=== PATIENT | male | born 1940 | race Caucasian/White ===

== ENCOUNTER → 2016-08-14 | Outpatient (CLI) | payer OTHER ==
[2016-08-14 11:05] LABS: CH 30.7; HCT 42.6 % (39.0-53.0); HDW 2.44; HGB 14.5 gm/dL (13.0-17.5); MCH 30.8 pg (25.0-35.0); MCV 90.5 fL (80.0-100.0); Mean Platelet Volume 7.2; RDW 13.3 % (11.5-15.5); WBC 7.7 k/uL (3.8-10.6)
[2016-08-14 11:14] LABS: ALT 34 U/L (21-72); AST 22 U/L (17-59); Alkaline Phosphatase 74 U/L (38-126); Anion Gap 12 mmol/L; Blood Urea Nitrogen 17 mg/dL (9-20); Calcium 9.3 mg/dL (8.4-10.2); Carbon Dioxide 27 mmol/L (22-30); Chloride 103 mmol/L (98-107); Glucose 108 mg/dL (74-99); Non-African American GFR(MDRD) >60 (>60 ml/min/1.73 sqM); Potassium 4.9 mmol/L (3.5-5.1); Sodium 142 mmol/L (137-145); Total Bilirubin 0.6 mg/dL (0.2-1.3); Total Protein 7.1 g/dL (6.3-8.2)
[2016-08-14 11:39] LABS: Partial Thromboplastin Time 23.6 sec (22.0-30.0); Prothrombin Time 10.2 sec (9.0-12.0)
[2016-08-14 12:17] LABS: Appearance,Urine Clear (Clear); Bilirubin,Urine Negative (Negative); Glucose,Urine (UA) Negative (Negative); Ketones,Urine Negative (Negative); Leukocyte Esterase,Urine Negative (Negative); Nitrite,Urine Negative (Negative); PH, Urine 5.5 (5.0-8.0); Protein,Urine Negative (Negative); Specific Gravity,Urine 1.013 (1.001-1.035); UA Billing (MACRO vs. MICRO) CHEM; Urobilinogen,Urine <2.0 mg/dL (<2.0)
== END | disposition home or self-care (01) ==
LOC: LABPAT 09:58
PROVIDERS: ATTEND Orthopaedic Surgery Sports Medicine
DX: Z01.812 Encounter for preprocedural laboratory examination (principal)
CPT/HCPCS: 80053; 81003; 85027; 85610; 85730; 87070

== ENCOUNTER 2016-08-16 09:14 | Inpatient (IN) | payer OTHER ==
[2016-08-13 15:01] VITALS: BMI 32.3
[~2016-08-16 09:14] MED LIST: ACETAMINOPHEN TAB 500 MG TAB PO ONE; DEXAMETHASONE SOD PHOSPHATE 10 MG/ML 1 ML VIAL IV ONE; HYDROmorphone 1 MG/ML 1 ML SYRINGE IVP PRN; LACTATED RINGERS 1,000 ML IV SCH; MELOXICAM 7.5 MG TAB PO ONE; MIDAZOLAM 2 MG/2 ML VIAL IV PRN; ONDANSETRON 4 MG/2 ML VIAL IVP ONE; TRANEXAMIC ACID 1,000 MG in SODIUM CHLORIDE 0.9% 100 ML IVPB ONE; ceFAZolin 2 GM in SODIUM CHLORIDE 0.9% 100 ML IVPB ONE
[2016-08-16] MEDS ORDERED: LIDOCAINE 1% 20 ML VIAL (10MG/ML) FOR IV START INTRADERMA ONE (09:52)
[2016-08-16 10:00] LABS: Glucose,Whole Blood 156 mg/dL (75-99)
[2016-08-16] MEDS ORDERED: ROPIVACAINE 246.25 MG, EPINEPHrine 0.5 MG, KETOROLAC 30 MG, cloNIDine HCL/PF 80 MCG, WA... MISCELLANE ONE ×5 (10:02)
[2016-08-16] MEDS ORDERED: PROPOFOL 10 MG/ML 20 ML VIAL IV ONE (11:05)
[2016-08-16] MEDS ORDERED: fentaNYL (PF) 50 MCG/ML 2 ML AMP ONE (11:05)
[2016-08-16] MEDS ORDERED: MIDAZOLAM 2 MG/2 ML VIAL ONE (11:05)
[2016-08-16] MEDS ORDERED: MORPHINE SULFATE (PF) 0.3 MG/0.3 ML SYR ONE (11:05)
[2016-08-16] MEDS ORDERED: TRANEXAMIC ACID 1,000 MG/10 ML VIAL ONE (11:05)
[2016-08-16] MEDS ORDERED: SODIUM CHLORIDE 0.9% 100 ML BAG ONE (11:05)
[2016-08-16] MEDS ORDERED: LACTATED RINGERS 1,000 ML IV ONE (11:30)
[2016-08-16] MEDS ORDERED: ceFAZolin 3,000 MG in SODIUM CHLORIDE 0.9% IRRIGATIO 3,000 ML IRRIGATION ONE (11:51)
[2016-08-16] MEDS ORDERED: ACETAMINOPHEN TAB 325 MG TAB PO PRN (13:11)
[2016-08-16] MEDS ORDERED: hydrOXYzine PAMOATE 25 MG CAP PO PRN (13:11)
[2016-08-16] MEDS ORDERED: NALOXONE 0.4 MG/ML 1 ML VIAL IV PRN ×2 (13:11→15:22)
[2016-08-16] MEDS ORDERED: traMADol 50 MG TAB PO PRN (13:11)
[2016-08-16] MEDS ORDERED: HYDROmorphone 1 MG/ML 1 ML SYRINGE IVP PRN ×3 (13:11)
[2016-08-16] MEDS ORDERED: DIAZEPAM 5 MG TAB PO PRN (13:11)
[2016-08-16] MEDS ORDERED: MAGNESIUM HYDROXIDE 2,400 MG/10 ML CUP PO PRN (13:11)
[2016-08-16] MEDS ORDERED: TEMAZEPAM 15 MG CAP PO PRN (13:11)
[2016-08-16] MEDS ORDERED: ONDANSETRON 4 MG/2 ML VIAL IVP PRN (13:11)
[2016-08-16] MEDS ORDERED: BISACODYL 10 MG SUPP RECTAL PRN (13:11)
[2016-08-16] MEDS ORDERED: NA PHOS,M-B/NA PHOS,DI-BA 133 ML ENEMA RECTAL PRN (13:11)
[2016-08-16] MEDS ORDERED: HYDROcodone/APAP 7.5-325MG 1 EACH TAB PO PRN ×2 (13:11)
[2016-08-16 13:40] LABS: Glucose,Whole Blood 179 mg/dL (75-99)
--- NOTE | 2016-08-16 13:46 | XR ---
EXAMINATION TYPE: XR knee limited RT DATE OF EXAM: 08/16/2016 1:43 PM COMPARISON: NONE TECHNIQUE: Two views submitted HISTORY: Post op FINDINGS: There is a prosthetic knee in near anatomic alignment. There is soft tissue edema and emphysema. Va scular calcifications noted. IMPRESSION: 1. Postoperative change. Appears in near-anatomic alignment
[2016-08-16] MEDS ORDERED: NALBUPHINE 10 MG/ML AMPUL IV PRN (15:22)
[2016-08-16] MEDS ORDERED: diphenhydrAMINE 50 MG/ML 1 ML VIAL IVP PRN (15:22)
[2016-08-16] MEDS ORDERED: MORPHINE SULFATE 4 MG/ML SYRINGE IVP PRN (15:22)
[2016-08-16] MEDS ORDERED: METOCLOPRAMIDE 5 MG/ML 2 ML VIAL IVP PRN (15:22)
[2016-08-16] MEDS: LACTATED RINGERS 1,000 ML IV SCH (16:26)
[2016-08-16 17:00] LABS: Glucose,Whole Blood 253 mg/dL (75-99)
[2016-08-16] MEDS ORDERED: INSULN ASP PRT/INSULIN ASPART 100 UNIT/ML 10 ML VIAL SQ SCH (18:15)
[2016-08-16] MEDS: INSULIN LISPRO (humaLOG) 300 UNIT/3 ML VIAL SQ SCH ×2 (18:24→21:27)
[2016-08-16] MEDS: METOPROLOL TARTRATE 50 MG TAB PO SCH (19:45)
[2016-08-16] MEDS: metFORMIN 500 MG TAB PO SCH (19:45)
[2016-08-16] MEDS: ceFAZolin 2 GM in SODIUM CHLORIDE 0.9% 100 ML IVPB SCH (20:30)
[2016-08-16] MEDS: ASPIRIN 325 MG TAB PO SCH (20:48)
[2016-08-16] MEDS ORDERED: SENNOSIDES-DOCUSATE SODIUM 1 EACH TAB PO SCH (21:00)
[2016-08-16 21:17] LABS: Glucose,Whole Blood 206 mg/dL (75-99)
--- NOTE | 2016-08-16 21:28 | OP ---
DATE OF SERVICE: 08/16/2016 SURGEON: SHIV MOJICA MD DISPATCH SPECIALIST: Dewey Lang PA-C. PREOPERATIVE DIAGNOSIS: Right knee osteoarthrosis. POSTOPERATIVE DIAGNOSIS: Right knee osteoarthrosis. OPERATION: Right total knee arthroplasty. ANESTHESIA: Spinal with sedation. ESTIMATED BLOOD LOSS: 100 mL. SPECIMENS REMOVED: COMPLICATIONS: OPERATIVE FINDINGS: TOURNIQUET TIME: 53 minutes at 250 mmHg. DRAINS: None. DISPOSITION: Postanesthesia care unit. INDICATIONS: Mario is a 75-year-old male with a long-standing history of right knee pain. History and physical examination are consistent with advanced right knee osteoarthrosis. He has been through significant nonoperative management up to this point. Further treatment options were discussed and he has decided go forward with right total knee arthroplasty. The risks of the procedure were discussed with him in detail. These risks include, but are not limited to risk of infection, nerve damage, bleeding, pain and a small risk of deep vein thrombosis, which could lead to fatal pulmonary embolism. There is also a risk of loosening of the implant, which could require revision operation. The patient understands these risks. All of his questions were answered to his satisfaction. An appropriate informed consent was obtained. DESCRIPTION OF PROCEDURE: The patient was identified in the preoperative holding area. Surgical site was marked by both the patient and myself. He was given 2 g of Ancef IV for prophylactic purposes. He was then transferred to the operative suite, where he was placed supine on the operating room table. A spinal anesthetic was then administered and dosed per the anesthesia department without apparent complication. Examination under anesthesia was then performed. Patient was 2 to 3 degrees shy of full extension. He had 100 degrees of flexion and medial collateral ligament, lateral collateral ligament and posterior cruciate ligament were stable. Tourniquet was then placed high on the right upper thigh, well padded in preparation for surgery. Patient's right lower extremity was then prepped and draped in the usual sterile fashion. Standard surgical pause was then undertaken to ensure that we were operating on the correct site and that appropriate preoperative antibiotics had been given. All staff in the room was in agreement and we proceeded. The outlines of the patella were then marked with a surgical pen. A planned 12 cm vertical incision centered over the patella was marked with a surgical pen. The leg was then exsanguinated with an Esmarch dressing. The knee was then flexed and the tourniquet was inflated to 250 mmHg. The total tourniquet time for the procedure was 53 minutes. Incision was then made with 10 blade scalpel. Dissection was carried down sharply to the overlying fascia. Great care was taken to minimize the skin flaps. The knee was then exposed using standard medial parapatellar approach. A small cuff of quadriceps tendon was left for suturing. He was in a bit of varus preoperatively. A standard medial release was then made. Superficial medial collateral ligament was dissected off the bone around to the posterior aspect of the proximal tibia. The medial meniscus was then excised as well. The lateral meniscus was also released anteriorly. The leg was then externally rotated. The patella was then everted and the knee was flexed. The retractors were then placed to protect the collateral ligaments. I then proceeded to remove the infrapatellar fat pad. This was excised sharply tangentially with the fibers of the patellar tendon. I then proceeded to remove the peripheral osteophytes. This was done with a rongeur. I then proceeded with the distal femoral resection. He did have near full extension. A planned 9 mm resection was then done. The femoral canal was then entered in midline to the femur approximately 10 mm anterior to the origin of the posterior cruciate ligament. The mauricio was then advanced down the center of the femur and placed intramedullary. Based on preoperative radiographs, the angle between the anatomic and mechanical axis of the femur was approximately 4 to 5 degrees. The valgus angle of the distal femoral cutting guide was then set at 4 degrees for the right knee. The distal femoral cutting guide was then advanced over the intramedullary amuricio. This was seated firmly against the femur. I then, as mentioned, planned to take 9 mm off of the distal femur. The cutting block was then secured onto the femur with pins. The jig was then removed and the distal femoral cut was made through the slot of the block. The pins were then removed and the distal femoral cutting block was removed. The accuracy of the distal femoral cuts was checked with 2 flat bars. I then proceeded with femoral sizing. The posterior referencing sizing guide was held firmly against the resected distal surface of the femur. Posterior condyles were resting on the posterior plane of the guide. The sizing stylus was then placed onto the anterior femur. The size was measured as a size 10. I then assessed for femoral rotation. The plan was for 3 degrees of external rotation. Three degrees of external rotation was placed onto the jig. These holes were then marked. I then confirmed the rotation by 3 separate methods. This was done using the epicondylar axis as well as Whitesides line and posterior referencing. It was deemed that the external rotation was proper. I then went forward with placing the femoral cutting block. This was placed over the previously placed pinholes. The alok wing was then placed onto the anterior slots to ensure that we would not notch the anterior femur with the anterior femoral cut. I then proceeded with the anterior femoral cut. This was flush with the anterior cortex of the femur. Posterior cuts were then made followed by the anterior chamfer cut and then the posterior chamfer cut. The cutting block was then removed. Throughout the resection, the collateral ligaments were protected with retractors. I then placed a trial size 10 femur. It was slightly wide medial to lateral and fit flush with the distal end of the femur. I decided to go forward with a 10 narrow. The drill holes were then made. I then proceeded with the tibial cut. I planned for a cruciate-retaining knee. A guide was then placed and set for varus, valgus and for slope. The height was set for an approximately 2 mm resection from the medial tibial plateau, which was the lower side. I was happy with the alignment and the amount of resection. The cutting block was then pinned to the proximal tibia. The alignment mauricio was removed and the proximal tibia was resected with the reciprocating saw. Again this was done with retractors, protecting the collateral ligaments as well as the posterior cruciate ligament. I then proceeded to evaluate the flexion and extension gaps. A 10 mm block was then placed. The flexion and extension gaps were equal. I then proceeded with resection of the posterior osteophytes. He had very minimal posterior osteophytes. This was done using a curved osteotome. This resected the posterior osteophytes and posterior capsule stripping was also done off the posterior aspect of the femur at this time. The osteophytes were then removed. I then proceeded with resection of the patella. Thickness of the patella was measured using the caliper. The thickness was 22 mm. The thickness of the anticipated patellar dome was taken into account. Resection was then performed and confirmed to be equal in 4 quadrants using a caliper. Approximately 14 mm of bone remained after the resection. A 32 x 8.5 mm standard patellar trial was then placed. The holes were then drilled and trial was then placed. I then proceeded with sizing of the tibial plate. A size E tibial plate fit very nicely. I then placed a trial femur, the tibial tray and the patellar button. A 10 mm trial tibial insert was also placed. The components fit very nicely. He had full extension and flexion. Extension and flexion gaps were equal and stable to both varus and valgus stress. The patella tracked appropriately. The tibial tray rotation was then marked with a Bovie. This was externally rotated properly. I then proceeded with tibial preparation. I first drilled the femoral holes and removed the femoral component. The tibial tray was then set for proper external rotation as well as mediolateral placement onto the tibia. It was then pinned into place. I then proceeded with punching the keel. I then decided to proceed with cementing of all of our components. The knee was thoroughly irrigated with sterile saline solution via pulse lavage. The lateral geniculate artery was identified and cauterized. All blood was removed from the bone of the tibia, femur and patella with pulse lavage. I then proceeded with cementing. Two packs of antibiotic bone cement were prepared on the back table by a gear technician. I then proceeded with cementing of the tibia first. The cement was impacted into the keel as well as deeply seated into bone. A second coat of cement was then placed. The tibia was then impacted into place. Excess cement was removed with Cushings and jokers. I then proceeded with cementing the femoral component. The femoral component was also cemented using standard technique. Excess cement was removed. A 10 mm trial insert was then placed into the knee. It was brought in full extension with a constant axial load placed until the cement had hardened. The patellar component was then cemented. This was held firmly with a compressive device until the cement had dried. When the cement had dried, the knee was taken out of extension. All excess cement was removed from around the prosthesis. I then trialed the knee with a 10-mm insert. Flexion-extension gaps were appropriate. I then trialed with an 11 mm insert. Flexion-extension gaps felt a little better. The knee was stable. It came into full extension. I decided to go forward with an 11 mm cross-linked cruciate-retaining tibial insert. Polyethylene was then placed onto the tibial tray and locked into place. The knee was then reduced. The knee was again further irrigated with sterile saline solution with antibiotic added. The tourniquet was then deflated. The total tourniquet time for the procedure was 53 minutes at 250 mmHg. Final components were a Lona Persona size 10 narrow cruciate-retaining femoral component, a size E tibial tray, an 11 mm cruciate retaining polyethylene insert and a 32 x 8.5 mm patella. I then proceeded with closure. Again, the knee was thoroughly irrigated. The quadriceps tendon and the medial retinaculum were re-approximated with #2 Ethibond suture. The extensor mechanism was then closed with running #2 Quill suture. Subcutaneous tissues were then closed with 2-0 Vicryl interrupted suture. Skin was closed with a running 3-0 Quill suture. Dermabond was applied to the incision. Sterile compressive dressings were then applied. All sponge and needle counts were deemed correct prior to closure. The patient tolerated the procedure without apparent complication. He was transferred to recovery room in stable condition.
[2016-08-17] MEDS: ceFAZolin 2 GM in SODIUM CHLORIDE 0.9% 100 ML IVPB SCH (04:06)
[2016-08-17] MEDS: LACTATED RINGERS 1,000 ML IV SCH ×2 (04:07→13:37)
[2016-08-17 07:05] LABS: Glucose,Whole Blood 121 mg/dL (75-99)
[2016-08-17 07:42] LABS: Basophils % (A) 0 %; CH 30.3; CHCM 33.1; Eosinophils % (A) 0 %; HDW 2.31; Luc # (Auto) 0.17; Luc % (Auto) 1; Lymphocytes # (A) 1.1 k/uL (1.0-4.8); Lymphocytes % (A) 7 %; MCH 30.9 pg (25.0-35.0); MCHC 33.5 g/dL (31.0-37.0); MCV 92.1 fL (80.0-100.0); Mean Platelet Volume 7.3; Monocytes # (A) 0.9 k/uL (0-1.0); Monocytes % (A) 6 %; Neutrophils # (A) 12.3 k/uL (1.3-7.7); Neutrophils % (A) 85 %; RBC 3.69 m/uL (4.30-5.90); RDW 13.5 % (11.5-15.5); WBC 14.5 k/uL (3.8-10.6); WBC (Perox) 13.66
[2016-08-17] MEDS: ASPIRIN 325 MG TAB PO SCH (07:44)
[2016-08-17] MEDS: METOPROLOL TARTRATE 50 MG TAB PO SCH (07:44)
[2016-08-17] MEDS: metFORMIN 500 MG TAB PO SCH (07:44)
[2016-08-17 07:50] LABS: HGB 11.4 gm/dL (13.0-17.5)
[2016-08-17 08:45] LABS: Hemoglobin A1C 7.1 % (4.2-6.1)
[2016-08-17] MEDS ORDERED: ATORVASTATIN 80 MG TAB PO SCH (09:00)
[2016-08-17] MEDS ORDERED: INSULN ASP PRT/INSULIN ASPART 100 UNIT/ML 10 ML VIAL SQ SCH (09:00)
[2016-08-17] MEDS: INSULIN LISPRO (humaLOG) 300 UNIT/3 ML VIAL SQ SCH ×2 (09:44→13:37)
--- NOTE | 2016-08-17 10:55 | P.PN ---
Progress Note - Text Date:08/17 Time:720 Patient is status post tkr. Patient seen this morning with VAS score of 0.no c/ o mild pruritus, no c/o nausea/vomiting, comfortable and doing well.
[2016-08-17 11:44] LABS: Glucose,Whole Blood 94 mg/dL (75-99)
[2016-08-17] MEDS ORDERED: MULTIVITAMINS, THERA 1 EACH TAB PO SCH (12:00)
[2016-08-17 14:21] VITALS: BP 139/75; PULSE 83; RESP 16; TEMP 97.6
--- NOTE | 2016-08-17 14:37 | P.DS ---
Providers Date of admission: 08/16/16 09:14 Expected date of discharge: 08/17/16 Attending physician: Grey Gallagher Consults: 08/16/16 13:11 Consult Physician Routine Consulting Provider: Rebecca Hull Consult Reason/Comments: post op medical management Do you want consulting provider notified?: Yes Primary care physician: Tessa Page - Discharge Diagnosis(es) (1) S/P total knee arthroplasty Patient is 75-year-old male that was admitted to the OR on 08/16/2016 to undergo right total knee arthroplasty. He had failed conservative measures as an outpatient and desired to proceed with surgical intervention after informed consent. He underwent the above procedure which he tolerated well without complication. His postoperative hospital course has remained without complication. On day of discharge, he is afebrile, vital signs stable, labs within acceptable ranges, wound is benign, neurovascular status is intact, calf is soft nontender, abdomen soft nontender. Dyllan denies new complaints. His pain is under control, tolerating by mouth meds and diet, voiding without difficulty, positive flatus. Review of systems is negative for fever, chills, chest pain, shortness breath, nausea, vomiting, dizziness, headaches, rashes, bleeding, unsteady gait, headaches, slurred speech, calf pain, abdominal pain, numbness, tingling or other. Current Visit: Yes Status: Acute Procedures: Right total knee arthroplasty Patient Condition at Discharge: Good Plan - Discharge Summary New Discharge Prescriptions: Aspirin 325 mg PO BID #60 tab HYDROcodone/APAP 7.5-325MG [[place] 7.5-325] 1 - 2 each PO Q6HR PRN #90 tab PRN Reason: Pain Discharge Medication List Aspirin [Adult Low Dose Aspirin EC] 81 mg PO DAILY 08/13/16 [History] Atorvastatin [Lipitor] 80 mg PO QAM 08/13/16 [History] Insuln Asp Prt/Insulin Aspart [NovoLOG MIX 70-30 VIAL] 30 unit SQ QAM 08/13/16 [ History] Insuln Asp Prt/Insulin Aspart [NovoLOG MIX 70-30 VIAL] 40 unit SQ AC-SUPPER [History] Lisinopril [Zestril] 20 mg PO W/SUPPER 08/13/16 [History] Metoprolol Tartrate [Lopressor] 100 mg PO BID 08/13/16 [History] metFORMIN HCL 1,000 mg PO BID 08/13/16 [History] Aspirin 325 mg PO BID #60 tab 08/17/16 [Rx] HYDROcodone/APAP 7.5-325MG [[place] 7.5-325] 1 - 2 each PO Q6HR PRN #90 tab [Rx] Follow up Appointment(s)/Referral(s): Grey Gallagher MD [STAFF PHYSICIAN] - 08/29/16 10:00 am Patient Instructions/Handouts: Knee Replacement (DC) Activity/Diet/Wound Care/Special Instructions: Weight-bear as tolerated Keep wound clean and dry Follow-up with Dr. Gallagher in office, [phone] May shower in 72 hours Take meds as directed Discharge Disposition: HOME WITH HOME HEALTH SERVICES
[2016-08-17] MEDS ORDERED: LISINOPRIL 20 MG TAB PO SCH (17:30)
--- NOTE | 2016-08-18 08:47 | CONS ---
DATE OF CONSULTATION: REASON FOR CONSULTATION: Recommendations regarding discharge antihypertensive medications and diabetic medications. The patient is admitted for right knee arthroplasty. Postoperatively, patient passed gas and patient is clinically doing well. Patient denied any fever, chills. Patient does not have any signs or symptoms of ( ) at this point of time, although does have leukocytosis secondary to reactive response from surgery. Patient's blood pressure remains stable at this point of time. Patient takes lisinopril mostly as protective agent. REVIEW OF SYSTEMS: CONSTITUTIONAL: No fever, no malaise, no fatigue. HEENT: No recent visual problems or hearing problems. Denied any sore throat. CARDIOVASCULAR: No chest pain, orthopnea, PND, no palpitations, no syncope. PULMONARY: No shortness of breath, no cough, no hemoptysis. GASTROINTESTINAL: No diarrhea, no nausea, no vomiting, no abdominal pain. Normoactive bowel sounds. NEUROLOGICAL: No headaches, no weakness, no numbness. HEMATOLOGICAL: Denies any bleeding or petechiae. GENITOURINARY: Denies any burning micturition, frequency, or urgency. MUSCULOSKELETAL/RHEUMATOLOGICAL: Deferred to Orthopedic Surgery. ENDOCRINE: Denies any polyuria or polydipsia. The rest of the 14 point review of systems is negative. HOME MEDICATIONS: Aspirin, atorvastatin, hydrocodone acetaminophen, NovoLog 70/30 30 units in the morning and 40 units at supper. Lisinopril 20 mg, metoprolol 100 p.o. b.i.d., metformin 1000 mg p.o. b.i.d. Patient's hemoglobin A1c is 7.1, PAST MEDICAL HISTORY: Significant for diabetes mellitus, hyperlipidemia, hypertension, osteoarthritis, peripheral vascular disease, appendectomy, tonsillectomy. SOCIAL HISTORY: Former smoker. Quit smoking years ago, 40 to 50 years ago. Denied any alcohol abuse or any drug abuse. FAMILY HISTORY: Significant for cancer. PHYSICAL EXAMINATION: VITAL SIGNS: Temperature 97.6, pulse of 33, respiratory rate of 16, blood pressure 139/75, saturating at 95% on room air. GENERAL: The patient is alert and oriented x3, not in any acute distress. Well developed, well nourished. HEENT: Pupils are round and equally reacting to light. EOMI. No scleral icterus. No conjunctival pallor. Normocephalic, atraumatic. No pharyngeal erythema. No thyromegaly. CARDIOVASCULAR: S1 and S2 present. No murmurs, rubs, or gallops. PULMONARY: Chest is clear to auscultation, no wheezing or crackles. ABDOMEN: Soft, nontender, nondistended, normoactive bowel sounds. No palpable organomegaly. MUSCULOSKELETAL: Defer to Orthopedic Surgery. EXTREMITIES: No cyanosis, clubbing, or pedal edema. NEUROLOGICAL: Gross neurological examination did not reveal any focal deficits. SKIN: No rashes. LABORATORY DATA: Significant for WBC 14,900. ASSESSMENT AND PLAN: 1. Leukocytosis without any significant source of infection. Reactive response related to surgery and no further intervention needed at this point of time. 2. Diabetes mellitus. Hemoglobin A1c is 7.1 close to target. No significant medication changes necessary at this point of time as patient's blood sugars are doing well. 3. Hypertension. Patient can continue his home medications of metoprolol and lisinopril at this point of time. 4. Obesity. Counseling was provided. 5. Osteoarthritis. 6. Hyperlipidemia. PLAN: From medical perspective no further intervention is necessary at this point of time. Patient okay to be discharged from my perspective. Patient will need to follow with his primary care physician in about a week post discharge. Activity as tolerated. Cardiac and diabetic 1800 calorie diet. Thank you for letting me participate in this patient's care.
== END 2016-08-17 15:50 | disposition home health service (06) | DRG 470 ==
LOC: 2ORMAIN 09:14 → 3SUR 14:08
PROVIDERS: ADMIT Orthopaedic Surgery Sports Medicine; ATTEND Orthopaedic Surgery Sports Medicine
PROC: 0SRC0J9 Replacement of Right Knee Joint with Synthetic Substitute, Cemented, Open Approach (ICD-10-PCS; principal; 2016-08-16 11:00)
DX: M17.11 Unilateral primary osteoarthritis, right knee (principal); E10.51 Type 1 diabetes mellitus with diabetic peripheral angiopathy without gangrene; E66.9 Obesity, unspecified; E78.5 Hyperlipidemia, unspecified; I10 Essential (primary) hypertension; Z79.84 Long term (current) use of oral hypoglycemic drugs; Z79.899 Other long term (current) drug therapy; Z87.891 Personal history of nicotine dependence; Z88.8 Allergy status to other drugs, medicaments and biological substances; Z68.32 Body mass index [BMI] 32.0-32.9, adult
CPT/HCPCS: 83036; 85025; 88300; 94760

== ENCOUNTER → 2017-11-22 | Outpatient (CLI) | payer OTHER | END | disposition home or self-care (01) | LOC: LABYALE 18:02 → EDSTATUS 18:07 | PROVIDERS: ATTEND Physician Assistant Medical | DX: E87.5 Hyperkalemia (principal) | CPT/HCPCS: 84132 ==

== ENCOUNTER 2018-05-31 19:42 | Emergency (ER) | payer MEDICARE, OTHER ==
--- NOTE | 2018-05-31 20:58 | ED ---
General Adult HPI - General Chief complaint: Urogenital Stated complaint: Male Time Seen by Provider: 05/31/18 20:09 Source: patient, family, RN notes reviewed Mode of arrival: ambulatory Limitations: no limitations - History of Present Illness Initial comments: This a 77-year-old male with a benign history for GI problems who presents tonight with complaints of rectal bleeding is started earlier today. He states was bright red blood he denies any abdominal pain he states he did have a large quantity blood however. He does say he's had a colonoscopy about 10 years ago and has had several Hemoccult testing which were all negative he [facility] also [facility] and found to be in good [facility]. He denies any lightheadedness dizziness fevers chills nausea vomiting sweats or other symptoms. - Related Data Home Medications Medication Instructions Recorded Confirmed Atorvastatin [Lipitor] 80 mg PO QAM 08/13/16 05/31/18 Insuln Asp Prt/Insulin Aspart 30 unit SQ QAM 08/13/16 05/31/18 [NovoLOG MIX 70-30 VIAL] Insuln Asp Prt/Insulin Aspart 40 unit SQ AC-SUPPER 08/13/16 05/31/18 [NovoLOG MIX 70-30 VIAL] Lisinopril [Zestril] 20 mg PO W/SUPPER 08/13/16 05/31/18 Metoprolol Tartrate [Lopressor] 100 mg PO DAILY 08/13/16 05/31/18 metFORMIN HCL 1,000 mg PO BID 08/13/16 05/31/18 Previous Rx's Medication Instructions Recorded Aspirin 325 mg PO BID #60 tab 08/17/16 Pantoprazole Sodium [Protonix] 20 mg PO DAILY #14 tablet. 05/31/18 Allergies Allergy/AdvReac Type Severity Reaction Status Date / Time No Known Allergies Allergy Verified 05/31/18 21:38 Review of Systems ROS Statement: Those systems with pertinent positive or pertinent negative responses have been documented in the HPI. ROS Other: All systems not noted in ROS Statement are negative. Past Medical History Past Medical History: Diabetes Mellitus, Hyperlipidemia, Hypertension, Osteoarthritis (OA), Pneumonia, Vascular Disorder Additional Past Medical History / Comment(s): hiatal hernia, poor circulation in legs(left worse) History of Any Multi-Drug Resistant Organisms: None Reported Past Surgical History: Appendectomy, Tonsillectomy Additional Past Surgical History / Comment(s): pilonidal cyst, rt leg surgery for blockage, laser eye surgery, cortisone injections rt knee Past Anesthesia/Blood Transfusion Reactions: No Reported Reaction Past Psychological History: No Psychological Hx Reported Smoking Status: Former smoker Past Alcohol Use History: None Reported Past Drug Use History: None Reported - Past Family History Father Family Medical History: Cancer General Exam - General Exam Comments Initial Comments: This is a well-developed well-nourished awake alert oriented times 3 male Limitations: no limitations General appearance: alert, in no apparent distress Head exam: Present: atraumatic, normocephalic, normal inspection Eye exam: Present: normal appearance, PERRL, EOMI. Absent: scleral icterus, conjunctival injection, periorbital swelling ENT exam: Present: normal exam, mucous membranes moist Neck exam: Present: normal inspection. Absent: tenderness, meningismus, lymphadenopathy Respiratory exam: Present: normal lung sounds bilaterally. Absent: respiratory distress, wheezes, rales, rhonchi, stridor Cardiovascular Exam: Present: regular rate, normal rhythm, normal heart sounds. Absent: systolic murmur, diastolic murmur, rubs, gallop, clicks GI/Abdominal exam: Present: soft, normal bowel sounds. Absent: distended, tenderness, guarding, rebound, rigid Extremities exam: Present: normal inspection, full ROM, normal capillary refill. Absent: tenderness, pedal edema, joint swelling, calf tenderness Back exam: Present: normal inspection Neurological exam: Present: alert, oriented X3, CN II-XII intact Psychiatric exam: Present: normal affect, normal mood Skin exam: Present: warm, dry, intact, normal color. Absent: rash Course Vital Signs 05/31/18 05/31/18 20:01 21:31 Temperature 98.6 F Pulse Rate 95 64 Respiratory 20 18 Rate Blood Pressure 140/76 125/80 O2 Sat by Pulse 96 95 Oximetry Medical Decision Making - Medical Decision Making I did a long discussion with the patient regarding the findings as well as present. Visual be discharged with referral to GI. He is hemodynamically stable has no symptoms. His hemoglobin is within normal limits. - Lab Data Result diagrams: 05/31/18 21:30 05/31/18 21:30 Lab Results 05/31/18 05/31/18 05/31/18 Range/Units 21:30 21:30 21:30 WBC 9.2 (3.8-10.6) k/uL RBC 4.48 (4.30-5.90) m/uL Hgb 13.5 (13.0-17.5) gm/dL Hct 41.7 (39.0-53.0) % MCV 93.1 (80.0-100.0) fL MCH 30.2 (25.0-35.0) pg MCHC 32.5 (31.0-37.0) g/dL RDW 13.7 (11.5-15.5) % Plt Count 218 (150-450) k/uL Neutrophils % 67 % Lymphocytes % 22 % Monocytes % 5 % Eosinophils % 4 % Basophils % 1 % Neutrophils # 6.2 (1.3-7.7) k/uL Lymphocytes # 2.0 (1.0-4.8) k/uL Monocytes # 0.5 (0-1.0) k/uL Eosinophils # 0.4 (0-0.7) k/uL Basophils # 0.1 (0-0.2) k/uL PT 9.8 (9.0-12.0) sec INR 0.9 (<1.2) APTT 19.1 L (22.0-30.0) sec Sodium 138 (137-145) mmol/L Potassium 5.4 H (3.5-5.1) mmol/L Chloride 107 (98-107) mmol/L Carbon Dioxide 20 L (22-30) mmol/L Anion Gap 11 mmol/L BUN 26 H (9-20) mg/dL Creatinine 1.02 (0.66-1.25) mg/dL Est GFR (CKD-EPI)AfAm 82 (>60 ml/min/1.73 sqM) Est GFR (CKD-EPI)NonAf 71 (>60 ml/min/1.73 sqM) Glucose 203 H (74-99) mg/dL Calcium 9.2 (8.4-10.2) mg/dL Total Bilirubin 0.3 (0.2-1.3) mg/dL AST 20 (17-59) U/L ALT 33 (21-72) U/L Alkaline Phosphatase 78 (38-126) U/L Total Protein 7.0 (6.3-8.2) g/dL Albumin 4.2 (3.5-5.0) g/dL Stool Occult Blood (Negative) 05/31/18 Range/Units 21:30 WBC (3.8-10.6) k/uL RBC (4.30-5.90) m/uL Hgb (13.0-17.5) gm/dL Hct (39.0-53.0) % MCV (80.0-100.0) fL MCH (25.0-35.0) pg MCHC (31.0-37.0) g/dL RDW (11.5-15.5) % Plt Count (150-450) k/uL Neutrophils % % Lymphocytes % % Monocytes % % Eosinophils % % Basophils % % Neutrophils # (1.3-7.7) k/uL Lymphocytes # (1.0-4.8) k/uL Monocytes # (0-1.0) k/uL Eosinophils # (0-0.7) k/uL Basophils # (0-0.2) k/uL PT (9.0-12.0) sec INR (<1.2) APTT (22.0-30.0) sec Sodium (137-145) mmol/L Potassium (3.5-5.1) mmol/L Chloride (98-107) mmol/L Carbon Dioxide (22-30) mmol/L Anion Gap mmol/L BUN (9-20) mg/dL Creatinine (0.66-1.25) mg/dL Est GFR (CKD-EPI)AfAm (>60 ml/min/1.73 sqM) Est GFR (CKD-EPI)NonAf (>60 ml/min/1.73 sqM) Glucose (74-99) mg/dL Calcium (8.4-10.2) mg/dL Total Bilirubin (0.2-1.3) mg/dL AST (17-59) U/L ALT (21-72) U/L Alkaline Phosphatase (38-126) U/L Total Protein (6.3-8.2) g/dL Albumin (3.5-5.0) g/dL Stool Occult Blood Positive (Negative) - Radiology Data Radiology results: report reviewed (I did review the imaging and report no acute findings.), image reviewed Disposition Clinical Impression: GI bleed, Heme positive stool Disposition: HOME SELF-CARE Condition: Good Instructions (If sedation given, give patient instructions): Gastrointestinal Bleeding (ED), Rectal Bleeding (ED) Prescriptions: Pantoprazole Sodium [Protonix] 20 mg PO DAILY #14 tablet.dr Is patient prescribed a controlled substance at d/c from ED?: No Referrals: [facility],Clinic [Primary Care Provider] - 1-2 days Mau Hernandez MD [STAFF PHYSICIAN] - 1-2 days
[2018-05-31 21:34] VITALS: RESP 18
[2018-05-31 21:46] LABS: Basophils # (A) 0.1 k/uL (0-0.2); Basophils % (A) 1 %; Eosinophils # (A) 0.4 k/uL (0-0.7); Eosinophils % (A) 4 %; HCT 41.7 % (39.0-53.0); HGB 13.5 gm/dL (13.0-17.5); Lymphocytes % (A) 22 %; MCH 30.2 pg (25.0-35.0); MCHC 32.5 g/dL (31.0-37.0); MCV 93.1 fL (80.0-100.0); Mean Platelet Volume 7.3; Monocytes # (A) 0.5 k/uL (0-1.0); Monocytes % (A) 5 %; Neutrophils # (A) 6.2 k/uL (1.3-7.7); Neutrophils % (A) 67 %; Platelet Count 218 k/uL (150-450); RBC 4.48 m/uL (4.30-5.90); RDW 13.7 % (11.5-15.5); WBC 9.2 k/uL (3.8-10.6)
--- NOTE | 2018-05-31 21:56 | XR ---
EXAMINATION TYPE: XR KUB DATE OF EXAM: 05/31/2018 COMPARISON: NONE HISTORY: Abdominal pain TECHNIQUE: 2 views upright FINDINGS: There is no sign of intestinal obstruction or pneumoperitoneum. Fecal pattern is normal. Audrey ng bases are clear. There are no pathologic calcifications. There are surgical clips on the left side along the left femoral artery. IMPRESSION: Nonacute abdomen.
[2018-05-31 22:08] LABS: Albumin 4.2 g/dL (3.5-5.0); Calcium 9.2 mg/dL (8.4-10.2); Potassium 5.4 mmol/L (3.5-5.1); Total Bilirubin 0.3 mg/dL (0.2-1.3)
[2018-05-31 22:09] LABS: INR 0.9 (<1.2); Prothrombin Time 9.8 sec (9.0-12.0)
[2018-05-31 22:12] LABS: Partial Thromboplastin Time 19.1 sec (22.0-30.0)
[2018-05-31 22:45] VITALS: BP 126/81; PULSE 85; TEMP 98.2
== END 2018-05-31 22:43 | disposition home or self-care (01) ==
LOC: EC 19:42
DX: K92.2 Gastrointestinal hemorrhage, unspecified (principal); R19.5 Other fecal abnormalities; E11.9 Type 2 diabetes mellitus without complications; E78.5 Hyperlipidemia, unspecified; I10 Essential (primary) hypertension; Z79.4 Long term (current) use of insulin; Z79.899 Other long term (current) drug therapy; Z87.891 Personal history of nicotine dependence
CPT/HCPCS: 36415; 74018; 80053; 82272; 85025; 85610; 85730; 86850; 86900; 86901; 99283

== ENCOUNTER → 2018-08-18 | Day surgery (SDC) | payer MEDICARE, OTHER ==
[2018-08-14 08:31] VITALS: BMI 32.3
[~2018-08-18] MED LIST changes: -ACETAMINOPHEN TAB 500 MG TAB PO ONE; -DEXAMETHASONE SOD PHOSPHATE 10 MG/ML 1 ML VIAL IV ONE; -HYDROmorphone 1 MG/ML 1 ML SYRINGE IVP PRN; +LIDOCAINE 1% 20 ML VIAL (10MG/ML) FOR IV START INTRADERMA ONE; -MELOXICAM 7.5 MG TAB PO ONE; -MIDAZOLAM 2 MG/2 ML VIAL IV PRN; -ONDANSETRON 4 MG/2 ML VIAL IVP ONE; +PROPOFOL 10 MG/ML 20 ML VIAL IV ONE; -TRANEXAMIC ACID 1,000 MG in SODIUM CHLORIDE 0.9% 100 ML IVPB ONE; -ceFAZolin 2 GM in SODIUM CHLORIDE 0.9% 100 ML IVPB ONE
[2018-08-18 08:06] LABS: Glucose,Whole Blood 143 mg/dL (75-99)
--- NOTE | 2018-08-18 09:44 | P.PCN ---
Date of Procedure: 08/18/18 Description of Procedure: BRIEF HISTORY: 77-year-old male who was seen in the hospital with complaints of abdominal pain and followed up in the gastroenterology clinic. He reports a colonoscopy 10 years ago with polypectomy. He has been undergoing some screening with colon guard. He denies any abdominal pain accompanied with the bleeding. He reports a family history of colon cancer in his father. PROCEDURE PERFORMED: Colonoscopy with biopsy, cold snare polypectomy and tattoo. PREOPERATIVE DIAGNOSIS: Rectal bleeding, history of colon polyps with last colonoscopy 10 years ago, family history of colon cancer. ESTIMATED BLOOD LOSS: Minimal. IV sedation per Anesthesia. PROCEDURE: After informed consent was obtained, the patient, was brought into the endoscopy unit. IV sedation was administered by Anesthesia under continuous monitoring. Digital rectal examination was normal. Initially the Olympus CF-190 flexible video colonoscope was then inserted in the rectum, gradually advanced into the cecum without any difficulty. The terminal ileum was intubated and biopsies were taken. Careful examination was performed as the scope was gradually being withdrawn. Ileocecal valve was significant for an flat mass encompassing approximately 20% of the lumen just proximal to the ileocecal valve with biopsies of the cecal mass and tattoo placement just distal to the cecal mass performed, and the appendiceal orifice were visualized and appeared normal. Prep was excellent. Mucosa of the cecum, ascending colon, transverse colon, descending colon, sigmoid colon, and rectum appeared otherwise normal. A pedunculated 9 mm cecal polyp was removed with cold snare polypectomy. Retroflexion was performed in the rectum and no lesions were seen. The patient tolerated the procedure well. IMPRESSION: 1. Cecal mass measuring approximately 3 cm with biopsies taken and tattoo proximal to the mass performed. 2. Cecal polyp removed with cold snare. 3. Terminal ileum biopsies. 4. Mild internal hemorrhoids. RECOMMENDATIONS: Findings of this examination were discussed with the patient and his friend. Okay to resume diet. Patient will likely need referral to oncology or surgical service pending pathology from biopsies. Repeat colonoscopy based on findings f rom pathology.
[2018-08-18 09:47] LABS: Glucose,Whole Blood 132 mg/dL (75-99)
[2018-08-18 09:52] VITALS: BP 127/72; PULSE 63; RESP 17
== END | disposition home or self-care (01) ==
LOC: ORWHC2ENDO 07:27
PROVIDERS: ATTEND Internal Medicine
DX: C18.0 Malignant neoplasm of cecum (principal); Z80.0 Family history of malignant neoplasm of digestive organs; Z86.010 Personal history of colon polyps; K64.8 Other hemorrhoids; I10 Essential (primary) hypertension; E78.5 Hyperlipidemia, unspecified; E11.9 Type 2 diabetes mellitus without complications; Z79.4 Long term (current) use of insulin; Z79.899 Other long term (current) drug therapy
CPT/HCPCS: 88305; 45380; 45385; J2704; 44404

== ENCOUNTER 2018-10-12 19:23 | Observation (INO) | payer OTHER, MEDICARE ==
[2018-10-12] MEDS ORDERED: SODIUM CHLORIDE 0.9% 1,000 ML IV STA (20:03)
[2018-10-12 20:04] LABS: Basophils % (A) 0 %; Eosinophils # (A) 0.1 k/uL (0-0.7); Eosinophils % (A) 1 %; HCT 31.5 % (39.0-53.0); Lymphocytes # (A) 1.6 k/uL (1.0-4.8); Lymphocytes % (A) 13 %; MCH 29.1 pg (25.0-35.0); MCHC 31.9 g/dL (31.0-37.0); MCV 91.2 fL (80.0-100.0); Monocytes # (A) 0.6 k/uL (0-1.0); Monocytes % (A) 5 %; Neutrophils # (A) 10.1 k/uL (1.3-7.7); Neutrophils % (A) 80 %; Platelet Count 488 k/uL (150-450); RBC 3.45 m/uL (4.30-5.90); RDW 13.8 % (11.5-15.5); WBC 12.7 k/uL (3.8-10.6)
--- NOTE | 2018-10-12 20:06 | ED ---
General Adult HPI - General Chief complaint: Weakness Stated complaint: Weakness Rt arm numbness Time Seen by Provider: 10/12/18 19:34 Source: patient Mode of arrival: EMS Limitations: no limitations - History of Present Illness Initial comments: Dictation was produced using [employer] dictation software. please excuse any grammatical, word or spelling errors. Chief Complaint: 77-year-old male presents with weakness. History of Present Illness: 77-year-old male he is 1 week out from intestinal surgery. Patient reports that several weeks ago he was in the operating room for a bowel surgery. Patient was found to have colon cancer. He had a resection was performed with anastomoses. He was discharged. After several da ys he had episode of syncope. He was found to have a perforation. Ostomy procedure was performed. Patient is accompanied by family member. They do not know exactly the details of the procedure. They do report that the surgery was performed at [facility]. Patient has been feeling generally weak over the last 3-4 days. He has been having high volume of fluid output from his ostomy. He has been on Imodium to try to reduce the amount of fluid loss. Patient has been feeling weak and having difficulty standing up and performing his activities of daily living. The ROS documented in this emergency department record has been reviewed and confirmed by me. Those systems with pertinent positive or negative responses have been documented in the HPI. All other systems are other negative and/or noncontributory. PHYSICAL EXAM: General Impression: Alert and oriented x3, not in acute distress HEENT: Normocephalic atraumatic, extra-ocular movements intact, pupils equal and reactive to light bilaterally, dry mucous membranes. Cardiovascular: Heart regular rate and rhythm, S1&S2 audible, no murmurs, rubs or gallops Chest: Lungs clear to auscultation bilaterally, no rhonchi, no wheeze, no rales Abdomen: Bowel sounds present, abdomen soft, non-tender, non-distended, no or ganomegaly, ostomy site clean dry and intact. There is a large volume of fluid in the ostomy bag. Ostomy appears pink. Musculoskeletal: Pulses present and equal in all extremities, 2+ pitting edema to bilateral lower extremities Motor: no focal deficits noted Neurological: CN II-XII grossly intact, no focal motor or sensory deficits noted Skin: Intact with no visualized rashes Psych: Normal affect and mood ED course: 77-year-old male presents with generalized weakness. Signs upon arrival are within acceptable limits. Patient's history is complicated by perforation at the surgical site after colectomy for colon cancer was performed. Laboratory evaluation obtained. Patient is leukocytosis of 12.7. This is likely secondary to stress. She has no localizing symptoms of infection. Plat elet count 488. Metabolic panel shows glucose of 46, potassium 3.3, magnesium 1.7, rest of labs are unremarkable. Patient was given parenteral dextrose with improvement to the 80s. Patient has been continued to have watery output in his ostomy site. Given patient's high output from his ostomy his risk of dehydration as high. Patient has been having poor by mouth intake. He does appear dehydrated. We will admit the patient observation for glucose monitoring, IV hydration and Gen. surgery consultation. EKG interpretation: Ventricular rate 69, normal sinus rhythm, ME 174, care 72, QTC 480. No ME prolongation, no QTC prolongation, no ST or T-wave changes noted. Overall, this EKG is unremarkable - Related Data Home Medications Medication Instructions Recorded Confirmed Atorvastatin [Lipitor] 80 mg PO QAM 08/13/16 10/12/18 Insuln Asp Prt/Insulin Aspart 30 unit SQ QAM 08/13/16 10/12/18 [NovoLOG MIX 70-30 VIAL] Insuln Asp Prt/Insulin Aspart 40 unit SQ AC-SUPPER 08/13/16 10/12/18 [NovoLOG MIX 70-30 VIAL] Lisinopril [Zestril] 20 mg PO W/SUPPER 08/13/16 10/12/18 Metoprolol Tartrate [Lopressor] 100 mg PO DAILY 08/13/16 10/12/18 metFORMIN HCL 1,000 mg PO BID 08/13/16 10/12/18 Allergies Allergy/AdvReac Type Severity Reaction Status Date / Time No Known Allergies Allergy Verified 10/12/18 19:53 Review of Systems ROS Statement: Those systems with pertinent positive or pertinent negative responses have been documented in the HPI. ROS Other: All systems not noted in ROS Statement are negative. Past Medical History Past Medical History: Cancer, Diabetes Mellitus, Hyperlipidemia, Hypertension, Osteoarthritis (OA), Pneumonia, Vascular Disorder Additional Past Medical History / Comment(s): hx blood in stool, hx polyps, hiatal hernia, poor circulation in legs(left worse) History of Any Multi-Drug Resistant Organisms: None Reported Past Surgical History: Appendectomy, Bowel Resection, Joint Replacement, Tonsillectomy Additional Past Surgical History / Comment(s): Right leg replacement, pilonidal cyst, Left leg surgery for blockage, laser eye surgery, bowel resection with colostomy Past Anesthesia/Blood Transfusion Reactions: No Reported Reaction Past Psychological History: No Psychological Hx Reported Smoking Status: Never smoker Past Alcohol Use History: None Reported Past Drug Use History: None Reported - Past Family History Father Family Medical History: Cancer General Exam Limitations: no limitations Course Vital Signs 10/12/18 10/12/18 10/12/18 19:34 20:00 21:00 Temperature 98.0 F Pulse Rate 78 71 67 Respiratory 18 18 18 Rate Blood Pressure 157/74 138/76 135/66 O2 Sat by Pulse 97 99 99 Oximetry Medical Decision Making - Lab Data Result diagrams: 10/12/18 19:45 10/12/18 19:45 Lab Results 10/12/18 10/12/18 10/12/18 Range/Units 19:45 19:45 20:20 WBC 12.7 H (3.8-10.6) k/uL RBC 3.45 L (4.30-5.90) m/uL Hgb 10.0 L (13.0-17.5) gm/dL Hct 31.5 L (39.0-53.0) % MCV 91.2 (80.0-100.0) fL MCH 29.1 (25.0-35.0) pg MCHC 31.9 (31.0-37.0) g/dL RDW 13.8 (11.5-15.5) % Plt Count 488 H (150-450) k/uL Neutrophils % 80 % Lymphocytes % 13 % Monocytes % 5 % Eosinophils % 1 % Basophils % 0 % Neutrophils # 10.1 H (1.3-7.7) k/uL Lymphocytes # 1.6 (1.0-4.8) k/uL Monocytes # 0.6 (0-1.0) k/uL Eosinophils # 0.1 (0-0.7) k/uL Basophils # 0.0 (0-0.2) k/uL Sodium 139 (137-145) mmol/L Potassium 3.3 L (3.5-5.1) mmol/L Chloride 100 (98-107) mmol/L Carbon Dioxide 29 (22-30) mmol/L Anion Gap 10 mmol/L BUN 11 (9-20) mg/dL Creatinine 0.95 (0.66-1.25) mg/dL Est GFR (CKD-EPI)AfAm 89 (>60 ml/min/1.73 sqM) Est GFR (CKD-EPI)NonAf 77 (>60 ml/min/1.73 sqM) Glucose 46 L* (74-99) mg/dL POC Glucose (mg/dL) (75-99) mg/dL POC Glu Profiler ID Calcium 8.0 L (8.4-10.2) mg/dL Ionized Calcium Demetrius 4.6 (4.5-5.3) mg/dL Magnesium 1.7 (1.6-2.3) mg/dL Total Bilirubin 0.2 (0.2-1.3) mg/dL AST 24 (17-59) U/L ALT 14 L (21-72) U/L Alkaline Phosphatase 83 (38-126) U/L Total Protein 6.1 L (6.3-8.2) g/dL Albumin 3.1 L (3.5-5.0) g/dL 10/12/18 10/12/18 Range/Units 21:13 21:35 WBC (3.8-10.6) k/uL RBC (4.30-5.90) m/uL Hgb (13.0-17.5) gm/dL Hct (39.0-53.0) % MCV (80.0-100.0) fL MCH (25.0-35.0) pg MCHC (31.0-37.0) g/dL RDW (11.5-15.5) % Plt Count (150-450) k/uL Neutrophils % % Lymphocytes % % Monocytes % % Eosinophils % % Basophils % % Neutrophils # (1.3-7.7) k/uL Lymphocytes # (1.0-4.8) k/uL Monocytes # (0-1.0) k/uL Eosinophils # (0-0.7) k/uL Basophils # (0-0.2) k/uL Sodium (137-145) mmol/L Potassium (3.5-5.1) mmol/L Chloride (98-107) mmol/L Carbon Dioxide (22-30) mmol/L Anion Gap mmol/L BUN (9-20) mg/dL Creatinine (0.66-1.25) mg/dL Est GFR (CKD-EPI)AfAm (>60 ml/min/1.73 sqM) Est GFR (CKD-EPI)NonAf (>60 ml/min/1.73 sqM) Glucose (74-99) mg/dL POC Glucose (mg/dL) 42 L 80 (75-99) mg/dL POC Glu Profiler ID Faiza Lora Shelby Calcium (8.4-10.2) mg/dL Ionized Calcium Demetrius (4.5-5.3) mg/dL Magnesium (1.6-2.3) mg/dL Total Bilirubin (0.2-1.3) mg/dL AST (17-59) U/L ALT (21-72) U/L Alkaline Phosphatase (38-126) U/L Total Protein (6.3-8.2) g/dL Albumin (3.5-5.0) g/dL Disposition Clinical Impression: Dehydration, Hypoglycemia, Weakness Disposition: ADMITTED IP TO THIS HOSP Condition: Fair Referrals: [facility],Clinic [Primary Care Provider] - 1-2 days Decision Time: 22:01
[2018-10-12 20:12] LABS: Albumin 3.1 g/dL (3.5-5.0); Magnesium 1.7 mg/dL (1.6-2.3); Potassium 3.3 mmol/L (3.5-5.1); Total Bilirubin 0.2 mg/dL (0.2-1.3); Total Protein 6.1 g/dL (6.3-8.2)
[2018-10-12] MEDS ORDERED: MAGNESIUM SULFATE-D5W PMX 1 GM in DEXTROSE/WATER 1 100ML.BAG IVPB ONE (20:25)
[2018-10-12] MEDS ORDERED: WATER IV SCH (20:30)
[2018-10-12] MEDS ORDERED: SODIUM CHLORIDE IV SCH (20:30)
[2018-10-12] MEDS ORDERED: DEXTROSE IV SCH (20:30)
[2018-10-12] MEDS ORDERED: DEXTROSE 10% IN WATER 1,000 ML with SODIUM CHLORIDE 2.5MEQ/ML VIAL 153.8 MEQ IV SCH (20:45)
[2018-10-12] MEDS: POTASSIUM CHLORIDE 10 MEQ in WATER FOR INJECTION 1 100ML.BAG IVPB SCH ×3 (21:13→23:20)
[2018-10-12 21:14] LABS: Glucose,Whole Blood 42 mg/dL (75-99)
[2018-10-12] MEDS: DEXTROSE 10% IN WATER 1,000 ML with SODIUM CHLORIDE 2.5MEQ/ML VIAL 153.8 MEQ IV ONE ×2 (21:14→22:30)
--- NOTE | 2018-10-12 21:23 | XR ---
EXAMINATION TYPE: XR chest 1V portable DATE OF EXAM: 10/12/2018 COMPARISON: NONE HISTORY: Weakness. TECHNIQUE: Single AP portable frontal upright view of the chest is obtained. FINDINGS: Overlying EKG leads are seen. The lung volumes are present. There is no focal air space op acity, pleural effusion, or pneumothorax seen. The cardiac silhouette size is upper limits of normal . The osseous structures are intact. IMPRESSION: No acute cardiopulmonary process.
--- NOTE | 2018-10-12 21:25 | XR ---
EXAMINATION TYPE: XR abdomen 1V DATE OF EXAM: 10/12/2018 9:10 PM CLINICAL HISTORY: Weakness. History of surgery for bowel resection TECHNIQUE: Two supine KUB images of the abdomen are obtained. COMPARISON: Abdominal x-ray May 31, 2018. FINDINGS: There is paucity of bowel gas. Visualized gas is seen in nondistended bowel loops. Percutan eous drainage catheter overlies right upper pelvis. Surgical clips and vascular calcification left gr oin region is seen. New vertical krystyna overlying mid to lower abdomen into pelvis. Lung bases are c lear. IMPRESSION: Overall nonspecific bowel gas pattern.
[2018-10-12 21:36] LABS: Glucose,Whole Blood 80 mg/dL (75-99)
[2018-10-12] MEDS ORDERED: ONDANSETRON 4 MG/2 ML VIAL IVP PRN (21:57)
[2018-10-12] MEDS ORDERED: NALOXONE 0.4 MG/ML 1 ML VIAL IV PRN (21:57)
[2018-10-12] MEDS ORDERED: SODIUM CHLORIDE 0.9% 1,000 ML IV SCH (22:00)
[2018-10-12 22:37] LABS: Glucose,Whole Blood 49 mg/dL (75-99)
[2018-10-12 22:53] LABS: Glucose,Whole Blood 115 mg/dL (75-99)
[2018-10-12 23:26] LABS: Glucose,Whole Blood 68 mg/dL (75-99)
[2018-10-13 00:04] LABS: Glucose,Whole Blood 96 mg/dL (75-99)
[2018-10-13 00:58] LABS: Glucose,Whole Blood 135 mg/dL (75-99)
[2018-10-13] MEDS: POTASSIUM CHLORIDE 10 MEQ in WATER FOR INJECTION 1 100ML.BAG IVPB SCH (01:12)
[2018-10-13 01:58] LABS: Glucose,Whole Blood 152 mg/dL (75-99)
[2018-10-13 03:07] LABS: Glucose,Whole Blood 148 mg/dL (75-99)
[2018-10-13 04:07] LABS: Glucose,Whole Blood 97 mg/dL (75-99)
[2018-10-13 05:04] LABS: Glucose,Whole Blood 115 mg/dL (75-99)
[2018-10-13 06:14] LABS: Glucose,Whole Blood 181 mg/dL (75-99)
[2018-10-13 07:14] LABS: Glucose,Whole Blood 216 mg/dL (75-99)
[2018-10-13] MEDS: ATORVASTATIN 80 MG TAB PO SCH (08:28)
[2018-10-13 09:05] LABS: Glucose,Whole Blood 238 mg/dL (75-99)
[2018-10-13 09:15] LABS: HCT 30.8 % (39.0-53.0); HGB 10.1 gm/dL (13.0-17.5); Hypochromasia Slight; MCH 29.5 pg (25.0-35.0); MCHC 32.9 g/dL (31.0-37.0); MCV 89.8 fL (80.0-100.0); Mean Platelet Volume 7.4; Platelet Count 502 k/uL (150-450); RBC 3.43 m/uL (4.30-5.90); RDW 13.8 % (11.5-15.5)
[2018-10-13 10:47] LABS: Glucose,Whole Blood 224 mg/dL (75-99)
[2018-10-13 11:03] LABS: Calcium 8.1 mg/dL (8.4-10.2); Potassium 4.6 mmol/L (3.5-5.1); Total Bilirubin 0.3 mg/dL (0.2-1.3)
--- NOTE | 2018-10-13 11:26 | P.GSCN ---
History of Present Illness History of present illness: This is a 77-year-old male is very well known to my service. He was recently discharged [facility] 2 days ago. 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 He progressed well on his hospital stay at that time and was discharged home in 1 week later 11 days postop presented with abdominal pain was found to have anastomotic leak. He was taken for surgery and underwent revision of the anastomosis with diverting loop ileostomy. He is healing well from the surgery and discharged home with his son Remi. He was having watery output from his ileostomy and this was being treated with Imodium. He then presented to the emergency department with hypoglycemia. At this time he is denying any abdominal pain. He is having output from his ostomy and is tolerating a diet. He states he's feeling much better. Past Medical History Past Medical History: Cancer, Diabetes Mellitus, Hyperlipidemia, Hypertension, Osteoarthritis (OA), Pneumonia, Vascular Disorder Additional Past Medical History / Comment(s): hx blood in stool, hx polyps, hiatal hernia, poor circulation in legs(left worse) History of Any Multi-Drug Resistant Organisms: None Reported Past Surgical History: Appendectomy, Bowel Resection, Joint Replacement, Tonsillectomy Additional Past Surgical History / Comment(s): Right leg replacement, pilonidal cyst, Left leg surgery for blockage, elisa laser eye surgery, bowel resection with colostomy. Past Anesthesia/Blood Transfusion Reactions: No Reported Reaction Past Psychological History: Anxiety Smoking Status: Never smoker Past Alcohol Use History: None Reported Additional Past Alcohol Use History / Comment(s): stopped smoking 40-50 yrs ago, smoked for 10 yrs- some day smoker Past Drug Use History: None Reported - Past Family History Father Family Medical History: Cancer Medications and Allergies Home Medications Medication Instructions Recorded Confirmed Type Atorvastatin [Lipitor] 80 mg PO QAM 08/13/16 10/12/18 History Insuln Asp Prt/Insulin Aspart 30 unit SQ QAM 08/13/16 10/12/18 History [NovoLOG MIX 70-30 VIAL] Insuln Asp Prt/Insulin Aspart 40 unit SQ AC-SUPPER 08/13/16 10/12/18 History [NovoLOG MIX 70-30 VIAL] Lisinopril [Zestril] 20 mg PO W/SUPPER 08/13/16 10/12/18 History Metoprolol Tartrate [Lopressor] 100 mg PO DAILY 08/13/16 10/12/18 History metFORMIN HCL 1,000 mg PO BID 08/13/16 10/12/18 History Allergies Allergy/AdvReac Type Severity Reaction Status Date / Time No Known Allergies Allergy Verified 10/12/18 19:53 Surgical - Exam Osteopathic Statement: *. No significant issues noted on an osteopathic struc tural exam other than those noted in the History and Physical/Consult. Vital Signs Temp Pulse Resp BP Pulse Ox 98.0 F 78 18 157/74 97 10/12/18 19:34 10/12/18 19:34 10/12/18 19:34 10/12/18 19:34 10/12/18 19:34 - General well developed, well nourished, no distress - Neck trachea midline - Respiratory normal expansion, normal respiratory effort - Cardiovascular Rhythm: regular - Abdomen lloop ileostomy is pink patent with liquid stool in bag. Midline incision clean dry and intact Abdomen: soft, non tender - Neurologic normal coordination, normal sensation - Psychiatric oriented to time, oriented to person, oriented to place Results - Labs 10/13/18 08:28 10/13/18 08:28 Abnormal Lab Results - Last 24 Hours (Table) 10/12/18 10/12/18 10/12/18 Range/Units 19:45 19:45 21:13 WBC 12.7 H (3.8-10.6) k/uL RBC 3.45 L (4.30-5.90) m/uL Hgb 10.0 L (13.0-17.5) gm/dL Hct 31.5 L (39.0-53.0) % Plt Count 488 H (150-450) k/uL Neutrophils # 10.1 H (1.3-7.7) k/uL Sodium (137-145) mmol/L Potassium 3.3 L (3.5-5.1) mmol/L Glucose 46 L* (74-99) mg/dL POC Glucose (mg/dL) 42 L (75-99) mg/dL Calcium 8.0 L (8.4-10.2) mg/dL ALT 14 L (21-72) U/L Total Protein 6.1 L (6.3-8.2) g/dL Albumin 3.1 L (3.5-5.0) g/dL 10/12/18 10/12/18 10/12/18 Range/Units 22:23 22:52 23:23 WBC (3.8-10.6) k/uL RBC (4.30-5.90) m/uL Hgb (13.0-17.5) gm/dL Hct (39.0-53.0) % Plt Count (150-450) k/uL Neutrophils # (1.3-7.7) k/uL Sodium (137-145) mmol/L Potassium (3.5-5.1) mmol/L Glucose (74-99) mg/dL POC Glucose (mg/dL) 49 L 115 H 68 L (75-99) mg/dL Calcium (8.4-10.2) mg/dL ALT (21-72) U/L Total Protein (6.3-8.2) g/dL Albumin (3.5-5.0) g/dL 10/13/18 10/13/18 10/13/18 Range/Units 00:56 01:56 03:01 WBC (3.8-10.6) k/uL RBC (4.30-5.90) m/uL Hgb (13.0-17.5) gm/dL Hct (39.0-53.0) % Plt Count (150-450) k/uL Neutrophils # (1.3-7.7) k/uL Sodium (137-145) mmol/L Potassium (3.5-5.1) mmol/L Glucose (74-99) mg/dL POC Glucose (mg/dL) 135 H 152 H 148 H (75-99) mg/dL Calcium (8.4-10.2) mg/dL ALT (21-72) U/L Total Protein (6.3-8.2) g/dL Albumin (3.5-5.0) g/dL 10/13/18 10/13/18 10/13/18 Range/Units 05:01 06:07 07:04 WBC (3.8-10.6) k/uL RBC (4.30-5.90) m/uL Hgb (13.0-17.5) gm/dL Hct (39.0-53.0) % Plt Count (150-450) k/uL Neutrophils # (1.3-7.7) k/uL Sodium (137-145) mmol/L Potassium (3.5-5.1) mmol/L Glucose (74-99) mg/dL POC Glucose (mg/dL) 115 H 181 H 216 H (75-99) mg/dL Calcium (8.4-10.2) mg/dL ALT (21-72) U/L Total Protein (6.3-8.2) g/dL Albumin (3.5-5.0) g/dL 10/13/18 10/13/18 10/13/18 Range/Units 08:28 08:28 09:03 WBC 15.0 H (3.8-10.6) k/uL RBC 3.43 L (4.30-5.90) m/uL Hgb 10.1 L (13.0-17.5) gm/dL Hct 30.8 L (39.0-53.0) % Plt Count 502 H (150-450) k/uL Neutrophils # (1.3-7.7) k/uL Sodium 135 L (137-145) mmol/L Potassium (3.5-5.1) mmol/L Glucose 251 H (74-99) mg/dL POC Glucose (mg/dL) 238 H (75-99) mg/dL Calcium 8.1 L (8.4-10.2) mg/dL ALT 15 L (21-72) U/L Total Protein 6.0 L (6.3-8.2) g/dL Albumin 3.0 L (3.5-5.0) g/dL 10/13/18 Range/Units 10:44 WBC (3.8-10.6) k/uL RBC (4.30-5.90) m/uL Hgb (13.0-17.5) gm/dL Hct (39.0-53.0) % Plt Count (150-450) k/uL Neutrophils # (1.3-7.7) k/uL Sodium (137-145) mmol/L Potassium (3.5-5.1) mmol/L Glucose (74-99) mg/dL POC Glucose (mg/dL) 224 H (75-99) mg/dL Calcium (8.4-10.2) mg/dL ALT (21-72) U/L Total Protein (6.3-8.2) g/dL Albumin (3.5-5.0) g/dL Diabetes panel 10/12/18 10/13/18 Range/Units 19:45 08:28 Sodium 139 135 L (137-145) mmol/L Potassium 3.3 L 4.6 (3.5-5.1) mmol/L Chloride 100 98 (98-107) mmol/L Carbon Dioxide 29 26 (22-30) mmol/L BUN 11 12 (9-20) mg/dL Creatinine 0.95 0.96 (0.66-1.25) mg/dL Glucose 46 L* 251 H (74-99) mg/dL Calcium 8.0 L 8.1 L (8.4-10.2) mg/dL AST 24 21 (17-59) U/L ALT 14 L 15 L (21-72) U/L Alkaline Phosphatase 83 92 (38-126) U/L Total Protein 6.1 L 6.0 L (6.3-8.2) g/dL Albumin 3.1 L 3.0 L (3.5-5.0) g/dL Calcium panel 10/12/18 10/12/18 10/13/18 Range/Units 19:45 20:20 08:28 Calcium 8.0 L 8.1 L (8.4-10.2) mg/dL Ionized Calcium Demetrius 4.6 (4.5-5.3) mg/dL Albumin 3.1 L 3.0 L (3.5-5.0) g/dL Pituitary panel 10/12/18 10/13/18 Range/Units 19:45 08:28 Sodium 139 135 L (137-145) mmol/L Potassium 3.3 L 4.6 (3.5-5.1) mmol/L Chloride 100 98 (98-107) mmol/L Carbon Dioxide 29 26 (22-30) mmol/L BUN 11 12 (9-20) mg/dL Creatinine 0.95 0.96 (0.66-1.25) mg/dL Glucose 46 L* 251 H (74-99) mg/dL Calcium 8.0 L 8.1 L (8.4-10.2) mg/dL Adrenal panel 10/12/18 10/13/18 Range/Units 19:45 08:28 Sodium 139 135 L (137-145) mmol/L Potassium 3.3 L 4.6 (3.5-5.1) mmol/L Chloride 100 98 (98-107) mmol/L Carbon Dioxide 29 26 (22-30) mmol/L BUN 11 12 (9-20) mg/dL Creatinine 0.95 0.96 (0.66-1.25) mg/dL Glucose 46 L* 251 H (74-99) mg/dL Calcium 8.0 L 8.1 L (8.4-10.2) mg/dL Total Bilirubin 0.2 0.3 (0.2-1.3) mg/dL AST 24 21 (17-59) U/L ALT 14 L 15 L (21-72) U/L Alkaline Phosphatase 83 92 (38-126) U/L Total Protein 6.1 L 6.0 L (6.3-8.2) g/dL Albumin 3.1 L 3.0 L (3.5-5.0) g/dL
[2018-10-13] MEDS: IOPAMIDOL-300 CONTRAST 30 ML VIAL (ORAL USE) PO PRN ×2 (12:05→12:40)
[2018-10-13] MEDS: INSULIN ASPART (NovoLOG) 100 UNIT/ML VIAL SQ SCH ×3 (12:06→20:43)
[2018-10-13] MEDS ORDERED: LOPERAMIDE 2 MG CAP PO PRN ×2 (12:37→19:00)
--- NOTE | 2018-10-13 12:42 | P.HPIM ---
History of Present Illness 77-year-old pleasant gentleman came in with complaints of low blood sugars excessive drainage from the colostomy. Patient had a right hemicolectomy for cecal cancer and had a leak at the anastomotic site because of which patient und erwent revision of anastomosis with diverticular loop an ileostomy. Patient's creatinine is within normal lives patient denied any fever chills significant abdominal pain denied any nausea vomiting. Patient had 2 loose bowel movements today. Patient was started on Imodium. My suspicion for C. diff is extremely low. Patient tachycardia came in with blood sugars of around 40 patient is an 70/30 regimen and metformin so far he didn't receive any sliding scale insulin patient blood sugars are in 200s for his blood sugars 2, because of NPH and 70/30. Because of the low blood sugars patient will need to stay 1 more night so that we can dose his insulin. Patient does have leukocytosis which appears to be reactive, patient will undergo CAT scan of the abdomen with contrast as per surgery. Review of Systems REVIEW OF SYSTEMS: CONSTITUTIONAL: No fever, no malaise, no fatigue. HEENT: No recent visual problems or hearing problems. Denied any sore throat. CARDIOVASCULAR: No chest pain, orthopnea, PND, no palpitations, no syncope. PULMONARY: No shortness of breath, no cough, no hemoptysis. GASTROINTESTINAL: As mentioned in HPI NEUROLOGICAL: No headaches, no weakness, no numbness. HEMATOLOGICAL: Denies any bleeding or petechiae. GENITOURINARY: Denies any burning micturition, frequency, or urgency. MUSCULOSKELETAL/RHEUMATOLOGICAL: Denies any joint pain, swelling, or any muscle pain. ENDOCRINE: Denies any polyuria or polydipsia. The rest of the 14-point review of systems is negative. Past Medical History Past Medical History: Cancer, Diabetes Mellitus, Hyperlipidemia, Hypertension, Osteoarthritis (OA), Pneumonia, Vascular Disorder Additional Past Medical History / Comment(s): hx blood in stool, hx polyps, hiatal hernia, poor circulation in legs(left worse) History of Any Multi-Drug Resistant Organisms: None Reported Past Surgical History: Appendectomy, Bowel Resection, Joint Replacement, Tonsillectomy Additional Past Surgical History / Comment(s): Right leg replacement, pilonidal cyst, Left leg surgery for blockage, elisa laser eye surgery, bowel resection with colostomy. Past Anesthesia/Blood Transfusion Reactions: No Reported Reaction Past Psychological History: Anxiety Smoking Status: Never smoker Past Alcohol Use History: None Reported Additional Past Alcohol Use History / Comment(s): stopped smoking 40-50 yrs ago, smoked for 10 yrs- some day smoker Past Drug Use History: None Reported - Past Family History Father Family Medical History: Cancer Medications and Allergies Home Medications Medication Instructions Recorded Confirmed Type Atorvastatin [Lipitor] 80 mg PO QAM 08/13/16 10/12/18 History Insuln Asp Prt/Insulin Aspart 30 unit SQ QAM 08/13/16 10/12/18 History [NovoLOG MIX 70-30 VIAL] Insuln Asp Prt/Insulin Aspart 40 unit SQ AC-SUPPER 08/13/16 10/12/18 History [NovoLOG MIX 70-30 VIAL] Lisinopril [Zestril] 20 mg PO W/SUPPER 08/13/16 10/12/18 History Metoprolol Tartrate [Lopressor] 100 mg PO DAILY 08/13/16 10/12/18 History metFORMIN HCL 1,000 mg PO BID 08/13/16 10/12/18 History Allergies Allergy/AdvReac Type Severity Reaction Status Date / Time No Known Allergies Allergy Verified 10/12/18 19:53 Physical Exam Vitals: Vital Signs Temp Pulse Pulse Resp BP BP Pulse Ox 10/13/18 07:00 97.7 F 97 16 166/74 96 10/13/18 04:00 77 14 10/13/18 01:25 98.2 F 77 14 158/70 97 10/13/18 00:00 77 14 10/12/18 23:08 97.7 F 65 15 176/77 97 10/12/18 22:36 98.6 F 77 18 151/72 99 10/12/18 22:22 98.2 F 65 15 158/70 97 10/12/18 22:00 72 18 167/78 98 10/12/18 21:00 67 18 135/66 99 10/12/18 20:00 71 18 138/76 99 10/12/18 19:34 98.0 F 78 18 157/74 97 Intake and Output 10/12/18 10/13/18 10/13/18 22:59 06:59 14:59 Intake Total 650 118 Output Total 1300 1700 600 Balance -9255 -0420 -307 Intake: Intake, IV Titration 440 Amount Potassium Chloride 10 meq 200 In Water For Injection 1 100ml.bag @ 100 mls/hr IVPB Q1HR [facility] Rx#: [id number] Sodium Chloride 0.9% 1, 240 000 ml @ 20 mls/hr IV . Q24H [facility] Rx#:[id number] Oral 210 118 Output: Urine 300 300 Stool 1000 1400 600 Other: Voiding Method Urinal Urinal # Voids 1 1 # Bowel Movements 1 Weight 95.254 kg PHYSICAL EXAMINATION: GENERAL: The patient is alert and oriented x3, not in any acute distress. Well developed, well nourished. HEENT: Pupils are round and equally reacting to light. EOMI. No scleral icterus. No conjunctival pallor. Normocephalic, atraumatic. No pharyngeal erythema. No thyromegaly. CARDIOVASCULAR: S1 and S2 present. No murmurs, rubs, or gallops. PULMONARY: Chest is clear to auscultation, no wheezing or crackles. ABDOMEN: Soft, nontender, ileostomy bag in place no leakage MUSCULOSKELETAL: No joint swelling or deformity. EXTREMITIES: No cyanosis, clubbing, or pedal edema. NEUROLOGICAL: Gross neurological examination did not reveal any focal deficits. SKIN: No rashes. Results CBC & Chem 7: 10/13/18 08:28 10/13/18 08:28 Labs: Abnormal Lab Results - Last 24 Hours (Table) 10/12/18 10/12/18 10/12/18 Range/Units 19:45 19:45 21:13 WBC 12.7 H (3.8-10.6) k/uL RBC 3.45 L (4.30-5.90) m/uL Hgb 10.0 L (13.0-17.5) gm/dL Hct 31.5 L (39.0-53.0) % Plt Count 488 H (150-450) k/uL Neutrophils # 10.1 H (1.3-7.7) k/uL Sodium (137-145) mmol/L Potassium 3.3 L (3.5-5.1) mmol/L Glucose 46 L* (74-99) mg/dL POC Glucose (mg/dL) 42 L (75-99) mg/dL Calcium 8.0 L (8.4-10.2) mg/dL ALT 14 L (21-72) U/L Total Protein 6.1 L (6.3-8.2) g/dL Albumin 3.1 L (3.5-5.0) g/dL 10/12/18 10/12/18 10/12/18 Range/Units 22:23 22:52 23:23 WBC (3.8-10.6) k/uL RBC (4.30-5.90) m/uL Hgb (13.0-17.5) gm/dL Hct (39.0-53.0) % Plt Count (150-450) k/uL Neutrophils # (1.3-7.7) k/uL Sodium (137-145) mmol/L Potassium (3.5-5.1) mmol/L Glucose (74-99) mg/dL POC Glucose (mg/dL) 49 L 115 H 68 L (75-99) mg/dL Calcium (8.4-10.2) mg/dL ALT (21-72) U/L Total Protein (6.3-8.2) g/dL Albumin (3.5-5.0) g/dL 10/13/18 10/13/18 10/13/18 Range/Units 00:56 01:56 03:01 WBC (3.8-10.6) k/uL RBC (4.30-5.90) m/uL Hgb (13.0-17.5) gm/dL Hct (39.0-53.0) % Plt Count (150-450) k/uL Neutrophils # (1.3-7.7) k/uL Sodium (137-145) mmol/L Potassium (3.5-5.1) mmol/L Glucose (74-99) mg/dL POC Glucose (mg/dL) 135 H 152 H 148 H (75-99) mg/dL Calcium (8.4-10.2) mg/dL ALT (21-72) U/L Total Protein (6.3-8.2) g/dL Albumin (3.5-5.0) g/dL 10/13/18 10/13/18 10/13/18 Range/Units 05:01 06:07 07:04 WBC (3.8-10.6) k/uL RBC (4.30-5.90) m/uL Hgb (13.0-17.5) gm/dL Hct (39.0-53.0) % Plt Count (150-450) k/uL Neutrophils # (1.3-7.7) k/uL Sodium (137-145) mmol/L Potassium (3.5-5.1) mmol/L Glucose (74-99) mg/dL POC Glucose (mg/dL) 115 H 181 H 216 H (75-99) mg/dL Calcium (8.4-10.2) mg/dL ALT (21-72) U/L Total Protein (6.3-8.2) g/dL Albumin (3.5-5.0) g/dL 10/13/18 10/13/18 10/13/18 Range/Units 08:28 08:28 09:03 WBC 15.0 H (3.8-10.6) k/uL RBC 3.43 L (4.30-5.90) m/uL Hgb 10.1 L (13.0-17.5) gm/dL Hct 30.8 L (39.0-53.0) % Plt Count 502 H (150-450) k/uL Neutrophils # (1.3-7.7) k/uL Sodium 135 L (137-145) mmol/L Potassium (3.5-5.1) mmol/L Glucose 251 H (74-99) mg/dL POC Glucose (mg/dL) 238 H (75-99) mg/dL Calcium 8.1 L (8.4-10.2) mg/dL ALT 15 L (21-72) U/L Total Protein 6.0 L (6.3-8.2) g/dL Albumin 3.0 L (3.5-5.0) g/dL 10/13/18 Range/Units 10:44 WBC (3.8-10.6) k/uL RBC (4.30-5.90) m/uL Hgb (13.0-17.5) gm/dL Hct (39.0-53.0) % Plt Count (150-450) k/uL Neutrophils # (1.3-7.7) k/uL Sodium (137-145) mmol/L Potassium (3.5-5.1) mmol/L Glucose (74-99) mg/dL POC Glucose (mg/dL) 224 H (75-99) mg/dL Calcium (8.4-10.2) mg/dL ALT (21-72) U/L Total Protein (6.3-8.2) g/dL Albumin (3.5-5.0) g/dL Thrombosis Risk Factor Assmnt - Choose All That Apply Each Factor Represents 1 point: Swollen legs (current) Other Risk Factors: Yes Each Risk Factor Represents 3 Points: Age 75 years or older Thrombosis Risk Factor Assessment Total Risk Factor Score: 4 Thrombosis Risk Factor Assessment Level: Moderate Risk Assessment and Plan Plan: -Excess output from ileostomy: Which is not unexpected of patient will be started on Imodium symptomatically treatment suspicion for C. diff is low. We'll monitor him overnight IV fluids. -Leukocytosis reactive in nature CAT scan of the abdomen is being obtained to rule out any intra-abdominal process patient doesn't have any pneumonia and urinary tract infection -Hypokalemia potassium was supplemented -Severe hyperglycemia and depression will monitor his blood sugars sliding scale depending on requirements of insulin will decide on his home regimen -Hypertension lisinopril and metoprolol Due to prophylaxis as subcutaneous heparin
[2018-10-13] MEDS: METOPROLOL SUCCINATE (ER) 100 MG TAB.ER.24H PO SCH (13:47)
[2018-10-13] MEDS: SODIUM CHLORIDE 0.9% 1,000 ML IV SCH (13:49)
--- NOTE | 2018-10-13 13:58 | CT ---
EXAMINATION TYPE: CT abdomen pelvis w con DATE OF EXAM: 10/13/2018 COMPARISON: INDICATION: Post OP Colostomy 1 week. Generalized pain DLP: 1382.9 mGycm, Automated exposure control for dose reduction was used. CONTRAST: 100 mL of Isovue 300. Study performed with Oral Contrast TECHNIQUE: Axial images were obtained from above the diaphragm to the pubic rami in the axial plane a t 5 mm thick sections. Reconstructed images are reviewed on the computer in the coronal plane. FINDINGS: Limited CT sections are obtained the lung bases. The lung bases are clear. Reflux into the distal e sophagus within the [id number] is evident. CT ABDOMEN: Liver: Normal Spleen: Normal Pancreas: Normal Adrenal glands: The adrenal glands are normal. Gallbladder: Normal Kidneys: No masses are evident. No hydronephrosis is present. No cysts are present. Delayed images were obtained through the kidneys, which remain unremarkable. Aorta: Vascular calcification is within the aorta. Inferior vena cava: Normal. Mesentery: There is increased density within the right mesentery. Postsurgical changes are within the anterior abdomen. Small air-fluid level with a small fluid collection is present can be postsurgical in nature. CT PELVIS: Bowel anastomosis appears normal. Loops of bowel distended with oral contrast are normal. There are l oops of bowel with incomplete distention limiting their evaluation. Some thickening of the distal sma ll bowel loops in the right upper quadrant may be present. There are loops of bowel which are incompl etely distended or lack oral contrast limiting their evaluation. Appendix: Not identified Urinary bladder: Normal. Genitourinary structures: Prostate is prominent contains calcification Osseous structures: No suspicious lytic or sclerotic lesions. IMPRESSIONS: 1. There are inflammatory changes in the right midabdomen near the ostomy site. Findings could be re lated to postsurgical change. 2. Postsurgical changes within the anterior subcutaneous tissues at the incision site.
[2018-10-13] MEDS: HEPARIN SODIUM,PORCINE 5,000 UNIT/ML 1 ML VIAL SQ SCH (15:20)
[2018-10-13 16:41] LABS: Glucose,Whole Blood 161 mg/dL (75-99)
[2018-10-13] MEDS: LISINOPRIL 20 MG TAB PO SCH (18:02)
[2018-10-13 19:59] LABS: Glucose,Whole Blood 202 mg/dL (75-99)
[2018-10-13] MEDS: PIPERACILLIN-TAZOBACTAM 3.375 GM in SODIUM CHLORIDE 0.9% 100 ML IVPB SCH (20:44)
[2018-10-14] MEDS: SODIUM CHLORIDE 0.9% 1,000 ML IV SCH ×3 (00:03→19:28)
[2018-10-14] MEDS: HEPARIN SODIUM,PORCINE 5,000 UNIT/ML 1 ML VIAL SQ SCH ×3 (00:25→18:27)
[2018-10-14] MEDS: PIPERACILLIN-TAZOBACTAM 3.375 GM in SODIUM CHLORIDE 0.9% 100 ML IVPB SCH ×3 (04:17→21:24)
[2018-10-14 06:59] LABS: Glucose,Whole Blood 194 mg/dL (75-99)
[2018-10-14] MEDS: INSULIN ASPART (NovoLOG) 100 UNIT/ML VIAL SQ SCH ×4 (07:36→21:24)
[2018-10-14] MEDS: METOPROLOL SUCCINATE (ER) 100 MG TAB.ER.24H PO SCH (08:01)
[2018-10-14] MEDS: ATORVASTATIN 80 MG TAB PO SCH (08:01)
--- NOTE | 2018-10-14 09:51 | P.PN ---
Subjective Progress Note Date: 10/14/18 Patient is doing well this morning he is asking to go home. He did have a slight increase in leukocytosis yesterday. On the computed tomography scan yesterday there was a small fluid collection in the subcu underneath the wound. This was opened today bedside. Small amount of mostly cloudy serous drainage was drained. He is tolerating his diabetes having good output out of his ostomy. He has no complaints Objective - Vital Signs Vital signs: Vital Signs Temp 98.7 F 10/14/18 06:40 Pulse 90 10/14/18 06:40 Resp 20 10/14/18 06:40 BP 146/73 10/14/18 06:40 Pulse Ox 95 10/14/18 06:40 Intake & Output 10/13/18 10/14/18 10/14/18 18:59 06:59 18:59 Intake Total 378 300 Output Total 1950 400 Balance -1572 -400 300 Intake: IV 160 Sodium Chloride 0.9% 1, 160 000 ml @ 20 mls/hr IV . Q24H [facility] Rx#:[id number] Oral 218 300 Output: Urine 200 Stool 1950 200 Other: Voiding Method Urinal # Voids 1 3 - Constitutional General appearance: Present: cooperative - Respiratory Details: Nonlabored - Cardiovascular Rhythm: regular - Gastrointestinal Gastrointestinal Comment(s): Soft nontender nondistended. Midline incision with small amount of erythema cloudy drainage - Psychiatric Psychiatric: Present: A&O x's 3 - Labs CBC & Chem 7: 10/13/18 08:28 10/13/18 08:28 Labs: Abnormal Lab Results - Last 24 Hours (Table) 10/13/18 10/13/18 10/13/18 Range/Units 08:28 10:44 16:39 Sodium 135 L (137-145) mmol/L Glucose 251 H (74-99) mg/dL POC Glucose (mg/dL) 224 H 161 H (75-99) mg/dL Calcium 8.1 L (8.4-10.2) mg/dL ALT 15 L (21-72) U/L Total Protein 6.0 L (6.3-8.2) g/dL Albumin 3.0 L (3.5-5.0) g/dL 10/13/18 10/14/18 Range/Units 19:56 06:57 Sodium (137-145) mmol/L Glucose (74-99) mg/dL POC Glucose (mg/dL) 202 H 194 H (75-99) mg/dL Calcium (8.4-10.2) mg/dL ALT (21-72) U/L Total Protein (6.3-8.2) g/dL Albumin (3.5-5.0) g/dL Assessment and Plan Assessment: 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 Plan: I did open up a couple krystyna and drain the fluid in the midline wound. I suspect this is the cause of the leukocytosis. If the patient's leukocytosis improves he can be discharged home with visiting nurse on Augmentin from my standpoint when he stable from a medical standpoint and his blood sugars are controlled. I'd like him to continue Imodium 4 mg 4 times a day and follow up in my clinic early next week. Prior to discharge it would also be helpful if freelance makeup artist to discuss proper nutrition for ileostomy care with the patient.
[2018-10-14 11:12] LABS: Basophils # (A) 0.1 k/uL (0-0.2); Basophils % (A) 1 %; Eosinophils # (A) 0.3 k/uL (0-0.7); Eosinophils % (A) 2 %; HCT 31.8 % (39.0-53.0); HGB 10.1 gm/dL (13.0-17.5); Hypochromasia Slight; Lymphocytes # (A) 1.5 k/uL (1.0-4.8); Lymphocytes % (A) 10 %; MCHC 31.8 g/dL (31.0-37.0); Monocytes # (A) 0.6 k/uL (0-1.0); Monocytes % (A) 4 %; Neutrophils # (A) 11.5 k/uL (1.3-7.7); Neutrophils % (A) 81 %; Platelet Count 471 k/uL (150-450); RDW 14.1 % (11.5-15.5); WBC 14.1 k/uL (3.8-10.6)
[2018-10-14 11:12] LABS: Glucose,Whole Blood 192 mg/dL (75-99)
[2018-10-14 11:13] VITALS: BMI 30.1
--- NOTE | 2018-10-14 15:53 | P.PN ---
Subjective Progress Note Date: 10/14/18 Principal diagnosis: This is a 78-year-old male who was admitted for hypoglycemia as well as excessive drainage from his ileostomy. Patient has had large amounts that have been loose and patient was started on Imodium to be given 4 times daily. Patient did not have his first dose until this afternoon. We will continue to monitor output as well as blood sugars closely. Dr. cutler was at the bedside today and remove some drainage from the surgical site of which he believes is the reasoning of the leukocytosis. Patient denies any shortness of breath, chest pain, or palpitations at this time. Patient would like to go home today. Patient is concerned with the amount of output in ileostomy as this is new to him. Patient's blood sugar levels have been within normal limits. Patient states that he believes he may have given himself an extra dose of insulin at home which caused to episode of hypoglycemia. Patient denies any nausea or vomiting at this time. Abdominal dressing is dry and intact. Objective - Vital Signs Vital signs: Vital Signs Temp 98.8 F 10/14/18 14:12 Pulse 80 10/14/18 14:12 Resp 14 10/14/18 14:12 BP 137/64 10/14/18 14:12 Pulse Ox 94 L 10/14/18 14:12 Intake & Output 10/13/18 10/14/18 10/14/18 18:59 06:59 18:59 Intake Total 378 400 Output Total 1950 400 400 Balance -1572 -400 0 Weight 95.254 kg Intake: IV 160 Sodium Chloride 0.9% 1, 160 000 ml @ 20 mls/hr IV . Q24H [facility] Rx#:[id number] Oral 218 400 Output: Urine 200 200 Stool 1950 200 200 Other: Voiding Method Urinal Urinal # Voids 1 3 3 # Bowel Movements 1 - Exam Gen: This is a 78-year-old male lying in bed in no acute distress. HEENT: Head is atraumatic, normocephalic. Pupils equal, round. Sclerae is anicteric. NECK: Supple. No JVD. No lymphadenopathy. No thyromegaly. LUNGS: Clear to auscultation. No wheezes or rhonchi. No intercostal retractions. HEART: Regular rate and rhythm. No murmur. ABDOMEN: Soft. Bowel sounds are present. No masses. Mild tenderness noted on the left side of the abdomen at the surgical site. Dressing was changed by Dr. Cutler at bedside and is dry and intact. Ileostomy present on the right side of the abdomen with approximately 400cc of loose watery stool noted. EXTREMITIES: No pedal edema. No calf tenderness. NEUROLOGICAL: Patient is awake, alert and oriented x3. Cranial nerves 2 through 12 are grossly intact. - Labs CBC & Chem 7: 10/14/18 10:59 10/13/18 08:28 Labs: Abnormal Lab Results - Last 24 Hours (Table) 10/13/18 10/13/18 10/14/18 Range/Units 16:39 19:56 06:57 WBC (3.8-10.6) k/uL RBC (4.30-5.90) m/uL Hgb (13.0-17.5) gm/dL Hct (39.0-53.0) % Plt Count (150-450) k/uL Neutrophils # (1.3-7.7) k/uL POC Glucose (mg/dL) 161 H 202 H 194 H (75-99) mg/dL 10/14/18 10/14/18 Range/Units 10:59 11:10 WBC 14.1 H (3.8-10.6) k/uL RBC 3.50 L (4.30-5.90) m/uL Hgb 10.1 L (13.0-17.5) gm/dL Hct 31.8 L (39.0-53.0) % Plt Count 471 H (150-450) k/uL Neutrophils # 11.5 H (1.3-7.7) k/uL POC Glucose (mg/dL) 192 H (75-99) mg/dL Assessment and Plan Assessment: Excess output from ileostomy: Unexpected from the patient and will be started on Imodium 4 mg 4 times a day Leukocytosis reactive in nature: CT of the abdomen shows postsurgical changes within the anterior subcutaneous tissues at the incisional site. Dr. cutler was at the bedside and removed two krystyna with some serous drainage. She Dr. cutler wants to obtain another CBC to ensure the white blood cell count is trending down and will likely go home on oral Augmentin tomorrow Hypokalemia, resolved current potassium is 4.6 after potassium supplementation Severe hypoglycemia: Improving. will continue to monitor. Will likely go home on a sliding scale as his blood sugars have been within normal limits Hypertension: Currently on lisinopril and metoprolol and will go home on Toprol- XL DVT prophylaxis with subq heparin Recommendations and discussion: Recommend continue current medications and continue symptomatically treatment. Continue to monitor ileostomy output. Continue to monitor vital signs and blood sugars closely. Guarded prognosis. Other recommendations to follow. Probable discharge in 24 hours.
[2018-10-14 17:13] LABS: Glucose,Whole Blood 255 mg/dL (75-99)
[2018-10-14] MEDS: LISINOPRIL 20 MG TAB PO SCH (18:26)
[2018-10-14 20:31] LABS: Glucose,Whole Blood 134 mg/dL (75-99)
[2018-10-15] MEDS: HEPARIN SODIUM,PORCINE 5,000 UNIT/ML 1 ML VIAL SQ SCH ×2 (00:53→07:30)
[2018-10-15 00:56] VITALS: TEMP 98.2
[2018-10-15] MEDS: PIPERACILLIN-TAZOBACTAM 3.375 GM in SODIUM CHLORIDE 0.9% 100 ML IVPB SCH ×2 (03:43→14:02)
[2018-10-15] MEDS: SODIUM CHLORIDE 0.9% 1,000 ML IV SCH (05:43)
[2018-10-15 07:01] LABS: Glucose,Whole Blood 187 mg/dL (75-99)
[2018-10-15] MEDS: INSULIN ASPART (NovoLOG) 100 UNIT/ML VIAL SQ SCH ×2 (07:29→14:02)
[2018-10-15 07:31] VITALS: RESP 15
[2018-10-15 09:28] LABS: Calcium 7.9 mg/dL (8.4-10.2); Potassium 4.8 mmol/L (3.5-5.1)
[2018-10-15 09:30] LABS: Basophils # (A) 0.1 k/uL (0-0.2); Basophils % (A) 0 %; Eosinophils # (A) 0.4 k/uL (0-0.7); Eosinophils % (A) 3 %; HCT 30.9 % (39.0-53.0); HGB 9.9 gm/dL (13.0-17.5); Hypochromasia Slight; Lymphocytes # (A) 1.6 k/uL (1.0-4.8); Lymphocytes % (A) 13 %; MCH 29.1 pg (25.0-35.0); MCHC 32.1 g/dL (31.0-37.0); MCV 90.4 fL (80.0-100.0); Mean Platelet Volume 7.4; Monocytes # (A) 0.5 k/uL (0-1.0); Monocytes % (A) 4 %; Neutrophils # (A) 9.3 k/uL (1.3-7.7); Neutrophils % (A) 78 %; Platelet Count 462 k/uL (150-450); RBC 3.42 m/uL (4.30-5.90); WBC 11.8 k/uL (3.8-10.6)
[2018-10-15] MEDS: METOPROLOL SUCCINATE (ER) 100 MG TAB.ER.24H PO SCH (09:49)
[2018-10-15] MEDS: ATORVASTATIN 80 MG TAB PO SCH (09:49)
[2018-10-15 11:10] LABS: Glucose,Whole Blood 220 mg/dL (75-99)
--- NOTE | 2018-10-15 12:58 | P.PN ---
Subjective Progress Note Date: 10/15/18 Patient is doing well this morning he has no complaints. Tolerating diet. Objective - Vital Signs Vital signs: Vital Signs Temp 98.2 F 10/15/18 07:00 Pulse 88 10/15/18 07:00 Resp 15 10/15/18 07:00 BP 178/86 10/15/18 07:00 Pulse Ox 95 10/15/18 07:00 Intake & Output 10/14/18 10/15/18 10/15/18 18:59 06:59 18:59 Intake Total 600 420 Output Total 400 Balance 200 420 Weight 95.254 kg Intake: Oral 600 420 Output: Urine 200 Stool 200 Other: Voiding Method Urinal Urinal # Voids 3 1 1 # Bowel Movements 1 1 - Constitutional General appearance: Present: cooperative - Respiratory Details: nonlabored - Cardiovascular Rhythm: regular - Gastrointestinal Gastrointestinal Comment(s): S/NT/ND. Wound draining serosang. Ostomy pink and patent with liquid stool in bag - Psychiatric Psychiatric: Present: A&O x's 3 - Labs CBC & Chem 7: 10/15/18 08:53 10/15/18 08:53 Labs: Abnormal Lab Results - Last 24 Hours (Table) 10/14/18 10/14/18 10/15/18 Range/Units 17:11 20:29 07:00 WBC (3.8-10.6) k/uL RBC (4.30-5.90) m/uL Hgb (13.0-17.5) gm/dL Hct (39.0-53.0) % Plt Count (150-450) k/uL Neutrophils # (1.3-7.7) k/uL Glucose (74-99) mg/dL POC Glucose (mg/dL) 255 H 134 H 187 H (75-99) mg/dL Calcium (8.4-10.2) mg/dL 10/15/18 10/15/18 10/15/18 Range/Units 08:53 08:53 11:09 WBC 11.8 H (3.8-10.6) k/uL RBC 3.42 L (4.30-5.90) m/uL Hgb 9.9 L (13.0-17.5) gm/dL Hct 30.9 L (39.0-53.0) % Plt Count 462 H (150-450) k/uL Neutrophils # 9.3 H (1.3-7.7) k/uL Glucose 183 H (74-99) mg/dL POC Glucose (mg/dL) 220 H (75-99) mg/dL Calcium 7.9 L (8.4-10.2) mg/dL Assessment and Plan Assessment: 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 Plan: Leukocytosis is improved. Continue with augmentin for one week as outpatient. Dressing changes daily. Patient is still having borderline high output. Recommend immodium 4mgQID. He can follow up with my as an outpatient in my clinic on Saturday. Stable for DC per surgery
[2018-10-15 13:58] LABS: Glucose,Whole Blood 214 mg/dL (75-99)
[2018-10-15 14:19] VITALS: BP 157/79
--- NOTE | 2018-10-15 14:44 | P.DS ---
Providers Date of admission: 10/12/18 22:01 Expected date of discharge: 10/15/18 Attending physician: Rebecca Hull Consults: 10/12/18 20:53 Consult Physician Routine Consulting Provider: Kevin Cutler Consult Reason/Comments: ostomy Do you want consulting provider notified?: Yes Primary care physician: [facility] Course: Final diagnosis Excess in output from ileostomy Leukocytosis: Reactive in nature Hypokalemia: Resolved current potassium is 4.8 Severe hypoglycemia: Improved Hypertension Discharge disposition The patient is being discharged in a stable condition with guarded prognosis to home and Homecare visiting nurses will follow-up. Patient will go home on oral antibiotics as discussed with Dr. Cutler and will follow-up this week in his office. History of present illness This is a 78-year-old male who was admitted for hypoglycemia and excessive output from his recently placed ileostomy. Dr. Cutler had visited the patient while in the hospital and was monitoring the surgical site of the abdomen. 2 krystyna were removed which allowed for drainage. Patient did have a slightly elevated white blood count initially and current WBC is trending down at 11.8. Dr. Cutler is okay for discharge from his standpoint with 1 week of Augmentin by mouth and the patient will follow-up in his clinic this week. Patient denies any shortness of breath, chest pain, or palpitations. Patient is tolerating diet with no vomiting or nausea noted. The output from the ileostomy has decreased as he is using Imodium capsules. Blood sugars were closely monitored and patient will go home on a sliding scale. The sliding scale was written out and discussed in detail with the patient this morning. Patient was instructed to call the home care agency when he arrives home to set up his services. The number was provided on the discharge instructions. Patient is awaiting for his son to pick him up sometime after 3 this afternoon. Patient is currently stable with much improvement. Patient is being discharged in a stable condition with guarded prognosis. Oral antibiotics will be taken at home per surgery. On exam vital signs are stable. Blood pressure is 157/79, pulse is 86, respirations are 15 non-labored, oral temp is 98.2F, oxygen saturation is 97% on room air. Cardio S1 and S2 are normal. Respiratory system is clear to auscultation with no wheezing noted. The abdomen is soft with abdominal band in place and dressings on the left abdomen are dry and intact. Stool is noted in the ileostomy bag. Nervous system shows no focal deficits and gait is slow and steady. Please refer to the medication reconciliation sheet for a list of medications. Patient Condition at Discharge: Fair Plan - Discharge Summary Discharge Rx Participant: Yes New Discharge Prescriptions: New Amoxicillin/Potassium Clav [Augmentin 875-125 Tablet] 1 tab PO Q12HR #14 tab Loperamide [Imodium] 4 mg PO QID PRN #120 cap PRN Reason: Diarrhea Metoprolol Succinate (ER) [Toprol XL] 100 mg PO DAILY #30 tab.er.24h INSULIN ASPART (NovoLOG) [NovoLOG (formulary)] 0 unit SQ ACHS #1 vial Continue Atorvastatin [Lipitor] 80 mg PO QAM metFORMIN HCL 1,000 mg PO BID Lisinopril [Zestril] 20 mg PO W/SUPPER Discontinued Insuln Asp Prt/Insulin Aspart [NovoLOG MIX 70-30 VIAL] 30 unit SQ QAM Metoprolol Tartrate [Lopressor] 100 mg PO DAILY Insuln Asp Prt/Insulin Aspart [NovoLOG MIX 70-30 VIAL] 40 unit SQ AC-SUPPER Discharge Medication List Atorvastatin [Lipitor] 80 mg PO QAM 08/13/16 [History] Lisinopril [Zestril] 20 mg PO W/SUPPER 08/13/16 [History] metFORMIN HCL 1,000 mg PO BID 08/13/16 [History] Amoxicillin/Potassium Clav [Augmentin 875-125 Tablet] 1 tab PO Q12HR #14 tab 10/14/18 [Rx] INSULIN ASPART (NovoLOG) [NovoLOG (formulary)] 0 unit SQ ACHS #1 vial 10/15/18 [Rx] Loperamide [Imodium] 4 mg PO QID PRN #120 cap 10/15/18 [Rx] Metoprolol Succinate (ER) [Toprol XL] 100 mg PO DAILY #30 tab.er.24h 10/15/18 [Rx] Follow up Appointment(s)/Referral(s): Kevin Cutler DO [Doctor of Osteopathic Medicine] - 10/27/18 10:45 am [facility],Clinic [Primary Care Provider] - 10/23/18 3:00 pm Activity/Diet/Wound Care/Special Instructions: 1st Call home care: #[phone] Start using a sliding scale for your insulin and continue to monitor your blood sugars before each meal and at bedtime 0-150 0 units 151-200 2 units 201-250 4 units 251-300 6 units 301-350 8 units over 351 10 units and call doctor or follow up with them sooner. Keep a diary log of blood sugars and bring to follow up appointment Continue with diabetic diet activity advance as tolerated Discharge Disposition: HOME WITH HOME HEALTH SERVICES
[2018-10-15 16:49] VITALS: PULSE 88
== END 2018-10-15 15:42 | disposition home health service (06) ==
LOC: EC 19:23 → 4SSUR 22:01
PROVIDERS: ADMIT Hospitalist; ATTEND Hospitalist
DX: Z43.2 Encounter for attention to ileostomy (principal); D72.829 Elevated white blood cell count, unspecified; R00.0 Tachycardia, unspecified; E87.6 Hypokalemia; E86.0 Dehydration; E78.5 Hyperlipidemia, unspecified; I10 Essential (primary) hypertension; R20.0 Anesthesia of skin; E11.649 Type 2 diabetes mellitus with hypoglycemia without coma; E11.65 Type 2 diabetes mellitus with hyperglycemia; M79.89 Other specified soft tissue disorders; Z90.49 Acquired absence of other specified parts of digestive tract; Z85.038 Personal history of other malignant neoplasm of large intestine; Z87.01 Personal history of pneumonia (recurrent); Z87.891 Personal history of nicotine dependence; Z79.4 Long term (current) use of insulin; Z79.899 Other long term (current) drug therapy; Z80.9 Family history of malignant neoplasm, unspecified
CPT/HCPCS: 96366 ×3; 96367 ×2; 96372 ×3; 96375 ×2; 96376; 96368; 96365; 99285; 36415; 93005; 80053 ×2; 80048; 82330; 83735; 85025 ×3; 85027; 71045; 74018; 74177; G0378 ×4; J2543 ×3; J1644 ×3; J2405; J3475; J3480 ×2; Q9967

== ENCOUNTER 2018-10-17 14:48 | Inpatient (IN) | payer OTHER, MEDICARE ==
[2018-10-17] MEDS ORDERED: SODIUM CHLORIDE 0.9% 1,000 ML IV STA (15:34)
--- NOTE | 2018-10-17 15:46 | ED ---
General Adult HPI <Chito Amaro - Last Filed: 10/17/18 16:46> - General Source: patient, family Mode of arrival: wheelchair Limitations: no limitations <Lynda Washington - Last Filed: 10/17/18 17:22> - General Chief complaint: Recheck/Abnormal Lab/Rx Stated complaint: Diabetic, unable to take care of himself Time Seen by Provider: 10/17/18 15:14 - History of Present Illness Initial comments: Patient is a 79-year-old male presenting to the emergency department with complaints of fatigue and inability to care for himself. Patient states he was recently in the hospital for 4 days and discharged on 10/15. Patient recently had a revision of ileostomy by Dr. cutler. Patient was having high output and was put on Imodium 4 times a day. He was supposed to follow up with Dr. cutler on Saturday. Patient states he has been having an increase in fatigue, feeling weak, trouble taking his medications, and feels like he is unable to care for himself at home. Patient currently lives by himself. Patient wants to go into a rehab facility until he is able to care for himself better. Patient is deny ing any pain today, fever, chills, nausea, vomiting, abdominal pain. Patient's son is currently with him today. On arrival patient is hypotensive, appears fatigued, laying comfortably in bed. (Lynda Washington) - Related Data Home Medications Medication Instructions Recorded Confirmed Atorvastatin [Lipitor] 80 mg PO QAM 08/13/16 10/12/18 Lisinopril [Zestril] 20 mg PO W/SUPPER 08/13/16 10/12/18 metFORMIN HCL 1,000 mg PO BID 08/13/16 10/12/18 INSULIN ASPART (NovoLOG) [NovoLOG See Protocol SQ ACHS 10/17/18 10/17/18 (formulary)] Previous Rx's Medication Instructions Recorded Amoxicillin/Potassium Clav 1 tab PO Q12HR #14 tab 10/14/18 [Augmentin 875-125 Tablet] Loperamide [Imodium] 4 mg PO QID PRN #120 cap 10/15/18 Metoprolol Succinate (ER) [Toprol 100 mg PO DAILY #30 tab.er.24h 10/15/18 XL] Allergies Allergy/AdvReac Type Severity Reaction Status Date / Time NIACIN AdvReac FLUSHING Uncoded 10/17/18 15:58 Review of Systems ROS Other: All systems not noted in ROS Statement are negative. <PremChito - Last Filed: 10/17/18 16:46> ROS Other: All systems not noted in ROS Statement are negative. <Lynda Washington - Last Filed: 10/17/18 17:22> ROS Statement: Those systems with pertinent positive or pertinent negative responses have been documented in the HPI. Past Medical History Past Medical History: Cancer, Diabetes Mellitus, Hyperlipidemia, Hypertension, Osteoarthritis (OA), Pneumonia, Vascular Disorder Additional Past Medical History / Comment(s): hx blood in stool, hx polyps, hiatal hernia, poor circulation in legs(left worse) History of Any Multi-Drug Resistant Organisms: None Reported Past Surgical History: Appendectomy, Bowel Resection, Joint Replacement, Tonsillectomy Additional Past Surgical History / Comment(s): Right leg replacement, pilonidal cyst, Left leg surgery for blockage, elisa laser eye surgery, bowel resection with colostomy. Past Anesthesia/Blood Transfusion Reactions: No Reported Reaction Past Psychological History: Anxiety Smoking Status: Never smoker Past Alcohol Use History: None Reported Past Drug Use History: None Reported - Past Family History Father Family Medical History: Cancer <Lynda Washington - Last Filed: 10/17/18 17:22> General Exam Limitations: no limitations <Lynda Washington - Last Filed: 10/17/18 17:22> - General Exam Comments Initial Comments: GENERAL: Patient appears fatigued, dry. HEAD: Atraumatic, normocephalic. EYES: Pupils equal round and reactive to light, extraocular movements intact, sclera anicteric, conjunctiva are normal. ENT: TMs normal, nares patent, oropharynx clear without exudates. Dry mucous membranes. NECK: Normal range of motion, supple without lymphadenopathy or JVD. LUNGS: Breath sounds clear to auscultation bilaterally and equal. No wheezes rales or rhonchi. HEART: Regular rate and rhythm without murmurs, rubs or gallops. ABDOMEN: Soft, nontender, normoactive bowel sounds. No guarding, no rebound. No masses appreciated. Ileostomy bag intact, no signs of infection. : Deferred EXTREMITIES: Normal range of motion, no pitting or edema. No clubbing or cyanosis. NEUROLOGICAL: Cranial nerves II through XII grossly intact. Normal speech. PSYCH: Normal mood, normal affect. SKIN: Warm, Dry, normal turgor, no rashes or lesions noted. (Lynda Washington) Course <Chito Amaro - Last Filed: 10/17/18 16:46> Vital Signs 10/17/18 14:53 Temperature 98.5 F Pulse Rate 114 H Respiratory 18 Rate Blood Pressure 87/54 O2 Sat by Pulse 95 Oximetry - Reevaluation(s) Reevaluation #1: 10/17/18 16:46 PA supervision: I proceeded [id number] evaluation the patient did discuss findings with the patient and his family. Patient will be admitted for IV hydration and evaluation for rehab. I did discuss the case with Dr. Lopez. He does demonstrate evidence of acute kidney injury in spite of increasing his oral fluid consumption. (Chito Amaro) Medical Decision Making - Lab Data Result diagrams: 10/17/18 15:55 10/17/18 15:55 <Chito Amaro - Last Filed: 10/17/18 16:46> - Lab Data Result diagrams: 10/17/18 15:55 10/17/18 15:55 <Lynda Washington - Last Filed: 10/17/18 17:22> - Medical Decision Making Patient is a 78-year-old male who presents to the ER with complaints of inability take care of himself, increase in fatigue. Patient was recently in the hospital for 4 days and was discharged 2 days ago. Patient had recent colostomy revision surgery with Dr. Cutler. Patient states he does not feel safe at home and is not been able to care for himself like he used to. Patient currently lives alone. She denies any fevers, chills, pain. Patient arrived hypotensive, with BP 87/54 and slightly tachycardic at 114. CBC is not excitable, platelet count is slightly elevated from last at 527, hemoglobin is 9.8. CMP's shows sodium 134, potassium 4.9, BUN/creatinine are elevated from 2 days ago at 24 and 1.88. Magnesium is 1.5. UA is not excitable. Case is discussed with Dr. Amaro. Patient will be admitted under Dr. Lopez. Patient and son are in agreement with this plan. (PadminiLynda Melody) - Lab Data Lab Results 10/17/18 10/17/18 10/17/18 Range/Units 15:55 15:55 15:55 WBC 11.4 H (3.8-10.6) k/uL RBC 3.44 L (4.30-5.90) m/uL Hgb 9.8 L (13.0-17.5) gm/dL Hct 30.3 L (39.0-53.0) % MCV 88.1 (80.0-100.0) fL MCH 28.5 (25.0-35.0) pg MCHC 32.4 (31.0-37.0) g/dL RDW 13.8 (11.5-15.5) % Plt Count 527 H (150-450) k/uL Neutrophils % 73 % Lymphocytes % 17 % Monocytes % 6 % Eosinophils % 2 % Basophils % 0 % Neutrophils # 8.3 H (1.3-7.7) k/uL Lymphocytes # 2.0 (1.0-4.8) k/uL Monocytes # 0.7 (0-1.0) k/uL Eosinophils # 0.2 (0-0.7) k/uL Basophils # 0.0 (0-0.2) k/uL Sodium 134 L (137-145) mmol/L Potassium 4.9 (3.5-5.1) mmol/L Chloride 100 (98-107) mmol/L Carbon Dioxide 23 (22-30) mmol/L Anion Gap 11 mmol/L BUN 24 H (9-20) mg/dL Creatinine 1.88 H (0.66-1.25) mg/dL Est GFR (CKD-EPI)AfAm 39 (>60 ml/min/1.73 sqM) Est GFR (CKD-EPI)NonAf 34 (>60 ml/min/1.73 sqM) Glucose 175 H (74-99) mg/dL Plasma Lactic Acid Daniel 1.9 (0.7-2.0) mmol/L Calcium 8.8 (8.4-10.2) mg/dL Magnesium (1.6-2.3) mg/dL Total Bilirubin 0.3 (0.2-1.3) mg/dL AST 151 H (17-59) U/L ALT 114 H (21-72) U/L Alkaline Phosphatase 109 (38-126) U/L Total Protein 6.5 (6.3-8.2) g/dL Albumin 3.3 L (3.5-5.0) g/dL Urine Color Urine Appearance (Clear) Urine pH (5.0-8.0) Ur Specific [place] (1.001-1.035) Urine Protein (Negative) Urine Glucose (UA) (Negative) Urine Ketones (Negative) Urine Blood (Negative) Urine Nitrite (Negative) Urine Bilirubin (Negative) Urine Urobilinogen (<2.0) mg/dL Ur Leukocyte Esterase (Negative) Urine RBC (0-5) /hpf Hyaline Casts (0-2) /lpf Urine Mucus (None) /hpf Urine Sperm (None) /hpf 10/17/18 10/17/18 Range/Units 15:55 16:15 WBC (3.8-10.6) k/uL RBC (4.30-5.90) m/uL Hgb (13.0-17.5) gm/dL Hct (39.0-53.0) % MCV (80.0-100.0) fL MCH (25.0-35.0) pg MCHC (31.0-37.0) g/dL RDW (11.5-15.5) % Plt Count (150-450) k/uL Neutrophils % % Lymphocytes % % Monocytes % % Eosinophils % % Basophils % % Neutrophils # (1.3-7.7) k/uL Lymphocytes # (1.0-4.8) k/uL Monocytes # (0-1.0) k/uL Eosinophils # (0-0.7) k/uL Basophils # (0-0.2) k/uL Sodium (137-145) mmol/L Potassium (3.5-5.1) mmol/L Chloride (98-107) mmol/L Carbon Dioxide (22-30) mmol/L Anion Gap mmol/L BUN (9-20) mg/dL Creatinine (0.66-1.25) mg/dL Est GFR (CKD-EPI)AfAm (>60 ml/min/1.73 sqM) Est GFR (CKD-EPI)NonAf (>60 ml/min/1.73 sqM) Glucose (74-99) mg/dL Plasma Lactic Acid Danile (0.7-2.0) mmol/L Calcium (8.4-10.2) mg/dL Magnesium 1.5 L (1.6-2.3) mg/dL Total Bilirubin (0.2-1.3) mg/dL AST (17-59) U/L ALT (21-72) U/L Alkaline Phosphatase (38-126) U/L Total Protein (6.3-8.2) g/dL Albumin (3.5-5.0) g/dL Urine Color Yellow Urine Appearance Cloudy (Clear) Urine pH 5.0 (5.0-8.0) Ur Specific [place] 1.017 (1.001-1.035) Urine Protein 1+ H (Negative) Urine Glucose (UA) Negative (Negative) Urine Ketones Negative (Negative) Urine Blood Negative (Negative) Urine Nitrite Negative (Negative) Urine Bilirubin Negative (Negative) Urine Urobilinogen <2.0 (<2.0) mg/dL Ur Leukocyte Esterase Moderate H (Negative) Urine RBC 8 H (0-5) /hpf Hyaline Casts 55 H (0-2) /lpf Urine Mucus Occasional H (None) /hpf Urine Sperm Moderate H (None) /hpf Disposition <Chito Amaro - Last Filed: 10/17/18 16:46> Is patient prescribed a controlled substance at d/c from ED?: No Decision Date: 10/17/18 Decision Time: 17:22 <Lynda Washington - Last Filed: 10/17/18 17:22> Clinical Impression: Dehydration, Hypotensive episode Disposition: ADMITTED IP TO THIS HOSP Condition: Stable Referrals: [facility],Clinic [Primary Care Provider] - 1-2 days
[2018-10-17 16:06] LABS: Basophils % (A) 0 %; Eosinophils # (A) 0.2 k/uL (0-0.7); Eosinophils % (A) 2 %; HCT 30.3 % (39.0-53.0); HGB 9.8 gm/dL (13.0-17.5); Lymphocytes % (A) 17 %; MCH 28.5 pg (25.0-35.0); MCHC 32.4 g/dL (31.0-37.0); MCV 88.1 fL (80.0-100.0); Mean Platelet Volume 6.9; Monocytes # (A) 0.7 k/uL (0-1.0); Monocytes % (A) 6 %; Neutrophils # (A) 8.3 k/uL (1.3-7.7); Neutrophils % (A) 73 %; Platelet Count 527 k/uL (150-450); RBC 3.44 m/uL (4.30-5.90); RDW 13.8 % (11.5-15.5); WBC 11.4 k/uL (3.8-10.6)
[2018-10-17 16:15] LABS: Albumin 3.3 g/dL (3.5-5.0); Calcium 8.8 mg/dL (8.4-10.2); Potassium 4.9 mmol/L (3.5-5.1); Total Bilirubin 0.3 mg/dL (0.2-1.3); Total Protein 6.5 g/dL (6.3-8.2)
[2018-10-17 16:29] LABS: Appearance,Urine Cloudy (Clear); Bilirubin,Urine Negative (Negative); Blood,Urine Negative (Negative); Color,Urine Yellow; Glucose,Urine (UA) Negative (Negative); Hyaline Casts,Urine 55 /lpf (0-2); Ketones,Urine Negative (Negative); Leukocyte Esterase,Urine Moderate (Negative); Mucus,Urine Occasional /hpf; Nitrite,Urine Negative (Negative); Protein,Urine 1+ (Negative); RBC,Urine 8 /hpf (0-5); Specific Gravity,Urine 1.017 (1.001-1.035); Sperm,Urine Moderate /hpf; Urobilinogen,Urine <2.0 mg/dL (<2.0)
[2018-10-17] MEDS ORDERED: ONDANSETRON 4 MG/2 ML VIAL IVP PRN (17:16)
[2018-10-17] MEDS ORDERED: ACETAMINOPHEN TAB 325 MG TAB PO PRN (17:16)
[2018-10-17] MEDS ORDERED: NALOXONE 0.4 MG/ML 1 ML VIAL IV PRN (17:16)
[2018-10-17] MEDS ORDERED: SODIUM CHLORIDE 0.9% 1,000 ML IV SCH (17:30)
[2018-10-18 00:46] LABS: Glucose,Whole Blood 178 mg/dL (75-99)
[2018-10-18 05:54] LABS: Glucose,Whole Blood 182 mg/dL (75-99)
[2018-10-18 07:17] LABS: Glucose,Whole Blood 180 mg/dL (75-99)
[2018-10-18 11:59] LABS: Glucose,Whole Blood 199 mg/dL (75-99)
[2018-10-18] MEDS: INSULIN ASPART (NovoLOG) 100 UNIT/ML VIAL SQ SCH ×3 (13:10→19:59)
[2018-10-18 14:01] VITALS: BMI 30.1
[2018-10-18] MEDS ORDERED: LOPERAMIDE 2 MG CAP PO PRN (14:36)
--- NOTE | 2018-10-18 14:42 | P.HPIM ---
History of Present Illness 79-year-old male was discharged from my service couple days ago after he was treated for diarrhea from the colostomy. Patient comes back again because he is unable to take care of himself and he is a unable to take care of the ileostomy. When patient was discharged his serum creatinine was 0.9 and now it went up to 1.8 patient doesn't give me a clear history of excess diarrhea. He says he sometimes have diarrhea sometimes it doesn't. Patient was also discharged on Augmentin because of some excoriation of the skin around that site. Patient wanted to go to subacute rehabilitation will obtain physical therapy at admission therapy consultation and patient's metformin will be held patient will be on sliding scale insulin and patient will be started on IV fluids at 100 mL/h. Recheck the serum creatinine. She was also hypomagnesemic magnesium was replaced Review of Systems REVIEW OF SYSTEMS: CONSTITUTIONAL: No fever, no malaise, no fatigue. HEENT: No recent visual problems or hearing problems. Denied any sore throat. CARDIOVASCULAR: No chest pain, orthopnea, PND, no palpitations, no syncope. PULMONARY: No shortness of breath, no cough, no hemoptysis. GASTROINTESTINAL: no nausea, no vomiting, no abdominal pain. NEUROLOGICAL: No headaches, no weakness, no numbness. HEMATOLOGICAL: Denies any bleeding or petechiae. GENITOURINARY: Denies any burning micturition, frequency, or urgency. MUSCULOSKELETAL/RHEUMATOLOGICAL: Denies any joint pain, swelling, or any muscle pain. ENDOCRINE: Denies any polyuria or polydipsia. The rest of the 14-point review of systems is negative. Past Medical History Past Medical History: Cancer, Diabetes Mellitus, Hyperlipidemia, Hypertension, Osteoarthritis (OA), Pneumonia, Vascular Disorder Additional Past Medical History / Comment(s): hx blood in stool, hx polyps, hiatal hernia, poor circulation in legs(left worse), Colon Cancer History of Any Multi-Drug Resistant Organisms: None Reported Past Surgical History: Appendectomy, Bowel Resection, Joint Replacement, Tonsillectomy Additional Past Surgical History / Comment(s): Right knee replacement, pilonidal cyst, Left leg surgery for blockage, elisa laser eye surgery, bowel resection with colostomy. Past Anesthesia/Blood Transfusion Reactions: No Reported Reaction Past Psychological History: Anxiety Smoking Status: Never smoker Past Alcohol Use History: None Reported Additional Past Alcohol Use History / Comment(s): stopped smoking 40-50 yrs ago, smoked for 10 yrs- some day smoker Past Drug Use History: None Reported - Past Family History Father Family Medical History: Cancer Medications and Allergies Home Medications Medication Instructions Recorded Confirmed Type Atorvastatin [Lipitor] 80 mg PO QAM 08/13/16 10/17/18 History Lisinopril [Zestril] 20 mg PO W/SUPPER 08/13/16 10/17/18 History metFORMIN HCL 1,000 mg PO BID 08/13/16 10/17/18 History Amoxicillin/Potassium Clav 1 tab PO Q12HR #14 tab 10/14/18 10/17/18 Rx [Augmentin 875-125 Tablet] Loperamide [Imodium] 4 mg PO QID PRN #120 cap 10/15/18 10/17/18 Rx Metoprolol Succinate (ER) [Toprol 100 mg PO DAILY #30 tab.er.24h 10/15/18 10/17/18 Rx XL] INSULIN ASPART (NovoLOG) [NovoLOG See Protocol SQ ACHS 10/17/18 10/17/18 History (formulary)] Allergies Allergy/AdvReac Type Severity Reaction Status Date / Time NIACIN AdvReac FLUSHING Uncoded 10/17/18 15:58 Physical Exam Vitals: Vital Signs Temp Pulse Pulse Resp BP BP Pulse Ox 10/18/18 13:12 97.6 F 82 16 120/71 96 10/18/18 12:27 86 18 10/18/18 08:00 86 18 10/18/18 05:02 97.4 F L 86 18 125/64 96 10/17/18 22:09 98.0 F 87 18 134/72 97 10/17/18 21:23 75 16 129/76 95 10/17/18 18:48 73 17 114/58 97 10/17/18 14:53 98.5 F 114 H 18 87/54 95 Intake and Output 10/17/18 10/18/18 10/18/18 22:59 06:59 14:59 Intake Total 30 240 360 Output Total 3 Balance 30 240 357 Intake: Intake, IV Titration 30 240 Amount Sodium Chloride 0.9% 1, 30 240 000 ml @ 30 mls/hr IV . Q24H [facility] Rx#:[id number] Oral 360 Output: Urine 3 Other: Voiding Method Toilet Toilet # Voids 1 2 2 Weight 95.254 kg PHYSICAL EXAMINATION: GENERAL: The patient is alert and oriented x3, not in any acute distress. Well developed, well nourished. HEENT: Pupils are round and equally reacting to light. EOMI. No scleral icterus. No conjunctival pallor. Normocephalic, atraumatic. No pharyngeal erythema. No thyromegaly. CARDIOVASCULAR: S1 and S2 present. No murmurs, rubs, or gallops. PULMONARY: Chest is clear to auscultation, no wheezing or crackles. ABDOMEN: Soft, nontender, nondistended, normoactive bowel sounds. No palpable organomegaly. Patient has an ileostomy in place in the right side of the abdomen with some redness around the ileostomy site area mostly inflammation or infection. MUSCULOSKELETAL: No joint swelling or deformity. EXTREMITIES: No cyanosis, clubbing, or pedal edema. NEUROLOGICAL: Gross neurological examination did not reveal any focal deficits. SKIN: No rashes. Results CBC & Chem 7: 10/17/18 15:55 10/17/18 15:55 Labs: Abnormal Lab Results - Last 24 Hours (Table) 10/17/18 10/17/18 10/17/18 Range/Units 15:55 15:55 15:55 WBC 11.4 H (3.8-10.6) k/uL RBC 3.44 L (4.30-5.90) m/uL Hgb 9.8 L (13.0-17.5) gm/dL Hct 30.3 L (39.0-53.0) % Plt Count 527 H (150-450) k/uL Neutrophils # 8.3 H (1.3-7.7) k/uL Sodium 134 L (137-145) mmol/L BUN 24 H (9-20) mg/dL Creatinine 1.88 H (0.66-1.25) mg/dL Glucose 175 H (74-99) mg/dL POC Glucose (mg/dL) (75-99) mg/dL Magnesium 1.5 L (1.6-2.3) mg/dL AST 151 H (17-59) U/L ALT 114 H (21-72) U/L Albumin 3.3 L (3.5-5.0) g/dL Urine Protein (Negative) Ur Leukocyte Esterase (Negative) Urine RBC (0-5) /hpf Urine WBC (0-5) /hpf Hyaline Casts (0-2) /lpf Urine Mucus (None) /hpf Urine Sperm (None) /hpf 10/17/18 10/18/18 10/18/18 Range/Units 16:15 00:34 05:42 WBC (3.8-10.6) k/uL RBC (4.30-5.90) m/uL Hgb (13.0-17.5) gm/dL Hct (39.0-53.0) % Plt Count (150-450) k/uL Neutrophils # (1.3-7.7) k/uL Sodium (137-145) mmol/L BUN (9-20) mg/dL Creatinine (0.66-1.25) mg/dL Glucose (74-99) mg/dL POC Glucose (mg/dL) 178 H 182 H (75-99) mg/dL Magnesium (1.6-2.3) mg/dL AST (17-59) U/L ALT (21-72) U/L Albumin (3.5-5.0) g/dL Urine Protein 1+ H (Negative) Ur Leukocyte Esterase Moderate H (Negative) Urine RBC 8 H (0-5) /hpf Urine WBC 30 H (0-5) /hpf Hyaline Casts 55 H (0-2) /lpf Urine Mucus Occasional H (None) /hpf Urine Sperm Moderate H (None) /hpf 10/18/18 10/18/18 Range/Units 07:14 11:31 WBC (3.8-10.6) k/uL RBC (4.30-5.90) m/uL Hgb (13.0-17.5) gm/dL Hct (39.0-53.0) % Plt Count (150-450) k/uL Neutrophils # (1.3-7.7) k/uL Sodium (137-145) mmol/L BUN (9-20) mg/dL Creatinine (0.66-1.25) mg/dL Glucose (74-99) mg/dL POC Glucose (mg/dL) 180 H 199 H (75-99) mg/dL Magnesium (1.6-2.3) mg/dL AST (17-59) U/L ALT (21-72) U/L Albumin (3.5-5.0) g/dL Urine Protein (Negative) Ur Leukocyte Esterase (Negative) Urine RBC (0-5) /hpf Urine WBC (0-5) /hpf Hyaline Casts (0-2) /lpf Urine Mucus (None) /hpf Urine Sperm (None) /hpf Microbiology - Last 24 Hours (Table) 10/17/18 16:15 Urine Culture - Preliminary Urine,Voided Thrombosis Risk Factor Assmnt - Choose All That Apply Any of the Below Risk Factors Present?: Yes Each Factor Represents 1 point: History of prior major surgery (<1month), Obesity (BMI >25) Other Risk Factors: Yes Each Risk Factor Represents 3 Points: Age 75 years or older Other congenital or acquired thrombophilia - If yes, enter type in comment: No Thrombosis Risk Factor Assessment Total Risk Factor Score: 5 Thrombosis Risk Factor Assessment Level: High Risk Assessment and Plan Plan: -Acute renal failure patient most probably having increased output from ileostomy: Patient was started on IV fluids and monitored patient will continued on antibiotics and antiemetics may be contributing to his diarrhea. -Inflammation and excoriation around the ileostomy site area for which we'll continue with outpatient Hypomagnesemia magnesium will be replaced -Hypertension hold off lisinopril because of acute renal failure continue with metoprolol -Generalized deconditioning: PT and OT evaluation patient may need placement to subacute rehabilitation Due to prophylaxis with subcutaneous heparin
[2018-10-18] MEDS: MAGNESIUM SULFATE-D5W PMX 1 GM in DEXTROSE/WATER 1 100ML.BAG IVPB SCH ×2 (16:41→18:05)
[2018-10-18] MEDS: SODIUM CHLORIDE 0.9% 1,000 ML IV SCH (16:41)
[2018-10-18 17:20] LABS: Glucose,Whole Blood 185 mg/dL (75-99)
[2018-10-18 19:55] LABS: Glucose,Whole Blood 248 mg/dL (75-99)
[2018-10-18] MEDS: AMOXIC-POT CLAV 875-125MG 1 EACH TAB PO SCH (19:59)
[2018-10-18] MEDS: HEPARIN SODIUM,PORCINE 5,000 UNIT/ML 1 ML VIAL SQ SCH (19:59)
[2018-10-19] MEDS: SODIUM CHLORIDE 0.9% 1,000 ML IV SCH ×3 (04:56→20:52)
[2018-10-19 06:48] LABS: HCT 29.1 % (39.0-53.0); HGB 9.2 gm/dL (13.0-17.5); Hypochromasia Slight; MCH 28.7 pg (25.0-35.0); MCHC 31.8 g/dL (31.0-37.0); MCV 90.4 fL (80.0-100.0); Mean Platelet Volume 7.2; Platelet Count 457 k/uL (150-450); RBC 3.22 m/uL (4.30-5.90); RDW 14.1 % (11.5-15.5); WBC 9.2 k/uL (3.8-10.6)
[2018-10-19 06:57] LABS: Albumin 3.1 g/dL (3.5-5.0); Calcium 8.6 mg/dL (8.4-10.2); Magnesium 1.9 mg/dL (1.6-2.3); Potassium 5.4 mmol/L (3.5-5.1); Total Bilirubin 0.4 mg/dL (0.2-1.3); Total Protein 6.3 g/dL (6.3-8.2)
[2018-10-19 07:15] LABS: Glucose,Whole Blood 173 mg/dL (75-99)
[2018-10-19] MEDS: METOPROLOL SUCCINATE (ER) 100 MG TAB.ER.24H PO SCH (08:20)
[2018-10-19] MEDS: AMOXIC-POT CLAV 875-125MG 1 EACH TAB PO SCH ×2 (08:20→20:53)
[2018-10-19] MEDS: ATORVASTATIN 80 MG TAB PO SCH (08:20)
[2018-10-19] MEDS: HEPARIN SODIUM,PORCINE 5,000 UNIT/ML 1 ML VIAL SQ SCH ×2 (08:20→20:52)
[2018-10-19] MEDS: INSULIN ASPART (NovoLOG) 100 UNIT/ML VIAL SQ SCH ×5 (09:20→20:52)
[2018-10-19 11:31] LABS: Glucose,Whole Blood 230 mg/dL (75-99)
--- NOTE | 2018-10-19 13:42 | P.PN ---
Subjective 79-year-old with the ileostomy came in with acute renal failure and unable to take care of himself. Although patient is pretty functional may not qualify for subacute rehabilitation. Although serum creatinine is improving no murmurs diarrhea. Patient was started back on metformin if the patient started having diarrhea again metformin need to be discontinued at that time it's better to use Januvia instead of metformin. Constitutional: Denied any fatigue denied any fever. Cardio vascular: denied any chest pain, palpitations Gastrointestinal denied any nausea vomiting Pulmonary: Denied any shortness of breath cough Neurologic denied any new focal deficits All inpatient medications were reviewed and appropriate changes in these medications as dictated in the interval history and assessment and plan. Objective - Vital Signs Vital signs: Vital Signs Temp 98 F 10/19/18 12:04 Pulse 79 10/19/18 12:04 Resp 16 10/19/18 12:04 BP 168/83 10/19/18 12:04 Pulse Ox 98 10/19/18 12:04 Intake & Output 10/18/18 10/19/18 10/19/18 18:59 06:59 18:59 Intake Total 360 960 360 Output Total 3 403 Balance 357 960 -43 Weight 95.254 kg Intake: Oral 360 960 360 Output: Urine 3 3 Stool 400 Other: Voiding Method Toilet Toilet Toilet # Voids 2 3 500 # Bowel Movements 2 2 - Exam PHYSICAL EXAMINATION: GENERAL: The patient is alert and oriented x3, not in any acute distress. Well developed, well nourished. HEENT: Pupils are round and equally reacting to light. EOMI. No scleral icterus. No conjunctival pallor. Normocephalic, atraumatic. No pharyngeal erythema. No thyromegaly. CARDIOVASCULAR: S1 and S2 present. No murmurs, rubs, or gallops. PULMONARY: Chest is clear to auscultation, no wheezing or crackles. ABDOMEN: Soft, nontender, nondistended, normoactive bowel sounds. No palpable organomegaly. Patient has an ileostomy in place in the right side of the ab domen with some redness around the ileostomy site area mostly inflammation or infection. MUSCULOSKELETAL: No joint swelling or deformity. EXTREMITIES: No cyanosis, clubbing, or pedal edema. NEUROLOGICAL: Gross neurological examination did not reveal any focal deficits. SKIN: No rashes. - Labs CBC & Chem 7: 10/19/18 06:26 10/19/18 06:26 Labs: Abnormal Lab Results - Last 24 Hours (Table) 10/18/18 10/18/18 10/19/18 Range/Units 16:56 19:54 06:26 RBC (4.30-5.90) m/uL Hgb (13.0-17.5) gm/dL Hct (39.0-53.0) % Plt Count (150-450) k/uL Potassium 5.4 H (3.5-5.1) mmol/L Glucose 188 H (74-99) mg/dL POC Glucose (mg/dL) 185 H 248 H (75-99) mg/dL AST 143 H (17-59) U/L ALT 152 H (21-72) U/L Albumin 3.1 L (3.5-5.0) g/dL 10/19/18 10/19/18 10/19/18 Range/Units 06:26 07:12 11:13 RBC 3.22 L (4.30-5.90) m/uL Hgb 9.2 L (13.0-17.5) gm/dL Hct 29.1 L (39.0-53.0) % Plt Count 457 H (150-450) k/uL Potassium (3.5-5.1) mmol/L Glucose (74-99) mg/dL POC Glucose (mg/dL) 173 H 230 H (75-99) mg/dL AST (17-59) U/L ALT (21-72) U/L Albumin (3.5-5.0) g/dL Microbiology - Last 24 Hours (Table) 10/17/18 16:15 Urine Culture - Final Urine,Voided Assessment and Plan Plan: -Acute renal failure patient most probably having increased output from ileostomy: Patient was started on IV fluids and monitored patient will continued on antibiotics and antiemetics may be contributing to his diarrhea. -Inflammation and excoriation around the ileostomy site area for which we'll continue with Augmentin will not require it upon discharge Hypomagnesemia magnesium will be replaced -Hypertension hold off lisinopril because of acute renal failure continue with metoprolol -Generalized deconditioning: PT and OT evaluation patient may need placement to subacute rehabilitation DVT prophylaxis with subcutaneous heparin
[2018-10-19 17:02] LABS: Glucose,Whole Blood 153 mg/dL (75-99)
[2018-10-19] MEDS ORDERED: metFORMIN 500 MG TAB PO SCH (17:30)
[2018-10-19] MEDS: metFORMIN 500 MG TAB PO SCH (18:04)
[2018-10-19 20:23] LABS: Glucose,Whole Blood 170 mg/dL (75-99)
[2018-10-20] MEDS: SODIUM CHLORIDE 0.9% 1,000 ML IV SCH ×2 (06:21→17:56)
[2018-10-20 06:48] LABS: Glucose,Whole Blood 166 mg/dL (75-99)
[2018-10-20] MEDS: ATORVASTATIN 80 MG TAB PO SCH (08:37)
[2018-10-20] MEDS: HEPARIN SODIUM,PORCINE 5,000 UNIT/ML 1 ML VIAL SQ SCH ×2 (08:37→21:11)
[2018-10-20] MEDS: AMOXIC-POT CLAV 875-125MG 1 EACH TAB PO SCH ×2 (08:37→21:13)
[2018-10-20] MEDS: PARoxetine 10 MG TAB PO SCH (08:37)
[2018-10-20] MEDS: INSULIN ASPART (NovoLOG) 100 UNIT/ML VIAL SQ SCH ×4 (08:37→21:10)
[2018-10-20] MEDS: metFORMIN 500 MG TAB PO SCH ×2 (08:37→17:55)
[2018-10-20] MEDS: METOPROLOL SUCCINATE (ER) 100 MG TAB.ER.24H PO SCH (08:37)
[2018-10-20 11:30] LABS: Glucose,Whole Blood 195 mg/dL (75-99)
[2018-10-20] MEDS: LOPERAMIDE 2 MG CAP PO SCH ×3 (13:07→21:12)
--- NOTE | 2018-10-20 16:16 | P.PN ---
Subjective Progress Note Date: 10/20/18 Principal diagnosis: This is a 78-year-old male who was admitted for acute renal failure, recent ileostomy, and unable to take care of himself and is closely being monitored. Patient was here last week and discharged home with home care and felt that he was unable to manage his medications by himself and was having difficulty with ileostomy care. Patient is independent but is having a hard time with his medications, blood sugar monitoring, ileostomy care, and wound care to the left abdomen. Patient states that he does have a glucometer but it is broken and he hasn't been checking his blood sugars regularly. Patient is still having loose stool output in the ileostomy. Patient denies any shortness of breath, chest pain, palpitations at this time. Patient is afebrile. Patient denies any nausea or vomiting. Objective - Vital Signs Vital signs: Vital Signs Temp 97.9 F 10/20/18 12:16 Pulse 78 10/20/18 12:16 Resp 17 10/20/18 12:16 BP 151/72 10/20/18 12:16 Pulse Ox 96 10/20/18 12:16 Intake & Output 10/19/18 10/20/18 10/20/18 18:59 06:59 18:59 Intake Total 360 800 Output Total 1206 300 Balance -846 800 -300 Weight 95.254 kg Intake: Intake, IV Titration 800 Amount Sodium Chloride 0.9% 1, 800 000 ml @ 100 mls/hr IV . Q10H [facility] Rx#:[id number] Oral 360 Output: Urine 6 Stool 1200 300 Other: Voiding Method Toilet Toilet Toilet # Voids 500 2 # Bowel Movements 2 - Exam Gen: This is a 78-year-old male lying in bed in no acute distress. Vital signs are Blood pressure is 151/72, heart rate is 78, respirations are 17, temp is 97.9F, pulse ox is 96% on room air HEENT: Head is atraumatic, normocephalic. Pupils equal, round. Sclerae is anicteric. NECK: Supple. No JVD. No lymphadenopathy. No thyromegaly. LUNGS: Clear to auscultation. No wheezes or rhonchi. No intercostal retractions. HEART: Regular rate and rhythm. No murmur. ABDOMEN: Soft. Bowel sounds are present. No masses. No tenderness. Ileostomy on the right is intact with loose stool noted. Abdominal dressing on the left has some purulent drainage noted on the ABD pad. EXTREMITIES: No pedal edema. No calf tenderness. NEUROLOGICAL: Patient is awake, alert and oriented x3. Cranial nerves 2 through 12 are grossly intact. - Labs CBC & Chem 7: 10/19/18 06:26 10/19/18 06:26 Labs: Abnormal Lab Results - Last 24 Hours (Table) 10/19/18 10/19/18 10/20/18 Range/Units 16:59 20:22 06:46 POC Glucose (mg/dL) 153 H 170 H 166 H (75-99) mg/dL 10/20/18 Range/Units 11:29 POC Glucose (mg/dL) 195 H (75-99) mg/dL Assessment and Plan Assessment: Acute renal failure: Patient was probably having increased output from ileostomy. IV fluids are held at this time. Patient is currently still on oral antibiotics of Augmentin. We will continue to monitor output and labs. BUNs is 19, creatinine is 1.20 Inflammation and excoriation around the ileostomy site: Continue on Augmentin, wound care is consulted Hypomagnesemia: Magnesium will be replaced. Current magnesium level is 1.9 Hypertension: Continue to hold lisinopril and continue with metoprolol Generalized deconditioning: PT and OT are following. Patient may require subacute rehab but is refusing this at this time. Patient would like to go home with home care services. DVT prophylaxis with subcutaneous heparin Diabetes mellitus type 2: We'll continue to monitor blood glucose levels. Patient is on a sliding scale. Recommendations and discussion: Recommend continue current medications and continue symptomatic treatment. Continue with oral antibiotics. Wound care is consulted will await for report. We will continue to closely monitor. Guarded prognosis. Further recommendations to follow. Case management is following [facility] or [facility] care [facility]. Patient is refusing inpatient rehab at this time.
--- NOTE | 2018-10-20 16:32 | P.GSCN ---
History of Present Illness Consult date: 10/20/18 History of present illness: This is a 78-year-old male very well known to my service who recently was discharged from the hospital. Recently he's had revision of an ileocolonic anastomosis with loop ileostomy secondary to anastomotic leak 11 days after a right hemicolectomy was performed for colon cancer. From a surgical standpoint is doing very well he was admitted 1 week ago for hyperglycemia and high output out of his ileostomy. He was doing well and sent home with 4 times a day Imodium. During that hospital stay the midline incision also had a seroma that was drained. He was started on Augmentin for 1 week secondary to this. Apparently he was experiencing weakness at home and difficulty getting around and was brought into the emergency department he states that his glucometer is now working and he's having a difficult time taking his medications and glenny mbering which medications to take. He was dehydrated upon arrival. Today he's feeling well he has no complaints he's tolerating his diet. Due to an accurate intake and output it is difficult to say how much daily output were seen from ileostomy at this time. Past Medical History Past Medical History: Cancer, Diabetes Mellitus, Hyperlipidemia, Hypertension, O steoarthritis (OA), Pneumonia, Vascular Disorder Additional Past Medical History / Comment(s): hx blood in stool, hx polyps, hiatal hernia, poor circulation in legs(left worse), Colon Cancer History of Any Multi-Drug Resistant Organisms: None Reported Past Surgical History: Appendectomy, Bowel Resection, Joint Replacement, Tonsillectomy Additional Past Surgical History / Comment(s): Right knee replacement, pilonidal cyst, Left leg surgery for blockage, elisa laser eye surgery, bowel resection with colostomy. Past Anesthesia/Blood Transfusion Reactions: No Reported Reaction Past Psychological History: Anxiety Smoking Status: Never smoker Past Alcohol Use History: None Reported Additional Past Alcohol Use History / Comment(s): stopped smoking 40-50 yrs ago, smoked for 10 yrs- some day smoker Past Drug Use History: None Reported - Past Family History Father Family Medical History: Cancer Medications and Allergies Home Medications Medication Instructions Recorded Confirmed Type Atorvastatin [Lipitor] 80 mg PO QAM 08/13/16 10/17/18 History Lisinopril [Zestril] 20 mg PO W/SUPPER 08/13/16 10/17/18 History metFORMIN HCL 1,000 mg PO BID 08/13/16 10/17/18 History Amoxicillin/Potassium Clav 1 tab PO Q12HR #14 tab 10/14/18 10/17/18 Rx [Augmentin 875-125 Tablet] Loperamide [Imodium] 4 mg PO QID PRN #120 cap 10/15/18 10/17/18 Rx Metoprolol Succinate (ER) [Toprol 100 mg PO DAILY #30 tab.er.24h 10/15/18 10/17/18 Rx XL] INSULIN ASPART (NovoLOG) [NovoLOG See Protocol SQ ACHS 10/17/18 10/17/18 History (formulary)] Allergies Allergy/AdvReac Type Severity Reaction Status Date / Time NIACIN AdvReac FLUSHING Uncoded 10/17/18 15:58 Surgical - Exam Osteopathic Statement: *. No significant issues noted on an osteopathic structural exam other than those noted in the History and Physical/Consult. Vital Signs Temp Pulse Resp BP Pulse Ox 98.5 F 114 H 18 87/54 95 10/17/18 14:53 10/17/18 14:53 10/17/18 14:53 10/17/18 14:53 10/17/18 14:53 - General well developed, well nourished, no distress - Eyes PERRL - Neck trachea midline - Respiratory normal expansion, normal respiratory effort - Cardiovascular Rhythm: regular - Abdomen incision is clean and dry there is a small opening inferior to the umbilicus no purulent drainage. Ileostomy pink and patent with stool in bag Abdomen: soft, non tender - Neurologic normal coordination, normal sensation - Psychiatric oriented to time, oriented to person, oriented to place Results - Labs 10/19/18 06:26 10/19/18 06:26 Abnormal Lab Results - Last 24 Hours (Table) 10/19/18 10/19/18 10/20/18 Range/Units 16:59 20:22 06:46 POC Glucose (mg/dL) 153 H 170 H 166 H (75-99) mg/dL 10/20/18 Range/Units 11:29 POC Glucose (mg/dL) 195 H (75-99) mg/dL Assessment and Plan Assessment: high output from ileostomy, colon cancer status post right hemicolectomy with revision of anastomosis and loop ileostomy, multiple medical comorbidities Plan: I do recommend scheduled loperamide 4 mg 4 times a day. Patient is having diffic ulty managing his medical comorbidities at home by himself. His glucometer is now broken. He states he's not able to take his Imodium and he's having difficulty crashing his pills along with what seems to be confusion on which pills to take. During his hospital stay after his second surgery I did recommend rehabilitation however [facility] was [facility] the [facility] at that [facility]. At this time I recommend maintaining strict accurate I's and O's to give us a better idea of exactly how much output is coming from ileostomy. He should have less than 1500 mL per day. his midline incision is healing well he can continue to have dressing changes daily. He no longer needs Augmentin. There is no sign of infection.
[2018-10-20 17:08] LABS: Glucose,Whole Blood 178 mg/dL (75-99)
[2018-10-20 20:42] LABS: Glucose,Whole Blood 148 mg/dL (75-99)
[2018-10-20 21:33] VITALS: RESP 18
[2018-10-20 21:39] LABS: Hemoglobin A1C 7.4 % (4.0-6.0)
[2018-10-21] MEDS: SODIUM CHLORIDE 0.9% 1,000 ML IV SCH ×2 (00:58→12:28)
[2018-10-21 06:49] LABS: Glucose,Whole Blood 175 mg/dL (75-99)
[2018-10-21] MEDS: INSULIN ASPART (NovoLOG) 100 UNIT/ML VIAL SQ SCH ×2 (07:45→13:04)
[2018-10-21] MEDS: metFORMIN 500 MG TAB PO SCH (07:48)
[2018-10-21] MEDS: HEPARIN SODIUM,PORCINE 5,000 UNIT/ML 1 ML VIAL SQ SCH (09:52)
[2018-10-21] MEDS: METOPROLOL SUCCINATE (ER) 100 MG TAB.ER.24H PO SCH (09:53)
[2018-10-21] MEDS: AMOXIC-POT CLAV 875-125MG 1 EACH TAB PO SCH (09:53)
[2018-10-21] MEDS: ATORVASTATIN 80 MG TAB PO SCH (09:53)
[2018-10-21] MEDS: LOPERAMIDE 2 MG CAP PO SCH ×2 (09:54→13:04)
[2018-10-21] MEDS: PARoxetine 10 MG TAB PO SCH (09:55)
[2018-10-21 10:58] LABS: Glucose,Whole Blood 179 mg/dL (75-99)
[2018-10-21 11:36] LABS: Calcium 8.5 mg/dL (8.4-10.2); Potassium 5.3 mmol/L (3.5-5.1)
[2018-10-21 12:00] VITALS: BP 144/79; PULSE 99; TEMP 98.2
--- NOTE | 2018-10-21 13:46 | P.PN ---
Subjective Progress Note Date: 10/21/18 Patient is doing well today. He had 1300 mL output from ileostomy yesterday. Tolerating his diet Objective - Vital Signs Vital signs: Vital Signs Temp 98.2 F 10/21/18 11:30 Pulse 99 10/21/18 11:30 Resp 18 10/21/18 11:30 BP 144/79 10/21/18 11:30 Pulse Ox 96 10/21/18 11:30 Intake & Output 10/20/18 10/21/18 10/21/18 18:59 06:59 18:59 Intake Total 1100 Output Total 300 1050 550 Balance -300 50 -550 Weight 95.254 kg Intake: Intake, IV Titration 800 Amount Sodium Chloride 0.9% 1, 800 000 ml @ 100 mls/hr IV . Q10H [facility] Rx#:[id number] Oral 300 Output: Urine 200 Stool 300 1050 350 Other: Voiding Method Toilet Toilet Toilet - Constitutional General appearance: Present: cooperative - Respiratory Details: Nonlabored - Cardiovascular Rhythm: regular - Gastrointestinal Gastrointestinal Comment(s): Soft nondistended. Incision is clean and dry small area inferior to the umbilicus open no purulent drainage. Ostomy pink patent with fluid in bag - Psychiatric Psychiatric: Present: A&O x's 3 - Labs CBC & Chem 7: 10/19/18 06:26 10/21/18 11:11 Labs: Abnormal Lab Results - Last 24 Hours (Table) 10/19/18 10/20/18 10/20/18 Range/Units 06:26 17:07 20:41 Sodium (137-145) mmol/L Potassium (3.5-5.1) mmol/L Glucose (74-99) mg/dL POC Glucose (mg/dL) 178 H 148 H (75-99) mg/dL Hemoglobin A1c 7.4 H (4.0-6.0) % 10/21/18 10/21/18 10/21/18 Range/Units 06:48 10:57 11:11 Sodium 135 L (137-145) mmol/L Potassium 5.3 H (3.5-5.1) mmol/L Glucose 190 H (74-99) mg/dL POC Glucose (mg/dL) 175 H 179 H (75-99) mg/dL Hemoglobin A1c (4.0-6.0) % Assessment and Plan Assessment: high output from ileostomy, colon cancer status post right hemicolectomy with revision of anastomosis and loop ileostomy, multiple medical comorbidities Plan: Patient is doing well from a surgical standpoint. He should continue taking 4 times a day Imodium at home. He is having some difficulty knowing which pills to taken when. This has been reviewed with him in detail. He'll follow-up with me in my clinic next week. He should continue daily dressing changes no need for packing.
--- NOTE | 2018-10-21 15:02 | P.DS ---
Providers Date of admission: 10/20/18 10:47 Expected date of discharge: 10/21/18 Attending physician: Griselda Lopez Consults: 10/19/18 12:41 Consult Physician Routine Consulting Provider: Kassidy Newton Consult Reason/Comments: know to wound care Do you want consulting provider notified?: Already Contacted Primary care physician: [facility] Hospital Course: Final diagnosis Acute renal failure Inflammation and excoriation around the ileostomy site Hypomagnesemia Hypertension Generalized deconditioning Diabetes mellitus type 2 Discharge disposition The patient is being discharged in a stable condition with guarded prognosis to home and Homecare will be following the patient for wound care, ileostomy care and education, and medication education. Per Dr. cutler the patient is okay to discontinue the oral Augmentin at this time. History of present illness This is a 70-year-old male that was recently admitted for acute renal failure with an increase in ileostomy drainage. Patient states that the output from the ileostomy has thickened as he has been taking the Imodium capsules and has decreased in output volume. Patient was visited by the ileostomy nurse and education was provided. Patient is denying any shortness of breath, chest pain, or palpitations at this time. Patient is afebrile. Patient denies any nausea or vomiting at this time. Patient was also instructed on how to care for his abdominal incision with Dr. cutler. Discharge instructions and wound care instructions were provided. Homecare and the [facility] will be visiting the patient this week. Discussed with the patient at length about continuing to use the sliding scale. Patient did receive a new glucometer while here at the hospital. Today's creatinine is 1.06, BUN is 14. Magnesium is 1.9 On exam vital signs are stable. Blood pressure is 144/79, heart rate is 99, temp is 98.2F, respirations are 18 and non-labored, oxygen saturation is 96% on room air. Cardio S1 and S2 are normal. Respiratory system is clear to auscultation. Abdomen is soft and nontender with an ileostomy on the right side as well as an ABD dressing that is dry and intact on the left side. Dressing was just changed by Dr. cutler at the bedside. Nervous system shows no focal deficits and gait is steady. Please see medication reconciliation sheet for list of medications. Patient Condition at Discharge: Stable Plan - Discharge Summary Discharge Rx Participant: Yes New Discharge Prescriptions: Continue Atorvastatin [Lipitor] 80 mg PO QAM metFORMIN HCL 1,000 mg PO BID Lisinopril [Zestril] 20 mg PO W/SUPPER Loperamide [Imodium] 4 mg PO QID PRN #120 cap PRN Reason: Diarrhea Metoprolol Succinate (ER) [Toprol XL] 100 mg PO DAILY #30 tab.er.24h INSULIN ASPART (NovoLOG) [NovoLOG (formulary)] See Protocol SQ ACHS Discontinued Amoxicillin/Potassium Clav [Augmentin 875-125 Tablet] 1 tab PO Q12HR #14 tab Discharge Medication List Atorvastatin [Lipitor] 80 mg PO QAM 08/13/16 [History] Lisinopril [Zestril] 20 mg PO W/SUPPER 08/13/16 [History] metFORMIN HCL 1,000 mg PO BID 08/13/16 [History] Loperamide [Imodium] 4 mg PO QID PRN #120 cap 10/15/18 [Rx] Metoprolol Succinate (ER) [Toprol XL] 100 mg PO DAILY #30 tab.er.24h 10/15/18 [Rx] INSULIN ASPART (NovoLOG) [NovoLOG (formulary)] See Protocol SQ ACHS 10/17/18 [History] Follow up Appointment(s)/Referral(s): Kevin Cutler DO [Doctor of Osteopathic Medicine] - 1 Week [facility] [Primary Care Provider] - 10/23/18 3:00 pm Patient Instructions/Handouts: Ileostomy Care (DC), Hypotension (DC) Activity/Diet/Wound Care/Special Instructions: [facility] is setting up the home care agency. Contact them regarding questions. Cleanse area with normal saline 20ml and dry with 2 4x4 gauze. Cover with 2 dry 4x4 gauze. Secure with 1 ABD pad and apply paper tape. Supply patient through [facility] with 5-250ml Normal Saline containers, 3 packs of 4x4 gauze, 30 ABD pads, 5 rolls of paper tape. Follow-up with Dr. Cutler in the clinic this week as discussed. Continue with the blood sugar checks before meals and at bedtime and follow the sliding scale as discussed. Ileostomy care Recommendations for Home: Last pouching system change: 7.23.2019 Ileostomy pouching system to be change every 3-5 days Ileostomy pouch to be emptied when it is 1/2 to 1/3 full in the bathroom Ileostomy supplies being sent home from the hospital Convatec: One piece cut to fit with filter transparent #[id number] (four from the hospital) Skin preps (12) Osotmy powder (One bottle) Home Health please establish Mr Lopez for precut opaque pouches for permanent system eventually if possible Discharge Disposition: HOME WITH HOME HEALTH SERVICES
== END 2018-10-21 17:02 | disposition home health service (06) | DRG 683 ==
LOC: EC 14:48 → 3NMEDONC 16:45 → OBSVTOIN 10-20 10:47
PROVIDERS: ADMIT Internal Medicine; ATTEND Internal Medicine
DX: N17.9 Acute kidney failure, unspecified (principal); C18.9 Malignant neoplasm of colon, unspecified; K94.12 Enterostomy infection; E11.9 Type 2 diabetes mellitus without complications; E78.5 Hyperlipidemia, unspecified; E83.42 Hypomagnesemia; E86.0 Dehydration; F41.9 Anxiety disorder, unspecified; I10 Essential (primary) hypertension; Z79.4 Long term (current) use of insulin; Z79.899 Other long term (current) drug therapy; Z87.891 Personal history of nicotine dependence; Z90.49 Acquired absence of other specified parts of digestive tract; Z96.651 Presence of right artificial knee joint; Z71.89 Other specified counseling; Z86.010 Personal history of colon polyps; K44.9 Diaphragmatic hernia without obstruction or gangrene; Z88.8 Allergy status to other drugs, medicaments and biological substances
CPT/HCPCS: 36415; 80048; 80053; 81001; 83036; 83605; 83735; 85025; 85027; 87086; 96360; 96361; 99284

== ENCOUNTER 2018-10-24 13:23 | Inpatient (IN) | payer OTHER, MEDICARE ==
[2018-10-24] MEDS ORDERED: SODIUM CHLORIDE 0.9% 500 ML 500 ML IV STA ×2 (13:50→16:49)
--- NOTE | 2018-10-24 13:54 | ED ---
General Adult HPI - General Chief complaint: Weakness Stated complaint: Weakness Time Seen by Provider: 10/24/18 13:33 Source: patient, RN notes reviewed Mode of arrival: EMS Limitations: no limitations - History of Present Illness Initial comments: Patient is a pleasant 78-year-old male presenting to the emergency Department with generalized weakness and fatigue. Symptoms have been occurring for over several days. Patient was recently in the hospital. 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 Patient believes that they did remove all of the cancer. Patient is not currently on any chemotherapy. Patient does not have abdominal discomfort. Patient did have one episode of vomiting. Patient does have significant decrease in appetite and decreased oral intake. No fevers. No confusion or isolated area of weakness. Patient has still been taking his blood pressure medication. - Related Data Home Medications Medication Instructions Recorded Confirmed Atorvastatin [Lipitor] 80 mg PO QAM 08/13/16 10/24/18 Lisinopril [Zestril] 20 mg PO W/SUPPER 08/13/16 10/24/18 metFORMIN HCL 1,000 mg PO BID 08/13/16 10/24/18 INSULIN ASPART (NovoLOG) [NovoLOG See Protocol SQ ACHS 10/17/18 10/24/18 (formulary)] Previous Rx's Medication Instructions Recorded Loperamide [Imodium] 4 mg PO QID PRN #120 cap 10/15/18 Metoprolol Succinate (ER) [Toprol 100 mg PO DAILY #30 tab.er.24h 10/15/18 XL] Allergies Allergy/AdvReac Type Severity Reaction Status Date / Time niacin AdvReac flushing Verified 10/24/18 14:20 Review of Systems ROS Statement: Those systems with pertinent positive or pertinent negative responses have been documented in the HPI. ROS Other: All systems not noted in ROS Statement are negative. Constitutional: Denies: fever Eyes: Denies: eye pain ENT: Denies: ear pain Respiratory: Denies: dyspnea Cardiovascular: Denies: chest pain Endocrine: Reports: fatigue Gastrointestinal: Reports: nausea. Denies: abdominal pain Genitourinary: Denies: dysuria Musculoskeletal: Denies: back pain Skin: Denies: rash Neurological: Denies: headache, confusion Past Medical History Past Medical History: Cancer, Diabetes Mellitus, Hyperlipidemia, Hypertension, Osteoarthritis (OA), Pneumonia, Vascular Disorder Additional Past Medical History / Comment(s): hx blood in stool, hx polyps, hiatal hernia, poor circulation in legs(left worse), Colon Cancer History of Any Multi-Drug Resistant Organisms: None Reported Past Surgical History: Appendectomy, Bowel Resection, Joint Replacement, Tonsillectomy Additional Past Surgical History / Comment(s): Right knee replacement, pilonidal cyst, Left leg surgery for blockage, elisa laser eye surgery, bowel resection with colostomy. Past Anesthesia/Blood Transfusion Reactions: No Reported Reaction Past Psychological History: Anxiety Smoking Status: Never smoker Past Alcohol Use History: None Reported Past Drug Use History: None Reported - Past Family History Father Family Medical History: Cancer General Exam Limitations: no limitations General appearance: alert, in no apparent distress Head exam: Present: atraumatic Eye exam: Present: normal appearance, PERRL, EOMI. Absent: nystagmus ENT exam: Present: normal oropharynx Neck exam: Present: normal inspection Respiratory exam: Present: normal lung sounds bilaterally Cardiovascular Exam: Present: regular rate, normal rhythm GI/Abdominal exam: Present: soft. Absent: tenderness Extremities exam: Present: normal inspection Neurological exam: Present: alert, oriented X3, CN II-XII intact. Absent: motor sensory deficit Expanded Neurological exam: Present: protecting the airway Patient oriented to: Present: person, place, time Speech: Present: fluid speech Cranial nerves: EOM's Intact: Normal Motor strength exam: RUE: 5, LUE: 5, RLE: 5, LLE: 5 Eye Response: (4) open spontaneously Motor Response: (6) obeys commands Verbal Response: (5) oriented Psychiatric exam: Present: normal affect, normal mood Skin exam: Present: normal color Course Vital Signs 10/24/18 10/24/18 10/24/18 13:25 14:40 14:47 Temperature 97.9 F Pulse Rate 76 81 82 Respiratory 18 18 14 Rate Blood Pressure 84/48 133/60 133/60 O2 Sat by Pulse 96 97 98 Oximetry 10/24/18 10/24/18 10/24/18 15:00 15:30 15:36 Temperature Pulse Rate 80 78 78 Respiratory 18 16 Rate Blood Pressure 133/60 133/66 133/66 O2 Sat by Pulse 98 97 97 Oximetry 10/24/18 10/24/18 10/24/18 16:00 16:30 16:35 Temperature Pulse Rate 76 78 78 Respiratory 18 23 23 Rate Blood Pressure 125/68 127/65 127/65 O2 Sat by Pulse 97 97 97 Oximetry EKG Findings - EKG Comments: EKG Findings:: Normal sinus rhythm at 80. UT 174. QRS 64. QT 390. QTC 449. Normal axis. Normal QRS. No acute ST change. Medical Decision Making - Medical Decision Making Patient reevaluated and resting comfortably in bed. Patient updated on results and plan. Case was discussed in detail with Dr. Hull, covering for nm patient's, who will admit. - Lab Data Result diagrams: 10/24/18 14:35 10/24/18 14:59 Lab Results 10/24/18 10/24/18 10/24/18 Range/Units 14:35 14:35 14:35 WBC 10.6 (3.8-10.6) k/uL RBC 3.42 L (4.30-5.90) m/uL Hgb 9.9 L (13.0-17.5) gm/dL Hct 30.1 L (39.0-53.0) % MCV 88.0 (80.0-100.0) fL MCH 29.0 (25.0-35.0) pg MCHC 32.9 (31.0-37.0) g/dL RDW 14.1 (11.5-15.5) % Plt Count 395 (150-450) k/uL Neutrophils % 72 % Lymphocytes % 19 % Monocytes % 6 % Eosinophils % 1 % Basophils % 1 % Neutrophils # 7.7 (1.3-7.7) k/uL Lymphocytes # 2.0 (1.0-4.8) k/uL Monocytes # 0.6 (0-1.0) k/uL Eosinophils # 0.1 (0-0.7) k/uL Basophils # 0.1 (0-0.2) k/uL PT 10.0 (9.0-12.0) sec INR 0.9 (<1.2) APTT 21.5 L (22.0-30.0) sec Sodium (137-145) mmol/L Potassium (3.5-5.1) mmol/L Chloride (98-107) mmol/L Carbon Dioxide (22-30) mmol/L Anion Gap mmol/L BUN (9-20) mg/dL Creatinine (0.66-1.25) mg/dL Est GFR (CKD-EPI)AfAm (>60 ml/min/1.73 sqM) Est GFR (CKD-EPI)NonAf (>60 ml/min/1.73 sqM) Glucose (74-99) mg/dL Plasma Lactic Acid Daniel 1.7 (0.7-2.0) mmol/L Calcium (8.4-10.2) mg/dL Phosphorus (2.5-4.5) mg/dL Magnesium (1.6-2.3) mg/dL Total Bilirubin (0.2-1.3) mg/dL AST (17-59) U/L ALT (21-72) U/L Alkaline Phosphatase (38-126) U/L Troponin I (0.000-0.034) ng/mL Total Protein (6.3-8.2) g/dL Albumin (3.5-5.0) g/dL TSH (0.465-4.680) mIU/L Free T4 (0.78-2.19) ng/dL Free T3 pg/mL (2.8-5.3) pg/ml 10/24/18 10/24/18 Range/Units 14:35 14:59 WBC (3.8-10.6) k/uL RBC (4.30-5.90) m/uL Hgb (13.0-17.5) gm/dL Hct (39.0-53.0) % MCV (80.0-100.0) fL MCH (25.0-35.0) pg MCHC (31.0-37.0) g/dL RDW (11.5-15.5) % Plt Count (150-450) k/uL Neutrophils % % Lymphocytes % % Monocytes % % Eosinophils % % Basophils % % Neutrophils # (1.3-7.7) k/uL Lymphocytes # (1.0-4.8) k/uL Monocytes # (0-1.0) k/uL Eosinophils # (0-0.7) k/uL Basophils # (0-0.2) k/uL PT (9.0-12.0) sec INR (<1.2) APTT (22.0-30.0) sec Sodium 128 L (137-145) mmol/L Potassium 5.6 H (3.5-5.1) mmol/L Chloride 98 (98-107) mmol/L Carbon Dioxide 17 L (22-30) mmol/L Anion Gap 13 mmol/L BUN 46 H (9-20) mg/dL Creatinine 4.25 H (0.66-1.25) mg/dL Est GFR (CKD-EPI)AfAm 14 (>60 ml/min/1.73 sqM) Est GFR (CKD-EPI)NonAf 12 (>60 ml/min/1.73 sqM) Glucose 190 H (74-99) mg/dL Plasma Lactic Acid Daniel (0.7-2.0) mmol/L Calcium 8.3 L (8.4-10.2) mg/dL Phosphorus 5.4 H (2.5-4.5) mg/dL Magnesium 1.4 L (1.6-2.3) mg/dL Total Bilirubin 0.4 (0.2-1.3) mg/dL AST 32 (17-59) U/L ALT 60 (21-72) U/L Alkaline Phosphatase 93 (38-126) U/L Troponin I <0.012 (0.000-0.034) ng/mL Total Protein 6.4 (6.3-8.2) g/dL Albumin 3.4 L (3.5-5.0) g/dL TSH 0.795 (0.465-4.680) mIU/L Free T4 1.85 (0.78-2.19) ng/dL Free T3 pg/mL 3.8 (2.8-5.3) pg/ml - Radiology Data Radiology results: image reviewed (Chest x-ray shows no acute process) Critical Care Time Critical Care Time: Yes Total Critical Care Time: 34 Disposition Clinical Impression: Acute renal failure (ARF) Disposition: ADMITTED IP TO THIS HOSP Is patient prescribed a controlled substance at d/c from ED?: No Referrals: [facility]inic [Primary Care Provider] - 1-2 days Decision Time: 16:49
[2018-10-24] MEDS ORDERED: FAMOTIDINE 20 MG/2 ML VIAL IV STA (14:42)
[2018-10-24] MEDS ORDERED: ONDANSETRON 4 MG/2 ML VIAL IVP STA (14:42)
[2018-10-24 14:47] LABS: Basophils # (A) 0.1 k/uL (0-0.2); Basophils % (A) 1 %; Eosinophils # (A) 0.1 k/uL (0-0.7); Eosinophils % (A) 1 %; HCT 30.1 % (39.0-53.0); HGB 9.9 gm/dL (13.0-17.5); Lymphocytes % (A) 19 %; MCHC 32.9 g/dL (31.0-37.0); Mean Platelet Volume 7.1; Monocytes # (A) 0.6 k/uL (0-1.0); Monocytes % (A) 6 %; Neutrophils # (A) 7.7 k/uL (1.3-7.7); Neutrophils % (A) 72 %; Platelet Count 395 k/uL (150-450); RBC 3.42 m/uL (4.30-5.90); RDW 14.1 % (11.5-15.5); WBC 10.6 k/uL (3.8-10.6)
[2018-10-24] MEDS: SODIUM CHLORIDE 0.9% 1,000 ML IV STA ×2 (14:48→19:28)
[2018-10-24 14:59] LABS: INR 0.9 (<1.2)
[2018-10-24 15:18] LABS: Albumin 3.4 g/dL (3.5-5.0); Calcium 8.3 mg/dL (8.4-10.2); Magnesium 1.4 mg/dL (1.6-2.3); Phosphorus 5.4 mg/dL (2.5-4.5); Potassium 5.6 mmol/L (3.5-5.1); Total Bilirubin 0.4 mg/dL (0.2-1.3); Total Protein 6.4 g/dL (6.3-8.2)
[2018-10-24 15:21] LABS: Partial Thromboplastin Time 21.5 sec (22.0-30.0)
--- NOTE | 2018-10-24 15:21 | XR ---
EXAMINATION TYPE: XR chest 2V DATE OF EXAM: 10/24/2018 COMPARISON: 10/12/2018 HISTORY: Shortness of breath TECHNIQUE: Frontal and lateral views of the chest are obtained. FINDINGS: Scattered senescent parenchymal changes noted. Hyperinflation compatible with COPD. No evidence for infiltrate. No evidence for atelectasis. Heart size is stable. Mediastinal structures are stable and grossly unremarkable. No evidence for hilar prominence. Degenerative changes dorsal spine. IMPRESSION: 1. No evidence for acute pulmonary disease.
[2018-10-24 15:34] LABS: T4, Free (Free Thyroxine) 1.85 ng/dL (0.78-2.19)
[2018-10-24] MEDS ORDERED: SODIUM CHLORIDE 0.9% 250 ML IV STA (16:49)
[2018-10-24] MEDS ORDERED: ONDANSETRON 4 MG/2 ML VIAL IVP PRN (16:50)
[2018-10-24] MEDS ORDERED: NALOXONE 0.4 MG/ML 1 ML VIAL IV PRN (16:50)
[2018-10-24 17:11] LABS: Appearance,Urine Cloudy (Clear); Bilirubin,Urine Negative (Negative); Blood,Urine Negative (Negative); Color,Urine Yellow; Glucose,Urine (UA) Negative (Negative); Hyaline Casts,Urine 102 /lpf (0-2); Ketones,Urine Negative (Negative); Leukocyte Esterase,Urine Negative (Negative); Mucus,Urine Rare /hpf; Nitrite,Urine Negative (Negative); Protein,Urine Trace (Negative); RBC,Urine 1 /hpf (0-5); Specific Gravity,Urine 1.018 (1.001-1.035); Sperm,Urine Occasional /hpf; Squamous Epithelial Cell,Urine <1 /hpf (0-4); Urobilinogen,Urine <2.0 mg/dL (<2.0); WBC,Urine 3 /hpf (0-5)
[2018-10-24] MEDS ORDERED: LOPERAMIDE 2 MG CAP PO PRN (20:51)
[2018-10-24] MEDS ORDERED: hydrALAZINE HCL 20 MG/ML 1 ML VIAL IVP PRN (20:52)
[2018-10-24] MEDS ORDERED: HYDROcodone/APAP 5-325MG 1 EACH TAB PO PRN (20:52)
[2018-10-24] MEDS ORDERED: TEMAZEPAM 15 MG CAP PO PRN (20:52)
[2018-10-24] MEDS ORDERED: INSULIN REGULAR 100 UNIT/ML VIAL IV ONE (21:12)
[2018-10-24] MEDS ORDERED: DEXTROSE 50% SYRINGE 50 ML IVP STA (21:13)
[2018-10-24 21:17] LABS: Glucose,Whole Blood 134 mg/dL (75-99)
--- NOTE | 2018-10-24 22:30 | HP ---
HISTORY AND PHYSICAL DATE OF SERVICE: 10/24/2018 CHIEF COMPLAINT: Weakness. HISTORY OF PRESENT ILLNESS: This 78-year-old gentleman with a past history of diabetes, hypertension, history of DJD, history of vascular disease, appendectomy, bowel resection, joint replacement, was recently admitted to [facility] with features of renal failure. The patient also had inflammation and excoriation around the ileostomy ileostomy site. The patient also had generalized deconditioning. The patient was evaluated and the patient improved significantly. The patient was discharged home. Currently the patient is complaining of significant weakness. The patient came to [facility] and creatinine was found to be 4.25, indicating acute renal failure. The patient was admitted for further evaluation and treatment. The p.o. intake appears to be significantly reduced because the patient is also complaining of severe diminished appetite and sodium is 128, potassium 5.6, possibly secondary to renal failure as well. There is no history of fever, rigors. No history of headache or loss conscious at this time. UA showed significant hyaline casts and mucus. The patient followed with the [place] [facility] and Dr. Howe in the outpatient setting. PAST MEDICAL HISTORY: History of diabetes type 2, hypertension, hyperlipidemia, DJD, history of pneumonia, history of appendectomy, bowel resection. MEDICATIONS: Home medications are: 1. Metformin 1000 mg p.o. b.i.d. 2. Toprol-XL 100 mg p.o. daily. 3. Imodium 4 mg q.i.d. p.r.n. 4. Zestril 20 mg with supper. 5. NovoLog. 6. Lipitor 80 mg a.m. ALLERGIES: NIACIN. FAMILY HISTORY: History of cancer in the family. SOCIAL HISTORY: No history of smoking. No alcohol intake. REVIEW OF SYSTEMS: ENT: No diminished hearing. CARDIOVASCULAR: No angina or palpitations. RESPIRATORY: As mentioned earlier. GI: As mentioned earlier. : As mentioned earlier. NERVOUS SYSTEM: No numbness or weakness other than mentioned earlier. ALLERGY: No history of asthma. MUSCULOSKELETAL: As mentioned earlier. HEMATOLOGY: No history of anemia or diabetes. ENDOCRINE: Diabetes. CONSTITUTIONAL: As mentioned earlier. DERMATOLOGY: Negative. RHEUMATOLOGY negative. PSYCHIATRY: As mentioned earlier. PHYSICAL EXAMINATION: Alert, oriented x3. Pulse is 70, blood pressure 127/70, respirations 14, temperature 97.6, pulse ox 97% on room air. HEENT: Conjunctivae normal. Oral mucosa moist. NECK: No jugular venous distention. No lymph node enlargement. CARDIOVASCULAR: S1 and S2 muffled. LUNGS: Breath sounds diminished in the bases. A few scattered rhonchi. No crackles. ABDOMEN: Soft. Mild diffuse distention. Ileostomy present. There is some erythema around the ileostomy site present. No guarding. No rigidity. Mild diffuse distention. LEGS: No edema. No swelling. NERVOUS SYSTEM: Higher functions as mentioned earlier. Moves all 4 limbs. No focal motor or sensory deficits. LYMPHATICS: No lymph nodes palpable in the neck, axillae or groin. SKIN: No ulcer, rash or bleeding. No ulcer or rash. JOINTS: No active arthropathy. LAB STUDIES: WBC 10.7, hemoglobin 9.9, sodium 128, potassium 5.2, creatinine 4.5. ASSESSMENT: 1. Acute renal failure secondary to acute tubular necrosis and prerenal renal failure secondary to diminished p.o. intake. 2. Hyponatremia. 3. Hyperkalemia. 4. Anemia, normocytic anemia of chronic disease. 5. Diabetes type 2. 6. Hypertension. 7. Hyperlipidemia. 8. History of degenerative joint disease. 9. History of hiatal hernia. 10.History of colon cancer. 11.History of ileostomy. 12.History of bowel resection. 13.History of DJD. 14.History of anxiety. 15.History of recent acute renal failure and increased ileostomy drainage. RECOMMENDATIONS AND DISCUSSION: In this 78-year-old gentleman who presented with multiple medical issues, at this time I recommend to continue current medication. I would recommend IV fluids. Monitor creatinine closely. Nephrology evaluation. I would stop the metformin and Zestril and continue to monitor. Otherwise, guarded prognosis. Symptomatic treatment also will be provided. Prognosis guarded because of multiple complex medical issues. MMODL / IJN: [id number] /
[2018-10-24] MEDS: SODIUM CHLORIDE 0.9% 1,000 ML IV SCH (22:33)
[2018-10-24] MEDS: HEPARIN SODIUM,PORCINE 5,000 UNIT/ML 1 ML VIAL SQ SCH (22:33)
[2018-10-24] MEDS: ALPRAZolam 0.25 MG TAB PO PRN (22:40)
[2018-10-24 23:49] LABS: Glucose,Whole Blood 134 mg/dL (75-99)
[2018-10-25 02:02] LABS: Glucose,Whole Blood 133 mg/dL (75-99)
[2018-10-25 03:32] LABS: Glucose,Whole Blood 138 mg/dL (75-99)
[2018-10-25 04:21] LABS: Basophils # (A) 0.1 k/uL (0-0.2); Basophils % (A) 1 %; Eosinophils # (A) 0.2 k/uL (0-0.7); Eosinophils % (A) 2 %; Hypochromasia Slight; Lymphocytes # (A) 2.4 k/uL (1.0-4.8); Lymphocytes % (A) 27 %; MCH 28.7 pg (25.0-35.0); MCHC 30.9 g/dL (31.0-37.0); MCV 92.8 fL (80.0-100.0); Mean Platelet Volume 6.9; Monocytes # (A) 0.5 k/uL (0-1.0); Monocytes % (A) 6 %; Neutrophils # (A) 5.4 k/uL (1.3-7.7); Neutrophils % (A) 62 %; Platelet Count 313 k/uL (150-450); RBC 3.12 m/uL (4.30-5.90); RDW 14.1 % (11.5-15.5); WBC 8.7 k/uL (3.8-10.6)
[2018-10-25 04:36] VITALS: BMI 28.4
[2018-10-25 04:43] LABS: Calcium 7.9 mg/dL (8.4-10.2); Potassium 5.3 mmol/L (3.5-5.1)
[2018-10-25 07:37] LABS: Glucose,Whole Blood 141 mg/dL (75-99)
[2018-10-25] MEDS: HEPARIN SODIUM,PORCINE 5,000 UNIT/ML 1 ML VIAL SQ SCH ×2 (07:53→20:32)
[2018-10-25] MEDS: PANTOPRAZOLE 40 MG/10 ML VIAL IV SCH (07:54)
[2018-10-25] MEDS: ATORVASTATIN 80 MG TAB PO SCH (07:54)
[2018-10-25] MEDS: SODIUM CHLORIDE 0.9% 1,000 ML IV SCH ×2 (07:54→12:56)
[2018-10-25] MEDS: INSULIN ASPART (NovoLOG) 100 UNIT/ML VIAL SQ SCH ×4 (07:55→20:29)
[2018-10-25] MEDS ORDERED: METOPROLOL SUCCINATE (ER) 100 MG TAB.ER.24H PO SCH (09:00)
[2018-10-25 11:08] LABS: Glucose,Whole Blood 161 mg/dL (75-99)
--- NOTE | 2018-10-25 11:29 | P.NPCON ---
History of Present Illness - Reason for Consult acute renal failure - Chief Complaint Unwell - History of Present Illness Coming to the hospital with the above complaints. Nephrology was consulted for acute kidney injury. Baseline creatinine 1.0 MG per DL. Coming to the hospital with a creatinine of 4.25 MG per DL. Improved to 3.38 MG per DL today. Potassium was 5.3 yesterday and 5.6 today. He has: Cancer status post colectomy within ID ostomy back. He admits having loose watery output few days prior to hospital admission. Decreased oral intake. Denies NSAID use. Episode of vomiting yesterday. No recent contrast studies. Home medications include lisinopril and metformin. Admits difficulty emptying the bladder. Review of Systems Constitutional: Reports as per HPI Past Medical History Past Medical History: Cancer, Diabetes Mellitus, Hyperlipidemia, Hypertension, Osteoarthritis (OA), Pneumonia, Vascular Disorder Additional Past Medical History / Comment(s): hx blood in stool, hx polyps, hiatal hernia, poor circulation in legs(left worse), Colon Cancer History of Any Multi-Drug Resistant Organisms: None Reported Past Surgical History: Appendectomy, Bowel Resection, Joint Replacement, Tonsillectomy Additional Past Surgical History / Comment(s): Right knee replacement, pilonidal cyst, Left leg surgery for blockage, elisa laser eye surgery, bowel resection with colostomy. Past Anesthesia/Blood Transfusion Reactions: No Reported Reaction Past Psychological History: Anxiety Smoking Status: Former smoker Past Alcohol Use History: None Reported Additional Past Alcohol Use History / Comment(s): stopped smoking 40-50 yrs ago, smoked for 10 yrs- some day smoker Past Drug Use History: None Reported - Past Family History Father Family Medical History: Cancer Medications and Allergies Home Medications Medication Instructions Recorded Confirmed Type Atorvastatin [Lipitor] 80 mg PO QAM 08/13/16 10/24/18 History Lisinopril [Zestril] 20 mg PO W/SUPPER 08/13/16 10/24/18 History metFORMIN HCL 1,000 mg PO BID 08/13/16 10/24/18 History Loperamide [Imodium] 4 mg PO QID PRN #120 cap 10/15/18 10/24/18 Rx Metoprolol Succinate (ER) [Toprol 100 mg PO DAILY #30 tab.er.24h 10/15/18 10/24/18 Rx XL] INSULIN ASPART (NovoLOG) [NovoLOG See Protocol SQ ACHS 10/17/18 10/24/18 History (formulary)] Allergies Allergy/AdvReac Type Severity Reaction Status Date / Time niacin AdvReac flushing Verified 10/24/18 14:20 Physical Exam Vitals: Vital Signs Temp Pulse Pulse Resp BP BP Pulse Ox 10/25/18 04:51 97.6 F 72 18 123/69 96 10/24/18 21:25 97.7 F 74 17 115/62 97 10/24/18 19:25 97.6 F 70 14 127/70 97 10/24/18 19:04 97.9 F 75 16 91/56 98 10/24/18 17:58 75 16 91/56 98 10/24/18 17:30 75 91/56 98 10/24/18 17:00 81 123/63 97 10/24/18 16:35 78 23 127/65 97 10/24/18 16:30 78 23 127/65 97 10/24/18 16:00 76 18 125/68 97 10/24/18 15:36 78 16 133/66 97 10/24/18 15:30 78 133/66 97 10/24/18 15:00 80 18 133/60 98 10/24/18 14:47 82 14 133/60 98 10/24/18 14:40 81 18 133/60 97 10/24/18 13:25 97.9 F 76 18 84/48 96 Intake and Output 10/24/18 10/25/18 10/25/18 22:59 06:59 14:59 Intake Total 2100 1320 Output Total 600 850 Balance 2100 720 -850 Intake: Amount of Fluid Infused ( 1900 ml) Intake, IV Titration 200 1200 Amount Sodium Chloride 0.9% 1, 200 1200 000 ml @ 100 mls/hr IV . Q10H [facility] Rx#:[id number] Oral 120 Output: Urine 600 850 Other: Voiding Method Urinal # Bowel Movements 2 No acute distress S1-S2 heard Lungs clear Abdomen soft No edema Results - Lab Results Most recent lab results Calcium 7.9 mg/dL (8.4-10.2) L 10/25/18 03:58 Phosphorus 5.4 mg/dL (2.5-4.5) H 10/24/18 14:59 Magnesium 1.4 mg/dL (1.6-2.3) L 10/24/18 14:59 10/25/18 03:58 10/25/18 09:20 Assessment and Plan Assessment: #1 nonoliguric acute kidney injury secondary to hemodynamic ATN with low blood pressures. Baseline creatinine 1.2 MG per DL. #2: Cancer status post colectomy with ileostomy back with increased output. #3 hyperkalemia secondary to acute kidney injury/lisinopril. Rule out urinary retention. #4 low normal blood pressures #5 metabolic acidosis #6 anemia Plan: #1 continue with IV fluids. No labs today anticipate creatinine to improve. #2 agree with holding lisinopril. Check bladder scans to rule out urinary retention. #3 add sodium bicarbonate for metabolic acidosis #4 hold metformin for now, can be restarted at discharge his creatinine is back to normal baseline. #5 avoid nephrotoxic agents and hypotensive episodes. #6 check labs in the morning. Renal ultrasound for size and rule out hydronephrosis. #7 treat hyperkalemia medically if potassium persistently more than 5.5. No acu te indication for dialysis at this time.
--- NOTE | 2018-10-25 12:45 | US ---
EXAMINATION TYPE: US kidneys/renal and bladder DATE OF EXAM: 10/25/2018 COMPARISON: CT 2019 CLINICAL HISTORY: obstruction marsha. MARSHA, exam done portable. EXAM MEASUREMENTS: Right Kidney: 10.8 x 5.6 x 5.5 cm Left Kidney: 10.8 x 7.3 x 5.1 cm Right Kidney: no hydronephrosis or masses seen Left Kidney: no hydronephrosis, 1.3cm cortical cyst lateral mid pole Bladder: not fully distended There is no evidence for hydronephrosis at this point in time. No nephrolithiasis is seen. No jacob s are identified. The urinary bladder is anechoic. Bilateral ureteral jets are seen. IMPRESSION: SIMPLE APPEARING, 1.3 CM LEFT RENAL CYST.
[2018-10-25] MEDS ORDERED: DEXTROSE 50% SYRINGE 50 ML IVP STA (16:29)
[2018-10-25] MEDS ORDERED: SODIUM BICARB 8.4% 50 ML SYR (1 MEQ/ML) IV STA (16:43)
[2018-10-25] MEDS ORDERED: DEXTROSE 10 % IN WATER 250 ML IV STA (16:43)
[2018-10-25] MEDS ORDERED: SODIUM POLYSTYRENE SULFONATE 15 GM/60 ML BOTTLE PO ONE (16:45)
[2018-10-25] MEDS ORDERED: INSULIN REGULAR 100 UNIT/ML VIAL IV ONE (16:45)
[2018-10-25] MEDS ORDERED: DEXTROSE 5% IN WATER 1,000 ML with SODIUM BICARB (1 MEQ/ML) 50 ML IV SCH (16:45)
[2018-10-25] MEDS ORDERED: CALCIUM GLUCONATE 1 GM in SODIUM CHLORIDE 0.9% 100 ML IVPB ONE (17:00)
--- NOTE | 2018-10-25 17:22 | PN ---
PROGRESS NOTE DATE OF SERVICE: 10/25/2018 This 78-year-old gentleman who was admitted with features of acute renal failure also complains of tiredness and weakness. The creatinine was 4.25 and is currently 3.38. Nephrology is following the patient closely. An abdominal bladder ultrasound was also done which showed a simple-appearing 1.3 cm left renal cyst. Patient is being closely monitored. Past medical history reviewed. REVIEW OF SYSTEMS: CARDIOVASCULAR SYSTEM: No angina, palpitations. RESPIRATORY SYSTEM: As mentioned earlier. GI: As mentioned earlier. : As mentioned earlier. NERVOUS SYSTEM: Diffusely weak. CURRENT MEDICATIONS: Reviewed. They include: 1. Rowe 5 mg q.6 p.r.n. 2. Xanax 0.25 t.i.d. 3. Lipitor 80 mg at bedtime. 4. Heparin 5000 units subcutaneously b.i.d. 5. Apresoline 10 mg q.4 p.r.n. 6. NovoLog before meals and at bedtime. 7. Imodium 4 mg q.i.d. p.r.n. 8. Toprol-XL 12.5 mg daily. 9. Narcan 0.2 q.2 p.r.n. 10.Zofran 4 mg q.8 p.r.n. 11.Protonix 40 mg daily. 12.Restoril 15 mg at bedtime p.r.n. PHYSICAL EXAMINATION: Patient is alert and oriented x3. Pulse 66, blood pressure 125/66, respiration 18, temperature 97.4, pulse ox 98% on room air. HEENT: Conjunctivae normal. NECK: No jugular venous distention. CARDIOVASCULAR SYSTEM: S1, S2 muffled. RESPIRATORY SYSTEM: Breath sounds diminished at the bases. A few scattered rhonchi and crackles. ABDOMEN: Soft. Status post colostomy bag. LEGS: No edema. No swelling. NERVOUS SYSTEM: No focal deficit. LABS: WBC 8.7, hemoglobin 9, sodium 129, potassium 5.6, creatinine 3.38. ASSESSMENT: 1. Acute renal failure secondary to acute tubular necrosis and prerenal failure secondary to diminished oral intake. 2. Hyponatremia. 3. Hyperkalemia secondary to renal failure. 4. Anemia, normocytic; anemia of chronic disease. 5. Diabetes mellitus, type 2. 6. Hypertension. 7. Hyperlipidemia. 8. History of degenerative joint disease. 9. History of hiatal hernia. 10.History of colon cancer. 11.History ileostomy. 12.History of bowel resection. 13.History of degenerative joint disease. 14.History of anxiety. 15.History of recent acute renal failure and increased ileostomy drainage. 16.Gait dysfunction. 17.FULL CODE. RECOMMENDATIONS AND DISCUSSION: In this 78-year-old gentleman who presented with multiple complex medical issues, we will monitor the patient closely, continue the current management, continue symptomatic treatment. Otherwise at this time I recommend continuing the current medications. Avoid ESTELLE inhibitors as well as potassium supplements. Will continue with IV fluids. Closely follow with Nephrology. Further recommendations to follow. See orders for further details. Also recommend PT/OT evaluation; possible ECF rehab. JOAO / SHERI: [id number] /
[2018-10-25 17:24] LABS: Glucose,Whole Blood 167 mg/dL (75-99)
[2018-10-25 20:23] LABS: Glucose,Whole Blood 120 mg/dL (75-99)
[2018-10-25] MEDS: ALPRAZolam 0.25 MG TAB PO PRN (22:56)
[2018-10-26] MEDS: SODIUM CHLORIDE 0.9% 1,000 ML IV SCH ×4 (04:20→20:46)
[2018-10-26 07:47] LABS: Basophils # (A) 0.1 k/uL (0-0.2); Basophils % (A) 1 %; Eosinophils # (A) 0.3 k/uL (0-0.7); Eosinophils % (A) 4 %; HCT 32.8 % (39.0-53.0); HGB 10.6 gm/dL (13.0-17.5); Lymphocytes # (A) 1.7 k/uL (1.0-4.8); Lymphocytes % (A) 21 %; MCH 29.8 pg (25.0-35.0); MCHC 32.4 g/dL (31.0-37.0); MCV 91.9 fL (80.0-100.0); Mean Platelet Volume 8.6; Monocytes # (A) 0.4 k/uL (0-1.0); Monocytes % (A) 5 %; Neutrophils # (A) 5.5 k/uL (1.3-7.7); Neutrophils % (A) 68 %; Platelet Count 365 k/uL (150-450); RBC 3.57 m/uL (4.30-5.90); RDW 14.8 % (11.5-15.5); WBC 8.1 k/uL (3.8-10.6)
[2018-10-26 07:59] LABS: Calcium 8.6 mg/dL (8.4-10.2); Potassium 5.9 mmol/L (3.5-5.1)
[2018-10-26] MEDS: HEPARIN SODIUM,PORCINE 5,000 UNIT/ML 1 ML VIAL SQ SCH ×2 (09:46→20:47)
[2018-10-26] MEDS: PANTOPRAZOLE 40 MG/10 ML VIAL IV SCH (09:46)
[2018-10-26] MEDS: ATORVASTATIN 80 MG TAB PO SCH (09:46)
[2018-10-26] MEDS: METOPROLOL SUCCINATE (ER) 25 MG TAB.ER.24H PO SCH (09:46)
[2018-10-26] MEDS: INSULIN ASPART (NovoLOG) 100 UNIT/ML VIAL SQ SCH ×4 (09:49→20:47)
[2018-10-26 10:46] LABS: Glucose,Whole Blood 193 mg/dL (75-99)
[2018-10-26] MEDS: ALPRAZolam 0.25 MG TAB PO PRN ×2 (12:40→22:53)
[2018-10-26] MEDS ORDERED: LOPERAMIDE 2 MG CAP PO PRN (12:49)
[2018-10-26] MEDS ORDERED: SODIUM POLYSTYRENE SULFONATE 15 GM/60 ML BOTTLE PO STA (12:49)
--- NOTE | 2018-10-26 12:53 | P.PN ---
Subjective Progress Note Date: 10/26/18 Seen and examined for the follow-up of acute kidney injury. Baseline creatinine 1.0 MG per DL admitted with a creatinine of 4.25 improved to 1.5 MG per DL today. Potassium persistently high. Bladder scan was 80 ML's last night. No nausea vomiting. Ostomy output has decreased. Objective - Vital Signs Vital signs: Vital Signs Temp 97.5 F L 10/26/18 12:24 Pulse 95 10/26/18 12:24 Resp 16 10/26/18 12:24 BP 174/74 10/26/18 12:24 Pulse Ox 98 10/26/18 12:24 Intake & Output 10/25/18 10/26/18 10/26/18 18:59 06:59 18:59 Intake Total 800 1980 Output Total 3315 1380 575 Balance -2515 600 -575 Weight 89.811 kg Intake: Intake, IV Titration 800 1200 Amount Sodium Chloride 0.9% 1, 800 1200 000 ml @ 100 mls/hr IV . Q10H [facility] Rx#:[id number] Oral 780 Output: Urine 3100 1300 425 Post Void Residual 65 80 Stool 150 150 Other: Voiding Method Urinal Urinal - Exam No acute distress S1-S2 heard Lungs clear Formed stools in the ostomy No edema - Labs CBC & Chem 7: 10/26/18 06:55 10/26/18 06:55 Labs: Abnormal Lab Results - Last 24 Hours (Table) 10/25/18 10/25/18 10/25/18 Range/Units 15:14 17:10 20:21 RBC (4.30-5.90) m/uL Hgb (13.0-17.5) gm/dL Hct (39.0-53.0) % Potassium 6.6 H* (3.5-5.1) mmol/L BUN (9-20) mg/dL Creatinine (0.66-1.25) mg/dL Glucose (74-99) mg/dL POC Glucose (mg/dL) 167 H 120 H (75-99) mg/dL 10/25/18 10/26/18 10/26/18 Range/Units 21:41 06:55 06:55 RBC 3.57 L (4.30-5.90) m/uL Hgb 10.6 L (13.0-17.5) gm/dL Hct 32.8 L (39.0-53.0) % Potassium 5.9 H 5.9 H (3.5-5.1) mmol/L BUN 29 H (9-20) mg/dL Creatinine 1.51 H (0.66-1.25) mg/dL Glucose 148 H (74-99) mg/dL POC Glucose (mg/dL) (75-99) mg/dL 10/26/18 Range/Units 10:45 RBC (4.30-5.90) m/uL Hgb (13.0-17.5) gm/dL Hct (39.0-53.0) % Potassium (3.5-5.1) mmol/L BUN (9-20) mg/dL Creatinine (0.66-1.25) mg/dL Glucose (74-99) mg/dL POC Glucose (mg/dL) 193 H (75-99) mg/dL Assessment and Plan Assessment: #1 nonoliguric acute kidney injury secondary to hemodynamic ATN with low blood pressures. Baseline creatinine 1.0 MG per DL. #2: Cancer status post colectomy with ileostomy. #3 hyperkalemia secondary to acute kidney injury/lisinopril. #4 low normal blood pressures #5 metabolic acidosis #6 anemia Plan: #1 continue with IV fluids. Creatinine improving. #2 agree with holding lisinopril. Medical treatment with Kayexalate for hyperkalemia. #3 on sodium bicarbonate for metabolic acidosis #4 hold metformin for now, can be restarted at discharge if creatinine is back to normal baseline. #5 avoid nephrotoxic agents and hypotensive episodes. #6 treat hyperkalemia medically if potassium persistently more than 5.5. No acute indication for dialysis at this time.
[2018-10-26 17:56] LABS: Glucose,Whole Blood 149 mg/dL (75-99)
--- NOTE | 2018-10-26 19:10 | PN ---
PROGRESS NOTE DATE OF SERVICE: 10/26/2018. This 72-year-old gentleman who was admitted with features of acute renal failure secondary to acute tubular necrosis. Also complained of generalized weakness and tiredness. The patient also had hypokalemia. Patient being closely monitored at this time. Nephrology following the patient closely. Today, the creatinine was 1.51, which is much improved from 4.25 at the time of admission. No chest pain. No palpitations. No fever. PHYSICAL EXAM: Alert and oriented times three. Pulse 78, blood pressure 157/62. Respirations 16, temperature 97.3, pulse ox 97% on room air. HEENT is conjunctivae normal. Oral mucosa moist. NECK is no jugular venous distention. No carotid bruit. No lymph node enlargement. CARDIOVASCULAR SYSTEM: S1, S2 muffled. No S3, no S4. RESPIRATORY: Breath sounds diminished in the bases. A few scattered rhonchi. No crackles. ABDOMEN: Soft, mild diffuse distention. LEGS: No edema. No swelling. NERVOUS SYSTEM: Higher functions as mentioned earlier. Moves all 4 limbs. Mild diffuse weakness present. LABS: Reviewed, which includes WBC 8.2, hemoglobin 10.6, sodium 138, potassium 5.9 and creatinine is 1.51. ASSESSMENT: 1. Acute renal failure secondary to acute tubular necrosis and prerenal renal failure secondary to diminished p.o. intake. 2. Hyponatremia. 3. Hyperkalemia secondary to renal failure. 4. Anemia, normocytic anemia of chronic disease. 5. Diabetes mellitus type 2. 6. Hypertension. 7. Hyperlipidemia. 8. History of degenerative joint disease. 9. History of hiatal hernia. 10.History of colon cancer. 11.History of high-output ileostomy. 12.History of bowel resection. 13.History of coronary artery disease. 14.History of anxiety. 15.History of recent acute renal failure, increasing ileostomy drainage. 16.Gait dysfunction. 17.FULL CODE. RECOMMENDATIONS AND DISCUSSION: Recommend to continue current medications. Continue to monitor. Symptomatic treatment. Otherwise, at this time, I recommend continue with IV fluids. Monitor creatinine closely. Follow closely with Nephrology. I would also recommend GI evaluation for high ileostomy output also. Further recommendations to follow. MMODL / IJN: [id number] /
[2018-10-26 20:51] LABS: Glucose,Whole Blood 173 mg/dL (75-99)
[2018-10-27 06:50] LABS: Glucose,Whole Blood 149 mg/dL (75-99)
[2018-10-27 08:00] LABS: Calcium 8.5 mg/dL (8.4-10.2); Potassium 5.9 mmol/L (3.5-5.1)
[2018-10-27] MEDS ORDERED: DEXTROSE 50% SYRINGE 50 ML IVP STA ×2 (08:17→18:19)
[2018-10-27] MEDS ORDERED: SODIUM BICARB 8.4% 50 ML SYR (1 MEQ/ML) IV STA (08:17)
[2018-10-27] MEDS ORDERED: INSULIN REGULAR 100 UNIT/ML VIAL IV ONE ×2 (08:17→18:17)
--- NOTE | 2018-10-27 08:18 | P.PN ---
Subjective Patient is seen in follow-up for acute kidney injury. Creatinine was 4.25 on admission and is down to 1.05 today. Potassium is stable at 5.9. He is maintained on normal saline at 100 mL an hour. Oral intake is good. No vomiting or diarrhea. Vital signs are stable. General: The patient appeared well nourished and normally developed. HEENT: Head exam is unremarkable. Neck is without jugular venous distension. LUNGS: Lungs are clear to auscultation and percussion. Breath sounds decreased. HEART: Rate and Rhythm are regular. First and second heart sounds normal. No murmurs, rubs or gallops. ABDOMEN: Abdominal exam reveals normal bowel sounds. Non-tender and non- distended. No evidence of peritonitis. EXTREMITITES: No clubbing, cyanosis, or edema. Objective - Vital Signs Vital signs: Vital Signs Temp 97.6 F 10/27/18 04:51 Pulse 85 10/27/18 04:51 Resp 18 10/27/18 04:51 BP 157/57 10/27/18 04:51 Pulse Ox 96 10/27/18 04:51 Intake & Output 10/26/18 10/27/18 10/27/18 18:59 06:59 18:59 Intake Total 2280 Output Total 875 1435 Balance -875 845 Intake: Intake, IV Titration 1200 Amount Sodium Chloride 0.9% 1, 1200 000 ml @ 100 mls/hr IV . Q10H [facility] Rx#:[id number] Oral 1080 Output: Urine 725 1250 Stool 150 185 Other: Voiding Method Urinal Toilet Urinal # Bowel Movements 3 1 - Labs CBC & Chem 7: 10/26/18 06:55 10/27/18 07:15 Labs: Abnormal Lab Results - Last 24 Hours (Table) 10/26/18 10/26/18 10/26/18 Range/Units 10:45 17:55 20:41 Potassium (3.5-5.1) mmol/L Chloride (98-107) mmol/L Carbon Dioxide (22-30) mmol/L Glucose (74-99) mg/dL POC Glucose (mg/dL) 193 H 149 H 173 H (75-99) mg/dL 10/27/18 10/27/18 Range/Units 06:49 07:15 Potassium 5.9 H (3.5-5.1) mmol/L Chloride 110 H (98-107) mmol/L Carbon Dioxide 21 L (22-30) mmol/L Glucose 158 H (74-99) mg/dL POC Glucose (mg/dL) 149 H (75-99) mg/dL Assessment and Plan Plan: Assessment: 1. Acute kidney injury secondary to ATN secondary to hypotension. Creatinine was 4.25 on admission and is down to 1.05 today. 2. Colon cancer status post colectomy with ileostomy. 3. Hyperkalemia secondary to acute kidney injury, metabolic acidosis and use of lisinopril. 4. Metabolic acidosis secondary to acute kidney injury and IV fluids. 5. Benign hypertension. Stable. Plan: I will decrease the rate of normal saline to 70 mL an hour. 2 A of sodium bicarbonate IV push now. 10 units of IV insulin with an amp of D50 now. Low potassium diet. Repeat potassium level this afternoon.
[2018-10-27] MEDS ORDERED: DEXTROSE 10 % IN WATER 250 ML IV ONE ×2 (08:30→18:45)
[2018-10-27 08:47] LABS: Basophils # (A) 0.1 k/uL (0-0.2); Basophils % (A) 1 %; Eosinophils # (A) 0.3 k/uL (0-0.7); Eosinophils % (A) 4 %; HCT 32.5 % (39.0-53.0); HGB 10.5 gm/dL (13.0-17.5); Lymphocytes # (A) 1.9 k/uL (1.0-4.8); Lymphocytes % (A) 27 %; MCH 29.7 pg (25.0-35.0); MCHC 32.2 g/dL (31.0-37.0); MCV 92.2 fL (80.0-100.0); Mean Platelet Volume 9.7; Monocytes # (A) 0.5 k/uL (0-1.0); Monocytes % (A) 6 %; Neutrophils # (A) 4.3 k/uL (1.3-7.7); Neutrophils % (A) 60 %; Platelet Count 296 k/uL (150-450); RBC 3.53 m/uL (4.30-5.90); RDW 15.1 % (11.5-15.5); WBC 7.1 k/uL (3.8-10.6)
[2018-10-27] MEDS: METOPROLOL SUCCINATE (ER) 25 MG TAB.ER.24H PO SCH (10:05)
[2018-10-27] MEDS: ATORVASTATIN 80 MG TAB PO SCH (10:05)
[2018-10-27] MEDS: HEPARIN SODIUM,PORCINE 5,000 UNIT/ML 1 ML VIAL SQ SCH ×2 (10:06→20:12)
[2018-10-27] MEDS: PANTOPRAZOLE 40 MG/10 ML VIAL IV SCH (10:06)
[2018-10-27] MEDS: INSULIN ASPART (NovoLOG) 100 UNIT/ML VIAL SQ SCH ×4 (10:06→20:11)
[2018-10-27] MEDS: SODIUM CHLORIDE 0.9% 1,000 ML IV SCH ×2 (10:07→17:35)
[2018-10-27 11:37] LABS: Glucose,Whole Blood 156 mg/dL (75-99)
--- NOTE | 2018-10-27 16:34 | P.PN ---
Subjective Progress Note Date: 10/27/18 Principal diagnosis: This is a 78-year-old male who was admitted with features acute renal failure secondary to acute tubular necrosis. Patient was also having complaints of generalized weakness and fatigue. Patient is being closely monitored at this time. Nephrology is following the patient closely as well. Patient had a potassium level of 5.9 and was treated. Current potassium is 5.4. We'll continue to monitor and recheck a.m. labs. Patient's current creatinine is 1.0 5. Patient denies any shortness of breath, chest pain, or palpitations at this time. Patient is lying in bed resting but easily arousable in no acute distress. Discussed with the patient at length today about going to a rehab facility after discharge. Patient is in agreement with this. Patient denies any nausea, vomiting, and ileostomy output has minimized. Patient is tolerating diet. Objective - Vital Signs Vital signs: Vital Signs Temp 98.9 F 10/27/18 12:32 Pulse 109 H 10/27/18 12:32 Resp 17 10/27/18 12:32 BP 170/75 10/27/18 12:32 Pulse Ox 97 10/27/18 12:32 Intake & Output 10/26/18 10/27/18 10/27/18 18:59 06:59 18:59 Intake Total 2280 Output Total 875 1435 Balance -875 845 Intake: Intake, IV Titration 1200 Amount Sodium Chloride 0.9% 1, 1200 000 ml @ 70 mls/hr IV . [id number] [facility] Rx#:[id number] Oral 1080 Output: Urine 725 1250 Stool 150 185 Other: Voiding Method Urinal Toilet Toilet Urinal Urinal # Voids 2 # Bowel Movements 3 1 - Exam Gen: This is a 78-year-old male lying in bed in no acute distress. Vital signs are 98.9F, pulse is 109, blood pressure is 170/75, respirations are 17, pulse ox is 97% on room air. HEENT: Head is atraumatic, normocephalic. Pupils equal, round. Sclerae is anicteric. NECK: Supple. No JVD. No lymphadenopathy. No thyromegaly. LUNGS: Diminished breath sounds in bases a few scattered rhonchi. No wheezes or crackles noted. No intercostal retractions. HEART: Regular rate and rhythm. No murmur. S1 and S2 are muffled ABDOMEN: Soft. Bowel sounds are present. Obese. Ileostomy on the right is present EXTREMITIES: No pedal edema. No calf tenderness. NEUROLOGICAL: Patient is awake, alert and oriented x3. Cranial nerves 2 through 12 are grossly intact. Mild diffuse weakness. - Labs CBC & Chem 7: 10/27/18 07:15 10/27/18 14:35 Labs: Abnormal Lab Results - Last 24 Hours (Table) 10/26/18 10/26/18 10/27/18 Range/Units 17:55 20:41 06:49 RBC (4.30-5.90) m/uL Hgb (13.0-17.5) gm/dL Hct (39.0-53.0) % Potassium (3.5-5.1) mmol/L Chloride (98-107) mmol/L Carbon Dioxide (22-30) mmol/L Glucose (74-99) mg/dL POC Glucose (mg/dL) 149 H 173 H 149 H (75-99) mg/dL 10/27/18 10/27/18 10/27/18 Range/Units 07:15 07:15 11:35 RBC 3.53 L (4.30-5.90) m/uL Hgb 10.5 L (13.0-17.5) gm/dL Hct 32.5 L (39.0-53.0) % Potassium 5.9 H (3.5-5.1) mmol/L Chloride 110 H (98-107) mmol/L Carbon Dioxide 21 L (22-30) mmol/L Glucose 158 H (74-99) mg/dL POC Glucose (mg/dL) 156 H (75-99) mg/dL 10/27/18 Range/Units 14:35 RBC (4.30-5.90) m/uL Hgb (13.0-17.5) gm/dL Hct (39.0-53.0) % Potassium 5.4 H (3.5-5.1) mmol/L Chloride (98-107) mmol/L Carbon Dioxide (22-30) mmol/L Glucose (74-99) mg/dL POC Glucose (mg/dL) (75-99) mg/dL Assessment and Plan Assessment: Acute renal failure secondary to acute tubular necrosis and prerenal renal fa ilure secondary to diminished oral intake Hyponatremia Hyperkalemia secondary to renal failure Anemia, normocytic anemia of chronic disease Diabetes mellitus type 2 Hypertension Hyperlipidemia History of degenerative joint disease History of hiatal hernia [place] history of colon cancer next line history of high output from the ileostomy History of bowel resection History of coronary artery disease History of anxiety History of recent acute renal failure, increasing ileostomy drainage Gait dysfunction Full code Recommendations and discussion Recommend continue current medications and symptomatic management. Continue to monitor closely. We'll continue with gentle IV hydration and monitor labs frequently. Following closely with nephrology. Guarded prognosis. Further recommendations to follow. Case management and social work are following for plans of placement in a rehab upon discharge.
[2018-10-27 16:57] LABS: Glucose,Whole Blood 144 mg/dL (75-99)
[2018-10-27 20:03] LABS: Glucose,Whole Blood 159 mg/dL (75-99)
[2018-10-27 20:38] VITALS: RESP 16
--- NOTE | 2018-10-27 21:39 | CONS ---
CONSULTATION DATE OF SERVICE: October 27, 2018. REQUESTING PHYSICIAN: Dr. Hull. REASON FOR CONSULTATION: Dehydration. Increased ileostomy output. HISTORY OF PRESENT ILLNESS: The patient is a 78 -year-old pleasant white male admitted to hospital because of abdominal discomfort, weakness, nausea, vomiting, increased ileostomy output for 3-4 days prior to hospitalization. He was diagnosed with acute kidney injury secondary to severe dehydration from increased ileostomy output. The patient states that he was emptying his ileostomy bag at least 7 or 8 times daily for 2-3 days prior to hospitalization. He was noted to have a creatinine that was elevated to 4.25 and today it has normalized to 1.19. The patient was diagnosed with colon cancer a month ago. Initially underwent a colon resection and this was complicated by postop leak and subsequently underwent an emergency exploratory laparotomy with ileostomy. Since being in the hospital, he is feeling much better. The ileostomy output has decreased. In fact, today he only emptied the bag twice. The stool consistency is much more softer. He was started on Imodium 2 tablets 4 times daily. PAST MEDICAL HISTORY: Significant for diabetes mellitus, hypertension, hyperlipidemia, appendectomy. PAST SURGICAL HISTORY: Recent colon resection for colon cancer about a month ago followed by complications requiring an ileostomy. MEDICATIONS: At home include metformin, Toprol, Imodium, Zestril, NovoLog, Lipitor. ALLERGIES: NEOCIN. SOCIAL HISTORY: No smoking. No alcohol use. FAMILY HISTORY: Unremarkable. REVIEW OF SYSTEMS: Cardiopulmonary: No chest pain, shortness of breath. Genitourinary: No dysuria or hematuria. Musculoskeletal: Unremarkable. Skin unremarkable. Endocrine unremarkable. Psychiatric unremarkable. Neurology unremarkable. ENT/vision unremarkable. CONSTITUTIONAL: No recent weight loss. No fever, chills, night sweats. PHYSICAL EXAMINATION: He appears comfortable. No apparent distress. Vital signs stable. Blood pressure is 133/86, pulse 84 per minute and afebrile. HEENT examination unremarkable. Conjunctivae pink. Sclerae anicteric. Oral cavity no lesions. NECK: No JVD or lymph node enlargement. CHEST: Clear to auscultation. HEART: Regular rate and rhythm. ABDOMEN: Soft. Bowel sounds are positive. Ileostomy in the right lower quadrant area. EXTREMITIES: No pedal edema. SKIN no rashes. NEUROLOGIC: Alert and oriented x3. No focal deficits. LABS: Done at the time of admission to the hospital: BUN was 46, creatinine 4.25. Today, BUN is 19, creatinine 1.05. WBC 7.1, hemoglobin 10.5, platelets are normal. Basic metabolic panel is within normal limits. IMPRESSION: 1. Severe dehydration with acute kidney injury related to increased ileostomy output which presently is resolving. BUN and creatinine are normal. The ileostomy output has significantly decreased since he has been on Imodium 2 tablets 4 times daily. 2. Recently diagnosed cecal mass/adenocarcinoma status post colon resection followed by complications with anastomotic leak resulting in ileostomy. Presently stable, doing well. RECOMMENDATIONS: 1. Continue with Imodium 2 tablets 4 times daily as needed based on the ileostomy output. 2. Increase ambulation. 3. Advance diet as tolerated. 4. He can be discharged to rehab facility soon. Thank you for this consultation. JOAO / SHERI: [id number] /
[2018-10-27] MEDS: ALPRAZolam 0.25 MG TAB PO PRN (22:49)
[2018-10-28 07:16] LABS: Glucose,Whole Blood 145 mg/dL (75-99)
[2018-10-28] MEDS ORDERED: PANTOPRAZOLE 40 MG TABLET PO SCH (09:00)
[2018-10-28 09:13] LABS: Calcium 8.3 mg/dL (8.4-10.2); Potassium 5.1 mmol/L (3.5-5.1)
[2018-10-28] MEDS: INSULIN ASPART (NovoLOG) 100 UNIT/ML VIAL SQ SCH ×2 (09:53→12:48)
[2018-10-28] MEDS: METOPROLOL SUCCINATE (ER) 25 MG TAB.ER.24H PO SCH (09:54)
[2018-10-28] MEDS: ATORVASTATIN 80 MG TAB PO SCH (09:54)
[2018-10-28] MEDS: HEPARIN SODIUM,PORCINE 5,000 UNIT/ML 1 ML VIAL SQ SCH (09:55)
[2018-10-28] MEDS: SODIUM CHLORIDE 0.9% 1,000 ML IV SCH ×2 (09:56→09:58)
--- NOTE | 2018-10-28 10:29 | P.PN ---
Subjective Patient is seen in follow-up for acute kidney injury. Creatinine was 4.25 on admission and is down to 0.97 today. Potassium is down to 5.1 today. He is maintained on normal saline at 70 mL an hour. Oral intake is good. No vomiting or diarrhea. Vital signs are stable. General: The patient appeared well nourished and normally developed. HEENT: Head exam is unremarkable. Neck is without jugular venous distension. LUNGS: Lungs are clear to auscultation and percussion. Breath sounds decreased. HEART: Rate and Rhythm are regular. First and second heart sounds normal. No murmurs, rubs or gallops. ABDOMEN: Abdominal exam reveals normal bowel sounds. Non-tender and non- distended. No evidence of peritonitis. EXTREMITITES: No clubbing, cyanosis, or edema. Objective - Vital Signs Vital signs: Vital Signs Temp 97.9 F 10/28/18 04:52 Pulse 50 L 10/28/18 04:52 Resp 16 10/28/18 04:52 BP 153/81 10/28/18 04:52 Pulse Ox 96 10/28/18 04:52 Intake & Output 10/27/18 10/28/18 10/28/18 18:59 06:59 18:59 Intake Total 1680 Output Total 745 Balance 935 Intake: Intake, IV Titration 1020 Amount Dextrose 10 % in Water 250 250 ml @ 1000 mls/hr IV . Q15M [facility] Rx#:[id number] Sodium Chloride 0.9% 1, 770 000 ml @ 70 mls/hr IV . [id number] [facility] Rx#:[id number] Oral 660 Output: Urine 650 Stool 95 Other: Voiding Method Toilet Toilet Urinal Urinal # Voids 2 3 - Labs CBC & Chem 7: 10/27/18 07:15 10/28/18 08:40 Labs: Abnormal Lab Results - Last 24 Hours (Table) 10/27/18 10/27/18 10/27/18 Range/Units 11:35 14:35 16:56 Potassium 5.4 H (3.5-5.1) mmol/L Chloride (98-107) mmol/L Glucose (74-99) mg/dL POC Glucose (mg/dL) 156 H 144 H (75-99) mg/dL Calcium (8.4-10.2) mg/dL Magnesium (1.6-2.3) mg/dL 10/27/18 10/28/18 10/28/18 Range/Units 20:02 07:14 08:40 Potassium (3.5-5.1) mmol/L Chloride 110 H (98-107) mmol/L Glucose 142 H (74-99) mg/dL POC Glucose (mg/dL) 159 H 145 H (75-99) mg/dL Calcium 8.3 L (8.4-10.2) mg/dL Magnesium 1.0 L (1.6-2.3) mg/dL Assessment and Plan Plan: Assessment: 1. Acute kidney injury secondary to ATN secondary to hypotension. Creatinine was 4.25 on admission and is down to 0.97 today. 2. Colon cancer status post colectomy with ileostomy. 3. Hyperkalemia secondary to acute kidney injury, metabolic acidosis and use of lisinopril. Improved with medical management. 4. Metabolic acidosis secondary to acute kidney injury and IV fluids. Better. 5. Benign hypertension. Stable. 6. Hypomagnesemia from poor oral intake and GI losses. Plan: I will decrease the rate of normal saline to 50 mL an hour. Add oral sodium bicarbonate. Replace magnesium. 3 g IV today. Add Mag-Ox. Low potassium diet.
[2018-10-28] MEDS ORDERED: MAGNESIUM OXIDE 400 MG TAB PO SCH (10:30)
[2018-10-28] MEDS ORDERED: SODIUM BICARBONATE TAB 650 MG TAB PO SCH (10:30)
[2018-10-28] MEDS: MAGNESIUM SULFATE-D5W PMX 1 GM in DEXTROSE/WATER 1 100ML.BAG IVPB SCH ×3 (11:08→14:01)
[2018-10-28 11:34] LABS: Glucose,Whole Blood 179 mg/dL (75-99)
[2018-10-28 12:02] VITALS: BP 159/72; PULSE 75; TEMP 97.6
--- NOTE | 2018-10-28 13:16 | P.DS ---
Providers Date of admission: 10/24/18 16:50 Expected date of discharge: 10/28/18 Attending physician: Rebecca Hull Consults: 10/24/18 16:50 Consult Physician Urgent Consulting Provider: Thu Smith Consult Reason/Comments: arf Do you want consulting provider notified?: Yes Primary care physician: [facility] Course: final diagnosis acute renal failure secondary to acute tubular necrosis and prerenal failure secondary to diminished oral intake Hyponatremia Hyperkalemia secondary to renal failure anemia, normocytic anemia of chronic disease Diabetes mellitus type 2 Hypertension Hyperlipidemia hypomagnesemia History of degenerative joint disease History of hiatal hernia History of colon cancer History of increased output from the ileostomy History of bowel resection History of coronary artery disease [place] history of anxiety History of recent acute renal failure, increasing ostomy drainage Gait dysfunction Full code discharge disposition Patient is being discharged in a stable condition with guarded prognosis to [facility] for rehab. History of present illness this is a 78-year-old male who was admitted with acute renal failure secondary acute tubular necrosis. Patient was closely monitored and found to be hyperkalemic yesterday which was treated. Patient's current potassium is 5.1 today. Patient also found to have hypomagnesemia this morning at 1.0 and we are replacing at this time. Patient will start magnesium oxide tablets upon discharge. Patient's current creatinine is 0.97. Patient is still having ileostomy output but has thickened and decreased in the amount of output. Patient has been working on emptying the ileostomy himself. Patient was approved to go to [facility] this afternoon. nephrology was following closely. From their standpoint patient is okay for discharge to go to rehab today. will follow-up with repeat BMP and magnesium levels in 2 days at the rehab facility. Patient denies any nausea, vomiting, or increase in stool at this time. Patient denies any chest pain, shortness of breath, or palpitations at this time. Patient remains afebrile. Patient is currently on a sliding scale for glucose coverage and will continue on that with Accu-Cheks before meals and at bedtime. Patient is to continue following a low potassium diet. On exam vital signs are stable. blood pressure is 159/72, pulse is 75, respirations are 16, temp is 97.6F, pulse ox is 97% on room air. Cardio S1 and S2R muffled. Respiratory system shows diminished breath sounds in the bases with a few scattered rhonchi. No Wheezing or crackles noted. abdomen is soft and non-tender. ileostomy shows thickened greenish brown stool. Surgical dressing on the left side of the abdomen is dry and intact. Chris are still noted. Nervous system shows no focal deficits with mild diffuse weakness. Please refer to medication reconciliation sheet for a list of medications. Patient Condition at Discharge: Fair Plan - Discharge Summary Discharge Rx Participant: Yes New Discharge Prescriptions: New sitaGLIPtin PHOSPHATE [Januvia] 50 mg PO DAILY #3 tab Magnesium Oxide [Mag-Ox] 400 mg PO BID tab Continue Atorvastatin [Lipitor] 80 mg PO QAM Lisinopril [Zestril] 20 mg PO W/SUPPER Loperamide [Imodium] 4 mg PO QID PRN #120 cap PRN Reason: Diarrhea Metoprolol Succinate (ER) [Toprol XL] 100 mg PO DAILY #30 tab.er.24h INSULIN ASPART (NovoLOG) [NovoLOG (formulary)] See Protocol SQ ACHS Discontinued metFORMIN HCL 1,000 mg PO BID Discharge Medication List Atorvastatin [Lipitor] 80 mg PO QAM 08/13/16 [History] Lisinopril [Zestril] 20 mg PO W/SUPPER 08/13/16 [History] Loperamide [Imodium] 4 mg PO QID PRN #120 cap 10/15/18 [Rx] Metoprolol Succinate (ER) [Toprol XL] 100 mg PO DAILY #30 tab.er.24h 10/15/18 [Rx] INSULIN ASPART (NovoLOG) [NovoLOG (formulary)] See Protocol SQ ACHS 10/17/18 [History] Magnesium Oxide [Mag-Ox] 400 mg PO BID tab 10/28/18 [Rx] sitaGLIPtin PHOSPHATE [Januvia] 50 mg PO DAILY #3 tab 10/28/18 [Rx] Follow up Appointment(s)/Referral(s): [facility],Clinic [Primary Care Provider] - 1-2 days Activity/Diet/Wound Care/Special Instructions: Patient going to [facility] for inpatient rehab Activity as tolerated Continue current diet Follow up with Dr. Cutler as instructed prior to admission Continue current wound care/ileostomy care instructions as discussed prior to admission Continue following sliding scale and monitoring blood sugars before meals and at bed Discharge Disposition: TRANSFER TO SNF/ECF
== END 2018-10-28 16:05 | DRG 683 ==
LOC: EC 13:23 → 3NMEDONC 16:50
PROVIDERS: ADMIT Hospitalist; ATTEND Hospitalist
DX: N17.0 Acute kidney failure with tubular necrosis (principal); E87.1 Hypo-osmolality and hyponatremia; E87.2 Acidosis; D63.8 Anemia in other chronic diseases classified elsewhere; E11.9 Type 2 diabetes mellitus without complications; E78.5 Hyperlipidemia, unspecified; E83.42 Hypomagnesemia; E86.0 Dehydration; E87.5 Hyperkalemia; I10 Essential (primary) hypertension; I25.10 Atherosclerotic heart disease of native coronary artery without angina pectoris; M19.90 Unspecified osteoarthritis, unspecified site; N28.1 Cyst of kidney, acquired; Z79.899 Other long term (current) drug therapy; Z80.9 Family history of malignant neoplasm, unspecified; Z85.038 Personal history of other malignant neoplasm of large intestine; Z87.01 Personal history of pneumonia (recurrent); Z87.891 Personal history of nicotine dependence; Z90.49 Acquired absence of other specified parts of digestive tract; Z93.2 Ileostomy status; Z93.3 Colostomy status; Z96.651 Presence of right artificial knee joint; Z79.4 Long term (current) use of insulin; Z88.8 Allergy status to other drugs, medicaments and biological substances
CPT/HCPCS: 36415; 71046; 76770; 80048; 80053; 81001; 82550; 83605; 83735; 84100; 84132; 84439; 84443; 84481; 84484; 85025; 85610; 85730; 93005; 96361; 96374; 96375; 99291

== ENCOUNTER 2018-11-04 17:25 | Inpatient (IN) | payer OTHER, MEDICARE ==
[2018-11-04] MEDS ORDERED: SODIUM CHLORIDE 0.9% 500 ML 500 ML IV STA ×2 (17:44→18:41)
[2018-11-04 18:13] LABS: Basophils % (A) 0 %; Eosinophils # (A) 0.1 k/uL (0-0.7); Eosinophils % (A) 0 %; HCT 34.1 % (39.0-53.0); HGB 11.3 gm/dL (13.0-17.5); Lymphocytes # (A) 1.4 k/uL (1.0-4.8); Lymphocytes % (A) 11 %; MCHC 33.3 g/dL (31.0-37.0); MCV 90.2 fL (80.0-100.0); Monocytes # (A) 0.6 k/uL (0-1.0); Monocytes % (A) 5 %; Neutrophils # (A) 11.2 k/uL (1.3-7.7); Neutrophils % (A) 83 %; Platelet Count 280 k/uL (150-450); RBC 3.78 m/uL (4.30-5.90); RDW 15.5 % (11.5-15.5); WBC 13.6 k/uL (3.8-10.6)
[2018-11-04 18:22] LABS: Albumin 4.2 g/dL (3.5-5.0); Magnesium 1.6 mg/dL (1.6-2.3); Total Bilirubin 0.6 mg/dL (0.2-1.3); Total Protein 7.6 g/dL (6.3-8.2)
[2018-11-04 18:31] LABS: Potassium 6.6 mmol/L (3.5-5.1)
[2018-11-04 18:33] LABS: INR 0.9 (<1.2); Prothrombin Time 10.1 sec (9.0-12.0)
--- NOTE | 2018-11-04 18:37 | ED ---
General Adult HPI - General Chief complaint: Syncope Stated complaint: HYPOTENSION Time Seen by Provider: 11/04/18 17:35 Source: patient, EMS Mode of arrival: EMS Limitations: physical limitation - History of Present Illness Initial comments: This 78-year-old white male presents with a complaint of some near syncope. He states that this started earlier today. He states that he is fine when he is lying but it seems to be worse when he stands up. He feels very lightheaded and like he might pass out. She denies any fevers, chills, chest pain, or shortness of breath. He does relate that he was diagnosed with colon cancer earlier this year and had surgery for removal in August, 2 months ago. He has a colostomy at this time. He does relate problems with the colostomy as he states that it is been leaking. He's had very watery stools from his colostomy. He's had some nausea and did vomit once earlier today. He does present via EMS and received some IV fluids of 500 mL and also for Zofran. He denies any current abdominal pain. He is not on any chemotherapy or radiation therapy no other complaints or modifying factors. He states that he does not taste as well anymore and therefore has not been eating as much food and has had about 25 pound weight loss in the last 5 weeks. He has tried to stay hydrated. - Related Data Home Medications Medication Instructions Recorded Confirmed Atorvastatin [Lipitor] 80 mg PO HS 08/13/16 11/04/18 Lisinopril [Zestril] 20 mg PO DAILY 08/13/16 11/04/18 INSULIN ASPART (NovoLOG) [NovoLOG See Protocol SQ ACHS 10/17/18 11/04/18 (formulary)] Previous Rx's Medication Instructions Recorded Loperamide [Imodium] 4 mg PO QID PRN #120 cap 10/15/18 Metoprolol Succinate (ER) [Toprol 100 mg PO DAILY #30 tab.er.24h 10/15/18 XL] Magnesium Oxide [Mag-Ox] 400 mg PO BID tab 10/28/18 sitaGLIPtin PHOSPHATE [Januvia] 50 mg PO DAILY #3 tab 10/28/18 Allergies Allergy/AdvReac Type Severity Reaction Status Date / Time niacin AdvReac flushing Verified 11/04/18 18:23 Review of Systems ROS Statement: Those systems with pertinent positive or pertinent negative responses have been documented in the HPI. ROS Other: All systems not noted in ROS Statement are negative. Past Medical History Past Medical History: Cancer, Diabetes Mellitus, Hyperlipidemia, Hypertension, Osteoarthritis (OA), Pneumonia, Vascular Disorder Additional Past Medical History / Comment(s): hx blood in stool, hx polyps, hiatal hernia, poor circulation in legs(left worse), Colon Cancer History of Any Multi-Drug Resistant Organisms: None Reported Past Surgical History: Appendectomy, Bowel Resection, Joint Replacement, Tonsillectomy Additional Past Surgical History / Comment(s): Right knee replacement, pilonidal cyst, Left leg surgery for blockage, elisa laser eye surgery, bowel resection with colostomy. Past Anesthesia/Blood Transfusion Reactions: No Reported Reaction Past Psychological History: Anxiety Smoking Status: Former smoker Past Alcohol Use History: None Reported Past Drug Use History: None Reported - Past Family History Father Family Medical History: Cancer General Exam - General Exam Comments Initial Comments: GENERAL: The patient is well nourished and well hydrated. VITAL SIGNS: Heart rate, blood pressure, respiratory rate reviewed as recorded in nurse's notes. EYES: Pupils are round and reactive. Extraocular movements are intact. No conjunctival / lid redness or swelling. ENT: No external evidence of injury, swelling, or ecchymosis. Airway is patent. Throat is clear. NECK: Nontender. No swelling or evidence of injury. No subcutaneous emphysema. Trachea is midline. No thyroid mass. HEART: Regular rate and rhythm. Good peripheral pulses. LUNGS/CHEST: Breath sounds clear and equal bilaterally. No rales, rhonchi, or wheezes. No ecchymosis, subcutaneous emphysema, or tenderness. ABDOMEN: Abdomen soft without tenderness. No palpable masses or organomegaly. No peritoneal signs. No abdominal wall swelling or ecchymosis. Colostomy is present to the right abdomen. EXTREMITIES: No extremity tenderness. Normal muscle tone and function. No thoracolumbar tenderness. NEUROLOGIC: Sensation is grossly intact. Cranial nerve exam reveals face is symmetrical, tongue is midline, speech is clear. SKIN: No abrasions or ecchymosis is noted. No induration or masses noted. PSYCHIATRIC: Alert and oriented. Appropriate behavior and judgment. Limitations: physical limitation Course Vital Signs 11/04/18 17:30 Temperature 97.0 F L Pulse Rate 61 Respiratory 18 Rate Blood Pressure 114/59 O2 Sat by Pulse 98 Oximetry Medical Decision Making - Medical Decision Making The patient is seen and examined. All diagnostics were reviewed. He did receive some additional IV fluids. The EKG does show a normal sinus rhythm at a rate of 65. There is no acute ST-T wave changes identified. The LA intervals 166, the QRS duration is 66, and the QTC intervals 430. The patient's laboratory came back showing evidence of acute kidney injury. His potassium is also significantly elevated at 6.6. The patient receives Kayexalate orally, bicarbonate intravenously, D50 intravenously, and IV insulin for treatment of his hyperkalemia. He is thoroughly hydrated as well. Old records are reviewed and appears that he was admitted last week for essentially the same thing. They diagnosed him with acute kidney injury and tubular necrosis. It is felt as though he would require admission again for similar. He is admitted to Dr. Grier from internal medicine and will have nephrology consult once again. Case is discussed with Dr. Grier. - Lab Data Result diagrams: 11/04/18 18:00 11/04/18 18:00 Lab Results 11/04/18 11/04/18 11/04/18 Range/Units 18:00 18:00 18:00 WBC 13.6 H (3.8-10.6) k/uL RBC 3.78 L (4.30-5.90) m/uL Hgb 11.3 L (13.0-17.5) gm/dL Hct 34.1 L (39.0-53.0) % MCV 90.2 (80.0-100.0) fL MCH 30.0 (25.0-35.0) pg MCHC 33.3 (31.0-37.0) g/dL RDW 15.5 (11.5-15.5) % Plt Count 280 (150-450) k/uL Neutrophils % 83 % Lymphocytes % 11 % Monocytes % 5 % Eosinophils % 0 % Basophils % 0 % Neutrophils # 11.2 H (1.3-7.7) k/uL Lymphocytes # 1.4 (1.0-4.8) k/uL Monocytes # 0.6 (0-1.0) k/uL Eosinophils # 0.1 (0-0.7) k/uL Basophils # 0.0 (0-0.2) k/uL PT 10.1 (9.0-12.0) sec INR 0.9 (<1.2) APTT 21.3 L (22.0-30.0) sec Sodium 132 L (137-145) mmol/L Potassium 6.6 H* (3.5-5.1) mmol/L Chloride 97 L (98-107) mmol/L Carbon Dioxide 20 L (22-30) mmol/L Anion Gap 15 mmol/L BUN 56 H (9-20) mg/dL Creatinine 4.29 H (0.66-1.25) mg/dL Est GFR (CKD-EPI)AfAm 14 (>60 ml/min/1.73 sqM) Est GFR (CKD-EPI)NonAf 12 (>60 ml/min/1.73 sqM) Glucose 186 H (74-99) mg/dL Calcium 9.0 (8.4-10.2) mg/dL Magnesium 1.6 (1.6-2.3) mg/dL Total Bilirubin 0.6 (0.2-1.3) mg/dL AST 38 (17-59) U/L ALT 41 (21-72) U/L Alkaline Phosphatase 87 (38-126) U/L Troponin I (0.000-0.034) ng/mL Total Protein 7.6 (6.3-8.2) g/dL Albumin 4.2 (3.5-5.0) g/dL 11/04/18 Range/Units 18:00 WBC (3.8-10.6) k/uL RBC (4.30-5.90) m/uL Hgb (13.0-17.5) gm/dL Hct (39.0-53.0) % MCV (80.0-100.0) fL MCH (25.0-35.0) pg MCHC (31.0-37.0) g/dL RDW (11.5-15.5) % Plt Count (150-450) k/uL Neutrophils % % Lymphocytes % % Monocytes % % Eosinophils % % Basophils % % Neutrophils # (1.3-7.7) k/uL Lymphocytes # (1.0-4.8) k/uL Monocytes # (0-1.0) k/uL Eosinophils # (0-0.7) k/uL Basophils # (0-0.2) k/uL PT (9.0-12.0) sec INR (<1.2) APTT (22.0-30.0) sec Sodium (137-145) mmol/L Potassium (3.5-5.1) mmol/L Chloride (98-107) mmol/L Carbon Dioxide (22-30) mmol/L Anion Gap mmol/L BUN (9-20) mg/dL Creatinine (0.66-1.25) mg/dL Est GFR (CKD-EPI)AfAm (>60 ml/min/1.73 sqM) Est GFR (CKD-EPI)NonAf (>60 ml/min/1.73 sqM) Glucose (74-99) mg/dL Calcium (8.4-10.2) mg/dL Magnesium (1.6-2.3) mg/dL Total Bilirubin (0.2-1.3) mg/dL AST (17-59) U/L ALT (21-72) U/L Alkaline Phosphatase (38-126) U/L Troponin I <0.012 (0.000-0.034) ng/mL Total Protein (6.3-8.2) g/dL Albumin (3.5-5.0) g/dL Disposition Clinical Impression: Near syncope, Hyperkalemia, Acute kidney injury, Dehydration Disposition: ADMITTED IP TO THIS [facility] Condition: Fair Is patient prescribed a controlled substance at d/c from ED?: No Time of Disposition: 19:18 Decision Date: 11/04/18 Decision Time: 19:18
[2018-11-04] MEDS ORDERED: SODIUM BICARB 8.4% 50 ML SYR (1 MEQ/ML) IV STA (18:39)
[2018-11-04] MEDS ORDERED: SODIUM POLYSTYRENE SULFONATE 15 GM/60 ML BOTTLE PO STA (18:39)
[2018-11-04] MEDS ORDERED: INSULIN REGULAR 100 UNIT/ML VIAL IV ONE (18:40)
[2018-11-04] MEDS ORDERED: DEXTROSE 50% SYRINGE 50 ML IVP STA (18:41)
[2018-11-04 18:47] LABS: Partial Thromboplastin Time 21.3 sec (22.0-30.0)
[2018-11-04] MEDS ORDERED: ONDANSETRON 4 MG/2 ML VIAL IVP PRN (19:19)
[2018-11-04] MEDS ORDERED: ACETAMINOPHEN TAB 325 MG TAB PO PRN (19:19)
[2018-11-04] MEDS: SODIUM CHLORIDE 0.9% 1,000 ML IV STA ×2 (19:21→21:50)
--- NOTE | 2018-11-04 20:27 | XR ---
EXAMINATION TYPE: XR abdomen acute w cxr ,4 views DATE OF EXAM: 11/04/2018 COMPARISON: NONE HISTORY: Liquid stool in ostomy, vomiting, weakness TECHNIQUE: 2 supine and 2 upright views were obtained. FINDINGS: Chest: No acute process. No incidental findings. Abdomen and pelvis: There is no evidence for pneumoperitoneum. The bowel gas pattern is unremarkable as there is air thro ughout nondilated small and large bowel. No sizeable air fluid levels. No mass effects are seen. No unusual calcifications. IMPRESSION: No acute radiographic process.
[2018-11-04 21:09] LABS: Glucose,Whole Blood 122 mg/dL (75-99)
[2018-11-04] MEDS: LOPERAMIDE 2 MG CAP PO PRN (21:50)
[2018-11-04] MEDS: MAGNESIUM OXIDE 400 MG TAB PO SCH (21:50)
[2018-11-04] MEDS: ATORVASTATIN 80 MG TAB PO SCH (21:50)
[2018-11-04] MEDS: INSULIN ASPART (NovoLOG) 100 UNIT/ML VIAL SQ SCH (21:51)
[2018-11-04] MEDS ORDERED: HYDROcodone/APAP 5-325MG 1 EACH TAB PO PRN (21:56)
[2018-11-04] MEDS ORDERED: TEMAZEPAM 15 MG CAP PO PRN (21:56)
[2018-11-04] MEDS ORDERED: ALPRAZolam 0.25 MG TAB PO PRN (21:56)
[2018-11-04] MEDS ORDERED: HYDROmorphone 0.5 MG/0.5 ML SYRINGE IVP PRN (21:56)
[2018-11-04 22:49] LABS: Appearance,Urine Cloudy (Clear); Bilirubin,Urine Negative (Negative); Blood,Urine Negative (Negative); Color,Urine Yellow; Glucose,Urine (UA) Trace (Negative); Hyaline Casts,Urine 259 /lpf (0-2); Ketones,Urine Negative (Negative); Leukocyte Esterase,Urine Trace (Negative); Mucus,Urine Rare /hpf; Nitrite,Urine Negative (Negative); Protein,Urine Trace (Negative); RBC,Urine <1 /hpf (0-5); Specific Gravity,Urine 1.021 (1.001-1.035); Squamous Epithelial Cell,Urine 1 /hpf (0-4); Urobilinogen,Urine <2.0 mg/dL (<2.0); WBC,Urine 4 /hpf (0-5)
[2018-11-04] MEDS: HEPARIN SODIUM,PORCINE 5,000 UNIT/ML 1 ML VIAL SQ SCH (23:02)
--- NOTE | 2018-11-05 | HP ---
HISTORY AND PHYSICAL DATE OF SERVICE: 11/04/2018 CHIEF COMPLAINTS: Syncope and hypertension. HISTORY OF PRESENT ILLNESS: This 78-year-old gentleman with a past medical history of multiple medical problems recently had ileostomy by Dr. Cutler for colon cancer. Subsequently the patient was admitted with renal failure and other multiple medical issues. Most recently the patient was in [facility] and subsequently went home. Apparently the patient was not instructed about the proper usage, according to the patient. The patient had significant output from the ileostomy tube. Patient was also using Imodium on a p.r.n. basis, but the patient became progressively dehydrated and feels very lightheaded and might have passed out, according to him. The patient came to [facility]. The patient was found to have hyperkalemia as well as severe renal failure. Patient was admitted for further evaluation and treatment. Hypokalemic regimen was initiated at this time. The patient also had a past medical history of multiple medical problems, including diabetes, hyperlipidemia, hypertension, DJD, history of appendectomy, bowel resection. As mentioned earlier, creatinine was found to be 4.29. The baseline creatinine was 0.97. It was 4.25 during one of the previous admissions but improved significantly back to normal. Potassium is 6.6. There is no history of any fever, rigor or chills. No history of headache, loss of consciousness, seizures. PAST MEDICAL HISTORY: 1. History of colon cancer and ileostomy. 2. History of diabetes mellitus. 3. Hypertension. 4. Hyperlipidemia. 5. History of DJD. 6. History of appendectomy. 7. Bowel resection. 8. History of anxiety. 9. Nicotine dependence. HOME MEDICATIONS: 1. Januvia 50 mg p.o. daily. 2. Toprol-XL 100 mg p.o. daily. 3. Magnesium oxide 400 mg p.o. b.i.d. 4. Imodium 4 mg p.o. q.i.d. p.r.n. 5. Zestril 20 mg p.o. daily. 6. Humalog scale. 7. Lipitor 80 mg at bedtime. ALLERGIES: NIACIN. FAMILY HISTORY: History of cancer in the family. SOCIAL HISTORY: Previous history of smoking. No current smoking or alcohol intake. REVIEW OF SYSTEMS: ENT: No diminished hearing. No diminished vision. CARDIOVASCULAR SYSTEM: No angina, palpitations. RESPIRATORY SYSTEM: No cough, hemoptysis. GI: As mentioned earlier. : As mentioned earlier. NERVOUS SYSTEM: As mentioned earlier. ALLERGY/IMMUNOLOGY: No asthma, hayfever. MUSCULOSKELETAL: As mentioned earlier. HEMATOLOGY/ONCOLOGY: As mentioned earlier. ENDOCRINE: As mentioned earlier. CONSTITUTIONAL: As mentioned earlier. DERMATOLOGY: Negative. RHEUMATOLOGY: Negative. PSYCHIATRY: As mentioned earlier. PHYSICAL EXAMINATION: Patient is alert and oriented x3. Pulse 71, blood pressure 112/55, respiration 18, temperature 96.4, pulse ox 97% on room air. HEENT: Conjunctivae normal. Oral mucosa dry. NECK: No jugular venous distention. No carotid bruit. No lymph node enlargement. CARDIOVASCULAR SYSTEM: S1, S2 muffled. No S3. No S4. RESPIRATORY SYSTEM: Breath sounds diminished at the bases. A few scattered rhonchi and crackles. ABDOMEN: Soft. Some erythema around the incision site and krystyna are still present. Ileostomy bag draining significant fluid at this time. Non-tender. No mass palpable. Bowel sounds present. No ascites. No guarding. No rigidity. LEGS: No edema. No swelling. NERVOUS SYSTEM: Higher functions as mentioned earlier. Moves all 4 limbs. No focal motor or sensory deficit. LYMPHATICS: No lymph node palpable in neck, axillae or groin. SKIN: No ulcer, rash, bleeding. JOINTS: No active deforming arthropathy. LABS/IMAGING: Labs at this time show WBC 13.6, hemoglobin 11.3 and sodium 132, potassium 6.6 and creatinine is 4.2. Other labs are reviewed. Acute abdominal series, personally reviewed by me, showed no acute radiographic process. EKG was also reviewed, which showed no acute changes. ASSESSMENT: 1. Acute renal failure with acute tubular necrosis with prerenal renal failure with severe hyperkalemia secondary to dehydration. 2. High output from the ileostomy. 3. History of ileostomy for colon cancer. 4. Diabetes mellitus, type 2. 5. Hyperlipidemia. 6. Hypertension. 7. History of degenerative joint disease. 8. History of previous acute renal failure. 9. History of pneumonia. 10.History of hiatal hernia. 11.History of peripheral vascular disease. 12.History of degenerative joint disease. 13.History of anxiety. 14.Remote history of nicotine dependence. 15.FULL CODE. RECOMMENDATIONS AND DISCUSSION: In this 78-year-old gentleman who presented with multiple complex medical issues, we will monitor the patient closely, continue the current management, continue with symptomatic treatment. Continue the IV fluids. Otherwise, I would recommend stopping the nephrotoxic medication lisinopril. I would recommend subcutaneous heparin. Recommend closely monitoring the blood sugars. Continue with the beta blockers. Sodium bicarb drip. Aspirin given. Repeat lytes. Nephrology consultation. DVT prophylaxis. I would also recommend surgical evaluation by Dr. Cutler. Other home medication will be continued. Symptomatic treatment also will be provided. Guarded prognosis because of multiple complex medical issues. Further recommendations to follow. A copy of this dictation is forwarded to Dr. Howe, who is the primary physician. MMODL / IJN: [id number] /
[2018-11-05] MEDS ORDERED: SODIUM BICARB 8.4% 50 ML SYR (1 MEQ/ML) IV STA (01:10)
[2018-11-05] MEDS ORDERED: DEXTROSE 50% SYRINGE 50 ML IVP STA ×2 (01:10→02:32)
[2018-11-05] MEDS ORDERED: DEXTROSE 10 % IN WATER 250 ML IV ONE (01:30)
[2018-11-05] MEDS ORDERED: INSULIN REGULAR 100 UNIT/ML VIAL IV ONE (01:30)
[2018-11-05 06:15] LABS: Glucose,Whole Blood 136 mg/dL (75-99)
[2018-11-05] MEDS: INSULIN ASPART (NovoLOG) 100 UNIT/ML VIAL SQ SCH ×4 (06:18→22:26)
[2018-11-05 07:04] LABS: Basophils # (A) 0.1 k/uL (0-0.2); Basophils % (A) 1 %; Eosinophils # (A) 0.3 k/uL (0-0.7); Eosinophils % (A) 3 %; HCT 30.1 % (39.0-53.0); Lymphocytes # (A) 2.1 k/uL (1.0-4.8); Lymphocytes % (A) 21 %; MCH 30.2 pg (25.0-35.0); MCHC 33.2 g/dL (31.0-37.0); Mean Platelet Volume 8.4; Monocytes # (A) 0.6 k/uL (0-1.0); Monocytes % (A) 6 %; Neutrophils # (A) 6.8 k/uL (1.3-7.7); Neutrophils % (A) 69 %; Platelet Count 217 k/uL (150-450); RBC 3.31 m/uL (4.30-5.90); RDW 14.6 % (11.5-15.5)
[2018-11-05 07:20] LABS: Albumin 3.4 g/dL (3.5-5.0); Magnesium 1.5 mg/dL (1.6-2.3); Phosphorus 5.8 mg/dL (2.5-4.5); Total Bilirubin 0.4 mg/dL (0.2-1.3); Total Protein 6.3 g/dL (6.3-8.2)
[2018-11-05] MEDS ORDERED: ENOXAPARIN 40 MG/0.4 ML SYRINGE SQ SCH (09:00)
[2018-11-05] MEDS ORDERED: LISINOPRIL 20 MG TAB PO SCH (09:00)
[2018-11-05] MEDS: HEPARIN SODIUM,PORCINE 5,000 UNIT/ML 1 ML VIAL SQ SCH ×2 (09:28→22:26)
[2018-11-05] MEDS: METOPROLOL SUCCINATE (ER) 100 MG TAB.ER.24H PO SCH (09:28)
[2018-11-05] MEDS: LOPERAMIDE 2 MG CAP PO PRN (09:28)
[2018-11-05] MEDS: PANTOPRAZOLE 40 MG/10 ML VIAL IV SCH (09:28)
[2018-11-05] MEDS: MAGNESIUM OXIDE 400 MG TAB PO SCH ×2 (09:28→22:25)
[2018-11-05] MEDS: LINAGLIPTIN 5 MG TABLET PO SCH (09:28)
[2018-11-05] MEDS ORDERED: Magnesium Replacement Protocol 1 EACH MISC MISCELLANE PRN (09:56)
--- NOTE | 2018-11-05 10:57 | P.NPCON ---
History of Present Illness - Reason for Consult acute renal failure, hyperkalemia - History of Present Illness Reason for consultation: Acute kidney injury and hyperkalemia History of present illness: Patient is a 78-year-old male seen in consultation for acute kidney injury and hyperkalemia. Patient denies history of kidney disease. His baseline creatinine is near 1. Patient presented to the hospital with generalized weakness and dizziness he was noted to be hypotensive on admission and did receive normal saline bolus. He is currently maintained on normal saline at 100 mL an hour. Patient's potassium level was 6.6 on admission which was medically treated. It was 5.0 this morning. Patient's creatinine was 4.29 on admission and is 3.29 today. He admits to good urine output. No hematuria or dysuria. Denies use of nonsteroidals. Patient has history of colon cancer and has an ileostomy that was placed in August 2018. Patient states he has not taken Imodium and has noticed loose output from his ostomy. He has history of diabetes mellitus and states he was diagnosed over 20 years ago. He was also taking lisinopril at home which is currently held. Denies chest pain or shortness of breath. Blood pressures better. Oral intake is starting to improve. No vomiting. Vital signs are stable. General: The patient appeared well nourished and normally developed. HEENT: Head exam is unremarkable. Neck is without jugular venous distension. LUNGS: Lungs are clear to auscultation and percussion. Breath sounds decreased. HEART: Rate and Rhythm are regular. First and second heart sounds normal. No murmurs, rubs or gallops. ABDOMEN: Abdominal exam reveals normal bowel sounds. Non-tender and non- distended. No evidence of peritonitis. EXTREMITITES: No clubbing, cyanosis, or edema. Past Medical History Past Medical History: Cancer, Diabetes Mellitus, Hyperlipidemia, Hypertension, Osteoarthritis (OA), Pneumonia, Vascular Disorder Additional Past Medical History / Comment(s): hx blood in stool, hx polyps, hiatal hernia, poor circulation in legs(left worse), Colon Cancer History of Any Multi-Drug Resistant Organisms: None Reported Past Surgical History: Appendectomy, Bowel Resection, Joint Replacement, Tonsillectomy Additional Past Surgical History / Comment(s): Right knee replacement, pilonidal cyst, Left leg surgery for blockage, elisa laser eye surgery, bowel resection with colostomy. Past Anesthesia/Blood Transfusion Reactions: No Reported Reaction Past Psychological History: Anxiety Smoking Status: Former smoker Past Alcohol Use History: None Reported Additional Past Alcohol Use History / Comment(s): stopped smoking 40-50 yrs ago, smoked for 10 yrs- some day smoker Past Drug Use History: None Reported - Past Family History Father Family Medical History: Cancer Medications and Allergies Home Medications Medication Instructions Recorded Confirmed Type Atorvastatin [Lipitor] 80 mg PO HS 08/13/16 11/04/18 History Lisinopril [Zestril] 20 mg PO DAILY 08/13/16 11/04/18 History Loperamide [Imodium] 4 mg PO QID PRN #120 cap 10/15/18 11/04/18 Rx Metoprolol Succinate (ER) [Toprol 100 mg PO DAILY #30 tab.er.24h 10/15/18 11/04/18 Rx XL] INSULIN ASPART (NovoLOG) [NovoLOG See Protocol SQ ACHS 10/17/18 11/04/18 History (formulary)] Magnesium Oxide [Mag-Ox] 400 mg PO BID tab 10/28/18 11/04/18 Rx sitaGLIPtin PHOSPHATE [Januvia] 50 mg PO DAILY #3 tab 10/28/18 11/04/18 Rx Allergies Allergy/AdvReac Type Severity Reaction Status Date / Time niacin AdvReac flushing Verified 11/04/18 18:23 Physical Exam Vitals: Vital Signs Temp Pulse Pulse Resp BP BP Pulse Ox 11/05/18 08:20 97.7 F 81 16 122/58 98 11/05/18 02:45 97.9 F 82 17 101/51 96 11/05/18 00:00 97.0 F L 75 18 110/57 98 11/04/18 20:00 70 18 11/04/18 19:46 96.4 F L 71 18 112/55 97 11/04/18 17:30 97.0 F L 61 18 114/59 98 Intake and Output 11/04/18 11/05/18 11/05/18 22:59 06:59 14:59 Intake Total 500 240 Output Total 300 1100 Balance 200 -1100 240 Intake: Intake, IV Titration 500 Amount Sodium Chloride 0.9% 500 500 ml 500 ml @ 999 mls/hr IV .Q31M [facility] Rx#:[id number] Oral 240 Output: Urine 200 Stool 300 900 Other: Voiding Method Urinal Urinal Weight 90.718 kg 94 kg Results - Lab Results Most recent lab results Calcium 8.0 mg/dL (8.4-10.2) L 11/05/18 06:16 Phosphorus 5.8 mg/dL (2.5-4.5) H 11/05/18 06:16 Magnesium 1.5 mg/dL (1.6-2.3) L 11/05/18 06:16 11/05/18 06:16 11/05/18 06:16 Assessment and Plan Plan: Assessment: 1. Acute kidney injury mostly prerenal secondary to hypotension and intr avascular volume depletion from high output from the ileostomy. Creatinine was 4.29 on admission and is 3.29 today. Baseline creatinine near 1. 2. Hyperkalemia secondary to acute kidney injury, metabolic acidosis and further worsened with the use of lisinopril. Improved with medical management. 3. Metabolic acidosis secondary to acute kidney injury and GI losses. 4. Hypomagnesemia from poor oral intake and GI losses. 5. Hypotension secondary to intravascular volume depletion. Better. 6. History of colon cancer status post ileostomy in August 2018. 7. Benign hypertension. Controlled. 8. Insulin dependent diabetes mellitus. 9. Hypovolemic hyponatremia improving with IV hydration. Plan: Maintain normal saline at 100 mL an hour. Replace magnesium. 2 g IV today. Avoid nephrotoxins. Hold lisinopril. Repeat electrolytes in the morning. Thank you for the consultation. I will continue to follow the patient with you during his hospital stay.
[2018-11-05] MEDS: CHOLESTYRAMINE (WITH SUGAR) 4 GM PACKET PO SCH ×3 (11:15→17:40)
[2018-11-05] MEDS: MAGNESIUM SULFATE-D5W PMX 1 GM in DEXTROSE/WATER 1 100ML.BAG IVPB SCH ×2 (11:15→13:09)
[2018-11-05] MEDS: SODIUM CHLORIDE 0.9% 1,000 ML IV SCH ×2 (11:16→22:26)
[2018-11-05 11:22] VITALS: BMI 29.7
[2018-11-05 11:49] LABS: Glucose,Whole Blood 186 mg/dL (75-99)
--- NOTE | 2018-11-05 12:49 | P.GSCN ---
History of Present Illness Consult date: 11/05/18 History of present illness: This is a 70-year-old male very well known to my service who has returned secondary to acute kidney injury. Patient states that at the [facility] he had not been receiving the Imodium. As a result he was having high output out of his ileostomy. He states his been feeling much better since he got fluid and he's tolerating a diet. He denies any nausea vomiting. He denies any fevers or chills. He denies any abdominal pain. His midline wound is well-healed with krystyna removed. Past Medical History Past Medical History: Cancer, Diabetes Mellitus, Hyperlipidemia, Hypertension, Osteoarthritis (OA), Pneumonia, Vascular Disorder Additional Past Medical History / Comment(s): hx blood in stool, hx polyps, hiatal hernia, poor circulation in legs(left worse), Colon Cancer History of Any Multi-Drug Resistant Organisms: None Reported Past Surgical History: Appendectomy, Bowel Resection, Joint Replacement, Tonsillectomy Additional Past Surgical History / Comment(s): Right knee replacement, pilonidal cyst, Left leg surgery for blockage, elisa laser eye surgery, bowel resection with colostomy. Past Anesthesia/Blood Transfusion Reactions: No Reported Reaction Past Psychological History: Anxiety Smoking Status: Former smoker Past Alcohol Use History: None Reported Additional Past Alcohol Use History / Comment(s): stopped smoking 40-50 yrs ago, smoked for 10 yrs- some day smoker Past Drug Use History: None Reported - Past Family History Father Family Medical History: Cancer Medications and Allergies Home Medications Medication Instructions Recorded Confirmed Type Atorvastatin [Lipitor] 80 mg PO HS 08/13/16 11/04/18 History Lisinopril [Zestril] 20 mg PO DAILY 08/13/16 11/04/18 History Loperamide [Imodium] 4 mg PO QID PRN #120 cap 10/15/18 11/04/18 Rx Metoprolol Succinate (ER) [Toprol 100 mg PO DAILY #30 tab.er.24h 10/15/18 11/04/18 Rx XL] INSULIN ASPART (NovoLOG) [NovoLOG See Protocol SQ ACHS 10/17/18 11/04/18 History (formulary)] Magnesium Oxide [Mag-Ox] 400 mg PO BID tab 10/28/18 11/04/18 Rx sitaGLIPtin PHOSPHATE [Januvia] 50 mg PO DAILY #3 tab 07/30/19 08/06/19 Rx Allergies Allergy/AdvReac Type Severity Reaction Status Date / Time niacin AdvReac flushing Verified 11/04/18 18:23 Surgical - Exam Osteopathic Statement: *. No significant issues noted on an osteopathic structural exam other than those noted in the History and Physical/Consult. Vital Signs Temp Pulse Resp BP Pulse Ox 97.0 F L 61 18 114/59 98 11/04/18 17:30 11/04/18 17:30 11/04/18 17:30 11/04/18 17:30 11/04/18 17:30 - General well developed, well nourished, no distress - Eyes PERRL - Respiratory normal expansion, normal respiratory effort - Cardiovascular Rhythm: regular - Abdomen Midline incision is well-healed. Ostomy is pink and patent liquid stool in bag Abdomen: soft, non tender - Neurologic normal coordination, normal sensation - Psychiatric oriented to time, oriented to person, oriented to place Results - Labs 11/05/18 06:16 11/05/18 06:16 Abnormal Lab Results - Last 24 Hours (Table) 11/04/18 11/04/18 11/04/18 Range/Units 18:00 18:00 18:00 WBC 13.6 H (3.8-10.6) k/uL RBC 3.78 L (4.30-5.90) m/uL Hgb 11.3 L (13.0-17.5) gm/dL Hct 34.1 L (39.0-53.0) % Neutrophils # 11.2 H (1.3-7.7) k/uL APTT 21.3 L (22.0-30.0) sec Sodium 132 L (137-145) mmol/L Potassium 6.6 H* (3.5-5.1) mmol/L Chloride 97 L (98-107) mmol/L Carbon Dioxide 20 L (22-30) mmol/L BUN 56 H (9-20) mg/dL Creatinine 4.29 H (0.66-1.25) mg/dL Glucose 186 H (74-99) mg/dL POC Glucose (mg/dL) (75-99) mg/dL Calcium (8.4-10.2) mg/dL Phosphorus (2.5-4.5) mg/dL Magnesium (1.6-2.3) mg/dL Albumin (3.5-5.0) g/dL Urine Protein (Negative) Urine Glucose (UA) (Negative) Ur Leukocyte Esterase (Negative) Hyaline Casts (0-2) /lpf Urine Mucus (None) /hpf 11/04/18 11/04/18 11/04/18 Range/Units 21:08 21:21 22:46 WBC (3.8-10.6) k/uL RBC (4.30-5.90) m/uL Hgb (13.0-17.5) gm/dL Hct (39.0-53.0) % Neutrophils # (1.3-7.7) k/uL APTT (22.0-30.0) sec Sodium (137-145) mmol/L Potassium 5.7 H (3.5-5.1) mmol/L Chloride (98-107) mmol/L Carbon Dioxide (22-30) mmol/L BUN (9-20) mg/dL Creatinine (0.66-1.25) mg/dL Glucose (74-99) mg/dL POC Glucose (mg/dL) 122 H (75-99) mg/dL Calcium (8.4-10.2) mg/dL Phosphorus (2.5-4.5) mg/dL Magnesium (1.6-2.3) mg/dL Albumin (3.5-5.0) g/dL Urine Protein Trace H (Negative) Urine Glucose (UA) Trace H (Negative) Ur Leukocyte Esterase Trace H (Negative) Hyaline Casts 259 H (0-2) /lpf Urine Mucus Rare H (None) /hpf 11/05/18 11/05/18 11/05/18 Range/Units 06:11 06:16 06:16 WBC (3.8-10.6) k/uL RBC 3.31 L (4.30-5.90) m/uL Hgb 10.0 L (13.0-17.5) gm/dL Hct 30.1 L (39.0-53.0) % Neutrophils # (1.3-7.7) k/uL APTT (22.0-30.0) sec Sodium 134 L (137-145) mmol/L Potassium (3.5-5.1) mmol/L Chloride (98-107) mmol/L Carbon Dioxide 21 L (22-30) mmol/L BUN 54 H (9-20) mg/dL Creatinine 3.29 H (0.66-1.25) mg/dL Glucose 114 H (74-99) mg/dL POC Glucose (mg/dL) 136 H (75-99) mg/dL Calcium 8.0 L (8.4-10.2) mg/dL Phosphorus 5.8 H (2.5-4.5) mg/dL Magnesium 1.5 L (1.6-2.3) mg/dL Albumin 3.4 L (3.5-5.0) g/dL Urine Protein (Negative) Urine Glucose (UA) (Negative) Ur Leukocyte Esterase (Negative) Hyaline Casts (0-2) /lpf Urine Mucus (None) /hpf 11/05/18 Range/Units 11:47 WBC (3.8-10.6) k/uL RBC (4.30-5.90) m/uL Hgb (13.0-17.5) gm/dL Hct (39.0-53.0) % Neutrophils # (1.3-7.7) k/uL APTT (22.0-30.0) sec Sodium (137-145) mmol/L Potassium (3.5-5.1) mmol/L Chloride (98-107) mmol/L Carbon Dioxide (22-30) mmol/L BUN (9-20) mg/dL Creatinine (0.66-1.25) mg/dL Glucose (74-99) mg/dL POC Glucose (mg/dL) 186 H (75-99) mg/dL Calcium (8.4-10.2) mg/dL Phosphorus (2.5-4.5) mg/dL Magnesium (1.6-2.3) mg/dL Albumin (3.5-5.0) g/dL Urine Protein (Negative) Urine Glucose (UA) (Negative) Ur Leukocyte Esterase (Negative) Hyaline Casts (0-2) /lpf Urine Mucus (None) /hpf Diabetes panel 11/04/18 11/04/18 11/05/18 Range/Units 18:00 22:46 06:16 Sodium 132 L 134 L (137-145) mmol/L Potassium 6.6 H* 5.7 H 5.0 (3.5-5.1) mmol/L Chloride 97 L 100 (98-107) mmol/L Carbon Dioxide 20 L 21 L (22-30) mmol/L BUN 56 H 54 H (9-20) mg/dL Creatinine 4.29 H 3.29 H (0.66-1.25) mg/dL Glucose 186 H 114 H (74-99) mg/dL Calcium 9.0 8.0 L (8.4-10.2) mg/dL AST 38 27 (17-59) U/L ALT 41 41 (21-72) U/L Alkaline Phosphatase 87 84 (38-126) U/L Total Protein 7.6 6.3 (6.3-8.2) g/dL Albumin 4.2 3.4 L (3.5-5.0) g/dL Calcium panel 11/04/18 11/05/18 Range/Units 18:00 06:16 Calcium 9.0 8.0 L (8.4-10.2) mg/dL Phosphorus 5.8 H (2.5-4.5) mg/dL Albumin 4.2 3.4 L (3.5-5.0) g/dL Pituitary panel 11/04/18 11/04/18 11/05/18 Range/Units 18:00 22:46 06:16 Sodium 132 L 134 L (137-145) mmol/L Potassium 6.6 H* 5.7 H 5.0 (3.5-5.1) mmol/L Chloride 97 L 100 (98-107) mmol/L Carbon Dioxide 20 L 21 L (22-30) mmol/L BUN 56 H 54 H (9-20) mg/dL Creatinine 4.29 H 3.29 H (0.66-1.25) mg/dL Glucose 186 H 114 H (74-99) mg/dL Calcium 9.0 8.0 L (8.4-10.2) mg/dL Adrenal panel 11/04/18 11/04/18 11/05/18 Range/Units 18:00 22:46 06:16 Sodium 132 L 134 L (137-145) mmol/L Potassium 6.6 H* 5.7 H 5.0 (3.5-5.1) mmol/L Chloride 97 L 100 (98-107) mmol/L Carbon Dioxide 20 L 21 L (22-30) mmol/L BUN 56 H 54 H (9-20) mg/dL Creatinine 4.29 H 3.29 H (0.66-1.25) mg/dL Glucose 186 H 114 H (74-99) mg/dL Calcium 9.0 8.0 L (8.4-10.2) mg/dL Total Bilirubin 0.6 0.4 (0.2-1.3) mg/dL AST 38 27 (17-59) U/L ALT 41 41 (21-72) U/L Alkaline Phosphatase 87 84 (38-126) U/L Total Protein 7.6 6.3 (6.3-8.2) g/dL Albumin 4.2 3.4 L (3.5-5.0) g/dL Assessment and Plan Assessment: Colon cancer High output ileostomy Acute kidney injury Plan: Patient is doing better now that he has had some fluids. He should be on scheduled Imodium 4 times a day. Every time that he is discharged home or to a facility it seems that he is not receiving the Imodium as scheduled. When this happens he reverts back to a high output ileostomy and gets dehydrated. I am also adding on cholestyramine TID to aid in absorption and slow ileostomy output. Both of these medications should be scheduled. Patient should have less than 1500 mL output from his ileostomy daily. During his stay in the hospital and as an outpatient he needs strict monitoring of the ileostomy output. No plans for acute surgical intervention. He can follow-up as an outpatient regarding plans for ileostomy reversal which we can discuss in 1 month's time.
[2018-11-05] MEDS: LOPERAMIDE 2 MG CAP PO SCH ×3 (13:09→22:25)
[2018-11-05 16:54] LABS: Glucose,Whole Blood 145 mg/dL (75-99)
--- NOTE | 2018-11-05 18:44 | PN ---
PROGRESS NOTE DATE OF SERVICE: 11/05/2018 This 78-year-old gentleman who was admitted with syncope and renal failure also had high output from the ostomy site. The patient also had hyperkalemia on presentation. Dr. Cutler has seen the patient and recommended addition of cholestyramine, also. No chest pain. No palpitations. No fever. The creatinine is improving to 3.29, potassium is 5. EXAM: Alert and oriented x3. Pulse 72, blood pressure 126/61, respirations 16, temperature normal, pulse ox 98% on room air. HEENT: Conjunctivae normal. NECK: No JVD. CARDIOVASCULAR: S1, S2 muffled. RESPIRATORY: Breath sounds diminished in the bases. No rhonchi. No crackles ABDOMEN is soft. Ileostomy present. Moderately high output still persists. Bowel sounds present. No guarding. No rigidity. No mass palpable. LEGS: No edema. No swelling. NERVOUS SYSTEM: No focal deficits. LABS: WBC 10, hemoglobin is 10, sodium 134, potassium 5, creatinine 3.29. ASSESSMENT: 1. Acute renal failure with acute tubular necrosis with prerenal renal failure with severe hyperkalemia secondary to dehydration, acute tubular necrosis. 2. High output from the ileostomy. 3. History of ileostomy for colon cancer. 4. Diabetes type 2. 5. Hyperlipidemia. 6. Hypertension. 7. History of degenerative joint disease. 8. History of previous acute renal failure. 9. History of pneumonia. 10.History of hiatal hernia. 11.History of peripheral vascular disease. 12.History of degenerative joint disease. 13.History of anxiety. 14.Remote history of nicotine dependence. 15.FULL CODE. RECOMMENDATIONS AND DISCUSSION: I recommend to continue current medications, management and symptomatic treatment. Continue with Imodium. Cholestyramine as per Dr. Cutler. Please refer to Dr. Cutler's detailed discussion regarding the recurrence of this problem. The manager of case and pediatric social worker team to work on those lines to ensure continued accurate follow up in the outpatient setting, and the patient would need some amount of ostomy training or help also. See orders for further details. We will continue to continue the current medications and we will also continue to monitor the creatinine and potassium also. Further recommendations to follow. MMODL / IJN: [id number] /
[2018-11-05 20:27] LABS: Glucose,Whole Blood 177 mg/dL (75-99)
[2018-11-05] MEDS: ATORVASTATIN 80 MG TAB PO SCH (22:26)
[2018-11-06 06:24] LABS: Glucose,Whole Blood 146 mg/dL (75-99)
[2018-11-06] MEDS: SODIUM CHLORIDE 0.9% 1,000 ML IV SCH ×3 (06:55→16:03)
[2018-11-06] MEDS: INSULIN ASPART (NovoLOG) 100 UNIT/ML VIAL SQ SCH ×4 (06:55→21:08)
[2018-11-06 07:12] LABS: Basophils # (A) 0.1 k/uL (0-0.2); Basophils % (A) 1 %; Eosinophils # (A) 0.1 k/uL (0-0.7); Eosinophils % (A) 2 %; HCT 29.9 % (39.0-53.0); HGB 9.8 gm/dL (13.0-17.5); Lymphocytes # (A) 1.5 k/uL (1.0-4.8); Lymphocytes % (A) 20 %; MCHC 32.8 g/dL (31.0-37.0); MCV 91.3 fL (80.0-100.0); Monocytes # (A) 0.4 k/uL (0-1.0); Monocytes % (A) 6 %; Neutrophils # (A) 5.3 k/uL (1.3-7.7); Neutrophils % (A) 70 %; Platelet Count 207 k/uL (150-450); RBC 3.28 m/uL (4.30-5.90); RDW 14.5 % (11.5-15.5); WBC 7.5 k/uL (3.8-10.6)
[2018-11-06 07:17] LABS: Calcium 8.3 mg/dL (8.4-10.2); Potassium 5.1 mmol/L (3.5-5.1)
[2018-11-06] MEDS: HEPARIN SODIUM,PORCINE 5,000 UNIT/ML 1 ML VIAL SQ SCH ×2 (08:51→21:08)
[2018-11-06] MEDS: CHOLESTYRAMINE (WITH SUGAR) 4 GM PACKET PO SCH ×3 (08:51→17:17)
[2018-11-06] MEDS: LOPERAMIDE 2 MG CAP PO SCH ×4 (08:51→21:07)
[2018-11-06] MEDS: LINAGLIPTIN 5 MG TABLET PO SCH (08:51)
[2018-11-06] MEDS: MAGNESIUM OXIDE 400 MG TAB PO SCH ×2 (08:52→21:08)
[2018-11-06] MEDS: PANTOPRAZOLE 40 MG/10 ML VIAL IV SCH (08:52)
[2018-11-06] MEDS: METOPROLOL SUCCINATE (ER) 100 MG TAB.ER.24H PO SCH (08:52)
[2018-11-06 11:33] LABS: Glucose,Whole Blood 184 mg/dL (75-99)
--- NOTE | 2018-11-06 11:34 | P.PN ---
Subjective Patient is seen in follow-up for acute kidney injury. Renal function is improving with IV fluids. Creatinine is down to 1.65 today. Oral intake is good. Patient denies excessive output from his ileostomy. No vomiting. Admits to good urine output. Vital signs are stable. General: The patient appeared well nourished and normally developed. HEENT: Head exam is unremarkable. Neck is without jugular venous distension. LUNGS: Lungs are clear to auscultation and percussion. Breath sounds decreased. HEART: Rate and Rhythm are regular. First and second heart sounds normal. No murmurs, rubs or gallops. ABDOMEN: Abdominal exam reveals normal bowel sounds. Non-tender and non- distended. No evidence of peritonitis. EXTREMITITES: No clubbing, cyanosis, or edema. Objective - Vital Signs Vital signs: Vital Signs Temp 98.8 F 11/06/18 03:54 Pulse 67 11/06/18 03:54 Resp 16 11/06/18 03:54 BP 137/67 11/06/18 03:54 Pulse Ox 97 11/06/18 03:54 Intake & Output 11/05/18 11/06/18 11/06/18 18:59 06:59 18:59 Intake Total 1502 125 Output Total 775 1900 350 Balance 727 -1900 -225 Weight 94 kg 88.7 kg Intake: Intake, IV Titration 800 Amount Sodium Chloride 0.9% 1, 800 000 ml @ 100 mls/hr IV . Q10H [facility] Rx#:[id number] Oral 702 125 Output: Urine 150 1300 350 Stool 625 600 Other: Voiding Method Urinal Urinal # Voids 1 2 # Bowel Movements 175 - Labs CBC & Chem 7: 11/06/18 06:42 11/06/18 06:42 Labs: Abnormal Lab Results - Last 24 Hours (Table) 11/05/18 11/05/18 11/05/18 Range/Units 11:47 16:48 20:26 RBC (4.30-5.90) m/uL Hgb (13.0-17.5) gm/dL Hct (39.0-53.0) % Sodium (137-145) mmol/L Carbon Dioxide (22-30) mmol/L BUN (9-20) mg/dL Creatinine (0.66-1.25) mg/dL Glucose (74-99) mg/dL POC Glucose (mg/dL) 186 H 145 H 177 H (75-99) mg/dL Calcium (8.4-10.2) mg/dL 11/06/18 11/06/18 11/06/18 Range/Units 06:21 06:42 06:42 RBC 3.28 L (4.30-5.90) m/uL Hgb 9.8 L (13.0-17.5) gm/dL Hct 29.9 L (39.0-53.0) % Sodium 136 L (137-145) mmol/L Carbon Dioxide 20 L (22-30) mmol/L BUN 38 H (9-20) mg/dL Creatinine 1.65 H (0.66-1.25) mg/dL Glucose 148 H (74-99) mg/dL POC Glucose (mg/dL) 146 H (75-99) mg/dL Calcium 8.3 L (8.4-10.2) mg/dL Assessment and Plan Plan: Assessment: 1. Acute kidney injury mostly prerenal secondary to hypotension and intravascular volume depletion from high output from the ileostomy. Creatinine was 4.29 on admission and is 1.65 today. Baseline creatinine near 1. 2. Hyperkalemia secondary to acute kidney injury, metabolic acidosis and further worsened with the use of lisinopril. Improved with medical management. 3. Metabolic acidosis secondary to acute kidney injury and GI losses. 4. Hypomagnesemia from poor oral intake and GI losses. Improved. 5. Hypotension secondary to intravascular volume depletion. Resolved. 6. History of colon cancer status post ileostomy in August 2018. 7. Benign hypertension. Controlled. 8. Insulin dependent diabetes mellitus. 9. Hypovolemic hyponatremia improving with IV hydration. Plan: I will decrease rate of normal saline to 75 mL an hour. Add oral sodium bicarbonate. Avoid nephrotoxins. Hold lisinopril. Repeat electrolytes in the morning.
[2018-11-06] MEDS: SODIUM BICARBONATE TAB 650 MG TAB PO SCH ×2 (13:22→21:07)
[2018-11-06 16:38] LABS: Glucose,Whole Blood 154 mg/dL (75-99)
[2018-11-06 21:01] LABS: Glucose,Whole Blood 170 mg/dL (75-99)
[2018-11-06] MEDS: ATORVASTATIN 80 MG TAB PO SCH (21:08)
--- NOTE | 2018-11-06 23:26 | P.PN ---
Subjective Progress Note Date: 11/06/18 Principal diagnosis: This is a 78 year old male that was admitted for acute renal failure and increased ileostomy output and is being closely monitored. Nephrology is following the patient closely. Patient states that he wasn't receiving the immodium at the rehab facility prior to discharge to home this week and then he started noticing an increase in ileostomy output that had become loose again. Patient has been returning to the hospital frequently since the placement of the ileostomy and has received large amounts of supplies and feels overwhelmed while at home that he is unsure of which supplies to use that will fit properly and function properly for him to care for himself at home. Patient is to see Dr. Cutler in the outpatient setting in one months time for recheck on the surgical site and ileostomy care. Patient is denying any chest pain, shortness of breath, or palpitations at this time. Patient is denying any nausea or vomiting and is tolerating diet well. Patient states that the ileostomy output has lessened in volume and has thickened since the restart of the immodium. Patient is to continue with that at home upon discharge as well. Prognosis is guarded. Objective - Vital Signs Vital signs: Vital Signs Temp 98.6 F 11/06/18 20:00 Pulse 79 11/06/18 20:00 Resp 16 11/06/18 20:00 BP 137/69 11/06/18 20:00 Pulse Ox 98 11/06/18 20:00 Intake & Output 11/06/18 11/06/18 11/07/18 06:59 18:59 06:59 Intake Total 605 Output Total 1900 750 200 Balance -1900 -145 -200 Weight 88.7 kg Intake: Oral 605 Output: Urine 1300 750 100 Stool 600 100 Other: Voiding Method Urinal Urinal Urinal # Voids 1 1 # Bowel Movements 175 - Exam PHYSICAL EXAMINATION: GENERAL: The patient is alert and oriented x3, not in any acute distress. Obese. Vital signs are stable. Blood pressure is 128/63, pulse is 77, respirations are 16, temp is 98.0F, oxygen saturation is 99% on room air HEENT: Pupils are round and equally reacting to light. EOMI. No scleral icterus. No conjunctival pallor. Normocephalic, atraumatic. No pharyngeal erythema. No thyromegaly. CARDIOVASCULAR: S1 and S2 muffled. PULMONARY: Diminished lung sounds in the bases, no wheezing or crackles. ABDOMEN: Soft, nontender, obese, normoactive bowel sounds. No palpable organomegaly. MUSCULOSKELETAL: No joint swelling or deformity. EXTREMITIES: No cyanosis, clubbing, or pedal edema. NEUROLOGICAL: Gross neurological examination did not reveal any focal deficits. SKIN: no rashes or lesions noted. Abdominal incision is intact with krystyna removed recently - Labs CBC & Chem 7: 11/06/18 06:42 11/06/18 06:42 Labs: Abnormal Lab Results - Last 24 Hours (Table) 11/06/18 11/06/18 11/06/18 Range/Units 06:21 06:42 06:42 RBC 3.28 L (4.30-5.90) m/uL Hgb 9.8 L (13.0-17.5) gm/dL Hct 29.9 L (39.0-53.0) % Sodium 136 L (137-145) mmol/L Carbon Dioxide 20 L (22-30) mmol/L BUN 38 H (9-20) mg/dL Creatinine 1.65 H (0.66-1.25) mg/dL Glucose 148 H (74-99) mg/dL POC Glucose (mg/dL) 146 H (75-99) mg/dL Calcium 8.3 L (8.4-10.2) mg/dL 11/06/18 11/06/18 11/06/18 Range/Units 11:31 16:36 20:59 RBC (4.30-5.90) m/uL Hgb (13.0-17.5) gm/dL Hct (39.0-53.0) % Sodium (137-145) mmol/L Carbon Dioxide (22-30) mmol/L BUN (9-20) mg/dL Creatinine (0.66-1.25) mg/dL Glucose (74-99) mg/dL POC Glucose (mg/dL) 184 H 154 H 170 H (75-99) mg/dL Calcium (8.4-10.2) mg/dL Assessment and Plan Assessment: Acute renal failure with acute tubular necrosis with prerenal renal failure with severe hyperkalemia secondary to dehydration, acute tubular necrosis High output from the ileostomy History of ileostomy for colon cancer Diabetes mellitus type 2 Hyperlipidemia Hypertension History of degenerative joint disease History of previous acute renal failure History of pneumonia History of hiatal hernia History of peripheral vascular disease History of anxiety Remote history of nicotine dependence. Full code Recommendations and discussion: Recommend to continue current medication management and symptomatic treatment. Will continue to monitor closely. Will monitor morning labs and vital signs. Will follow blood sugars and treat accordingly with sliding scale. Will maintain IV hydration per nephrology at a lower rate of 75mL/hr and recheck labs in the am. Will monitor output of ileostomy closely. Greta Berry is to follow up in the am with ileostomy education and will most likely be discharged home with home care in 24-48 hours. Case management is following closely as well. Guarded prognosis. Further recommendations to follow.
[2018-11-07 06:27] LABS: Glucose,Whole Blood 128 mg/dL (75-99)
[2018-11-07] MEDS: INSULIN ASPART (NovoLOG) 100 UNIT/ML VIAL SQ SCH ×2 (06:27→12:46)
[2018-11-07] MEDS: SODIUM CHLORIDE 0.9% 1,000 ML IV SCH (06:29)
[2018-11-07] MEDS ORDERED: PANTOPRAZOLE 40 MG TABLET PO SCH (07:30)
[2018-11-07 08:12] LABS: Basophils # (A) 0.1 k/uL (0-0.2); Basophils % (A) 1 %; Eosinophils # (A) 0.2 k/uL (0-0.7); Eosinophils % (A) 3 %; HCT 32.3 % (39.0-53.0); HGB 10.6 gm/dL (13.0-17.5); Lymphocytes # (A) 1.6 k/uL (1.0-4.8); Lymphocytes % (A) 22 %; MCH 30.4 pg (25.0-35.0); MCHC 32.8 g/dL (31.0-37.0); MCV 92.8 fL (80.0-100.0); Monocytes # (A) 0.4 k/uL (0-1.0); Monocytes % (A) 6 %; Neutrophils # (A) 4.9 k/uL (1.3-7.7); Neutrophils % (A) 67 %; Platelet Count 206 k/uL (150-450); RBC 3.48 m/uL (4.30-5.90); RDW 14.6 % (11.5-15.5); WBC 7.3 k/uL (3.8-10.6)
[2018-11-07 08:24] LABS: Calcium 8.6 mg/dL (8.4-10.2); Magnesium 1.6 mg/dL (1.6-2.3); Potassium 5.1 mmol/L (3.5-5.1)
--- NOTE | 2018-11-07 10:02 | P.PN ---
Subjective Patient is seen in follow-up for acute kidney injury. Renal function is improving with IV fluids. Creatinine is down to 1.07 today. Oral intake is good. Patient denies excessive output from his ileostomy. No vomiting. Admits to good urine output. No active complaints. Vital signs are stable. General: The patient appeared well nourished and normally developed. HEENT: Head exam is unremarkable. Neck is without jugular venous distension. LUNGS: Lungs are clear to auscultation and percussion. Breath sounds decreased. HEART: Rate and Rhythm are regular. First and second heart sounds normal. No murmurs, rubs or gallops. ABDOMEN: Abdominal exam reveals normal bowel sounds. Non-tender and non- distended. No evidence of peritonitis. EXTREMITITES: No clubbing, cyanosis, or edema. Objective - Vital Signs Vital signs: Vital Signs Temp 98.0 F 11/07/18 03:54 Pulse 70 11/07/18 03:54 Resp 16 11/07/18 03:54 BP 138/67 11/07/18 03:54 Pulse Ox 96 11/07/18 03:54 Intake & Output 11/06/18 11/07/18 11/07/18 18:59 06:59 18:59 Intake Total 605 Output Total 750 500 Balance -145 -500 Weight 89.6 kg Intake: Oral 605 Output: Urine 750 300 Stool 200 Other: Voiding Method Urinal Urinal # Voids 1 - Labs CBC & Chem 7: 11/07/18 07:37 11/07/18 07:37 Labs: Abnormal Lab Results - Last 24 Hours (Table) 11/06/18 11/06/18 11/06/18 Range/Units 11:31 16:36 20:59 RBC (4.30-5.90) m/uL Hgb (13.0-17.5) gm/dL Hct (39.0-53.0) % Chloride (98-107) mmol/L BUN (9-20) mg/dL Glucose (74-99) mg/dL POC Glucose (mg/dL) 184 H 154 H 170 H (75-99) mg/dL 11/07/18 11/07/18 11/07/18 Range/Units 06:26 07:37 07:37 RBC 3.48 L (4.30-5.90) m/uL Hgb 10.6 L (13.0-17.5) gm/dL Hct 32.3 L (39.0-53.0) % Chloride 108 H (98-107) mmol/L BUN 23 H (9-20) mg/dL Glucose 136 H (74-99) mg/dL POC Glucose (mg/dL) 128 H (75-99) mg/dL Assessment and Plan Plan: Assessment: 1. Acute kidney injury mostly prerenal secondary to hypotension and intravascular volume depletion from high output from the ileostomy. Creatinine was 4.29 on admission and is 1.07 today. Baseline creatinine near 1. 2. Hyperkalemia secondary to acute kidney injury, metabolic acidosis and further worsened with the use of lisinopril. Improved with medical management. 3. Metabolic acidosis secondary to acute kidney injury and GI losses. Better. 4. Hypomagnesemia from poor oral intake and GI losses. 5. Hypotension secondary to intravascular volume depletion. Resolved. 6. History of colon cancer status post ileostomy in August 2018. 7. Benign hypertension. Controlled. 8. Insulin dependent diabetes mellitus. 9. Hypovolemic hyponatremia improving with IV hydration. Better. Plan: Decrease rate of normal saline to 50 mL an hour. Maintain oral sodium bicarbonate. Avoid nephrotoxins. Hold lisinopril. Repeat electrolytes in the morning. Replace magnesium. 2 g IV today. Maintain oral magnesium supplementation.
[2018-11-07 10:40] VITALS: RESP 18; TEMP 97.8
[2018-11-07] MEDS: METOPROLOL SUCCINATE (ER) 100 MG TAB.ER.24H PO SCH (11:46)
[2018-11-07] MEDS: LOPERAMIDE 2 MG CAP PO SCH ×2 (11:46→11:47)
[2018-11-07] MEDS: SODIUM BICARBONATE TAB 650 MG TAB PO SCH (11:46)
[2018-11-07] MEDS: MAGNESIUM OXIDE 400 MG TAB PO SCH (11:46)
[2018-11-07] MEDS: LINAGLIPTIN 5 MG TABLET PO SCH (11:47)
[2018-11-07] MEDS: HEPARIN SODIUM,PORCINE 5,000 UNIT/ML 1 ML VIAL SQ SCH (11:48)
[2018-11-07] MEDS: CHOLESTYRAMINE (WITH SUGAR) 4 GM PACKET PO SCH (11:49)
[2018-11-07] MEDS: MAGNESIUM SULFATE-D5W PMX 1 GM in DEXTROSE/WATER 1 100ML.BAG IVPB SCH ×2 (11:55→13:27)
[2018-11-07 12:10] LABS: Glucose,Whole Blood 199 mg/dL (75-99)
[2018-11-07 16:45] VITALS: BP 179/94; PULSE 99
--- NOTE | 2018-11-08 03:13 | P.DS ---
Providers Date of admission: 11/04/18 19:19 Expected date of discharge: 11/07/18 Attending physician: Dirk Grier MD Consults: 11/04/18 19:20 Consult Physician Routine Consulting Provider: Duncan Ellsworth Consult Reason/Comments: MARSHA, hyperkalemia Do you want consulting provider notified?: Yes 11/04/18 21:56 Consult Physician Routine Consulting Provider: Kevin Cutler Consult Reason/Comments: ileostomy Do you want consulting provider notified?: Yes Primary care physician: [facility] Course: Final diagnosis Acute renal failure with acute tubular necrosis with prerenal renal failure with severe hyperkalemia secondary to dehydration, acute tubular necrosis High output from the ileostomy History of ileostomy for colon cancer Diabetes mellitus type 2 Hyperlipidemia Hypertension History of degenerative joint disease History of previous acute renal failure History of pneumonia History of hiatal hernia History of peripheral vascular disease History of anxiety Remote history of nicotine dependence. Full code Discharge disposition This patient is being discharged in stable condition with guarded prognosis to home and is to home care visit for education of ileostomy care and medication management. History of present illness This is a 78 year old male that was admitted with acute renal failure and elevated potassium with an increase in ileostomy output. Patient was being followed closely by nephrology. Patient denies any recent chest pain, shortness of breath, or palpitations at this time. Patient denies any abdominal discomfort, nausea or vomiting at this time. Patient is afebrile. Patient is currently stable with a guarded prognosis. Much improved. Patient would like to go home today. Current potassium is 5.1 and creatinine is 1.07. Patients ileostomy output has decreased since admission. Patient will continue Immodium 4 times daily as well as cholestyramine three times daily to aid in absorption. Patient will follow up with Dr. Cutler outpatient in one month. On exam vitals are stable. Blood pressure is 159/71, pulse is 86, resp are 18, oxygen saturation is 98% on room air and temp is 97.8F. Cardio S1 and S2 are heard. Respiratory is clear to auscultation. Abdomen is soft, non-tender, and obese. Nervous system shows no focal deficits and gait is steady. Patient was walking the halls prior to discharge. Please refer to medication reconciliation sheet for a list of medications. Patient Condition at Discharge: Stable Plan - Discharge Summary Discharge Rx Participant: Yes New Discharge Prescriptions: New Cholestyramine (with Sugar) [Questran Packet] 4 gm PO TID BETWEEN MEALS 30 Days packet Sodium Bicarbonate Tab 650 mg PO BID 3 Days #6 tab Loperamide [Imodium] 4 mg PO QID #120 cap Continue Atorvastatin [Lipitor] 80 mg PO HS Lisinopril [Zestril] 20 mg PO DAILY Metoprolol Succinate (ER) [Toprol XL] 100 mg PO DAILY #30 tab.er.24h INSULIN ASPART (NovoLOG) [NovoLOG (formulary)] See Protocol SQ ACHS sitaGLIPtin PHOSPHATE [Januvia] 50 mg PO DAILY #3 tab Magnesium Oxide [Mag-Ox] 400 mg PO BID tab Loperamide [Imodium] 4 mg PO QID PRN #120 cap PRN Reason: Diarrhea Discharge Medication List Atorvastatin [Lipitor] 80 mg PO HS 08/13/16 [History] Lisinopril [Zestril] 20 mg PO DAILY 08/13/16 [History] Metoprolol Succinate (ER) [Toprol XL] 100 mg PO DAILY #30 tab.er.24h 10/15/18 [Rx] INSULIN ASPART (NovoLOG) [NovoLOG (formulary)] See Protocol SQ ACHS 10/17/18 [History] Magnesium Oxide [Mag-Ox] 400 mg PO BID tab 10/28/18 [Rx] sitaGLIPtin PHOSPHATE [Januvia] 50 mg PO DAILY #3 tab 10/28/18 [Rx] Cholestyramine (with Sugar) [Questran Packet] 4 gm PO TID BETWEEN MEALS 30 Days packet 11/07/18 [Rx] Loperamide [Imodium] 4 mg PO QID #120 cap 11/07/18 [Rx] Loperamide [Imodium] 4 mg PO QID PRN #120 cap 11/07/18 [Rx] Sodium Bicarbonate Tab 650 mg PO BID 3 Days #6 tab 11/07/18 [Rx] Follow up Appointment(s)/Referral(s): Kevin Cutler DO [Doctor of Osteopathic Medicine] - 12/03/18 9:00 am (Saturday) [facility] [NON-STAFF] - Duncan Ellsworth DO [STAFF PHYSICIAN] - 12/18/18 2:00 pm () [facility] [Primary Care Provider] - 1 Week (Unable to get through. Please call to schedule appointment) Ambulatory/Diagnostic Orders: Basic Metabolic Panel [LAB.AMB] Time Frame: 3 Days, Location: None Selected Complete Blood Count w/diff [LAB.AMB] Time Frame: 3 Days, Location: None Selected Patient Instructions/Handouts: Acute Kidney Injury (DC) Activity/Diet/Wound Care/Special Instructions: Activity as tolerated continue current diet Follow up with pcp this week repeat labs in 3 days. Ileostomy Care Instructions: Last pouching system change: 11.07.2018 Mr Lopez will have three [facility] Pouching syystem #[id number] (already cut out by hospital for home) along with two pouches No sting prep (12) pads Ostomy powder Mr Lopez is to empty the pouch when the pouch is 1/2 to 1/3 full The entire pouching system is to be changed every 3-5 days [facility] ileosotmy [facility] patient preference precut and opaque Discharge Disposition: HOME WITH HOME HEALTH SERVICES
--- NOTE | 2018-11-08 09:44 | DS ---
DISCHARGE SUMMARY FINAL DIAGNOSES: 1. Acute renal failure with acute tubular necrosis with prerenal renal failure with severe hyperkalemia secondary to dehydration, acute and prerenal factors. 2. High output from the ileostomy, improved. 3. History of ileostomy for colon cancer. 4. Diabetes type 2. 5. History of excoriation in the ileostomy site previously. 6. Hypertension. 7. Hyperlipidemia. 8. History of degenerative joint disease. 9. History of previous acute renal failure. 10.History of pneumonia. 11.History of hiatal hernia. 12.History of peripheral vascular disease. 13.History of anxiety. 14.Remote history of nicotine dependence. 15.FULL CODE. DISCHARGE DISPOSITION: The patient will be discharged in stable condition with guarded prognosis. Total time taken 35 minutes. HISTORY OF PRESENT ILLNESS: This 78-year-old gentleman with a past medical history of multiple medical problems admitted with acute renal failure possible acute tubular necrosis. The patient was treated with IV fluids. Patient improved significantly. High-output ileostomy was also treated with Imodium. Patient improved significantly. Nephrology saw the patient. Care was coordinated. Patient also seen by Dr. Cutler. The patient also had some social issues and apparently the exact directions were not given regarding the ileostomy maintenance and as well as use of Imodium which was being corrected at this time. On exam, vitals are stable. Cardiovascular: S1, S2. Abdomen soft. Nervous system: No focal deficits. DISCHARGE ADVICE AND MEDICATIONS: 1. Diet is cardiac diet. 2. Activity limited until followup. 3. Follow up with [facility] and Dr. Howe in 2-3 days. 4. Follow up with Dr. Ellsworth as recommended. 5. Follow up with Surgery as recommended. DISCHARGE MEDICATIONS: 1. Lipitor 80 mg q.h.s. 2. NovoLog scale. 3. Zestril 20 mg p.o. daily. 4. Imodium 4 mg q.i.d. p.r.n. 5. Imodium 4 mg q.i.d. 6. Januvia 50 mg p.o. daily. 7. Magnesium oxide 400 mg p.o. b.i.d. 8. Questran 4 g p.o. t.i.d. 9. Sodium bicarb 650 mg p.o. b.i.d. 10.Toprol-XL 100 mg p.o. Once again, the patient is being discharged in a stable condition with guarded prognosis. CBC and BMP in the outpatient setting. MMODL / IJN: [id number] /
== END 2018-11-07 16:00 | disposition home health service (06) | DRG 683 ==
LOC: EC 17:25 → 3SCARD 19:19
PROVIDERS: ADMIT Internal Medicine; ATTEND Internal Medicine
DX: N17.0 Acute kidney failure with tubular necrosis (principal); E87.1 Hypo-osmolality and hyponatremia; E87.2 Acidosis; I95.9 Hypotension, unspecified; E11.51 Type 2 diabetes mellitus with diabetic peripheral angiopathy without gangrene; E86.0 Dehydration; E87.5 Hyperkalemia; E83.42 Hypomagnesemia; E66.9 Obesity, unspecified; E78.5 Hyperlipidemia, unspecified; I10 Essential (primary) hypertension; F41.9 Anxiety disorder, unspecified; K44.9 Diaphragmatic hernia without obstruction or gangrene; R55 Syncope and collapse; M19.90 Unspecified osteoarthritis, unspecified site; R63.4 Abnormal weight loss; Z68.28 Body mass index [BMI] 28.0-28.9, adult; Z96.651 Presence of right artificial knee joint; Z93.2 Ileostomy status; Z79.4 Long term (current) use of insulin; Z79.899 Other long term (current) drug therapy; Z90.49 Acquired absence of other specified parts of digestive tract; Z87.891 Personal history of nicotine dependence; Z87.01 Personal history of pneumonia (recurrent); Z85.038 Personal history of other malignant neoplasm of large intestine; Z88.8 Allergy status to other drugs, medicaments and biological substances; Z86.010 Personal history of colon polyps; Z80.9 Family history of malignant neoplasm, unspecified
CPT/HCPCS: 36415; 74022; 80048; 80053; 81001; 83735; 84100; 84132; 84484; 85025; 85610; 85730; 87324; 96361; 96374; 96375; 99285

== ENCOUNTER → 2019-07-23 | Outpatient (CLI) | payer OTHER ==
--- NOTE | 2019-07-24 09:05 | CT ---
EXAMINATION TYPE: CT ChestAbdPelvis w con DATE OF EXAM: 07/23/2019 COMPARISON: 10/13/2018 HISTORY: 78-year-old male C81.2, Follow up for colon CA TECHNIQUE: Contiguous axial scanning of the chest, abdomen, and pelvis performed with IV Contrast, pa tient injected with 100 mL of Isovue 300. Delayed images through the kidneys were obtained. Coronal/s agittal reconstructions performed. CT DLP: 1683.7 mGycm Automated exposure control for dose reduction was used. FINDINGS: CHEST: Heart normal size without pericardial effusion. Coronary vessel calcifications are remarkable for cor onary artery disease. Ascending aorta ectatic and 3.8 cm. Moderate atherosclerotic arch calcifications. Bovine configuratio n to the aortic arch. Mild bilateral gynecomastia. No thoracic lymphadenopathy by CT size criteria. Focal subpleural nodule measuring 1 cm peripheral right upper lobe. 5 mm left upper lobe pulmonary nodule, axial image 15. 6 mm anterior left upper lobe pulmonary nodule, axial image 21. Mild diffuse bronchial wall thickening suggests bronchitis or chronic asthma. Trace left apical pleur al-parenchymal scarring. ABDOMEN: Mild circumferential wall thickening of the distal esophagus. No focal liver lesion or biliary ductal dilatation. Portal venous system is patent. Gallbladder, adrenal glands, right kidney, spleen, and pancreas appear within normal limits. Cortical cysts within the left kidney measuring up to 1.6 cm are unchanged. Moderate atherosclerotic calcifications abdominal aorta and iliac arteries. Old laparotomy scar along the midline. There is focal soft tissue distortion and thickening measuring 2.5 cm overlying the right mid to lower anterior abdominal wall musculature at the ostomy site, prob able scar which should be reassessed at follow-up. Some surgical material underlying with partial right hemicolectomy and ileocolonic anastomosis at the proximal transverse colon. Moderate stool burden. No pericolonic inflammatory change. 1.2 cm nodular density in the right lower quadrant mesentery, axial image 78 could represent some res idual postinflammatory sequela. Lymph node difficult to entirely excluded this time. However, no additional mesenteric or retroperitoneal lymphadenopathy is identified. No dilated small bowel, free fluid, or free air. PELVIS: Post surgical change with scarring along the left groin with metallic clips, similar to prior. Bladde r urine distended. Mild circumferential bladder wall thickening. Prostate gland enlargement 5.0 cm wi de. No pelvic lymphadenopathy seen. BONES: Mild degenerative change of the hips. Hypertrophic facet arthropathy mid to lower lumbar spine with g rade 1 anterolisthesis at L4-L5. DISH within the mid to lower thoracic spine. Degenerative changes at the sternoclavicular joints. No osseous destructive process seen. IMPRESSION: 1. PREVIOUS PARTIAL RIGHT HEMICOLECTOMY NOW WITH RIGHT-SIDED OSTOMY REVERSAL AND ILEOCOLONIC ANASTOMO SIS AT THE PROXIMAL TRANSVERSE COLON. 2. THERE IS A FOCAL 2.5 CM IRREGULAR SOFT TISSUE THICKENING INVOLVING THE ABDOMINAL WALL MUSCULATURE AT THE PRIOR OSTOMY SITE, PROBABLE SCAR. REASSESS AT SHORT INTERVAL FOLLOW-UP. 3. THREE PULMONARY NODULES, LARGEST IS A SUBPLEURAL 1 CM NODULE ON THE RIGHT. THE OTHER 2 MEASURE 6 A ND 5 MM. RECOMMEND COMPARISON TO ANY AVAILABLE OUTSIDE PRIORS TO DETERMINE STABILITY. METASTATIC DISE ASE NOT EXCLUDED AT THIS TIME. 4. A 1.2 CM AREA OF NODULAR DENSITY IN THE RIGHT LOWER QUADRANT MESENTERY COULD REPRESENT SOME RESIDU AL POSTINFLAMMATORY SEQUELA. THIS SHOULD ALSO BE REASSESSED AT SHORT INTERVAL FOLLOW-UP. 5. MILD CIRCUMFERENTIAL WALL THICKENING DISTAL ESOPHAGUS; CORRELATE TO EXCLUDE ANY SYMPTOMS OF ESOPHA GITIS. ALSO, MILD WALL THICKENING OF THE BLADDER; CORRELATE TO EXCLUDE CYSTITIS.
== END | disposition home or self-care (01) ==
LOC: RADCTMAIN 14:08
PROVIDERS: ATTEND Internal Medicine Hematology & Oncology
DX: M79.89 Other specified soft tissue disorders (principal); Z90.49 Acquired absence of other specified parts of digestive tract; N32.89 Other specified disorders of bladder; R91.8 Other nonspecific abnormal finding of lung field; K22.8 Other specified diseases of esophagus
CPT/HCPCS: 82565; 84520; 71260; 74177; 36415; Q9967

== ENCOUNTER → 2019-10-19 | Outpatient (CLI) | payer OTHER ==
--- NOTE | 2019-10-19 13:14 | CT ---
EXAMINATION TYPE: CT ChestAbdPelvis w con DATE OF EXAM: 10/19/2019 COMPARISON: 07/23/2019 and 10/13/2018 HISTORY: 79-year-old male C18.2, Colon cancer TECHNIQUE: Contiguous axial scanning of the chest, abdomen, and pelvis performed with IV Contrast, pa tient injected with 100 mL of Isovue 300. Delayed images through the kidneys were obtained. Coronal/s agittal reconstructions performed. CT DLP: 1785.5 mGycm Automated exposure control for dose reduction was used. FINDINGS: CHEST: The heart is normal size without pericardial effusion. Three-vessel coronary artery calcifications ar e present. Ectatic ascending aorta at 3.6 cm, not significantly changed. Mild atherosclerotic arch calcification s with bovine configuration to the arch. No thoracic lymphadenopathy by CT size criteria. Trace bilateral gynecomastia. 1 cm subpleural pulmonary nodule lateral right upper lobe, axial image 15 is unchanged. 5 mm left upper lobe pulmonary nodule, axial image 15 is unchanged. The previous 6 mm anterior left upper lobe pulmonary nodule, axial image 21, appears smaller suggesti ng a benign etiology. However, 4 mm left midlung pulmonary nodule, axial image 24, and 4 mm left lower lobe pulmonary nodule, axial image 37 were not well seen previously. 4 mm and adjacent 3 mm right lower lobe pulmonary nodules, axial image 30 also not clearly seen previ ously. Mild left apical pleural parenchymal scarring is unchanged. No consolidation or pleural effusion. ABDOMEN: Continued mild circumferential wall thickening distal half of the esophagus with some oral contrast w ithin. Focal density at the GE junction, possible surgical material. No focal liver lesion or biliary ductal dilatation. Portal venous system is patent. Gallbladder, adrenal glands, right kidney, spleen, pancreas appear within normal limits. Cortical hypodensities in the left kidney measuring up to 1.6 cm, unchanged from prior suggesting cor tical cysts. No dilated small bowel, free fluid, or free air. Status post right hemicolectomy with ileocolonic anastomosis along the proximal transverse colon. Ora l contrast progressed to the rectum. No pericolonic inflammatory change. Redemonstrated focal mesenteric nodularity along the right mid to lower abdomen currently measuring 1 .4 cm, axial image 81 traverses 1.2 cm, previously. Continued follow-up is recommended. Otherwise, no mesenteric or retroperitoneal lymphadenopathy is seen. Continued focal 2.5 cm masslike thickening along the right anterior abdominal wall at the site of lisa or ostomy, unchanged, likely scar. Moderate vascular calcifications throughout the abdominal aorta and iliac arteries. PELVIS: Bladder is urine distended. Prostate gland mildly enlarged at 5.0 cm. Post surgical changes at the le ft inguinal region. Unable to exclude moderate to severe atherosclerotic narrowing within the bilater al proximal SFAs. No abnormal fluid collection the pelvis or pelvic lymphadenopathy. BONES: Mild degenerative change at the hips. Hypertrophic facet arthropathy mid to lower lumbar spine with g rade 1 anterolisthesis at L4-L5. [facility] within the mid to lower thoracic spine. No osseous destructive process seen. Degenerative changes at the sternoclavicular joints. IMPRESSION: 1. STATUS POST PARTIAL RIGHT HEMICOLECTOMY WITH ILEOCOLONIC ANASTOMOSIS AT THE PROXIMAL TRANSVERSE CO VERITO. 2. STABLE 2.5 CM MASSLIKE THICKENING AT THE PREVIOUS OSTOMY SITE, LIKELY SCAR. 3. 1.4 CM NODULARITY WITHIN THE RIGHT MESENTERY IS SLIGHTLY MORE PROMINENT COMPARED TO 1.2 CM, PRE VIOUSLY. CONTINUED CLOSE FOLLOW-UP RECOMMENDED. IF ANY PROGRESSIVE INCREASE IN SIZE IS ENCOUNTERED, T HE FINDING SHOULD BE VIEWED WITH SUSPICION. 4. THERE ARE FOUR NEW PULMONARY NODULES MEASURING UP TO 4 MM. AGAIN, CLOSE FOLLOW-UP RECOMMENDED TO E XCLUDE EARLY METASTATIC DISEASE. THE PREVIOUSLY SEEN NODULES MEASURING UP TO 1 CM ARE UNCHANGED. 5. CONTINUED MILD CIRCUMFERENTIAL WALL THICKENING DISTAL ESOPHAGUS. SOME CONTRAST IS ALSO SEEN WITHIN THE LOWER ESOPHAGUS. CORRELATE FOR ESOPHAGITIS AND/OR GASTROESOPHAGEAL REFLUX DISEASE.
== END ==
LOC: RADCTMAIN 10:15
PROVIDERS: ATTEND Internal Medicine Hematology & Oncology
DX: C18.2 Malignant neoplasm of ascending colon (principal); K22.8 Other specified diseases of esophagus; K92.89 Other specified diseases of the digestive system; R59.0 Localized enlarged lymph nodes; R91.8 Other nonspecific abnormal finding of lung field; Z90.49 Acquired absence of other specified parts of digestive tract
CPT/HCPCS: 82565; 84520; 71260; 74177; 36415; Q9967

== ENCOUNTER → 2019-12-10 | Outpatient (CLI) | payer OTHER ==
--- NOTE | 2019-12-10 14:13 | CT ---
EXAMINATION TYPE: CT ChestAbdPelvis w con DATE OF EXAM: 12/10/2019 COMPARISON: CT October 19, 2019 and older CTs. HISTORY: Colon cancer progress study. History of partial colectomy. CT DLP: 1192 mGycm. Automated Exposure Control for Dose Reduction was Utilized. CONTRAST: CT scan of the thorax, abdomen and pelvis is performed with oral and with IV Contrast, patient inject ed with 100 mL of Isovue 300. FINDINGS: LUNGS: Stable 8 mm peripheral right upper lung nodule or scar like opacity axial image 15. There is 2 mm left upper lobe nodule axial image 14 diminished in size from prior 2 studies. Prior visualized d ecreasing size millimeter anterior left upper lung nodule from July 20, 2011 is not clearly seen at all on current study. There is stable 4 mm left lower lobe nodule image 40. Stable 3 mm anterior supe rior right lower lobe nodule image 30. The more posterior 6 mm nodule on same image is slightly large r versus prior. New scattered nodules are identified on current study. For reference there is new 9 x 6 mm posterior right upper lobe nodule axial image 21. For reference there is new 6 x 5 mm left upper lobe nodule im age 25, just anterior superior to this there is new 4 mm left upper lobe nodule image 24. There is no pleural effusion or pneumothorax seen. The tracheobronchial tree is patent. MEDIASTINUM: There are no greater than 1 cm hilar or mediastinal lymph nodes. No cardiomegaly or pe ricardial effusion is seen. Moderate to severe coronary artery calcification is redemonstrated. LIVER/GB: No significant abnormality is appreciated. PANCREAS: No significant abnormality is seen. SPLEEN: No significant abnormality is seen. ADRENALS: No significant abnormality is seen. KIDNEYS: Symmetric cord measuring uptake and excretion without hydronephrosis seen bilaterally. Occas ional subcentimeter and near 1 cm thin-walled cysts scattered throughout the kidney are present. BOWEL: Oral contrast reaches level of the rectum. Right-sided partial colectomy changes redemonstrate d. No suspicious small or large bowel dilatation. GENITAL ORGANS: No gross abnormality seen. LYMPH NODES: No new greater than 1cm abdominal or pelvic lymph nodes are appreciated. The right mid a bdominal soft tissue deposit measuring 1.5 x 1.2 cm axial image 80 shows continued enlargement from l ast 2 studies and is suspicious. OSSEOUS STRUCTURES: Multilevel spurring in the spine. Mild to moderate narrowing and mild spurring of both hip joints OTHER: Moderate calcified plaque of the aorta extends into branch vessels. Persistent irregular 2.4 x 1.6 cm right mid abdominal irregular area is stable axial image 91. Overlying cortical scar in the m idline of the lower abdomen is redemonstrated. Surgical changes left groin region with abnormal soft tissue surrounding the femoral vessels is stable axial image 126. IMPRESSION: Overall mixed response in the lungs with some nodules decreased in size, some areas stabl e, but some new and Enlarging nodules. The right-sided mesenteric deposit shows slight continued enl argement from last 2 comparative studies making more suspicious for metastatic focus.
== END | disposition home or self-care (01) ==
LOC: RADCTMAIN 11:05
PROVIDERS: ATTEND Internal Medicine Hematology & Oncology
DX: R91.8 Other nonspecific abnormal finding of lung field (principal); R59.0 Localized enlarged lymph nodes; C18.2 Malignant neoplasm of ascending colon
CPT/HCPCS: 82565; 84520; 71260; 74177; 36415; Q9967

== ENCOUNTER → 2020-01-01 | Outpatient (CLI) | payer OTHER ==
--- NOTE | 2020-01-01 15:21 | PE ---
Nuclear medicine PET/CT HISTORY: Colorectal carcinoma, subsequent, C 18.2 Patient received 11.9 mCi F-18 FDG intravenously in delayed scanning was performed from skull base to the mid thighs. Localization and attenuation correction CT scan was performed. Chest and neck: In the right upper lobe there is a small lung nodule with mild uptake, SUV only 1.3, nodule is subcentimeter in size. There is no pleural pericardial effusion. No mediastinal, axillary, or hilar adenopathy. Dense coronary artery calcifications are present. Hiatal hernia is suspected. ABDOMEN: No evident liver mass. There is no ascites. No retroperitoneal adenopathy. Soft tissue lesio n in the right lower quadrant anterior abdominal wall shows only mild uptake, SUV 1.5. Postop changes are noted to the bowel. Prostate is enlarged and shows associated calcification. Surgical clips are present in left groin. No pelvic adenopathy or free fluid. Uptake within the bowel is likely physiologic. Osseous structures shows uptake in the anterior aspect of the glenohumeral joint on the left, SUV 2.7 IMPRESSION: Subcentimeter lung nodules may be too small to show significant uptake. Postop changes, a dditional findings above.
== END | disposition home or self-care (01) ==
LOC: RADPETMAIN 08:33
PROVIDERS: ATTEND Internal Medicine Hematology & Oncology
DX: R91.8 Other nonspecific abnormal finding of lung field (principal); Z98.890 Other specified postprocedural states; C18.2 Malignant neoplasm of ascending colon
CPT/HCPCS: 78815; A9552

== ENCOUNTER → 2020-05-05 | Outpatient (CLI) | payer OTHER ==
--- NOTE | 2020-05-05 13:44 | CT ---
EXAMINATION TYPE: CT ChestAbdPelvis w con DATE OF EXAM: 05/05/2020 COMPARISON: PET CT January 01, 2020 and older studies. HISTORY: F/U for colon CA CT DLP: 2247 mGycm. Automated Exposure Control for Dose Reduction was Utilized. CONTRAST: CT scan of the thorax, abdomen and pelvis is performed with oral with IV Contrast, patient injected w ith 100 mL of Isovue 300. FINDINGS: LUNGS: Stable peripheral 9 mm nodule or nodular opacity right upper lobe axial image 15. Continued in terval progression in size and number of bilateral scattered pulmonary nodules follow-up are otherwis e noted. For reference posterior-inferior right upper lobe nodule now measures 2.1 x 1.7 cm axial joao ge 22 versus 9 x [address] axial image 21. New subcentimeter nodules noted bilaterally. For refer ence and 1.0 cm left lower lobe nodule posteriorly image 40. No pleural effusion or pneumothorax. MEDIASTINUM: There are no new greater than 1 cm hilar or mediastinal lymph nodes. No cardiomegaly o r pericardial effusion is seen. Moderate to severe coronary artery calcification redemonstrated. OTHER: Nonspecific new or more prominent 10 x 9 mm right axillary soft tissue nodule possible lymph n ode image 24. LIVER/GB: Liver remains heterogeneously hypodense. There are new heterogeneous hypodense masses with surrounding enhancement scattered throughout the liver, approximately 5-10 lesions are identified, la rgest measures 2.0 cm long axis posterior right hepatic dome image 50 series 3. PANCREAS: No significant abnormality is seen. SPLEEN: No significant abnormality is seen. ADRENALS: No significant abnormality is seen. KIDNEYS: Symmetric cortical medullary uptake and excretion without hydronephrosis seen bilaterally. S cattered small simple appearing thin-walled cysts throughout the left kidney redemonstrated. BOWEL: Oral contrast reaches level of rectum. Surgical changes from partial right-sided colectomy red emonstrated. GENITAL ORGANS: No gross abnormality seen. LYMPH NODES: Right lateral peritoneal deposit measures 2.5 x 1.8 cm current study image 81 increase i n size from prior. OSSEOUS STRUCTURES: Multilevel spurring in the thoracic spine. Moderate axial joint space loss in bot h hips redemonstrated. OTHER: Moderate to severe mixed plaque in aorta extends into branch vessels. Stable 2.2 x 1.6 cm scar like lesion right mid abdomen anterior abdominal wall along the rectus. Surgical changes left groin r egion redemonstrated with numerous clips. IMPRESSION: Interval neoplastic progression with worsening thoracic metastatic disease and enlarging right-sided peritoneal deposit along with new hepatic metastatic disease all identified.
== END | disposition home or self-care (01) ==
LOC: RADCTMAIN 11:10
PROVIDERS: ATTEND Internal Medicine Hematology & Oncology
DX: C78.7 Secondary malignant neoplasm of liver and intrahepatic bile duct (principal); C79.89 Secondary malignant neoplasm of other specified sites; C18.2 Malignant neoplasm of ascending colon; R16.0 Hepatomegaly, not elsewhere classified
CPT/HCPCS: 82565; 84520; 71260; 74177; 36415; Q9967

== ENCOUNTER → 2020-05-20 | Outpatient (CLI) | payer OTHER ==
--- NOTE | 2020-05-24 06:26 | PE ---
EXAMINATION TYPE: PET CT fusion skull to thigh DATE OF EXAM: 05/20/2020 COMPARISON: CT chest abdomen pelvis May 15, 2020 and older CTs. PET/CT January 01, 2020 HISTORY: Colon cancer diagnosed July 2018 with surgery August 2018 on chemotherapy currently. TECHNIQUE: Following the intravenous administration of 12.6 mCi of F-18 FDG, whole body images are p erformed from the skull base to the midthigh. Images are reviewed on the computer in the coronal, ax ial, and sagittal planes. Reconstructed rotating images are created on independent workstation and r eviewed on the computer. A localization and attenuation correction CT is performed in conjunction w ith the PET scan. Blood glucose level equals 154. SCAN: Subsequent Scan FINDINGS: Exam is suboptimal as patient could not hold still. SKULL BASE AND NECK: No areas of abnormal hypermetabolic uptake. CHEST, MEDIASTINUM, AND HILAR REGION: Scattered upper lung nodules bilaterally are redemonstrated. So me have abnormal hypermetabolic uptake. Largest right upper lobe nodule measures 2.1 x 1.7 cm axial i mage 97 with abnormal hypermetabolic uptake, max SUV is 4.58. There is 1.0 cm left upper lobe mildly hypermetabolic nodule axial image 91, max SUV is less than 2.5. They are suspicious given increasing size. Stable 1.0 x 0.9 cm low right axillary lymph node axial image 125. Mild hypermetabolic uptake. Max THOMASON V less than 2.5. No additional areas of abnormal hypermetabolic uptake. ABDOMEN AND PELVIS: Heterogeneous small liver lesions less well seen on this CT study due to artifact from adjacent upper extremities. Suspicious hypermetabolic uptake corresponds to posterior right hep atic dome lesion axial image 134, max SUV is 4.25. Persistent abnormal right peritoneal hypermetabolic 2.3 x 1.6 cm lesion axial image 188, max SUV is 3 .46. Some nonspecific bowel uptake. Normal excretion. No new areas of abnormal hypermetabolic uptake. Nons pecific subcentimeter hypermetabolic uptake left medial thigh axial image [address] c orrelate, max SUV is 4.1. Cannot exclude lesion at this level. OSSEOUS STRUCTURES: No areas of abnormal hypermetabolic uptake. OTHER CT: Small caliber right maxillary sinus. Mild to moderate calcified plaque bilateral carotid bu lb level. Moderate to severe three-vessel coronary artery calcification and/or stents. Cortical thinning both kidneys. Surgical scar anterior abdominal wall and right sided abdominal wall. Surgical changes from partial colectomy redemonstrated. Surgical changes left groin region. Heteroto pic ossification left medial thigh suspected. Moderate to severe calcified plaque of the abdominal ao rta. 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
== END | disposition home or self-care (01) ==
LOC: RADPETMAIN 09:33
PROVIDERS: ATTEND Internal Medicine Hematology & Oncology
DX: C18.2 Malignant neoplasm of ascending colon (principal); C78.6 Secondary malignant neoplasm of retroperitoneum and peritoneum; C78.7 Secondary malignant neoplasm of liver and intrahepatic bile duct; C79.51 Secondary malignant neoplasm of bone; E11.9 Type 2 diabetes mellitus without complications
CPT/HCPCS: 78815; A9552

== ENCOUNTER 2020-05-23 06:36 | Day surgery (SDC) | payer OTHER ==
[2020-05-18 11:03] VITALS: BMI 30.1
[~2020-05-23 06:36] MED LIST changes: +LIDOCAINE 1% (10MG/ML) FOR IV START INTRADERMA PRN; -LIDOCAINE 1% 20 ML VIAL (10MG/ML) FOR IV START INTRADERMA ONE; -PROPOFOL 10 MG/ML 20 ML VIAL IV ONE
[2020-05-23 07:24] VITALS: TEMP 96.1
[2020-05-23 07:24] LABS: Glucose,Whole Blood 210 mg/dL (75-99)
[2020-05-23] MEDS ORDERED: PHENYLEPHRINE-0.9% NACL SYG 1,000 MCG/10 ML SYRINGE ONE (07:30)
[2020-05-23] MEDS ORDERED: PROPOFOL 10 MG/ML 20 ML VIAL IV ONE (07:30)
[2020-05-23] MEDS ORDERED: fentaNYL (PF) 50 MCG/ML 2 ML AMP ONE (07:30)
[2020-05-23] MEDS ORDERED: LIDOCAINE 1% INJ 10MG/ML (20 ML MDV) ONE (07:30)
--- NOTE | 2020-05-23 07:52 | P.PCN ---
Date of Procedure: 05/23/20 Description of Procedure: BRIEF HISTORY: Patient is a 79-year-old male presenting for colonoscopy for evaluation of history of colon cancer. Patient previously underwent colonoscopy in 2019 with findings of a right-sided colon cancer status post right hemicolectomy in 2019 following the colonoscopy. Patient denies any change in bowel habits, abdominal pain or blood per rectum. PROCEDURE PERFORMED: Colonoscopy with polypectomy. PREOPERATIVE DIAGNOSIS: History of colon cancer, last colonoscopy in 2019. ESTIMATED BLOOD LOSS: Minimal. IV sedation per Anesthesia. PROCEDURE: After informed consent was obtained, the patient, was brought into the endoscopy unit. IV sedation was administered by Anesthesia under continuous monitoring. Digital rectal examination was normal. Initially the Olympus CF-190 flexible video colonoscope was then inserted in the rectum, gradually advanced into the cecum without any difficulty. Careful examination was performed as the scope was gradually being withdrawn. Ileocecal valve and the appendiceal orifice were visualized and appeared normal. Prep was excellent. Mucosa of the anastomotic site, transverse colon, descending colon, sigmoid colon, and rectum appeared normal. Diminutive 1 mm descending colon polyp removed with cold forcep polypectomy . Retroflexion was performed in the rectum and no lesions were seen, Low-grade internal hemorrhoids . The patient tolerated the procedure well. IMPRESSION: Normal-appearing colon from rectum the anastomosis from prior right hemicolectomy. Diminutive descending colon polyp removed with cold forcep polypectomy. Internal hemorrhoids. RECOMMENDATIONS: Findings of this examination were discussed with the patient and his family. Okay to resume diet. Okay to resume medications. Await pathology from polypectomy. Recommend repeat colonoscopy in 3 years for history of colon cancer.
[2020-05-23 08:01] LABS: Glucose,Whole Blood 220 mg/dL (75-99)
[2020-05-23 08:13] VITALS: BP 122/69; PULSE 84; RESP 20
[2020-05-23] MEDS ORDERED: INSULIN ASPART (NovoLOG) 100 UNIT/ML VIAL SQ ONE (08:14)
== END 2020-05-23 08:38 | disposition home or self-care (01) ==
LOC: ORWHC2ENDO 06:36
PROVIDERS: ATTEND Internal Medicine
DX: Z08 Encounter for follow-up examination after completed treatment for malignant neoplasm (principal); D12.4 Benign neoplasm of descending colon; Z85.038 Personal history of other malignant neoplasm of large intestine; K64.8 Other hemorrhoids; Z90.49 Acquired absence of other specified parts of digestive tract; I10 Essential (primary) hypertension; C34.90 Malignant neoplasm of unspecified part of unspecified bronchus or lung; E78.5 Hyperlipidemia, unspecified; I73.9 Peripheral vascular disease, unspecified; E11.9 Type 2 diabetes mellitus without complications; Z79.4 Long term (current) use of insulin; Z79.899 Other long term (current) drug therapy; Z87.891 Personal history of nicotine dependence; Z98.890 Other specified postprocedural states
CPT/HCPCS: 88305; 45380; J2001; J3010; J2370; J2704

== ENCOUNTER → 2020-05-31 | Day surgery (SDC) | payer OTHER ==
[~2020-05-31] MED LIST changes: +ACETAMINOPHEN TAB 500 MG TAB PO STA; +ALPRAZolam 0.25 MG TAB PO STA; +HYDROcodone/APAP 5-325MG 1 EACH TAB PO PRN; -LACTATED RINGERS 1,000 ML IV SCH; -LIDOCAINE 1% (10MG/ML) FOR IV START INTRADERMA PRN; +SODIUM CHLORIDE 0.9% 500 ML 500 ML IV ONE
[2020-05-31 09:57] LABS: Mean Platelet Volume 7.4; Platelet Count 219 k/uL (150-450)
[2020-05-31 10:18] LABS: INR 0.9 (<1.2); Prothrombin Time 9.7 sec (9.0-12.0)
[2020-05-31 10:19] VITALS: TEMP 98.1
[2020-05-31 11:44] VITALS: RESP 16
[2020-05-31 12:17] LABS: Glucose,Whole Blood 173 mg/dL (75-99)
--- NOTE | 2020-05-31 13:31 | US ---
EXAMINATION TYPE: US biopsy liver DATE OF EXAM: 05/31/2020 HISTORY: Liver masses. FINDINGS: Maximal barrier technique was utilized. Hand hygiene achieved with soap and water and alco hol-based hand rub. The skin overlying a suitable path to the patient's mass in the right lobe of the liver was localized with ultrasound and the overlying skin prepped and draped. Ultrasound was utili zed with sterile technique. Lidocaine was used for local anesthesia. A skin gregg was made with a sarah alpel. An 18-gauge needle was advanced under direct ultrasound guidance and core specimen obtained o f the mass. Specimen submitted in formalin to Pathology. Following the procedure, hemostasis achiev ed and the patient is discharged in stable condition without complication. IMPRESSION:STATUS POST ULTRASOUND GUIDED CORE BIOPSY OF right lobe liver MASS, PATHOLOGY IS PENDING. THIS PROCEDURE IS PERFORMED BY THE UNDERSIGNED.
[2020-05-31 14:48] VITALS: BP 141/70; PULSE 67
== END ==
LOC: RADPROMAIN 08:31
PROVIDERS: ATTEND Internal Medicine Hematology & Oncology
DX: C22.7 Other specified carcinomas of liver (principal); Z79.4 Long term (current) use of insulin; Z79.899 Other long term (current) drug therapy; E11.9 Type 2 diabetes mellitus without complications; M19.90 Unspecified osteoarthritis, unspecified site; I10 Essential (primary) hypertension; Z96.651 Presence of right artificial knee joint; Z90.49 Acquired absence of other specified parts of digestive tract; Z98.890 Other specified postprocedural states; Z90.89 Acquired absence of other organs; Z80.0 Family history of malignant neoplasm of digestive organs; Z86.19 Personal history of other infectious and parasitic diseases
CPT/HCPCS: 47000; 76942; 82947; 85049; 85610; 88307; 88341; 88342

== ENCOUNTER 2020-07-08 09:42 | Day surgery (SDC) | payer OTHER ==
[2020-07-08 10:02] VITALS: RESP 16; TEMP 97.3
[2020-07-08 10:29] LABS: Basophils # (A) 0.1 k/uL (0-0.2); Basophils % (A) 1 %; Eosinophils # (A) 0.2 k/uL (0-0.7); Eosinophils % (A) 2 %; HCT 41.2 % (39.0-53.0); HGB 13.7 gm/dL (13.0-17.5); Lymphocytes # (A) 1.4 k/uL (1.0-4.8); Lymphocytes % (A) 16 %; MCH 30.9 pg (25.0-35.0); MCHC 33.1 g/dL (31.0-37.0); MCV 93.1 fL (80.0-100.0); Mean Platelet Volume 7.3; Monocytes # (A) 0.4 k/uL (0-1.0); Monocytes % (A) 4 %; Neutrophils # (A) 6.7 k/uL (1.3-7.7); Neutrophils % (A) 76 %; Platelet Count 237 k/uL (150-450); RBC 4.43 m/uL (4.30-5.90); RDW 13.4 % (11.5-15.5); WBC 8.8 k/uL (3.8-10.6)
[2020-07-08 10:37] LABS: Potassium 4.9 mmol/L (3.5-5.1)
[2020-07-08] MEDS ORDERED: LIDOCAINE 1% INJ 10MG/ML (20 ML MDV) SQ ONE (11:04)
[2020-07-08 11:45] VITALS: BP 124/58; PULSE 60
--- NOTE | 2020-07-08 13:23 | IR ---
PICC LINE PLACEMENT: HISTORY: Infection requiring long-term antibiotic therapy PROCEDURE: Ultrasound and fluoroscopic guidance of PICC line placement. COMPLICATIONS: None ANESTHESIA: 1. 1% Lidocaine locally. FINDINGS/TECHNIQUE: The procedure was explained to the patient. The risks, complications, benefits and alternatives were discussed and any questions were answered. Informed consent was obtained. The patient was placed supine on the fluoroscopic table and prepped and draped in the usual sterile fash ion. Utilizing a 21 gauge needle and sonographic and fluoroscopic guidance, access in the left basi lic vein was achieved and there is placement of a 0.018 guidewire. The vein is patent. A 4-F sheath was placed over the guidewire. The guidewire and dilator were removed and a 4-F. PICC line was plac ed through the sheath with the tip at the level of the SVC. The sheath was removed, the catheter was flushed and sutured into position. The patient was stable throughout the procedure and remained sta ble upon discharge from the Department of Radiology. The vein puncture was patent under ultrasound. A rivas scale image was obtained to document patency of the vein punctured. All elements of the maximal barrier technique were utilized. FLUOROSCOPY TIME: 0.1 minute and one images submitted IMPRESSION: Successful PICC line placement under ultrasound and fluoroscopic guidance.
== END 2020-07-08 11:45 | disposition home or self-care (01) ==
LOC: CATHCVL 09:42
PROVIDERS: ATTEND Radiology Diagnostic Radiology
DX: C18.2 Malignant neoplasm of ascending colon (principal); E11.9 Type 2 diabetes mellitus without complications; I10 Essential (primary) hypertension; M19.90 Unspecified osteoarthritis, unspecified site; Z90.49 Acquired absence of other specified parts of digestive tract; Z96.651 Presence of right artificial knee joint; Z90.89 Acquired absence of other organs; Z98.890 Other specified postprocedural states; Z80.0 Family history of malignant neoplasm of digestive organs; Z86.19 Personal history of other infectious and parasitic diseases; Z79.4 Long term (current) use of insulin; Z79.899 Other long term (current) drug therapy
CPT/HCPCS: 36573; 80051; 82565; 84520; 85025; C1751; C1769; J2001

== ENCOUNTER 2020-08-27 09:35 | Inpatient (IN) | payer OTHER, MEDICARE ==
[2020-08-27] MEDS ORDERED: PIPERACILLIN-TAZOBACTAM 3.375 GM in SODIUM CHLORIDE 0.9% 100 ML IVPB STA (10:03)
--- NOTE | 2020-08-27 10:15 | ED ---
Lower Extremity Injury HPI - General Source: patient, RN notes reviewed, old records reviewed Mode of arrival: ambulatory Limitations: no limitations <Lillian Coburn - Last Filed: 08/27/20 11:25> <Chito Amaro - Last Filed: 08/27/20 11:36> - General Chief Complaint: Extremity Injury, Lower Stated Complaint: diabetic wound Time Seen by Provider: 08/27/20 09:45 - History of Present Illness Initial Comments: This patient's a 79-year-old male with a history of recurrent colon cancer, diabetes, hyperlipidemia and peripheral vascular disease. He presents today in the ER for complaint of wound over his right great toe. He reports his noticed this wasn't increasing in size over the past 3-4 weeks. He states that he is a Patient of the a clinic who is attempting to get him in to see wound care. He states that over the past few days become increasingly painful and difficult for him to walk due to the pain size and pain of the wound on the great toe as well as another one developing on the heel. Patient reports his been using antibiotic ointment over the area with no improvement. He does state he has a history of neuropathy. (Lillian Coburn) - Related Data Home Medications Medication Instructions Recorded Confirmed lisinopriL [Zestril] 20 mg PO DAILY 08/13/16 07/08/20 INSULIN ASPART (NovoLOG) [NovoLOG See Protocol SQ ACHS 10/17/18 07/08/20 (formulary)] Atorvastatin [Lipitor] 80 mg PO HS 05/18/20 07/08/20 Insulin Glargine [Lantus] 28 unit SQ 05/18/20 07/08/20 Magnesium Oxide [Mag-Ox] 250 mg PO BID 05/18/20 07/08/20 Metoprolol Tartrate [Lopressor] 100 mg PO BID 05/18/20 07/08/20 Empagliflozin [Jardiance] 10 mg PO DAILY 05/20/20 07/08/20 Acetaminophen [Tylenol] 500 mg PO Q4-6H PRN 07/08/20 07/08/20 Alogliptin Benzoate [Alogliptin] 25 mg PO BID 07/08/20 07/08/20 Hydrochlorothiazide 12.5 tab PO DAILY 04/09/21 04/09/21 [hydroCHLOROthiazide] Allergies Allergy/AdvReac Type Severity Reaction Status Date / Time No Known Allergies Allergy Verified 08/27/20 09:58 Review of Systems ROS Other: All systems not noted in ROS Statement are negative. <Lillian Coburn - Last Filed: 08/27/20 11:25> ROS Other: All systems not noted in ROS Statement are negative. <Chito Amaro - Last Filed: 08/27/20 11:36> ROS Statement: Those systems with pertinent positive or pertinent negative responses have been documented in the HPI. Past Medical History Past Medical History: Cancer, Diabetes Mellitus, Hyperlipidemia, Hypertension, Osteoarthritis (OA), Pneumonia, Vascular Disorder Additional Past Medical History / Comment(s): hx blood in stool, hx polyps, hiatal hernia, poor circulation in legs(left worse), Colon Cancer with mets to lungs and liver receiving chemo, 2 weeks ago History of Any Multi-Drug Resistant Organisms: None Reported Past Surgical History: Appendectomy, Bowel Resection, Joint Replacement, Tonsillectomy Additional Past Surgical History / Comment(s): Right knee replacement, pilonidal cyst, Left leg surgery for blockage, elisa laser eye surgery, bowel resection with colostomy. Past Anesthesia/Blood Transfusion Reactions: No Reported Reaction Past Psychological History: Anxiety Smoking Status: Former smoker, Never smoker Past Alcohol Use History: None Reported Past Drug Use History: None Reported - Past Family History Father Family Medical History: Cancer <Lillian Coburn - Last Filed: 08/27/20 11:25> General Exam Limitations: no limitations General appearance: alert, in no apparent distress Head exam: Present: atraumatic, normocephalic, normal inspection Eye exam: Present: normal appearance, PERRL, EOMI. Absent: scleral icterus, conjunctival injection, periorbital swelling ENT exam: Present: normal exam Neck exam: Present: normal inspection. Absent: tenderness, meningismus, lymphadenopathy Respiratory exam: Present: normal lung sounds bilaterally. Absent: respiratory distress, wheezes, rales, rhonchi, stridor Cardiovascular Exam: Present: regular rate, normal rhythm, normal heart sounds. Absent: systolic murmur, diastolic murmur, rubs, gallop, clicks GI/Abdominal exam: Present: soft, normal bowel sounds. Absent: distended, te nderness, guarding, rebound, rigid Right Lower Leg exam: Present: normal inspection, full ROM Ankle exam: Present: normal inspection, full ROM Foot/Toe exam: Present: erythema (Patient has evidence of a 2 cm x 3 cm wound over the right great medial toe. Evidence of desquamation any erythema extending from the toe base of the first metatarsal). Absent: normal inspection Neurovascular tendon exam: Present: no vascular compromise (Faint dorsalis pedis pulse) Gait: not tested/not observed Neurological exam: Present: alert, oriented X3, CN II-XII intact Psychiatric exam: Present: normal affect, normal mood <Lillian Coburn - Last Filed: 08/27/20 11:25> - General Exam Comments Initial Comments: This patient's a 79-year-old male. Alert and oriented. Patient's son is at bedside (Lillian Coburn) Course <Chito Amaro - Last Filed: 08/27/20 11:36> Vital Signs 08/27/20 09:39 Temperature 98 F Pulse Rate 89 Respiratory 18 Rate Blood Pressure 137/76 O2 Sat by Pulse 96 Oximetry - Reevaluation(s) Reevaluation #1: 08/27/20 11:35 PA supervision: I did personally do an evaluation as patient [id number]. He does have evidence of sialitis of the right great toe and also to the heel. Patient does have a history of peripheral vascular disease. Will be admitted for inpatient evaluation and treatment I did review the examination as well as the labs and imaging. (Chito Amaro) Medical Decision Making - Lab Data Result diagrams: 08/27/20 10:31 08/27/20 10:31 - Radiology Data Radiology results: report reviewed <Lillian Coburn - Last Filed: 08/27/20 11:25> - Lab Data Result diagrams: 08/27/20 10:31 08/27/20 10:31 <Chito Amaro - Last Filed: 08/27/20 11:36> - Medical Decision Making Patient is a 79-year-old male with a history of diabetes presents with 3 weeks of the right great toe wound. He does have significant 2 x 3 cm area of wound as well as developing wound on the right heel. At this time patient's x-rays reviewed. White blood cell count is elevated 15,000. He does have history of diabetes and peripheral vascular disease. Discussed to admit the Patient with IV antibiotics with consult to infectious disease. (Lillian Coburn) - Lab Data Lab Results 08/27/20 08/27/20 08/27/20 Range/Units 10:31 10:31 10:31 WBC 15.7 H (3.8-10.6) k/uL RBC 3.95 L (4.30-5.90) m/uL Hgb 12.4 L (13.0-17.5) gm/dL Hct 35.9 L (39.0-53.0) % MCV 90.9 (80.0-100.0) fL MCH 31.4 (25.0-35.0) pg MCHC 34.5 (31.0-37.0) g/dL RDW 16.0 H (11.5-15.5) % Plt Count 105 L D (150-450) k/uL MPV 10.3 Neutrophils % 79 % Lymphocytes % 13 % Monocytes % 5 % Eosinophils % 1 % Basophils % 1 % Neutrophils # 12.4 H (1.3-7.7) k/uL Lymphocytes # 2.0 (1.0-4.8) k/uL Monocytes # 0.7 (0-1.0) k/uL Eosinophils # 0.2 (0-0.7) k/uL Basophils # 0.1 (0-0.2) k/uL Anisocytosis Slight Sodium 139 (137-145) mmol/L Potassium 4.4 (3.5-5.1) mmol/L Chloride 107 (98-107) mmol/L Carbon Dioxide 21 L (22-30) mmol/L Anion Gap 11 mmol/L BUN 19 (9-20) mg/dL Creatinine 1.28 H (0.66-1.25) mg/dL Est GFR (CKD-EPI)AfAm 61 (>60 ml/min/1.73 sqM) Est GFR (CKD-EPI)NonAf 53 (>60 ml/min/1.73 sqM) Glucose 71 L (74-99) mg/dL Plasma Lactic Acid Daniel 1.5 (0.7-2.0) mmol/L Calcium 8.8 (8.4-10.2) mg/dL Total Bilirubin 0.2 (0.2-1.3) mg/dL AST 24 (17-59) U/L ALT 15 (4-49) U/L Alkaline Phosphatase 121 (38-126) U/L C-Reactive Protein 5.4 H (<1.0) mg/dL Total Protein 6.4 (6.3-8.2) g/dL Albumin 3.6 (3.5-5.0) g/dL - Radiology Data Osteomyelitis is not evident. Evidence of soft tissue swelling. Bone mineralization and joint spaces are maintained. No fracture. There are vascular calcifications and within soft tissues. Soft tissue 12 swelling is present. Plantar calcaneal spur spur is present. There is an an osteophyte at the insertion of the Achilles tendon (Lillian Coburn) Disposition Is patient prescribed a controlled substance at d/c from ED?: No Time of Disposition: 11:29 <Lillian Coburn - Last Filed: 08/27/20 11:25> <Chito Amaro - Last Filed: 08/27/20 11:36> Clinical Impression: Wound of foot, Diabetes Disposition: ADMITTED IP TO THIS HOSP Condition: Stable Referrals: [facility],Clinic [Primary Care Provider] - 1-2 days
[2020-08-27 10:41] LABS: Anisocytosis Slight; Basophils # (A) 0.1 k/uL (0-0.2); Basophils % (A) 1 %; Eosinophils # (A) 0.2 k/uL (0-0.7); Eosinophils % (A) 1 %; HCT 35.9 % (39.0-53.0); HGB 12.4 gm/dL (13.0-17.5); Lymphocytes % (A) 13 %; MCH 31.4 pg (25.0-35.0); MCHC 34.5 g/dL (31.0-37.0); MCV 90.9 fL (80.0-100.0); Mean Platelet Volume 10.3; Monocytes # (A) 0.7 k/uL (0-1.0); Monocytes % (A) 5 %; Neutrophils # (A) 12.4 k/uL (1.3-7.7); Neutrophils % (A) 79 %; RBC 3.95 m/uL (4.30-5.90); WBC 15.7 k/uL (3.8-10.6)
[2020-08-27 10:45] LABS: Platelet Count 105 k/uL (150-450)
[2020-08-27 10:52] LABS: Albumin 3.6 g/dL (3.5-5.0); C Reactive Protein 5.4 mg/dL (<1.0); Calcium 8.8 mg/dL (8.4-10.2); Potassium 4.4 mmol/L (3.5-5.1); Total Bilirubin 0.2 mg/dL (0.2-1.3); Total Protein 6.4 g/dL (6.3-8.2)
--- NOTE | 2020-08-27 11:23 | XR ---
Right foot HISTORY: Nonhealing wound and right great toe 3 views of the right foot Bone mineralization, joint spaces and alignment are maintained. No fracture or dislocation. No perios titis to suggest osteomyelitis. There are vascular calcifications noted within the soft tissues. Soft tissue swelling is present. Plantar calcaneal spur is present. There is an enthesophyte at insertion of Achilles tendon. Some spurring present at the tibiotalar joint, intertarsal joints. IMPRESSION: Osteomyelitis is not evident. Soft tissue swelling. Additional findings above.
[2020-08-27] MEDS ORDERED: NALOXONE 0.4 MG/ML 1 ML VIAL IV PRN (11:30)
[2020-08-27] MEDS ORDERED: ACETAMINOPHEN TAB 325 MG TAB PO PRN (11:30)
[2020-08-27] MEDS ORDERED: IBUPROFEN 400 MG TAB PO PRN (11:30)
[2020-08-27 11:47] LABS: Erythrocyte Sedimentation Rate 63 mm/hr (0-15)
[2020-08-27] MEDS: SODIUM CHLORIDE 0.9% 1,000 ML IV SCH ×2 (11:51→20:46)
[2020-08-27 14:51] LABS: Glucose,Whole Blood 63 mg/dL (75-99)
[2020-08-27 15:16] LABS: Glucose,Whole Blood 76 mg/dL (75-99)
[2020-08-27] MEDS: PIPERACILLIN-TAZOBACTAM 3.375 GM in SODIUM CHLORIDE 0.9% 100 ML IVPB SCH ×2 (16:11→23:00)
[2020-08-27] MEDS: INSULIN ASPART (NovoLOG) 100 UNIT/ML VIAL SQ SCH ×2 (17:55→20:46)
[2020-08-27] MEDS: HYDROcodone/APAP 5-325MG 1 EACH TAB PO PRN ×2 (18:43→23:57)
[2020-08-27] MEDS ORDERED: MEGESTROL 400 MG/10 ML CUP PO PRN (19:40)
[2020-08-27 20:29] LABS: Glucose,Whole Blood 106 mg/dL (75-99)
[2020-08-27] MEDS: HEPARIN SODIUM,PORCINE/PF 5,000 UNIT/0.5 ML SYRINGE SQ SCH (20:45)
[2020-08-27] MEDS: GABAPENTIN 300 MG CAP PO SCH (20:45)
[2020-08-27] MEDS: ATORVASTATIN 80 MG TAB PO SCH (20:45)
[2020-08-27] MEDS: INSULIN DETEMIR (LEVEMIR) 100 UNIT/ML SYR SQ SCH (20:46)
--- NOTE | 2020-08-27 22:15 | P.GSCN ---
History of Present Illness Consult date: 08/27/20 Reason for Consult: toe ulcer History of present illness: 79-year-old male seen in the emergency department secondary to right great toe ulcer. Patient states he has been dealing with this wound along with a heel wound for over one month. [facility]. He does have a history of revascularization of his lower extremities in the past. He states he has severe pain in his calves with ambulation usually after walking 2 blocks. He is currently receiving chemotherapy for possible metastatic colon cancer which in the past he had part of his colon removed due to a mass. Currently he states he is comfortable and denies any fevers, chills, chest pain or shortness of breath. He states the last time he was seen by a vascular surgeon was over a year and a half ago. Review of Systems All systems: negative (What is mentioned in the HPI or past medical history) Past Medical History Past Medical History: Cancer, Diabetes Mellitus, Hyperlipidemia, Hypertension, Osteoarthritis (OA), Pneumonia, Vascular Disorder Additional Past Medical History / Comment(s): hx blood in stool, hx polyps, hiatal hernia, poor circulation in legs(left worse), Colon Cancer with mets to lungs and liver receiving chemo, 2 weeks ago History of Any Multi-Drug Resistant Organisms: None Reported Past Surgical History: Appendectomy, Bowel Resection, Joint Replacement, Tonsillectomy Additional Past Surgical History / Comment(s): Right knee replacement, pilonidal cyst, Left leg surgery for blockage, elisa laser eye surgery, bowel resection with colostomy. Past Anesthesia/Blood Transfusion Reactions: No Reported Reaction Past Psychological History: Anxiety Smoking Status: Former smoker, Never smoker Past Alcohol Use History: None Reported Additional Past Alcohol Use History / Comment(s): stopped smoking 40-50 yrs ago, smoked for 10 yrs- some day smoker Past Drug Use History: None Reported - Past Family History Father Family Medical History: Cancer Medications and Allergies Home Medications Medication Instructions Recorded Confirmed Type Atorvastatin [Lipitor] 80 mg PO HS 05/18/20 08/27/20 History Insulin Glargine [Lantus] 28 unit SQ HS 05/18/20 08/27/20 History Magnesium Oxide [Mag-Ox] 250 mg PO BID@0800,1600 05/18/20 08/27/20 History Metoprolol Tartrate [Lopressor] 100 mg PO BID@0800,1600 05/18/20 08/27/20 History Empagliflozin [Jardiance] 10 mg PO DAILY 05/20/20 08/27/20 History Acetaminophen [Tylenol] 500 mg PO Q4-6H PRN 07/08/20 08/27/20 History Gabapentin [Neurontin] 300 mg PO HS 08/27/20 08/27/20 History Insulin Aspart [NovoLOG Flexpen] See Protocol SQ BID@0800,1600 08/27/20 08/27/20 History Lisinopril-Hctz 20-12.5 mg 1 tab PO DAILY 08/27/20 08/27/20 History [Zestoretic 20-12.5] Megestrol Acetate 800 mg PO DAILY PRN 08/27/20 08/27/20 History Omeprazole 40 mg PO DAILY 08/27/20 08/27/20 History Allergies Allergy/AdvReac Type Severity Reaction Status Date / Time No Known Allergies Allergy Verified 08/27/20 11:56 Surgical - Exam Vital Signs Temp Pulse Resp BP Pulse Ox 98 F 89 18 137/76 96 08/27/20 09:39 08/27/20 09:39 08/27/20 09:39 08/27/20 09:39 08/27/20 09:39 Palpable femoral pulse on the left with diminished pulse on the right. Monophasic DP on the right and PT on the left. Right great toe with surrounding erythema around a wound measuring 2 x 2 cm with eschar noted. There is no abscess or fluctuance. No drainage. There is a healed wound as well but is punctate measuring 1 x 1 cm. No fluctuance or drainage. - General well developed, well nourished, no distress - Eyes PERRL, normal ocular movement - ENT normal pinna - Neck no masses - Respiratory normal expansion - Cardiovascular Rhythm: regular - Abdomen Abdomen: soft, non tender - Neurologic normal sensation - Psychiatric oriented to time, oriented to person, oriented to place, speech is normal Results - Labs 08/27/20 10:31 08/27/20 10:31 Abnormal Lab Results - Last 24 Hours (Table) 08/27/20 08/27/20 08/27/20 Range/Units 10:31 10:31 14:50 WBC 15.7 H (3.8-10.6) k/uL RBC 3.95 L (4.30-5.90) m/uL Hgb 12.4 L (13.0-17.5) gm/dL Hct 35.9 L (39.0-53.0) % RDW 16.0 H (11.5-15.5) % Plt Count 105 L D (150-450) k/uL Neutrophils # 12.4 H (1.3-7.7) k/uL ESR 63 H (0-15) mm/hr Carbon Dioxide 21 L (22-30) mmol/L Creatinine 1.28 H (0.66-1.25) mg/dL Glucose 71 L (74-99) mg/dL POC Glucose (mg/dL) 63 L (75-99) mg/dL C-Reactive Protein 5.4 H (<1.0) mg/dL 08/27/20 Range/Units 20:28 WBC (3.8-10.6) k/uL RBC (4.30-5.90) m/uL Hgb (13.0-17.5) gm/dL Hct (39.0-53.0) % RDW (11.5-15.5) % Plt Count (150-450) k/uL Neutrophils # (1.3-7.7) k/uL ESR (0-15) mm/hr Carbon Dioxide (22-30) mmol/L Creatinine (0.66-1.25) mg/dL Glucose (74-99) mg/dL POC Glucose (mg/dL) 106 H (75-99) mg/dL C-Reactive Protein (<1.0) mg/dL Microbiology - Last 24 Hours (Table) 08/27/20 10:31 Wound Culture - Preliminary Toe - Right First Diabetes panel 08/27/20 Range/Units 10:31 Sodium 139 (137-145) mmol/L Potassium 4.4 (3.5-5.1) mmol/L Chloride 107 (98-107) mmol/L Carbon Dioxide 21 L (22-30) mmol/L BUN 19 (9-20) mg/dL Creatinine 1.28 H (0.66-1.25) mg/dL Glucose 71 L (74-99) mg/dL Calcium 8.8 (8.4-10.2) mg/dL AST 24 (17-59) U/L ALT 15 (4-49) U/L Alkaline Phosphatase 121 (38-126) U/L Total Protein 6.4 (6.3-8.2) g/dL Albumin 3.6 (3.5-5.0) g/dL Calcium panel 08/27/20 Range/Units 10:31 Calcium 8.8 (8.4-10.2) mg/dL Albumin 3.6 (3.5-5.0) g/dL Pituitary panel 08/27/20 Range/Units 10:31 Sodium 139 (137-145) mmol/L Potassium 4.4 (3.5-5.1) mmol/L Chloride 107 (98-107) mmol/L Carbon Dioxide 21 L (22-30) mmol/L BUN 19 (9-20) mg/dL Creatinine 1.28 H (0.66-1.25) mg/dL Glucose 71 L (74-99) mg/dL Calcium 8.8 (8.4-10.2) mg/dL Adrenal panel 08/27/20 Range/Units 10:31 Sodium 139 (137-145) mmol/L Potassium 4.4 (3.5-5.1) mmol/L Chloride 107 (98-107) mmol/L Carbon Dioxide 21 L (22-30) mmol/L BUN 19 (9-20) mg/dL Creatinine 1.28 H (0.66-1.25) mg/dL Glucose 71 L (74-99) mg/dL Calcium 8.8 (8.4-10.2) mg/dL Total Bilirubin 0.2 (0.2-1.3) mg/dL AST 24 (17-59) U/L ALT 15 (4-49) U/L Alkaline Phosphatase 121 (38-126) U/L Total Protein 6.4 (6.3-8.2) g/dL Albumin 3.6 (3.5-5.0) g/dL Assessment and Plan Assessment: #1 disabling claudication [place] classification 5 #2 right great toe ulcer and heel ulcer #3 type 2 diabetes #4 history of lower extremity revascularization #5 metastatic disease secondary colon cancer currently on chemotherapy Plan: We'll obtain lower extremity arterial Doppler with ABIs. He will likely need an aortogram with some type of intervention and revascularization for his wounds. Recommend keeping his wound dry. Further recommendations to follow his arterial Doppler. Thank you for allowing me to participate in your patient's care.
[2020-08-27 23:31] LABS: Appearance,Urine Clear (Clear); Bilirubin,Urine Negative (Negative); Blood,Urine Negative (Negative); Color,Urine Light Yellow; Glucose,Urine (UA) 4+ (Negative); Ketones,Urine Negative (Negative); Leukocyte Esterase,Urine Negative (Negative); Nitrite,Urine Negative (Negative); Protein,Urine Negative (Negative); Specific Gravity,Urine 1.017 (1.001-1.035); Urobilinogen,Urine <2.0 mg/dL (<2.0)
--- NOTE | 2020-08-27 23:37 | HP ---
HISTORY AND PHYSICAL DATE OF SERVICE: 08/27/2020 CHIEF COMPLAINTS: Right leg wound. HISTORY OF PRESENT ILLNESS: This 79-year-old gentleman with a past history of diabetes, hypertension, hyperlipidemia, history of pneumonia, being followed by Dr. Howe in the [facility] in the outpatient setting, was also receiving chemotherapy for CA of the colon with mets from Dr. Henry. Last treatment was about two weeks ago. The patient noted some redness and erythema and some pain over the right great toe which was increasing over the past 3-4 weeks. There is no history of any fever, rigors. No history of headache, loss of consciousness, seizures at this time. Patient had very diminished sensations on both legs indicating peripheral neuropathy. PAST MEDICAL HISTORY: Diabetes type 2, hypertension, hyperlipidemia, DJD, history of pneumonia, history of CA of the colon with mets. HOME MEDICATIONS: Omeprazole, Lopressor, Megace, NovoLog, magnesium oxide, Zestoretic, Lantus, Neurontin, Jardiance, Lipitor and Tylenol. Doses reviewed. ALLERGIES: None. FAMILY HISTORY: History of cancer in the family. SOCIAL HISTORY: Previous history of smoking. No history of current smoking. No history of alcohol intake. REVIEW OF SYSTEMS: ENT No history of diminished hearing or vision. CARDIOVASCULAR No angina or palpitations. RESPIRATORY No cough, no hemoptysis. GI No nausea, vomiting, or diarrhea. No dysuria or hematuria. NERVOUS No weakness. Numbness present. ALLERGY/IMMUNOLOGY No asthma or hayfever. MUSCULOSKELETAL As mentioned earlier. HEMATOLOGY/ONCOLOGY As mentioned earlier. ENDOCRINE As mentioned earlier. CONSTITUTIONAL As mentioned earlier. DERMATOLOGY Negative. RHEUMATOLOGY Negative, PSYCHIATRY As mentioned earlier. PHYSICAL EXAMINATION: Alert and oriented x3. Pulse 75, blood pressure 159/72, respiration 17, temperature 98.2, pulse ox 97% on room air. HEENT: Conjunctivae normal. Oral mucosa moist. NECK: No jugular venous distention. No lymph node enlargement. CARDIOVASCULAR: S1, S2, muffled. No S3, no S4, RESPIRATORY: Diminished breath sounds at the bases. A few scattered rhonchi. ABDOMEN: Soft, nontender. LEGS: Bilateral peripheral neuropathy and significant ulceration of the right foot also present. NERVOUS SYSTEM: Higher functions mentioned earlier. Peripheral neuropathy as mentioned earlier. LYMPHATICS: No lymph node in neck or axilla. SKIN: No rash. JOINTS: No active deforming arthropathy. LAB STUDIES: WBC 15.7, hemoglobin is 12.4, platelets 105. Sodium 130, potassium 4.4. ASSESSMENT: 1. Right leg ulcer and erythematous lesions, for evaluation. 2. Peripheral neuropathy. 3. Possible peripheral vascular disease. 4. Increased WBC. 5. Anemia, normocytic. 6. Macrocytosis. 7. Carcinoma of the colon with metastases, on chemotherapy. 8. Increased creatinine with acute renal failure with acute tubular necrosis. 9. Diabetes mellitus type 2, uncontrolled with hypoglycemia. 10.Hyperlipidemia. 11.Hypertension. 12.History of DJD. 13.History pneumonia. 14.History of hiatal hernia. 15.History of appendectomy. 16.History of bowel resection. 17.History of anxiety. 18.History of nicotine dependence. 19.FULL CODE. RECOMMENDATIONS AND DISCUSSION: In this 79-year-old gentleman who presented with multiple complex medical issues, we will monitor the patient closely, continue the current medication and symptomatic treatment, broad-spectrum IV antibiotics, cultures, Infectious Disease evaluation, Vascular evaluation. Will resume the home medications. Medication reconciliation done. Monitor blood sugars closely. The prognosis is guarded because of multiple complex medical issues. Further recommendations to follow. MMODL / IJN: [id number] /
[2020-08-28] MEDS: ALPRAZolam 0.25 MG TAB PO PRN ×2 (02:45→23:14)
--- NOTE | 2020-08-28 06:34 | CONS ---
CONSULTATION DATE OF SERVICE: 08/27/2020 REASON FOR CONSULTATION: Right big toe infection. HISTORY OF PRESENT ILLNESS: The patient is a 79-year-old male with a past medical history of diabetes, hyperlipidemia, peripheral vascular disease and colon cancer, presenting to the ER with nonhealing wound, swelling, redness of the right big toe. The patient says this has been going on for about 3-4 weeks. The patient noticed the area started as a small area of irritation. Did not recall any history of any trauma or any new or tight fitting shoes. The area started getting more swollen, red and painful. The patient has been evaluated [facility] setting [facility] and has been treated with some local antibiotic cream, but now specifically denies he was given any oral antibiotics. The area was getting more swollen and red and painful, especially when he walks on it, is throbbing, intensity almost 7 to 8/10 with no radiation. He did have some drainage initially but not anymore. With these symptoms, the patient was evaluated by the ER physician. On arrival to the ER, the patient was afebrile. He did have a white count of 15,000. X-rays were negative for any bony changes. Local culture has been obtained. The patient was started on Zosyn and admitted to the hospital. Infectious Disease was consulted for further management of antibiotic therapy. REVIEW OF SYSTEMS: Positive points have been mentioned in HPI. Rest of systems are negative. PAST MEDICAL HISTORY: Hypertension, hyperlipidemia, diabetes mellitus, peripheral vascular disease, history of colon cancer with metastases to the lungs and liver, on chemo. Last chemo was 2 weeks ago. PAST SURGICAL HISTORY: Appendectomy, bowel resection, joint replacement, tonsillectomy, bowel resection, colostomy. SOCIAL HISTORY: Remote history of smoking. No drinking or drug use. FAMILY HISTORY: Father with history of cancer. ALLERGIES: No known drug allergies. MEDICATIONS: The patient is currently on Tylenol, [place], Xanax, Lipitor, Neurontin, heparin, Motrin, NovoLog, Levemir, Mag oxide, Lopressor, Narcan, Protonix, and Zosyn. PHYSICAL EXAMINATION: VITAL SIGNS: Blood pressure 159/70 with a pulse of 75, temperature 98.2. He is 97% on room air. GENERAL DESCRIPTION: Patient is an elderly male lying in bed in no distress. No tachypnea or accessory muscles of respiration use. HEENT: Examination shows slight pallor, no scleral icterus. Oral mucous membrane is dry. NECK: Trachea central, no thyromegaly. LUNGS: Unlabored breathing, clear to auscultation anteriorly. No wheeze or crackle. HEART: S1-S2, regular rate and rhythm. ABDOMEN: Soft, no tenderness. No guarding or rigidity. EXTREMITIES: No edema of the feet. Right foot big toe is swollen, still has some redness. No significant warmth though. No foul-smelling drainage. NEUROLOGICAL: Patient is awake, alert, oriented times three. Mood and affect normal. LABS: Hemoglobin is 12.4, white count 18.7, BUN of 19, creatinine 1.28. Local cultures currently pending. X-rays were negative for any bony changes. DIAGNOSTIC IMPRESSION: Patient with right diabetic foot infection involving the right big toe with some component of cellulitis and possible ischemic changes in this patient who does have a history of peripheral vascular disease. No history of any trauma. and possible Augmentin. However, the patient is not very clear about the name of antibiotic he was in the outpatient setting. PLAN: 1. We will bryan the area of the redness. 2. Patient with Zosyn to continue at 3.5 grams q.8 hours. 3. Obtain a sedimentation rate and CRP. 4. Await Vascular Surgery evaluation for possible debridement and culture. 5. We will follow his clinical condition and culture to further adjust medication if needed. Thank you for this consultation. Will follow this patient along with you. MMODL / IJN: [id number] /
[2020-08-28 06:54] LABS: Glucose,Whole Blood 99 mg/dL (75-99)
[2020-08-28] MEDS: INSULIN ASPART (NovoLOG) 100 UNIT/ML VIAL SQ SCH ×4 (07:02→20:20)
[2020-08-28] MEDS: HYDROcodone/APAP 5-325MG 1 EACH TAB PO PRN ×3 (07:05→18:53)
[2020-08-28] MEDS: PIPERACILLIN-TAZOBACTAM 3.375 GM in SODIUM CHLORIDE 0.9% 100 ML IVPB SCH ×3 (07:46→23:02)
[2020-08-28] MEDS: PANTOPRAZOLE 40 MG TABLET PO SCH (07:46)
[2020-08-28] MEDS: MAGNESIUM OXIDE 400 MG TAB PO SCH ×2 (07:46→14:59)
[2020-08-28] MEDS: METOPROLOL TARTRATE 50 MG TAB PO SCH ×2 (07:46→14:59)
[2020-08-28] MEDS: SODIUM CHLORIDE 0.9% 1,000 ML IV SCH ×2 (07:51→17:22)
[2020-08-28] MEDS: HEPARIN SODIUM,PORCINE/PF 5,000 UNIT/0.5 ML SYRINGE SQ SCH ×2 (07:51→20:20)
[2020-08-28] MEDS: MORPHINE SULFATE 4 MG/ML SYRINGE IVP PRN ×3 (08:22→20:20)
[2020-08-28 10:02] LABS: HCT 33.8 % (39.6-50.0); HGB 10.6 g/dL (13.0-17.0); MCH 29.8 pg (27.0-32.0); MCHC 31.4 g/dL (32.0-37.0); MCV 94.9 fL (80.0-97.0); Mean Platelet Volume 10.9 fL (9.5-12.2); Platelet Count 104 X 10*3/uL (140-440); RBC 3.56 X 10*6/uL (4.40-5.60); RDW 15.6 % (11.5-14.5); WBC 15.43 X 10*3/uL (4.50-10.00)
[2020-08-28 10:03] LABS: Basophils # (M) 0.31 X 10*3/uL (0.00-0.10); Eosinophils # (M) 0.31 X 10*3/uL (0.04-0.35); Lymphocytes # (M) 2.78 X 10*3/uL (0.90-5.00); Monocytes # (M) 0.77 X 10*3/uL (0.20-1.00); Myelocytes % 1 % (0-0); Neutrophils # (M) 11.11 X 10*3/uL (2.00-8.90); Neutrophils % (M) 72 %
[2020-08-28 10:21] LABS: African American GFR (CKD) 82.6 (60.0-200.0); Anion Gap 12.6 mmol/L (4.00-12.00); Calcium 8.2 mg/dL (8.7-10.3); Carbon Dioxide 18.4 mmol/L (21.6-31.8); Non-African American GFR(CKD) 71.3 (60.0-200.0); Potassium 3.9 mmol/L (3.5-5.5)
[2020-08-28 11:01] LABS: Glucose,Whole Blood 156 mg/dL (75-99)
--- NOTE | 2020-08-28 12:04 | P.CONS ---
History of Present Illness - Reason for Consult Consult date: 08/28/20 Right foot ulcer, gangrene. Colon cancer on chemo - History of Present Illness The patient is a 79-year-old white male well known to myself. Patient was initially diagnosed with carcinoma of the cecum in the spring and underwent surgery, revealing T3 N0 disease. After discussion of multiple options for stage II disease, including consideration of Oncotype: Testing, patient decided against chemotherapy and was placed on observation. Unfortunately in 05/22 computed tomography scan showed possibility of liver and lung metastasis, confirmed on PET scan and then subsequently with liver biopsy in 06/19. The patient was then placed on chemotherapy with FOLFOX and is status post 3 cycles, with the most recent administered on 08/16/20 The patient had developed a blister on the medial aspect of his right big toe, as well as on his heel about 4 weeks ago. He was treating this with topical treatment, but experienced increasing size of the right toe ulcer. In addition he was having increasing pain related to that, as well as progressive claudication type symptoms in both lower extremities more on the right than the left. The patient was evaluated by the nurse practitioner in the office, and was asked to address [facility] He states that she would contact them and was asked to continue local dressings. Due to progression of the above symptoms, he decided to come in to the hospital. He was evaluated by vascular surgery and admitted for further management. He denied any prior history of gangrene, palpitation, or foot ulcers. He does have a known history of peripheral vascular disease and has had bypass surgery in the left groin area several years ago. He has been a nonsmoker for several years now, and overall history of smoking appears to be light. Consult was placed for further evaluation and recommendations Review of Systems Constitutional: Reports fatigue Eyes: denies blurred vision, denies pain Ears: deny: decreased hearing, ear discharge, earache, tinnitus Ears, nose, mouth and throat: Denies headache, Denies sore throat Cardiovascular: Reports as per HPI Respiratory: Denies cough Gastrointestinal: Reports as per HPI, Denies abdominal pain, Denies diarrhea, Denies nausea, Denies vomiting Genitourinary: Reports urinary frequency Musculoskeletal: Reports as per HPI, Reports muscle cramps, Reports muscle weakness Integumentary: Reports as per HPI, Reports color changes, Reports foot/leg ulcers Neurological: Reports numbness (Mild neuropathy both feet), Denies weakness Psychiatric: Denies anxiety, Denies depression Endocrine: Reports fatigue Hematologic/Lymphatic: Reports as per HPI Past Medical History Past Medical History: Cancer, Diabetes Mellitus, Hyperlipidemia, Hypertension, Osteoarthritis (OA), Pneumonia, Vascular Disorder Additional Past Medical History / Comment(s): hx blood in stool, hx polyps, hiatal hernia, poor circulation in legs(left worse), Colon Cancer with mets to lungs and liver receiving chemo, 2 weeks ago History of Any Multi-Drug Resistant Organisms: None Reported Past Surgical History: Appendectomy, Bowel Resection, Joint Replacement, Tonsillectomy Additional Past Surgical History / Comment(s): Right knee replacement, pilonidal cyst, Left leg surgery for blockage, elisa laser eye surgery, bowel resection with colostomy. Past Anesthesia/Blood Transfusion Reactions: No Reported Reaction Past Psychological History: Anxiety Smoking Status: Former smoker, Never smoker Past Alcohol Use History: None Reported Additional Past Alcohol Use History / Comment(s): stopped smoking 40-50 yrs ago, smoked for 10 yrs- some day smoker Past Drug Use History: None Reported - Past Family History Father Family Medical History: Cancer Medications and Allergies Home Medications Medication Instructions Recorded Confirmed Type Atorvastatin [Lipitor] 80 mg PO HS 05/18/20 08/27/20 History Insulin Glargine [Lantus] 28 unit SQ HS 05/18/20 08/27/20 History Magnesium Oxide [Mag-Ox] 250 mg PO BID@0800,1600 05/18/20 08/27/20 History Metoprolol Tartrate [Lopressor] 100 mg PO BID@0800,1600 05/18/20 08/27/20 History Empagliflozin [Jardiance] 10 mg PO DAILY 05/20/20 08/27/20 History Acetaminophen [Tylenol] 500 mg PO Q4-6H PRN 07/08/20 08/27/20 History Gabapentin [Neurontin] 300 mg PO HS 08/27/20 08/27/20 History Insulin Aspart [NovoLOG Flexpen] See Protocol SQ BID@0800,1600 08/27/20 08/27/20 History Lisinopril-Hctz 20-12.5 mg 1 tab PO DAILY 08/27/20 08/27/20 History [Zestoretic 20-12.5] Megestrol Acetate 800 mg PO DAILY PRN 08/27/20 08/27/20 History Omeprazole 40 mg PO DAILY 08/27/20 08/27/20 History Allergies Allergy/AdvReac Type Severity Reaction Status Date / Time No Known Allergies Allergy Verified 08/27/20 11:56 Physical Exam Vitals: Vital Signs Temp Pulse Pulse Resp BP BP Pulse Ox 08/28/20 06:42 97.4 F L 93 18 137/76 96 08/28/20 01:06 98.1 F 86 18 132/64 95 08/27/20 19:05 98.2 F 75 17 159/70 97 08/27/20 18:14 97.4 F L 79 16 173/80 97 08/27/20 15:58 79 18 143/77 98 Intake and Output 08/27/20 08/28/20 08/28/20 22:59 06:59 14:59 Intake Total 200 680 Balance 200 680 Intake: Oral 200 680 Other: Voiding Method Toilet Urinal # Voids 3 3 Weight 90.718 kg - Constitutional General appearance: no acute distress - EENT Eyes: EOMI, PERRLA ENT: hearing grossly normal, normal oropharynx - Neck Neck: no lymphadenopathy Thyroid: bilateral: normal size - Respiratory Respiratory: bilateral: CTA - Cardiovascular Rhythm: regular Heart sounds: normal: S1, S2 - Gastrointestinal General gastrointestinal: normal bowel sounds, soft - Integumentary Well-demarcated, fairly deep ulcer on the medial aspect of the right big toe. Surrounding redness extending onto distal foot. Small, less than 1 cm shallow ulcer on her right heel with surrounding erythema No palpable anterior tibial pulses Integumentary: calor, ulcer - Neurologic Neurologic: CNII-XII intact - Musculoskeletal Musculoskeletal: generalized weakness, strength equal bilaterally - Psychiatric Psychiatric: A&O x's 3, intact judgment & insight Results CBC & Chem 7: 08/28/20 03:47 08/28/20 03:47 Labs: Abnormal Lab Results - Last 24 Hours (Table) 08/27/20 08/27/20 08/27/20 Range/Units 14:50 20:28 23:00 WBC (4.50-10.00) X 10*3/uL RBC (4.40-5.60) X 10*6/uL Hgb (13.0-17.0) g/dL Hct (39.6-50.0) % MCHC (32.0-37.0) g/dL RDW (11.5-14.5) % Plt Count (140-440) X 10*3/uL Plt Count Comment Myelocytes % (0-0) % Neutrophils # (Manual) (2.00-8.90) X 10*3/uL Basophils # (Manual) (0.00-0.10) X 10*3/uL Carbon Dioxide (21.6-31.8) mmol/L Anion Gap (4.00-12.00) mmol/L POC Glucose (mg/dL) 63 L 106 H (75-99) mg/dL Calcium (8.7-10.3) mg/dL Urine Glucose (UA) 4+ H (Negative) 08/28/20 08/28/20 08/28/20 Range/Units 03:47 03:47 10:48 WBC 15.43 H (4.50-10.00) X 10*3/uL RBC 3.56 L (4.40-5.60) X 10*6/uL Hgb 10.6 L (13.0-17.0) g/dL Hct 33.8 L (39.6-50.0) % MCHC 31.4 L (32.0-37.0) g/dL RDW 15.6 H (11.5-14.5) % Plt Count 104 L (140-440) X 10*3/uL Plt Count Comment DECREASED A Myelocytes % 1 H (0-0) % Neutrophils # (Manual) 11.11 H (2.00-8.90) X 10*3/uL Basophils # (Manual) 0.31 H (0.00-0.10) X 10*3/uL Carbon Dioxide 18.4 L (21.6-31.8) mmol/L Anion Gap 12.60 H (4.00-12.00) mmol/L POC Glucose (mg/dL) 156 H (75-99) mg/dL Calcium 8.2 L (8.7-10.3) mg/dL Urine Glucose (UA) (Negative) Microbiology - Last 24 Hours (Table) 08/27/20 10:31 Gram Stain - Preliminary Toe - Right First Wound Culture - Preliminary Gram Neg Bacilli Comments: 40 x-ray report reviewed. No obvious osteomyelitis Assessment and Plan (1) Diabetic ulcer of right foot Narrative/Plan: The patient has had progressive increase in size of the right toe ulcer, though the right he'll also does remain fairly stable. He is also having increasing symptoms in terms of pain and claudication. He was therefore admitted for further management. X-ray did not show any obvious stomatitis. Arterial Dopplers have been ordered with results pending. - The patient has known peripheral vascular disease with bypass surgery involving the left lower extremity. Based on his presentation and exam, ischemia on the right is also strongly suspected. Await results of arterial Dopplers and further recommendations from vascular surgery. It was discussed with the patient, the depending on the findings, he may require additional surgical intervention, including revascularization, amputation etc. Obviously, defer to vascular surgery for management decisions in this regard - The patient's blood counts are quite adequate for any planned treatment. As long as platelet counts are above 50,000, there is no contraindication to anticoagulation, and antiplatelet therapy, or any surgical procedures Current Visit: Yes Status: Acute Code(s): E11.621 - TYPE 2 DIABETES MELLITUS WITH FOOT ULCER; L97.519 - NON-PRS CHRONIC ULCER OTH PRT RIGHT FOOT W UNSP SEVERITY SNOMED Code(s): 545425726 (2) H/O colon cancer, stage IV Narrative/Plan: Patient's last chemotherapy was almost 2 weeks ago. He was advised that on treatment would be on hold, till he has completed required treatment for his ac platinum complaints. Current Visit: Yes Status: Acute Code(s): Z85.038 - PERSONAL HISTORY OF MALIGNANT NEOPLASM OF LARGE INTESTINE SNOMED Code(s): 596231327 (3) Bicytopenia Narrative/Plan: Due to antineoplastic chemotherapy. Counts are well within a safe range. As noted above, as long as platelet counts of greater than 50,000, there is no contraindication to anticoagulation, anti-platelet therapy or surgeries Current Visit: Yes Status: Acute Code(s): D75.89 - OTHER SPECIFIED DISEASES OF BLOOD AND BLOOD-FORMING ORGANS SNOMED Code(s): 19376542 Plan: Case, and our management recommendations discussed in detail with the admitting service
--- NOTE | 2020-08-28 12:33 | P.PN ---
Subjective Progress Note Date: 08/28/20 Principal diagnosis: right toe and heel ulcer Patient seen and examined. No overnight issues. States he is doing well and his pain is controlled. He underwent arterial Doppler today which demonstrated severe disease in bilateral lower extremities with ABIs measuring 0.45 on the right and 0.54 on the left. He denies any fevers, chills, chest pain or shortness of breath. Objective - Vital Signs Vital signs: Vital Signs Temp 97.4 F L 08/28/20 06:42 Pulse 93 08/28/20 06:42 Resp 18 08/28/20 06:42 BP 137/76 08/28/20 06:42 Pulse Ox 96 08/28/20 06:42 Intake & Output 08/27/20 08/28/20 08/28/20 18:59 06:59 18:59 Intake Total 200 680 Balance 200 680 Weight 90.718 kg 90.718 kg Intake: Oral 200 680 Other: Voiding Method Toilet Urinal # Voids 3 3 - Exam Monophasic DP and PT signals bilaterally. Erythema and dry gangrene noted on the right great toe. Erythema is stable. There is also erythema in the heel region on the right which is also stable. No wet gangrene is noted no drainage. - Constitutional General appearance: Present: average body habitus, cooperative - EENT Eyes: Present: PERRLA - Respiratory Respiratory: bilateral: CTA - Cardiovascular Rhythm: regular - Psychiatric Psychiatric: Present: A&O x's 3, appropriate affect, intact judgment & insight - Labs CBC & Chem 7: 08/28/20 03:47 08/28/20 03:47 Labs: Abnormal Lab Results - Last 24 Hours (Table) 08/27/20 08/27/20 08/27/20 Range/Units 14:50 20:28 23:00 WBC (4.50-10.00) X 10*3/uL RBC (4.40-5.60) X 10*6/uL Hgb (13.0-17.0) g/dL Hct (39.6-50.0) % MCHC (32.0-37.0) g/dL RDW (11.5-14.5) % Plt Count (140-440) X 10*3/uL Plt Count Comment Myelocytes % (0-0) % Neutrophils # (Manual) (2.00-8.90) X 10*3/uL Basophils # (Manual) (0.00-0.10) X 10*3/uL Carbon Dioxide (21.6-31.8) mmol/L Anion Gap (4.00-12.00) mmol/L POC Glucose (mg/dL) 63 L 106 H (75-99) mg/dL Calcium (8.7-10.3) mg/dL Urine Glucose (UA) 4+ H (Negative) 08/28/20 08/28/20 08/28/20 Range/Units 03:47 03:47 10:48 WBC 15.43 H (4.50-10.00) X 10*3/uL RBC 3.56 L (4.40-5.60) X 10*6/uL Hgb 10.6 L (13.0-17.0) g/dL Hct 33.8 L (39.6-50.0) % MCHC 31.4 L (32.0-37.0) g/dL RDW 15.6 H (11.5-14.5) % Plt Count 104 L (140-440) X 10*3/uL Plt Count Comment DECREASED A Myelocytes % 1 H (0-0) % Neutrophils # (Manual) 11.11 H (2.00-8.90) X 10*3/uL Basophils # (Manual) 0.31 H (0.00-0.10) X 10*3/uL Carbon Dioxide 18.4 L (21.6-31.8) mmol/L Anion Gap 12.60 H (4.00-12.00) mmol/L POC Glucose (mg/dL) 156 H (75-99) mg/dL Calcium 8.2 L (8.7-10.3) mg/dL Urine Glucose (UA) (Negative) Microbiology - Last 24 Hours (Table) 08/27/20 10:31 Gram Stain - Preliminary Toe - Right First Wound Culture - Preliminary Gram Neg Bacilli - Imaging and Cardiology Arterial Doppler reviewed and discussed with the patient. Assessment and Plan Assessment: #1 disabling claudication [place] classification 5 #2 right great toe ulcer and heel ulcer #3 type 2 diabetes #4 history of lower extremity revascularization #5 metastatic disease secondary colon cancer currently on chemotherapy Plan: Reviewed lower extremity arterial Doppler with the patient in full detail. 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 He will need an aortogram with lower extremity angiograms for planning of possible intervention. We will schedule this for Saturday.
[2020-08-28 17:37] LABS: Glucose,Whole Blood 120 mg/dL (75-99)
--- NOTE | 2020-08-28 18:35 | PN ---
PROGRESS NOTE DATE OF SERVICE: 08/28/2020 REASON FOR FOLLOWUP: Right big toe diabetic foot infection. INTERVAL HISTORY: The patient is currently afebrile. Patient is feeling better. Breathing comfortably. Overall pain and discomfort to the right big toe slightly decreased. No chest pain. No abdominal pain. No diarrhea. PHYSICAL EXAMINATION: Blood pressure 116/77, pulse of 64. Temperature 98.5. He is 95% on room air. General description is an elderly male lying in in no distress. Respiratory system: Unlabored breathing, clear to auscultation anteriorly. HEART: S1, S2. Regular rate and rhythm. ABDOMEN: Soft. No tenderness. Right big toe with necrotic wound with some surrounding redness, has not crossed the line. No drainage. LABS: Hemoglobin is 10.5, white count 15.43, creatinine 1.0. DIAGNOSTIC IMPRESSION AND PLAN: Patient with right big toe wound, diabetic foot infection with secondary cellulitis. Local culture showing gram-negative. Patient is covered with Zosyn to continue and monitor clinical course closely. MMODL / IJN: [id number] /
--- NOTE | 2020-08-28 18:35 | PN ---
PROGRESS NOTE DATE OF SERVICE: 08/28/2020 This 79-year-old gentleman who was admitted with right leg wound, is being closely monitored at this time. The patient has significant vascular disease. The patient had previous history of lower extremity revascularization, moderate severe femoral popliteal and tibial arterial occlusive disease was noted in the Doppler. Angiogram being planned on Saturday by Dr. Lazo. No chest pain. No palpitations. No fever. PHYSICAL EXAMINATION: Alert and oriented x2. Pulse 93, blood pressure 137/73, respiration 18, temperature 97.4, pulse ox 98% on room air. HEENT: Conjunctivae normal. NECK: No JVD. CARDIOVASCULAR: S1, S2 muffled. RESPIRATORY SYSTEM: Breath sounds diminished at the bases. A few scattered rhonchi. ABDOMEN: Soft, nontender. NERVOUS SYSTEM: No focal deficits. Otherwise significant ulceration of the right foot, right big toe present. LABS: WBC 15.3, hemoglobin 10.6. Accu-Cheks 156. ASSESSMENT: 1. Right foot ulcer with erythematous lesions with possible diabetic ulcer, rule out osteomyelitis. 2. Severe peripheral neuropathy. 3. Possible peripheral vascular disease. 4. Increased WBC. 5. Anemia, normocytic. 6. Macrocytosis. 7. Carcinoma of the colon with metastasis on chemotherapy. 8. Increased creatinine with acute renal failure with acute tubular necrosis present on admission. 9. Diabetes mellitus type 2 uncontrolled with hypoglycemia. 10.Hyperlipidemia. 11.Hypertension. 12.History of degenerative joint disease. 13.History of pneumonia. 14.History of hiatal hernia. 15.History of appendectomy. 16.History of bowel resection. 17.History of anxiety. 18.History of nicotine dependence. 19.FULL CODE. RECOMMENDATIONS AND DISCUSSION: I recommend to continue current medications, management and symptomatic treatment. Otherwise monitor blood sugars closely. Repeat labs. Dr. Lazo is planning angiography as mentioned earlier. Discussed with Dr. Henry from Hematology/ Oncology. We will continue to monitor. Antibiotics. A bone scan has been ordered to rule out the possibility of osteomyelitis. Further recommendations to follow. MMODL / IJN: [id number] /
[2020-08-28 20:14] LABS: Glucose,Whole Blood 141 mg/dL (75-99)
--- NOTE | 2020-08-28 20:15 | NM ---
EXAMINATION TYPE: NM bone 3 phase DATE OF EXAM: 08/28/2020 COMPARISON: NONE HISTORY: Diabetic foot ulcer Triple phase bone scintigraphy was performed following the injection of 24 mCi Tc 99m MDP. Immediate images and 5.5 hours post injection images acquired. FINDINGS: The flow study shows some hyperemia of the right foot compared to the left. Delayed images show small focal increased uptake in the right mid foot at the level of the first and second tarsometatarsal sharda int. There is a right knee prosthesis. There is focal increased uptake in the anterior left sixth rib . This could be a healing fracture. IMPRESSION: There is some hyperemia of the right foot consistent with cellulitis. No significant delayed uptake t o suggest osteomyelitis. Uptake in the right foot is less than I would expect for a fracture. This is consistent with mild arthritic disease.
[2020-08-28] MEDS: ATORVASTATIN 80 MG TAB PO SCH (20:20)
[2020-08-28] MEDS: GABAPENTIN 300 MG CAP PO SCH (20:20)
[2020-08-28] MEDS: INSULIN DETEMIR (LEVEMIR) 100 UNIT/ML SYR SQ SCH (20:20)
[2020-08-29] MEDS: MORPHINE SULFATE 4 MG/ML SYRINGE IVP PRN ×5 (01:30→22:42)
[2020-08-29] MEDS: SODIUM CHLORIDE 0.9% 1,000 ML IV SCH ×3 (04:28→22:42)
[2020-08-29 07:12] LABS: Glucose,Whole Blood 107 mg/dL (75-99)
[2020-08-29] MEDS: INSULIN ASPART (NovoLOG) 100 UNIT/ML VIAL SQ SCH ×4 (07:45→21:29)
[2020-08-29] MEDS: HEPARIN SODIUM,PORCINE/PF 5,000 UNIT/0.5 ML SYRINGE SQ SCH ×2 (07:45→21:28)
[2020-08-29] MEDS: PANTOPRAZOLE 40 MG TABLET PO SCH (07:45)
[2020-08-29] MEDS: METOPROLOL TARTRATE 50 MG TAB PO SCH ×2 (07:45→17:41)
[2020-08-29] MEDS: PIPERACILLIN-TAZOBACTAM 3.375 GM in SODIUM CHLORIDE 0.9% 100 ML IVPB SCH ×3 (07:45→23:45)
[2020-08-29] MEDS: MAGNESIUM OXIDE 400 MG TAB PO SCH ×2 (07:45→17:41)
[2020-08-29] MEDS: HYDROcodone/APAP 5-325MG 1 EACH TAB PO PRN ×3 (07:46→23:45)
[2020-08-29 09:30] LABS: Basophils # (A) 0.07 X 10*3/uL (0.00-0.10); Basophils % (A) 0.5 %; Eosinophils # (A) 0.17 X 10*3/uL (0.04-0.35); Eosinophils % (A) 1.3 %; HCT 32.7 % (39.6-50.0); HGB 10.5 g/dL (13.0-17.0); Lymphocytes # (A) 3.14 X 10*3/uL (0.90-5.00); Lymphocytes % (A) 23.7 %; MCH 30.1 pg (27.0-32.0); MCHC 32.1 g/dL (32.0-37.0); MCV 93.7 fL (80.0-97.0); Mean Platelet Volume 10.2 fL (9.5-12.2); Monocytes # (A) 1.13 X 10*3/uL (0.20-1.00); Monocytes % (A) 8.5 %; Neutrophils # (A) 8.59 X 10*3/uL (1.80-7.70); Neutrophils % (A) 64.9 %; Platelet Count 113 X 10*3/uL (140-440); RBC 3.49 X 10*6/uL (4.40-5.60); RDW 15.8 % (11.5-14.5); WBC 13.25 X 10*3/uL (4.50-10.00)
[2020-08-29 10:22] LABS: African American GFR (CKD) 93.8 (60.0-200.0); Anion Gap 7.5 mmol/L (4.00-12.00); BUN/Creat Ratio 12.22 Ratio (12.00-20.00); Calcium 7.1 mg/dL (8.7-10.3); Carbon Dioxide 21.5 mmol/L (21.6-31.8); Non-African American GFR(CKD) 80.9 (60.0-200.0); Potassium 3.8 mmol/L (3.5-5.5)
[2020-08-29 11:29] LABS: Glucose,Whole Blood 128 mg/dL (75-99)
--- NOTE | 2020-08-29 16:48 | PN ---
PROGRESS NOTE DATE OF SERVICE: 08/29/2020 INTERVAL HISTORY: This 79-year-old gentleman admitted with right foot diabetic ulcer, also had significant peripheral vascular disease. Dr. Lazo is following the patient for possible angiogram. No chest pain. No palpitations. No fever. The patient had Pseudomonas aeruginosa grown from the culture. Patient covered with Zosyn at this time. No chest pain. No palpitations. No fever. PHYSICAL EXAMINATION: GENERAL: Patient is alert and oriented times three. VITAL SIGNS: Pulse 65, blood pressure 162/74, respirations 16, temperature 97.7, pulse ox 97% on room air. HEENT: Conjunctivae normal. Oral mucosa moist. NECK: No jugular venous distention. No carotid bruits. No lymph node enlargement. RESPIRATORY: Breath sounds diminished at the bases. No rhonchi, no crackles. HEART: S1 and S2, muffled. ABDOMEN: Soft, no tenderness. No masses palpable. EXTREMITIES: Significant ulceration of the right great toe and foot with erythema and tenderness. Pulses are diminished bilaterally. NERVOUS: No focal deficits. Peripheral neuropathy is present. LAB STUDIES: WBC 13.2, hemoglobin 10.5, platelets are 113, calcium 7.1. ASSESSMENT: 1. Right foot ulcer with erythematous lesions with possible diabetic ulcer, rule out osteomyelitis. 2. Pseudomonas aeruginosa from the cultures. 3. Severe peripheral neuropathy. 4. Severe peripheral vascular disease, possibly. 5. Increased WBC. 6. Anemia, normocytic. 7. Macrocytosis. 8. Cancer of the colon with metastasis, on chemotherapy. 9. Increased creatinine with acute renal failure with acute tubular necrosis present on admission. 10.Diabetes mellitus type 2, uncontrolled with hypoglycemia. 11.Hyperlipidemia. 12.Hypertension. 13.History of degenerative joint disease. 14.History of pneumonia. 15.History of hiatal hernia. 16.History of appendectomy. 17.History of bowel resection. 18.History of anxiety. 19.History of nicotine dependence. 20.FULL CODE. RECOMMENDATIONS AND DISCUSSION: I recommend to continue current management, continue symptomatic treatment. I would recommend continue the current medications. The patient is on IV Zosyn at this time. Otherwise, closely follow with Infectious Disease and as well as Vascular Surgery. Discussed with Hematology, Oncology who recommend followup labs. Prognosis guarded. Further recommendations to follow. MMODL / IJN: [id number] /
--- NOTE | 2020-08-29 16:51 | P.PN ---
Subjective Progress Note Date: 08/29/20 Principal diagnosis: right toe and heel ulcer Patient seen and examined. No overnight issues. States he is doing well and his pain is controlled. He states he is ready for his angiogram and would like it done as soon as possible. He would also like to get out of the hospital prior to Saturday in order to watch his grandsons game. He denies any fevers, chills, chest pain or shortness of breath. Objective - Vital Signs Vital signs: Vital Signs Temp 97.6 F 08/29/20 14:00 Pulse 65 08/29/20 14:00 Resp 16 08/29/20 14:00 BP 162/74 08/29/20 14:00 Pulse Ox 97 08/29/20 14:00 Intake & Output 08/28/20 08/29/20 08/29/20 18:59 06:59 18:59 Intake Total 1640 Balance 1640 Weight 90.718 kg Intake: Oral 1640 Other: Voiding Method Toilet Toilet Urinal Urinal # Voids 3 1 - Exam Monophasic DP and PT signals bilaterally. Erythema and dry gangrene noted on the right great toe. Erythema is stable. There is also erythema in the heel region on the right which is also stable. No wet gangrene is noted no drainage. - Labs CBC & Chem 7: 08/29/20 05:40 08/29/20 05:40 Labs: Abnormal Lab Results - Last 24 Hours (Table) 08/28/20 08/28/20 08/29/20 Range/Units 17:17 20:12 05:40 WBC 13.25 H (4.50-10.00) X 10*3/uL RBC 3.49 L (4.40-5.60) X 10*6/uL Hgb 10.5 L (13.0-17.0) g/dL Hct 32.7 L (39.6-50.0) % RDW 15.8 H (11.5-14.5) % Plt Count 113 L (140-440) X 10*3/uL Absolute Nucleated RBC 0.02 H (0.00-0.00) X 10*3/uL Immature Gran # 0.15 H (0.00-0.04) X 10*3/uL Neutrophils # 8.59 H (1.80-7.70) X 10*3/uL Monocytes # 1.13 H (0.20-1.00) X 10*3/uL NRBC/100 WBC Diff 0.2 H (0.0-0.0) /100 WBCS Chloride (96-109) mmol/L Carbon Dioxide (21.6-31.8) mmol/L POC Glucose (mg/dL) 120 H 141 H (75-99) mg/dL Calcium (8.7-10.3) mg/dL 08/29/20 08/29/20 08/29/20 Range/Units 05:40 06:42 11:20 WBC (4.50-10.00) X 10*3/uL RBC (4.40-5.60) X 10*6/uL Hgb (13.0-17.0) g/dL Hct (39.6-50.0) % RDW (11.5-14.5) % Plt Count (140-440) X 10*3/uL Absolute Nucleated RBC (0.00-0.00) X 10*3/uL Immature Gran # (0.00-0.04) X 10*3/uL Neutrophils # (1.80-7.70) X 10*3/uL Monocytes # (0.20-1.00) X 10*3/uL NRBC/100 WBC Diff (0.0-0.0) /100 WBCS Chloride 110 H (96-109) mmol/L Carbon Dioxide 21.5 L (21.6-31.8) mmol/L POC Glucose (mg/dL) 107 H 128 H (75-99) mg/dL Calcium 7.1 L (8.7-10.3) mg/dL Microbiology - Last 24 Hours (Table) 08/27/20 10:31 Blood Culture - Preliminary Blood No Growth after 48 hours 08/27/20 10:31 Blood Culture - Preliminary Blood No Growth after 48 hours 08/27/20 10:31 Gram Stain - Final Toe - Right First Wound Culture - Final Pseudomonas aeruginosa Assessment and Plan Assessment: #1 disabling claudication [place] classification 5 #2 right great toe ulcer and heel ulcer #3 type 2 diabetes #4 history of lower extremity revascularization #5 metastatic disease secondary colon cancer currently on chemotherapy Plan: Aortogram with lower extremity runoff planned for tomorrow morning with possible intervention of the right lower extremity. Discussed with patient who is agreeable to procedure.
[2020-08-29 17:04] LABS: Glucose,Whole Blood 181 mg/dL (75-99)
[2020-08-29 20:36] LABS: Glucose,Whole Blood 145 mg/dL (75-99)
[2020-08-29] MEDS: ATORVASTATIN 80 MG TAB PO SCH (21:28)
[2020-08-29] MEDS: GABAPENTIN 300 MG CAP PO SCH (21:28)
[2020-08-29] MEDS: INSULIN DETEMIR (LEVEMIR) 100 UNIT/ML SYR SQ SCH (21:29)
--- NOTE | 2020-08-30 00:04 | PN ---
PROGRESS NOTE DATE OF SERVICE: 08/29/2020 REASON FOR FOLLOWUP: Right big toe diabetic foot infection. INTERVAL HISTORY: The patient is currently afebrile. The patient is breathing comfortably. The patient denies having any chest pain. No shortness of breath or cough. No vomiting. No abdominal pain. Pain to the right big toe is currently controlled. PHYSICAL EXAMINATION: Blood pressure 162/74 with a pulse of 65, temperature 97.6. He is 97% on room air. General description is an elderly male lying in in no distress. Respiratory system: Unlabored breathing, clear to auscultation anteriorly. Heart S1, S2. Regular rate and rhythm. ABDOMEN: Soft, no tenderness. Right big toe swelling has slightly decreased. LABS: White count down to 13.25, BUN of 11, creatinine 0.99. DIAGNOSTIC IMPRESSION AND PLAN: Patient with right big toe diabetic foot infection with necrotic wound and secondary cellulitis. Culture with Pseudomonas. Patient is covered with Zosyn to the sensitive for angiogram tomorrow and continue supportive care. MMODL / IJN: [id number] /
[2020-08-30 06:47] LABS: Glucose,Whole Blood 75 mg/dL (75-99)
[2020-08-30] MEDS: INSULIN ASPART (NovoLOG) 100 UNIT/ML VIAL SQ SCH ×4 (07:04→22:14)
[2020-08-30] MEDS: HEPARIN SODIUM,PORCINE/PF 5,000 UNIT/0.5 ML SYRINGE SQ SCH ×2 (07:05→19:50)
[2020-08-30] MEDS: METOPROLOL TARTRATE 50 MG TAB PO SCH ×2 (07:07→15:42)
[2020-08-30] MEDS: SODIUM CHLORIDE 0.9% 1,000 ML IV SCH ×2 (07:07→22:10)
[2020-08-30] MEDS: PIPERACILLIN-TAZOBACTAM 3.375 GM in SODIUM CHLORIDE 0.9% 100 ML IVPB SCH ×3 (07:07→22:29)
[2020-08-30] MEDS: MAGNESIUM OXIDE 400 MG TAB PO SCH ×2 (07:07→15:42)
[2020-08-30] MEDS: PANTOPRAZOLE 40 MG TABLET PO SCH (07:07)
[2020-08-30] MEDS ORDERED: LIDOCAINE 1% INJ 10MG/ML (20 ML MDV) SQ ONE (09:47)
[2020-08-30] MEDS ORDERED: MIDAZOLAM 2 MG/2 ML VIAL IV ONE (09:49)
[2020-08-30] MEDS ORDERED: IV FLUID CONTINUATION 800 ML IV ONE (09:52)
[2020-08-30] MEDS ORDERED: IOPAMIDOL-250 100ML BTL INTRAARTER ONE ×2 (10:07→10:08)
[2020-08-30 10:22] LABS: Basophils % (A) 0.8 %; Eosinophils # (A) 0.22 X 10*3/uL (0.04-0.35); Eosinophils % (A) 1.7 %; HCT 33.3 % (39.6-50.0); HGB 10.7 g/dL (13.0-17.0); Lymphocytes # (A) 3.26 X 10*3/uL (0.90-5.00); Lymphocytes % (A) 24.5 %; MCHC 32.1 g/dL (32.0-37.0); MCV 93.3 fL (80.0-97.0); Mean Platelet Volume 10.5 fL (9.5-12.2); Monocytes # (A) 1.04 X 10*3/uL (0.20-1.00); Monocytes % (A) 7.8 %; Neutrophils # (A) 8.49 X 10*3/uL (1.80-7.70); Neutrophils % (A) 63.7 %; Platelet Count 121 X 10*3/uL (140-440); RBC 3.57 X 10*6/uL (4.40-5.60); WBC 13.31 X 10*3/uL (4.50-10.00)
[2020-08-30 10:56] LABS: Glucose,Whole Blood 75 mg/dL (75-99)
[2020-08-30 11:05] LABS: African American GFR (CKD) 73.6 (60.0-200.0); Calcium 7.9 mg/dL (8.7-10.3); Non-African American GFR(CKD) 63.5 (60.0-200.0); Potassium 3.9 mmol/L (3.5-5.5)
[2020-08-30] MEDS: HYDROcodone/APAP 5-325MG 1 EACH TAB PO PRN ×2 (15:08→22:09)
[2020-08-30 17:16] LABS: Glucose,Whole Blood 141 mg/dL (75-99)
--- NOTE | 2020-08-30 17:26 | PN ---
PROGRESS NOTE DATE OF SERVICE: 08/30/2020 This 79-year-old gentleman admitted with right heel and right toe ulcer with diabetic foot, underwent angiogram today which showed apparently atherosclerotic lesions. The full report is pending at this time. Dr. Lazo is planning surgery as an outpatient. No chest pain. No palpitations. No fever. Cultures grew Pseudomonas aeruginosa. PHYSICAL EXAMINATION: Alert and oriented x3, pulse 65, blood pressure 116/70, respirations 16, temperature is normal, pulse ox 98% on room air. HEENT: Conjunctivae normal. Oral mucosa moist. NECK: No jugular venous distention. No lymph node enlargement. CARDIOVASCULAR: S1, S2, muffled. No S3, no S4, RESPIRATORY: Diminished breath sounds at the bases. No rhonchi, no crackles. ABDOMEN: Soft, nontender. LEGS: Right foot ulcer. LAB STUDIES: WBC 13.3, hemoglobin 10.7, BUN is 10 and calcium is 7.9. ASSESSMENT: 1. Right foot ulcer with erythematous lesions with possible diabetic ulcer with possible osteomyelitis. 2. Pseudomonas aeruginosa from the cultures. 3. Severe peripheral neuropathy. 4. Severe peripheral arterial disease status post angiogram. 5. Increased WBC. 6. Anemia, normocytic. 7. Macrocytosis. 8. History of the carcinoma of the colon with metastases, on chemotherapy. 9. Increased creatinine with acute renal failure with acute tubular necrosis, present on admission. 10.Diabetes mellitus type 2, uncontrolled with hypoglycemia. 11.Hyperlipidemia. 12.Hypertension. 13.History of DJD. 14.History of pneumonia. 15.History of hiatal hernia. 16.History of appendectomy. 17.History of bowel resection. 18.History of anxiety. 19.History of nicotine dependence. 20.FULL CODE. RECOMMENDATIONS: Recommend to continue current management, continue the antibiotics. Continue local treatment. Monitor closely. Otherwise, closely follow with Infectious Disease and Vascular Surgery. Guarded prognosis. Further recommendations to follow. MMODL / IJN: [id number] /
[2020-08-30] MEDS: MORPHINE SULFATE 4 MG/ML SYRINGE IVP PRN ×2 (19:49→23:28)
[2020-08-30] MEDS: ATORVASTATIN 80 MG TAB PO SCH (19:50)
[2020-08-30] MEDS: GABAPENTIN 300 MG CAP PO SCH (19:50)
[2020-08-30 20:02] LABS: Glucose,Whole Blood 137 mg/dL (75-99)
[2020-08-30] MEDS: INSULIN DETEMIR (LEVEMIR) 100 UNIT/ML SYR SQ SCH (20:32)
--- NOTE | 2020-08-30 20:51 | P.PN ---
Subjective Progress Note Date: 08/30/20 Principal diagnosis: Infected foot ulcer Patient had no acute events overnight. Hemoglobin 10.3 Objective - Vital Signs Vital signs: Vital Signs Temp 97.9 F 08/30/20 07:49 Pulse 68 08/30/20 11:15 Resp 16 08/30/20 11:15 BP 172/94 08/30/20 11:15 Pulse Ox 97 08/30/20 11:15 Intake & Output 08/29/20 08/30/20 08/30/20 18:59 06:59 18:59 Intake Total 100 Balance 100 Intake: IV 100 Intake, IV Titration 0 Amount Sodium Chloride 0.9% 1, 0 000 ml @ 100 mls/hr IV . Q10H ERA Rx#:[id number] Other: Voiding Method Toilet Toilet Toilet Urinal Urinal Urinal # Voids 4 - Exam - Constitutional General appearance: no acute distress - EENT Eyes: EOMI, PERRLA ENT: hearing grossly normal, normal oropharynx - Neck Neck: no lymphadenopathy Thyroid: bilateral: normal size - Respiratory Respiratory: bilateral: CTA - Cardiovascular Rhythm: regular Heart sounds: normal: S1, S2 - Gastrointestinal General gastrointestinal: normal bowel sounds, soft - Integumentary Well-demarcated, fairly deep ulcer on the medial aspect of the right big toe. Surrounding redness extending onto distal foot. Small, less than 1 cm shallow ulcer on her right heel with surrounding erythema No palpable anterior tibial pulses Integumentary: calor, ulcer - Neurologic Neurologic: CNII-XII intact - Musculoskeletal Musculoskeletal: generalized weakness, strength equal bilaterally - Psychiatric Psychiatric: A&O x's 3, intact judgment & insight - Labs CBC & Chem 7: 08/30/20 05:28 08/30/20 05:28 Labs: Abnormal Lab Results - Last 24 Hours (Table) 08/29/20 08/29/20 08/30/20 Range/Units 17:00 20:31 05:28 WBC 13.31 H (4.50-10.00) X 10*3/uL RBC 3.57 L (4.40-5.60) X 10*6/uL Hgb 10.7 L (13.0-17.0) g/dL Hct 33.3 L (39.6-50.0) % RDW 16.0 H (11.5-14.5) % Plt Count 121 L (140-440) X 10*3/uL Absolute Nucleated RBC 0.02 H (0.00-0.00) X 10*3/uL Immature Gran # 0.20 H (0.00-0.04) X 10*3/uL Neutrophils # 8.49 H (1.80-7.70) X 10*3/uL Monocytes # 1.04 H (0.20-1.00) X 10*3/uL NRBC/100 WBC Diff 0.2 H (0.0-0.0) /100 WBCS BUN/Creatinine Ratio (12.00-20.00) Ratio POC Glucose (mg/dL) 181 H 145 H (75-99) mg/dL Calcium (8.7-10.3) mg/dL 08/30/20 Range/Units 05:28 WBC (4.50-10.00) X 10*3/uL RBC (4.40-5.60) X 10*6/uL Hgb (13.0-17.0) g/dL Hct (39.6-50.0) % RDW (11.5-14.5) % Plt Count (140-440) X 10*3/uL Absolute Nucleated RBC (0.00-0.00) X 10*3/uL Immature Gran # (0.00-0.04) X 10*3/uL Neutrophils # (1.80-7.70) X 10*3/uL Monocytes # (0.20-1.00) X 10*3/uL NRBC/100 WBC Diff (0.0-0.0) /100 WBCS BUN/Creatinine Ratio 10.00 L (12.00-20.00) Ratio POC Glucose (mg/dL) (75-99) mg/dL Calcium 7.9 L (8.7-10.3) mg/dL Microbiology - Last 24 Hours (Table) 08/27/20 10:31 Blood Culture - Preliminary Blood No Growth after 48 hours 08/27/20 10:31 Blood Culture - Preliminary Blood No Growth after 48 hours 08/27/20 10:31 Gram Stain - Final Toe - Right First Wound Culture - Final Pseudomonas aeruginosa Assessment and Plan Plan: Assessment and Recommendations: Diabetic ulcer of right foot Current Visit: Yes Status: Acute Code(s): E11.621 - TYPE 2 DIABETES MELLITUS WITH FOOT ULCER; L97.519 - NON-PRS CHRONIC ULCER OTH PRT RIGHT FOOT W UNSP SEVERITY SNOMED Code(s): 337679606 - Right toe ulcer - Vascular surgery following, Arterial Dopplers completed - The patient has known peripheral vascular disease with bypass surgery involving the left lower extremity. - The patient's blood counts are quite adequate for any planned treatment. As long as platelet counts are above 50,000, there is no contraindication to anticoagulation, and antiplatelet therapy, or any surgical procedures H/O colon cancer, stage IV Current Visit: Yes Status: Acute Code(s): Z85.038 - PERSONAL HISTORY OF MA LIGNANT NEOPLASM OF LARGE INTESTINE SNOMED Code(s): 146986034 - Patient's last chemotherapy was 2 weeks ago. - This will remain on hold till he has completed required treatment for his acute complaints. Bicytopenia Current Visit: Yes Status: Acute Code(s): D75.89 - OTHER SPECIFIED DISEASES OF BLOOD AND BLOOD-FORMING ORGANS SNOMED Code(s): 35910218 - Due to antineoplastic chemotherapy. - Counts remian well within a safe range. COntinue to monitor daily CBC
[2020-08-30] MEDS: ALPRAZolam 0.25 MG TAB PO PRN (22:09)
[2020-08-30] MEDS: lisinopriL 20 MG TAB PO SCH (22:29)
--- NOTE | 2020-08-31 02:28 | PN ---
PROGRESS NOTE DATE OF SERVICE: 08/30/2020 REASON FOR FOLLOWUP: Right big toe diabetic foot infection. INTERVAL HISTORY: The patient is currently afebrile. The patient is status post angiogram to the right leg, operative report currently pending. Patient tolerated the procedure. The patient denies having any chest pain, shortness of breath or cough. No abdominal pain or any worsening pain to the right big toe. PHYSICAL EXAMINATION: Blood pressure is 175/81 with a pulse of 68, temperature 97.8. He is 97% on room air. General description is an elderly male lying in bed in no distress. Respiratory system: Unlabored breathing, clear to auscultation anteriorly. Heart S1, S2. Regular rate and rhythm. The right big toe is currently dressed. No obvious drainage on the dressing. LABS: Hemoglobin is 10.7, white count 13.31. BUN of 11, creatinine 1.1. DIAGNOSTIC IMPRESSION: Patient with right big toe diabetic foot infection with secondary cellulitis, culture positive for Pseudomonas. Clinically not behaving as osteo, not excluded though. Bone scan will be obtained to rule it out. Continue Zosyn. If bone scan negative, plan for oral antibiotic. Otherwise, he will need IV antibiotic on discharge. MMODL / IJN: [id number] /
[2020-08-31 06:25] LABS: Glucose,Whole Blood 114 mg/dL (75-99)
[2020-08-31] MEDS: INSULIN ASPART (NovoLOG) 100 UNIT/ML VIAL SQ SCH ×4 (06:26→20:21)
[2020-08-31] MEDS: HYDROcodone/APAP 5-325MG 1 EACH TAB PO PRN ×3 (06:26→20:00)
[2020-08-31] MEDS: PANTOPRAZOLE 40 MG TABLET PO SCH (06:26)
[2020-08-31] MEDS: SODIUM CHLORIDE 0.9% 1,000 ML IV SCH ×2 (06:27→16:06)
--- NOTE | 2020-08-31 07:48 | IR ---
Fluoroscopy HISTORY: Right foot wound Four minutes fluoroscopy time supplied to the referring clinician. 65 intraoperative C-arm images do cument the procedure. See dictated report from referring clinician.
[2020-08-31] MEDS: MAGNESIUM OXIDE 400 MG TAB PO SCH ×2 (08:34→17:08)
[2020-08-31] MEDS: METOPROLOL TARTRATE 50 MG TAB PO SCH ×2 (08:34→17:08)
[2020-08-31] MEDS: HEPARIN SODIUM,PORCINE/PF 5,000 UNIT/0.5 ML SYRINGE SQ SCH ×2 (08:35→20:00)
[2020-08-31] MEDS: PIPERACILLIN-TAZOBACTAM 3.375 GM in SODIUM CHLORIDE 0.9% 100 ML IVPB SCH ×3 (08:35→22:45)
[2020-08-31] MEDS: MORPHINE SULFATE 4 MG/ML SYRINGE IVP PRN ×3 (08:35→22:45)
--- NOTE | 2020-08-31 10:07 | P.ARTDOP ---
Arterial Doppler LOWER EXTREMITY ARTERIAL DOPPLER: DATE OF SERVICE: 08/28/2020 Reason for study: Atherosclerosis [place] arteries with ulcer right foot. Doppler waveforms: Atypical throughout bilaterally with monophasic almost flat line digital waveforms.. Pulse volume recording: []. Pressure gradients: Above the low thigh bilaterally. Ankle-brachial indices: 0.45 on the right and 0.54 on the left. 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 Clinical correlation recommended.
[2020-08-31 10:48] VITALS: BMI 29.2
[2020-08-31 12:05] LABS: Glucose,Whole Blood 166 mg/dL (75-99)
--- NOTE | 2020-08-31 14:57 | P.PN ---
Subjective Progress Note Date: 08/31/20 Principal diagnosis: Right Toe and heel ulcer She was seen and examined sitting up in bed. He is without any complaints or changes through the night. He denies any fevers or chills. Yesterday he underwent an aortogram with lower extremity runoff which showed severe narrowing and stenosis. Plan is for outpatient follow up next week with scheduling outpatient surgery. Patient remains on IV antibiotics at this time with infectious disease on consult. Objective - Vital Signs Vital signs: Vital Signs Temp 98.0 F 08/31/20 08:00 Pulse 74 08/31/20 08:00 Resp 16 08/31/20 08:00 BP 142/63 08/31/20 08:00 Pulse Ox 93 L 08/31/20 08:00 Intake & Output 08/30/20 08/31/20 08/31/20 18:59 06:59 18:59 Intake Total 1026 500 280 Output Total 500 Balance 526 500 280 Weight 92.4 kg 92.4 kg Intake: IV 100 Intake, IV Titration 450 500 Amount Piperacillin-Tazobactam 3 100 .375 gm In Sodium Chloride 0.9% 100 ml @ 25 mls/hr IVPB Q8HR EAR Rx# :[id number] Sodium Chloride 0.9% 1, 450 400 000 ml @ 100 mls/hr IV . Q10H ERA Rx#:[id number] Oral 476 280 Output: Urine 500 Other: Voiding Method Toilet Toilet Urinal Urinal # Voids 1 # Bowel Movements 1 - Exam General appearance: The patient is alert, oriented, in no acute distress. HET: Head is normocephalic and atraumatic. Neck: Supple without lymphadenopathy. Trachea midline. Extremities: Erythema and dry gangrene noted on the right great toe, marked. There is some erythema to the right heel as well. No wet gangrene noted, no drainage, or foul odor Neurological: No focal deficits. Alert and oriented 3. - Labs CBC & Chem 7: 08/30/20 05:28 08/30/20 05:28 Labs: Abnormal Lab Results - Last 24 Hours (Table) 08/30/20 08/30/20 08/31/20 Range/Units 17:06 19:56 06:21 POC Glucose (mg/dL) 141 H 137 H 114 H (75-99) mg/dL 08/31/20 Range/Units 11:55 POC Glucose (mg/dL) 166 H (75-99) mg/dL Microbiology - Last 24 Hours (Table) 08/27/20 10:31 Blood Culture - Preliminary Blood No Growth after 96 hours 08/27/20 10:31 Blood Culture - Preliminary Blood No Growth after 96 hours Assessment and Plan Assessment: 1. Disabling claudication [place] classification 5 2. Right great toe ulcer and heel ulcer 3. Severe right lower extremity peripheral arterial disease, with popliteal oc clusion 4. History of type 2 diabetes mellitus 5. History of lower extremity revascularization 6. Metastatic disease secondary colon cancer currently on chemotherapy Plan: 1. Continue current medical management 2. Continue IV antibiotics recommended per infectious disease 3. Patient will need revascularization of the right lower extremity, however patient may be discharged home from a vascular surgical standpoint with follow- up next week with planned outpatient surgical intervention within the next 1-2 weeks. Patient is agreeable with this plan. Thank you for this consultation, we will be on standby if further needed. The impression and plan of care has been dictated as directed. Dr. Craig I performed a history and examination of this patient, discussed the same with the dictator. I agree with the dictator's note ,documented as a scribe. Any additional findings or plans will be noted.
[2020-08-31] MEDS: diphenhydrAMINE 25 MG CAP PO PRN ×2 (17:10→22:45)
[2020-08-31 17:14] LABS: Glucose,Whole Blood 115 mg/dL (75-99)
--- NOTE | 2020-08-31 19:57 | PN ---
PROGRESS NOTE DATE IS SERVICE: 08/31/2020 This 79-year-old gentleman was admitted with right foot ulcer had significant erythematous lesions. The patient has significant peripheral vascular disease. No chest pain. No palpitations. Pseudomonas grown from the culture. PHYSICAL EXAMINATION: Alert and oriented x2. Pulse is 68. Blood pressure 140/64. Respirations 16, temperature 98.4, pulse ox 98% on room air. HEENT: Conjunctivae normal. NECK: No JVD. CARDIOVASCULAR: S1, S2 muffled. RESPIRATORY SYSTEM: Breath sounds diminished at the bases. No rhonchi. No crackles. ABDOMEN: Soft, nontender. LEGS: Right foot ulcer present. LABS: WBC 13.3, hemoglobin 10.7. Other labs are noted. ASSESSMENT: 1. Right foot ulcer with erythematous lesions and possibly diabetic ulcer with possible osteomyelitis and surrounding cellulitis. 2. Pseudomonas aeruginosa from the cultures. 3. Severe peripheral neuropathy. 4. History of peripheral arterial disease status post angiogram. 5. Increased WBC. 6. Anemia, normocytic. 7. Macrocytosis. 8. History of cancer of the colon with metastasis on chemotherapy. 9. PICC line on the left arm. 10.Increased creatinine with acute renal failure with acute tubular necrosis present on admission. 11.Diabetes mellitus type 2, uncontrolled with hypo and hyperglycemia. 12.Hyperlipidemia. 13.Hypertension. 14.History of degenerative joint disease. 15.History of pneumonia. 16.History of hiatal hernia. 17.History of appendectomy. 18.History of bowel resection. 19.History of anxiety. 20.History of nicotine dependence. 21.FULL CODE. RECOMMENDATIONS AND DISCUSSION: I recommend to continue current medications, management and symptomatic treatment. Continue with IV antibiotics. The lesions appeared to be slightly healing at this time. Monitor blood sugars closely. Closely follow with multiple consultants and vascular surgery is planning definitive surgery later. We will continue to monitor. Antibiotics to be determined by Infectious Disease on discharge. Possible discharge home in the next 24-48 hours if cleared by multiple consultants. Prognosis guarded. Further recommendations to follow. MMODL / IJN: [id number] /
[2020-08-31] MEDS: lisinopriL 20 MG TAB PO SCH (20:00)
[2020-08-31] MEDS: GABAPENTIN 300 MG CAP PO SCH (20:00)
[2020-08-31] MEDS: ATORVASTATIN 80 MG TAB PO SCH (20:00)
[2020-08-31 20:13] LABS: Glucose,Whole Blood 146 mg/dL (75-99)
[2020-08-31] MEDS: INSULIN DETEMIR (LEVEMIR) 100 UNIT/ML SYR SQ SCH (20:21)
--- NOTE | 2020-08-31 22:43 | PN ---
PROGRESS NOTE DATE OF SERVICE: 08/31/2020 REASON FOR FOLLOWUP: Right big toe diabetic foot infection and cellulitis. INTERVAL HISTORY: Patient is afebrile. The patient is breathing comfortably. The patient denies having any chest pain or shortness of breath or cough. No abdominal pain or any worsening pain to the right big toe. PHYSICAL EXAMINATION: Blood pressure 186/81 with a pulse of 67, temperature 98.6. He is 98% on room air. General description: The patient is an elderly male lying in in no distress. Respiratory system: Unlabored breathing, clear to auscultation anteriorly. Heart S1, S2. Regular rate and rhythm. Abdomen soft, no tenderness. Right big toe is currently with necrotic wound. Redness has slightly decreased. LABS: No new labs have been obtained today. DIAGNOSTIC IMPRESSION AND PLAN: Patient with right big toe diabetic foot infection in this patient local culture positive for Pseudomonas. Patient is covered with Zosyn. Bone scan was negative for osteomyelitis. Clinically, improved, discharge antibiotic will be oral cipro x 2 weeks. MMODL / IJN: [id number] / [id number]
[2020-09-01] MEDS: ALPRAZolam 0.25 MG TAB PO PRN (02:17)
[2020-09-01] MEDS: HYDROcodone/APAP 5-325MG 1 EACH TAB PO PRN (02:17)
[2020-09-01 03:28] VITALS: TEMP 97.6
[2020-09-01] MEDS: SODIUM CHLORIDE 0.9% 1,000 ML IV SCH (04:35)
[2020-09-01 06:33] LABS: Glucose,Whole Blood 113 mg/dL (75-99)
[2020-09-01] MEDS: INSULIN ASPART (NovoLOG) 100 UNIT/ML VIAL SQ SCH ×2 (06:47→12:01)
[2020-09-01] MEDS: PANTOPRAZOLE 40 MG TABLET PO SCH (06:47)
[2020-09-01 08:38] VITALS: BP 167/81; PULSE 72; RESP 20
[2020-09-01] MEDS: PIPERACILLIN-TAZOBACTAM 3.375 GM in SODIUM CHLORIDE 0.9% 100 ML IVPB SCH (08:40)
[2020-09-01] MEDS: HEPARIN SODIUM,PORCINE/PF 5,000 UNIT/0.5 ML SYRINGE SQ SCH (08:41)
[2020-09-01] MEDS: MAGNESIUM OXIDE 400 MG TAB PO SCH (08:41)
[2020-09-01] MEDS: METOPROLOL TARTRATE 50 MG TAB PO SCH (08:41)
[2020-09-01 11:57] LABS: Glucose,Whole Blood 141 mg/dL (75-99)
--- NOTE | 2020-09-01 13:43 | PN ---
PROGRESS NOTE DATE OF SERVICE: 09/01/2020 REASON FOR FOLLOWUP: Right big toe wound and cellulitis. INTERVAL HISTORY: The patient is afebrile. The patient is breathing comfortably. Patient denies having any chest pain. No shortness of breath or cough. No abdominal pain or any worsening pain to the right big toe. PHYSICAL EXAMINATION: VITAL SIGNS: Blood pressure 167/81 with a pulse of 72, temperature 97.6. He is 95% on room air. GENERAL DESCRIPTION: An elderly male lying in bed in no distress. RESPIRATORY SYSTEM: Unlabored breathing, clear to auscultation anteriorly. HEART: S1, S2. Regular rate and rhythm. ABDOMEN: Soft, no tenderness. EXTREMITIES: Right big toe did have necrotic wound with some surrounding redness. No drainage. LABS: No new labs have been obtained today. Blood culture has been negative. DIAGNOSTIC IMPRESSION AND PLAN: Patient right big toe wound with secondary cellulitis. Bone scan was negative for any osteomyelitis. He is on Zosyn. Finish therapy with oral Cipro 750 mg twice a day for 2 weeks and close outpatient followup. MMODL / IJN: [id number] /
--- NOTE | 2020-09-02 06:03 | DS ---
DISCHARGE SUMMARY DATE OF SERVICE: 09/01/2020 FINAL DIAGNOSIS: 1. Right foot ulcer with an erythematous lesion possibly diabetic ulcer with possible osteomyelitis and surrounding cellulitis. 2. Pseudomonas aeruginosa from the cultures. 3. Severe peripheral neuropathy. 4. History of peripheral arterial disease status post angiogram. 5. Increased WBC. 6. Anemia, normocytic. 7. Macrocytosis. 8. History of cancer of the colon with metastasis, on chemotherapy. 9. PICC line on the left arm. 10.Increased creatinine with acute renal failure with acute tubular necrosis present on admission. 11.Diabetes mellitus type 2, uncontrolled with hyperglycemia and hypoglycemia. 12.Hyperlipidemia. 13.Hypertension. 14.History of degenerative joint disease. 15.History of pneumonia. 16.History of hiatal hernia. 17.History of appendectomy. 18.History of bowel resection. 19.History of anxiety. 20.History of nicotine dependence. 21.FULL CODE. DISCHARGE DISPOSITION: The patient will be discharged in stable condition with guarded prognosis. HISTORY OF PRESENT ILLNESS: This 79-year-old gentleman with a past medical history of multiple medical problems as mentioned earlier, being followed by [facility], Dr. Howe in the outpatient setting was admitted with significant ulceration of the right foot. The patient is seen by Dr. Lazo and the patient has peripheral vascular disease. Dr. Lazo is planning outpatient procedure at this time. The patient also had Pseudomonas infection grown from the culture. Patient was given IV antibiotics and Dr. Tucker has recommended to finish the antibiotic treatment, Cipro 500 mg p.o. b.i.d. for 2 weeks. PHYSICAL EXAMINATION: On exam vitals stable. Cardiovascular S1 and S2. Abdomen soft. Nervous system: No focal deficits. Blood sugars are monitored. DISCHARGE INSTRUCTIONS: Diet is cardiac. Activity is limited until followup. Follow up with Dr. Howe in [place] [facility] in 1-2 days. Follow up with Dr. aLzo as advised. Follow with Dr. Tucker as advised. MEDICATIONS: 1. Jardiance 10 mg p.o. daily. 2. Lantus 20 units subcu q.h.s. 3. Lipitor 80 mg q.h.s. 4. Lopressor 100 mg p.o. b.i.d. 5. Magnesium oxide 250 mg p.o. b.i.d. 6. Megace 800 mg p.o. daily. 7. Neurontin 300 mg q.h.s. 8. NovoLog FlexPen as p.r.n. 9. Omeprazole 40 mg p.o. daily. 10.Tylenol 500 mg p.r.n. 11.Lisinopril 20/12.5 mg p.o. daily. Once again the patient is discharged in stable condition with guarded prognosis. The patient is cleared for surgery medically for revascularization per Dr. Lazo. MMLELEL / KUMARN: [id number] /
== END 2020-09-01 15:20 | disposition home or self-care (01) | DRG 638 ==
LOC: EC 09:35 → 5NMEDONC 11:29 → 4SSUR 13:06 → 3SCARD 08-30 10:07
PROVIDERS: ADMIT Internal Medicine; ATTEND Internal Medicine
PROC: B4101ZZ Fluoroscopy of Abdominal Aorta using Low Osmolar Contrast (ICD-10-PCS; principal; 2020-08-30 07:30)
PROC: B41F1ZZ Fluoroscopy of Right Lower Extremity Arteries using Low Osmolar Contrast (ICD-10-PCS; principal; 2020-08-30 07:30)
DX: E11.69 Type 2 diabetes mellitus with other specified complication (principal); M86.9 Osteomyelitis, unspecified; C18.0 Malignant neoplasm of cecum; C78.7 Secondary malignant neoplasm of liver and intrahepatic bile duct; C78.00 Secondary malignant neoplasm of unspecified lung; E11.52 Type 2 diabetes mellitus with diabetic peripheral angiopathy with gangrene; L03.115 Cellulitis of right lower limb; L97.419 Non-pressure chronic ulcer of right heel and midfoot with unspecified severity; N17.0 Acute kidney failure with tubular necrosis; E11.65 Type 2 diabetes mellitus with hyperglycemia; B96.5 Pseudomonas (aeruginosa) (mallei) (pseudomallei) as the cause of diseases classified elsewhere; Z79.4 Long term (current) use of insulin; D64.9 Anemia, unspecified; D75.89 Other specified diseases of blood and blood-forming organs; E11.621 Type 2 diabetes mellitus with foot ulcer; E11.628 Type 2 diabetes mellitus with other skin complications; E11.649 Type 2 diabetes mellitus with hypoglycemia without coma; E78.5 Hyperlipidemia, unspecified; E11.42 Type 2 diabetes mellitus with diabetic polyneuropathy; I10 Essential (primary) hypertension; Z20.822 Contact with and (suspected) exposure to COVID-19; L97.519 Non-pressure chronic ulcer of other part of right foot with unspecified severity; Z79.899 Other long term (current) drug therapy; Z80.9 Family history of malignant neoplasm, unspecified; Z87.891 Personal history of nicotine dependence; Z87.01 Personal history of pneumonia (recurrent); Z90.49 Acquired absence of other specified parts of digestive tract; Z93.3 Colostomy status; Z96.651 Presence of right artificial knee joint
CPT/HCPCS: 36246; 36415; 75625; 75716; 76937; 78315; 80048; 80053; 81003; 83605; 85025; 85652; 86140; 87040; 87070; 87077; 87186; 87205; 87635; 93923; 96365; 99285

== ENCOUNTER 2020-09-09 10:26 | Inpatient (IN) | payer MEDICARE, OTHER ==
[~2020-09-09 10:26] MED LIST changes: -ACETAMINOPHEN TAB 500 MG TAB PO STA; -ALPRAZolam 0.25 MG TAB PO STA; +DEXAMETHASONE SOD PHOSPHATE 4 MG/ML 1 ML VIAL IV ONE; -HYDROcodone/APAP 5-325MG 1 EACH TAB PO PRN; +HYDROmorphone 0.5 MG/0.5 ML SYRINGE IVP PRN; +MIDAZOLAM 2 MG/2 ML VIAL IV PRN; +ONDANSETRON 4 MG/2 ML VIAL IVP ONE; -SODIUM CHLORIDE 0.9% 500 ML 500 ML IV ONE
[2020-09-09 11:13] LABS: Glucose,Whole Blood 181 mg/dL (75-99)
[2020-09-09] MEDS: LACTATED RINGERS 1,000 ML IV SCH (11:20)
[2020-09-09 11:53] LABS: Anisocytosis Slight; HCT 36.2 % (39.0-53.0); HGB 11.9 gm/dL (13.0-17.5); MCH 30.1 pg (25.0-35.0); MCHC 32.8 g/dL (31.0-37.0); MCV 91.8 fL (80.0-100.0); Mean Platelet Volume 7.4; RBC 3.95 m/uL (4.30-5.90); RDW 17.4 % (11.5-15.5); WBC 12.1 k/uL (3.8-10.6)
[2020-09-09 11:56] LABS: Platelet Count 389 k/uL (150-450)
[2020-09-09 12:04] LABS: INR 0.9 (<1.2); Prothrombin Time 10.2 sec (9.0-12.0)
[2020-09-09] MEDS ORDERED: fentaNYL (PF) 50 MCG/ML 2 ML AMP IVP ONE (12:05)
[2020-09-09 12:09] LABS: Partial Thromboplastin Time 21.7 sec (22.0-30.0)
--- NOTE | 2020-09-09 12:58 | P.ANPRN ---
Procedure Note - Anesthesia - Invasive Line Right Arterial Line Time Out Performed: Yes Date of Procedure: 09/09/20 Time of Procedure: 12:06 Location of Patient: PreOp Preparation: Sterile Prep, Sterile Dressing Arterial Line Location: Radial Ultrasound Used: Yes Purpose - Visualization and Identification of Vasculature: Yes Needle Guage: 20g Image Stored and Saved: Yes Narrative: Central line placement per sterile protocol utilized. one attempt
[2020-09-09] MEDS ORDERED: fentaNYL (PF) 50 MCG/ML 2 ML AMP ONE (13:15)
[2020-09-09] MEDS ORDERED: LIDOCAINE 1% INJ 10MG/ML (20 ML MDV) ONE (13:15)
[2020-09-09] MEDS ORDERED: HEPARIN SODIUM,PORCINE 10,000 UNIT/ML 1 ML VIAL ONE (13:15)
[2020-09-09] MEDS ORDERED: ePHEDrine SULFATE/0.9% NACL/PF 50 MG/5 ML SYRINGE IV ONE (13:15)
[2020-09-09] MEDS ORDERED: GLYCOPYRROLATE 0.2 MG/ML 2 ML VIAL ONE (13:15)
[2020-09-09] MEDS ORDERED: ROCURONIUM 10 MG/ML (5 ML VIAL) IV ONE (13:15)
[2020-09-09] MEDS ORDERED: NEOSTIGMINE 1 MG/ML 10 ML VIAL ONE (13:15)
[2020-09-09] MEDS ORDERED: PROPOFOL 10 MG/ML 20 ML VIAL IV ONE (13:15)
[2020-09-09] MEDS ORDERED: SUCCINYLCHOLINE CHLORIDE 100 MG/5 ML SYR IV ONE (13:15)
[2020-09-09] MEDS ORDERED: HYDROmorphone (PF) 1 MG/ML ONE (13:15)
[2020-09-09] MEDS ORDERED: LABETALOL 5 MG/ML VIAL MDV ONE (13:15)
[2020-09-09] MEDS ORDERED: LACTATED RINGERS 1,000 ML IV ONE ×2 (15:29→15:30)
--- NOTE | 2020-09-09 17:32 | P.OP ---
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 Procedure(s) Performed: Same Implants: None. Anesthesia: CARMEN Surgeon: Mark Pete Freelance Graphic Designer #1: Stephani Craig Estimated Blood Loss (ml): 100 Pathology: none sent Condition: stable Disposition: PACU Indications for Procedure: Patient is a 79-year-old male with long-standing history of diabetes mellitus who presented with ischemic changes of the right great toe. Physical examination revealed a femoral pulse to be intact on the right lower popliteal and pedal pulses are absent. He did undergo catheter angiography which demonstrated occlusion of the superficial femoral artery and popliteal arteries with occlusion of the posterior tibial artery. Collaterals did fill the peroneal and anterior tibial artery. Patient is not thought to be an endovascular candidate and thus is offered surgical bypass. Description of Procedure: Patient was brought the upper and placed in supine position Mr. general endotracheal anesthesia delivered by the department anesthesiology. Craig catheter is placed to gravity drainage. Patient received intravenously administered prophylactic antibiotics in the perioperative phase. The right lower extremity was sterilely prepped and draped in usual manner. Skin incision was made overlying the femoral artery and carried down through the subcu change tissues. Hemostasis was achieved using electrocautery. Lymphatic layer was divided laterally swept medially exposing the femoral sheath. This was incised. The origins of the profundus femoris superficial femoral and common femoral arteries were encircled Vesseloops. Significant atherosclerotic change in the common femoral artery was identified as well as in the portion of external iliac artery amenable to evaluation. Skin incision was then made in the proximal MEDIALLY and carried down through subcu change tissues. Care was taken to avoid damage to the great saphenous vein. Incision was deepened and hemostasis was achieved using electrocautery. Fascial was incised. Gastrocnemius and soleus muscles were mobilized exposing the peroneal artery. The artery was dissected free of investing tissues. Crossing veins were ligated and divided where necessary. The artery was mobilized and encircled Vesseloops both proximally and distally. The great saphenous vein and this area was identified and side branches were ligated with silk suture and divided. The vein was marked to avoid any potential twisting of the vein during for further surgery The patient was systemically heparinized and ACT is were drawn and additional doses of heparin were administered based on ACT values throughout the case. The great saphenous vein proximally was identified dissected free of investing tissues. Side branches were ligated with silk suture and divided. The vein was clamped and divided. The vein anatomy in the femoral vein was closed with 6-0 Prolene suture placed in running locked fashion. The vein easily reached the common femoral artery. Common femoral artery was clamped with a vascular clamp and vessel loops surrounding the profundus femoris and superficial femoral edyta mercy were drawn closed. Arteriotomy was made and extended with Pott Weller scissors. The vein was spatulated to match arteriotomy and side anastomosis was created with 6-0 Prolene suture placed in running fashion. Just prior to completion of the anastomotic line the profundus femoris was backbled and the artery flushed and no thrombus was retrieved. The anastomotic line was completed. Flow was restored through the common into the profundus and eventually into the great saphenous vein to the first patent valve. The distal end of the exposed, and clipped. The vein was mobilized proximally and easily reach the peroneal artery. A LeMaitre evaluate tome was passed and all valves were lysed with resulting excellent pulsatile flow distally. Vein was flushed with heparinized saline solution and occluded. Vesseloops surrounding the peroneal artery drawn closed and longitudinal arteriotomy and the peroneal artery was performed. Backbleeding was identified through the peroneal artery. The artery accepted easily a 1 mm dilator. End-to-side anastomosis between the vein graft and the artery was completed with 6-0 Prolene suture. Just prior to completion anastomotic line the vein graft was flushed and no thrombus was retrieved. The anastomotic line was completed and flow was restored through the artery into the peroneal artery. Excellent pulse in the [place] artery and graft was identified. Hand-held continuous wave Doppler demonstrated at least a bifid not triphasic Doppler signal. Ultrasound was then utilized to interrogate length of the great saphenous vein and side branches were were identified and 3 separate positions. Counterincisions were made at these locations and side branches were clipped. All wounds were inspected for hemostasis. This was judged be adequate. Deep tissues were closed in multiple layers in the groin with Vicryl suture. The distal wound was closed with Vicryl suture for the deep tissues. All wounds were closed with 4 Monocryl placed in and a running intradermal fashion. The great toe/foot was inspected and the foot was noticeably pinker at the completion of the case then prior to the surgical bypass procedure. With the above findings noted the patient was awakened and transferred to the recovery room in satisfactory and stable condition.
[2020-09-09] MEDS ORDERED: MAG HYDROX/AL HYDROX/SIMETH 30 ML CUP PO PRN (17:38)
[2020-09-09] MEDS ORDERED: ONDANSETRON 4 MG/2 ML VIAL IVP PRN (17:38)
[2020-09-09 17:55] LABS: Glucose,Whole Blood 210 mg/dL (75-99)
[2020-09-09] MEDS ORDERED: INSULIN ASPART (NovoLOG) 100 UNIT/ML VIAL SQ ONE (17:57)
[2020-09-09] MEDS: SODIUM CHLORIDE 0.9% 1,000 ML IV SCH (18:26)
[2020-09-09 20:53] LABS: Glucose,Whole Blood 176 mg/dL (75-99)
[2020-09-09] MEDS: HYDROcodone/APAP 5-325MG 1 EACH TAB PO PRN (21:49)
[2020-09-09] MEDS: MORPHINE SULFATE 2 MG/ML SYRINGE IVP PRN (23:08)
[2020-09-10 06:40] LABS: Glucose,Whole Blood 166 mg/dL (75-99)
[2020-09-10] MEDS: INSULIN ASPART (NovoLOG) 100 UNIT/ML VIAL SQ SCH ×7 (07:12→21:03)
[2020-09-10] MEDS: DOCUSATE 100 MG CAP PO SCH (08:23)
[2020-09-10] MEDS: HYDROcodone/APAP 5-325MG 1 EACH TAB PO PRN ×2 (08:48→17:45)
[2020-09-10 12:08] LABS: Glucose,Whole Blood 259 mg/dL (75-99)
[2020-09-10] MEDS ORDERED: ACETAMINOPHEN TAB 500 MG TAB PO PRN (12:20)
--- NOTE | 2020-09-10 13:34 | P.CONS ---
History of Present Illness - Reason for Consult Hypertension - History of Present Illness 70-year-old pleasant male is admitted for peripheral vascular disease and ischemic changes in the right great toe and patient had a right femoropopliteal bypass surgery. Patient denied any fever chills nausea vomiting abdominal pain dysuria. His blood sugars are bit elevated at do not have any other labs available at this time. Patient has leukocytosis without any signs or symptoms of fever or sepsis Review of Systems REVIEW OF SYSTEMS: CONSTITUTIONAL: No fever, no malaise, no fatigue. HEENT: No recent visual problems or hearing problems. Denied any sore throat. CARDIOVASCULAR: No chest pain, orthopnea, PND, no palpitations, no syncope. PULMONARY: No shortness of breath, no cough, no hemoptysis. GASTROINTESTINAL: No diarrhea, no nausea, no vomiting, no abdominal pain. NEUROLOGICAL: No headaches, no weakness, no numbness. HEMATOLOGICAL: Denies any bleeding or petechiae. GENITOURINARY: Denies any burning micturition, frequency, or urgency. MUSCULOSKELETAL/RHEUMATOLOGICAL: Denies any joint pain, swelling, or any muscle pain. ENDOCRINE: Denies any polyuria or polydipsia. The rest of the 14-point review of systems is negative. Past Medical History Past Medical History: Cancer, Diabetes Mellitus, Hyperlipidemia, Hypertension, Osteoarthritis (OA), Pneumonia, Vascular Disorder Additional Past Medical History / Comment(s): hiatal hernia, poor circulation in legs, Colon Cancer with mets to lungs and liver receiving chemo STARTED 3 SESSIONS OF CHEMO, PICC LINE History of Any Multi-Drug Resistant Organisms: None Reported Past Surgical History: Appendectomy, Bowel Resection, Joint Replacement, Tonsillectomy Additional Past Surgical History / Comment(s): Right knee replacement, pilonidal cyst, Left leg surgery for blockage, elisa laser eye surgery, bowel resection with colostomy. LIVER BIOPSY ANXIETY-2019 Past Anesthesia/Blood Transfusion Reactions: No Reported Reaction Smoking Status: Former smoker - Past Family History Father Family Medical History: Cancer Additional Family Medical History / Comment(s): PROSTATE CANCER Medications and Allergies Home Medications Medication Instructions Recorded Confirmed Type Atorvastatin [Lipitor] 80 mg PO HS 05/18/20 09/09/20 History Insulin Glargine [Lantus] 28 unit SQ HS 05/18/20 09/09/20 History Magnesium Oxide [Mag-Ox] 250 mg PO BID@0800,1600 05/18/20 09/09/20 History Metoprolol Tartrate [Lopressor] 100 mg PO BID@0800,1600 05/18/20 09/09/20 History Empagliflozin [Jardiance] 10 mg PO DAILY 05/20/20 09/09/20 History Acetaminophen [Tylenol] 500 mg PO Q4-6H PRN 07/08/20 09/09/20 History Gabapentin [Neurontin] 300 mg PO HS 08/27/20 09/09/20 History Insulin Aspart [NovoLOG Flexpen] See Protocol SQ BID@0800,1600 08/27/20 09/09/20 History Lisinopril-Hctz 20-12.5 mg 1 tab PO DAILY 08/27/20 09/09/20 History [Zestoretic 20-12.5] Omeprazole 40 mg PO DAILY 08/27/20 09/09/20 History Allergies Allergy/AdvReac Type Severity Reaction Status Date / Time No Known Allergies Allergy Verified 09/09/20 10:47 Physical Exam Vitals: Vital Signs Temp Pulse Resp BP Pulse Ox 09/10/20 12:00 99.1 F 102 H 16 125/55 95 09/10/20 08:45 97.9 F 79 16 124/58 95 09/10/20 06:19 97.9 F 84 18 123/64 98 09/10/20 02:00 87 18 09/10/20 00:00 97.3 F L 87 18 145/72 97 09/09/20 21:05 65 18 09/09/20 20:00 58 L 16 09/09/20 18:49 58 L 148/69 97 09/09/20 18:16 58 L 16 108/52 97 09/09/20 18:00 67 16 110/54 95 09/09/20 17:45 67 16 119/56 99 09/09/20 17:33 98.1 F 79 12 126/63 96 Intake and Output 09/09/20 09/10/20 09/10/20 22:59 06:59 14:59 Intake Total 1860 118 Output Total 400 2200 Balance 1460 -2200 118 Intake: IV 1860 Oral 118 Output: Urine 400 2200 Uretheral (Craig) 1100 Other: Voiding Method Indwelling Catheter Indwelling Catheter Indwelling Catheter Weight 96 kg PHYSICAL EXAMINATION: GENERAL: The patient is alert and oriented x3, not in any acute distress. Well developed, well nourished. HEENT: Pupils are round and equally reacting to light. EOMI. No scleral icterus. No conjunctival pallor. Normocephalic, atraumatic. No pharyngeal erythema. No thyromegaly. CARDIOVASCULAR: S1 and S2 present. No murmurs, rubs, or gallops. PULMONARY: Chest is clear to auscultation, no wheezing or crackles. ABDOMEN: Soft, nontender, nondistended, normoactive bowel sounds. No palpable organomegaly. MUSCULOSKELETAL: No joint swelling or deformity. EXTREMITIES: No cyanosis, clubbing, or pedal edema. has surgical packing after femoropopliteal bypass in the right side NEUROLOGICAL: Gross neurological examination did not reveal any focal deficits. SKIN: No rashes. Results CBC & Chem 7: 09/09/20 11:10 Labs: Abnormal Lab Results - Last 24 Hours (Table) 09/09/20 09/09/20 09/10/20 Range/Units 17:53 20:51 06:29 POC Glucose (mg/dL) 210 H 176 H 166 H (75-99) mg/dL 09/10/20 Range/Units 12:06 POC Glucose (mg/dL) 259 H (75-99) mg/dL Assessment and Plan Plan: Leukocytosis: Secondary to surgery no evidence of sepsis at this time will monitor the patient -Type 2 diabetes mellitus and patient will be started on Lantus, Jardiance and NovoLog sliding scale. We'll monitor the blood sugars titration depending on the blood sugars -Hypertension hold off on antiplatelet medications to avoid any perioperative hypotension, continue with metoprolol -Diabetic peripheral neuropathy continue gabapentin -Hyperlipidemia continue with Lipitor -Gastroesophageal reflux disease continue omeprazole -Peripheral vascular disease: Patient to his and antiplatelet therapy and patient has a femoropopliteal bypass -DVT prophylaxis as per primary service
[2020-09-10] MEDS: METOPROLOL TARTRATE 50 MG TAB PO SCH (15:59)
[2020-09-10] MEDS: MAGNESIUM OXIDE 400 MG TAB PO SCH (15:59)
[2020-09-10] MEDS: PANTOPRAZOLE 40 MG TABLET PO SCH (15:59)
[2020-09-10] MEDS: SODIUM CHLORIDE 0.9% 1,000 ML IV SCH (16:00)
[2020-09-10] MEDS: LACTATED RINGERS 1,000 ML IV SCH (16:01)
[2020-09-10 17:10] LABS: Glucose,Whole Blood 260 mg/dL (75-99)
[2020-09-10 20:23] LABS: Glucose,Whole Blood 245 mg/dL (75-99)
[2020-09-10] MEDS: INSULIN DETEMIR (LEVEMIR) 100 UNIT/ML SYR SQ SCH (21:03)
[2020-09-10] MEDS: ATORVASTATIN 80 MG TAB PO SCH (21:04)
[2020-09-10] MEDS: GABAPENTIN 300 MG CAP PO SCH (21:04)
[2020-09-10] MEDS: MORPHINE SULFATE 2 MG/ML SYRINGE IVP PRN (23:21)
[2020-09-11 06:38] LABS: Glucose,Whole Blood 171 mg/dL (75-99)
[2020-09-11] MEDS: INSULIN ASPART (NovoLOG) 100 UNIT/ML VIAL SQ SCH ×4 (06:49→21:21)
[2020-09-11 08:54] LABS: Anisocytosis Slight; HCT 31.8 % (39.0-53.0); HGB 10.7 gm/dL (13.0-17.5); MCH 31.7 pg (25.0-35.0); MCHC 33.7 g/dL (31.0-37.0); MCV 93.9 fL (80.0-100.0); Mean Platelet Volume 7.1; Platelet Count 380 k/uL (150-450); RBC 3.39 m/uL (4.30-5.90); RDW 17.2 % (11.5-15.5); WBC 14.7 k/uL (3.8-10.6)
[2020-09-11 09:02] LABS: African American GFR (CKD) >90 (>60 ml/min/1.73 sqM); Anion Gap 10 mmol/L; Blood Urea Nitrogen 16 mg/dL (9-20); Carbon Dioxide 26 mmol/L (22-30); Chloride 104 mmol/L (98-107); Glucose 125 mg/dL (74-99); Non-African American GFR(CKD) 82 (>60 ml/min/1.73 sqM); Potassium 4.8 mmol/L (3.5-5.1); Sodium 140 mmol/L (137-145)
[2020-09-11] MEDS: MAGNESIUM OXIDE 400 MG TAB PO SCH ×2 (09:43→17:32)
[2020-09-11] MEDS: HYDROcodone/APAP 5-325MG 1 EACH TAB PO PRN ×3 (09:43→21:20)
[2020-09-11] MEDS: PANTOPRAZOLE 40 MG TABLET PO SCH (09:43)
[2020-09-11] MEDS: DOCUSATE 100 MG CAP PO SCH (09:43)
[2020-09-11] MEDS: METOPROLOL TARTRATE 50 MG TAB PO SCH ×2 (09:43→17:32)
[2020-09-11] MEDS: NON FORMULARY DRUG (Empagliflozin [Jardiance] 10 MG Tablet) PO SCH ×2 (09:44→12:59)
[2020-09-11] MEDS: SODIUM CHLORIDE 0.9% 1,000 ML IV SCH (09:45)
--- NOTE | 2020-09-11 11:22 | P.PN ---
Subjective 70-year-old pleasant male is admitted for peripheral vascular disease and ischemic changes in the right great toe and patient had a right femoropopliteal bypass surgery. Patient denied any fever chills nausea vomiting abdominal pain dysuria. His blood sugars are bit elevated at do not have any other labs available at this time. Patient has leukocytosis without any signs or symptoms of fever or sepsis. 09/11/2020 Patient is still complaining of pain in the surgical site area blood pressure is bit elevated will start IV fluids patient will be started back on his lisinopril and hydrochlorothiazide blood pressure pills Constitutional: Denied any fatigue denied any fever. Cardio vascular: denied any chest pain, palpitations Gastrointestinal denied any nausea vomiting Pulmonary: Denied any shortness of breath cough Neurologic denied any new focal deficits All inpatient medications were reviewed and appropriate changes in these medicat ions as dictated in the interval history and assessment and plan. Objective - Vital Signs Vital signs: Vital Signs Temp 98.2 F 09/11/20 08:11 Pulse 100 09/11/20 09:40 Resp 18 09/11/20 09:40 BP 161/70 09/11/20 08:11 Pulse Ox 94 L 09/11/20 08:11 Intake & Output 09/10/20 09/11/20 09/11/20 18:59 06:59 18:59 Intake Total 1078 220 Output Total 375 1450 Balance 703 -1230 Weight 96 kg 93 kg Intake: Oral 1078 220 Output: Urine 375 1450 Other: Voiding Method Indwelling Catheter Urinal Urinal # Voids 1 - Exam PHYSICAL EXAMINATION: GENERAL: The patient is alert and oriented x3, not in any acute distress. Well developed, well nourished. HEENT: Pupils are round and equally reacting to light. EOMI. No scleral icterus. No conjunctival pallor. Normocephalic, atraumatic. No pharyngeal erythema. No thyromegaly. CARDIOVASCULAR: S1 and S2 present. No murmurs, rubs, or gallops. PULMONARY: Chest is clear to auscultation, no wheezing or crackles. ABDOMEN: Soft, nontender, nondistended, normoactive bowel sounds. No palpable o rganomegaly. MUSCULOSKELETAL: No joint swelling or deformity. EXTREMITIES: No cyanosis, clubbing, or pedal edema. has surgical packing after femoropopliteal bypass in the right side NEUROLOGICAL: Gross neurological examination did not reveal any focal deficits. SKIN: No rashes. - Labs CBC & Chem 7: 09/11/20 07:50 09/11/20 07:50 Labs: Abnormal Lab Results - Last 24 Hours (Table) 09/10/20 09/10/20 09/10/20 Range/Units 12:06 17:07 20:13 WBC (3.8-10.6) k/uL RBC (4.30-5.90) m/uL Hgb (13.0-17.5) gm/dL Hct (39.0-53.0) % RDW (11.5-15.5) % Glucose (74-99) mg/dL POC Glucose (mg/dL) 259 H 260 H 245 H (75-99) mg/dL 09/11/20 09/11/20 09/11/20 Range/Units 06:20 07:50 07:50 WBC 14.7 H (3.8-10.6) k/uL RBC 3.39 L (4.30-5.90) m/uL Hgb 10.7 L (13.0-17.5) gm/dL Hct 31.8 L (39.0-53.0) % RDW 17.2 H (11.5-15.5) % Glucose 125 H (74-99) mg/dL POC Glucose (mg/dL) 171 H (75-99) mg/dL Assessment and Plan Plan: Leukocytosis: Secondary to surgery no evidence of sepsis at this time will monitor the patient -Type 2 diabetes mellitus and patient will be started on Lantus, Jardiance and NovoLog sliding scale. Patient blood sugars are bit elevated but expected to get better continue the same regimen -Hypertension resumed on his home medications blood pressure is bit elevated discontinue IV fluids -Diabetic peripheral neuropathy continue gabapentin -Hyperlipidemia continue with Lipitor -Gastroesophageal reflux disease continue omeprazole -Peripheral vascular disease: Patient to his and antiplatelet therapy and patient has a femoropopliteal bypass -DVT prophylaxis as per primary service
[2020-09-11 12:02] LABS: Glucose,Whole Blood 161 mg/dL (75-99)
[2020-09-11] MEDS: LACTATED RINGERS 1,000 ML IV SCH (12:59)
[2020-09-11] MEDS: LISINOPRIL-HCTZ 20-12.5 MG 1 EACH TAB PO SCH (13:08)
--- NOTE | 2020-09-11 14:40 | P.PN ---
Subjective Progress Note Date: 09/11/20 Patient seen and examined. Overall feeling okay. Some changes in pain of his right lower extremity with more swelling and stiffness than prior to surgery. Refused Craig catheter for urinary retention Objective - Vital Signs Vital signs: Vital Signs Temp 98.2 F 09/11/20 08:11 Pulse 100 09/11/20 09:40 Resp 18 09/11/20 12:56 BP 161/70 09/11/20 08:11 Pulse Ox 94 L 09/11/20 08:11 Intake & Output 09/10/20 09/11/20 09/11/20 18:59 06:59 18:59 Intake Total 1078 220 720 Output Total 375 1450 600 Balance 703 -1230 120 Weight 96 kg 93 kg Intake: Oral 1078 220 720 Output: Urine 375 1450 600 Other: Voiding Method Indwelling Catheter Urinal Urinal # Voids 1 - Exam Gen. is a pleasant cooperative male sitting in a chair. A changes normal cephalic atraumatic. Heart appears regular. Lungs clear bilaterally. Abdomen is soft. Right lower extremity warm and dry. Palpable pulse through graft. Dry gangrene, eschar to the right great toe. No erythema or drainage - Labs CBC & Chem 7: 09/11/20 07:50 09/11/20 07:50 Labs: Abnormal Lab Results - Last 24 Hours (Table) 09/10/20 09/10/20 09/11/20 Range/Units 17:07 20:13 06:20 WBC (3.8-10.6) k/uL RBC (4.30-5.90) m/uL Hgb (13.0-17.5) gm/dL Hct (39.0-53.0) % RDW (11.5-15.5) % Glucose (74-99) mg/dL POC Glucose (mg/dL) 260 H 245 H 171 H (75-99) mg/dL 09/11/20 09/11/20 09/11/20 Range/Units 07:50 07:50 12:01 WBC 14.7 H (3.8-10.6) k/uL RBC 3.39 L (4.30-5.90) m/uL Hgb 10.7 L (13.0-17.5) gm/dL Hct 31.8 L (39.0-53.0) % RDW 17.2 H (11.5-15.5) % Glucose 125 H (74-99) mg/dL POC Glucose (mg/dL) 161 H (75-99) mg/dL Assessment and Plan Assessment: Post operative right lower extremity femoral to tibial bypass with in situ vein Right femoral artery occlusion Right great toe wound Plan: Continue activity as tolerated. PT OT. Hopeful for discharge in next 24-48 hours pending PT recommendations.
[2020-09-11 17:15] LABS: Glucose,Whole Blood 238 mg/dL (75-99)
[2020-09-11 21:20] LABS: Glucose,Whole Blood 184 mg/dL (75-99)
[2020-09-11] MEDS: INSULIN DETEMIR (LEVEMIR) 100 UNIT/ML SYR SQ SCH (21:20)
[2020-09-11] MEDS: ATORVASTATIN 80 MG TAB PO SCH (21:20)
[2020-09-11] MEDS: GABAPENTIN 300 MG CAP PO SCH (21:20)
[2020-09-11] MEDS: MORPHINE SULFATE 2 MG/ML SYRINGE IVP PRN (22:35)
[2020-09-12 06:36] LABS: Glucose,Whole Blood 121 mg/dL (75-99)
[2020-09-12] MEDS: INSULIN ASPART (NovoLOG) 100 UNIT/ML VIAL SQ SCH ×4 (06:52→20:04)
[2020-09-12] MEDS: DOCUSATE 100 MG CAP PO SCH (07:45)
[2020-09-12] MEDS: PANTOPRAZOLE 40 MG TABLET PO SCH (07:45)
[2020-09-12] MEDS: METOPROLOL TARTRATE 50 MG TAB PO SCH ×2 (07:45→17:03)
[2020-09-12] MEDS: MAGNESIUM OXIDE 400 MG TAB PO SCH ×2 (07:45→17:03)
[2020-09-12] MEDS: HYDROcodone/APAP 5-325MG 1 EACH TAB PO PRN ×4 (07:45→20:58)
[2020-09-12] MEDS: LISINOPRIL-HCTZ 20-12.5 MG 1 EACH TAB PO SCH (07:46)
[2020-09-12] MEDS: ASPIRIN 81 MG PO SCH (07:46)
[2020-09-12] MEDS: CLOPIDOGREL 75 MG TAB PO SCH (07:46)
[2020-09-12] MEDS: NON FORMULARY DRUG (Empagliflozin [Jardiance] 10 MG Tablet) PO SCH (07:46)
[2020-09-12] MEDS: LACTATED RINGERS 1,000 ML IV SCH (09:33)
[2020-09-12] MEDS: SODIUM CHLORIDE 0.9% 1,000 ML IV SCH (09:33)
[2020-09-12 12:10] LABS: Glucose,Whole Blood 245 mg/dL (75-99)
--- NOTE | 2020-09-12 12:14 | P.DS ---
Providers Date of admission: 09/09/20 10:26 Expected date of discharge: 09/12/20 Attending physician: Mark Pete DO Consults: 09/09/20 17:38 Consult Physician Routine Consulting Provider: Rebecca Hull Consult Reason/Comments: post op fem tib bypass, medical management Do you want consulting provider notified?: Yes Primary care physician: [facility] Hospital Course: 79-year-old white male who was admitted for right lower extremity femoral to tibial bypass with in situ vein for right femoral artery occlusion and right great toe wound. He is postop day #3 for right lower extremity femoral to tibial bypass with in situ vein. He has been afebrile, had urinary retention but refused Craig catheter. He has a past medical history including diabetes mellitus, hyperlipidemia, hypertension tension, osteoarthritis, vascular disorder, and colon cancer with metastatic disease to the lungs and liver who has been on chemotherapy, which has been on hold for surgery. Physical therapy has been consulted for further recommendations for inpatient rehab versus home care. He is on aspirin, Plavix, and statin. He has had no acute changes during his hospital stay. Assessment: Patient has seen and examined lying in bed. He denies any acute changes through the night or fevers. He denies any pain to his lower extremity unless ambulating. He has a Prevena wound VAC which is intact to the right groin. Exam: General appearance: The patient is alert, oriented, in no acute distress. HET: Head is normocephalic and atraumatic. Pupils are equal and reactive. Oropharynx is clear without lesions. Neck: Supple without lymphadenopathy. Trachea midline. Heart: S1 S2. Regular rate and rhythm. Lungs: Clear to auscultation Abdomen: Soft, nontender, nondistended. Extremities: Right lower extremity warm and dry. Palpable pulse through graft. Dry gangrene and eschar to the right great toe. No erythema or drainage. Right groin with per been a VAC intact with good suction. Neurological: No focal deficits. Alert and oreintated x3. Assessment: 1. Postop day #3 right lower extremity femoral to tibial bypass with in situ vein 2. Right femoral artery occlusion 3. Right great toe wound 4. History of diabetes mellitus 5. History of colon cancer with metastatic disease to liver and lung Plan: 1. Physical therapy and consult awaiting recommendation for home care versus inpatient rehab. Believe patient would benefit from inpatient rehab. 2. Wound care consulted for right great toe wound, healing wound 3. Soft boot to right lower extremity for offloading heel 4. Consult oncology for recommendations if chemotherapy can continue to be held for inpatient rehab, as [facility] will not allow chemotherapy 5. Continue activity as tolerated 6. Continue aspirin, Plavix, and Lipitor The impression and plan of care has been dictated as directed. Dr. Craig I performed a history and examination of this patient, discussed the same with the dictator. I agree with the dictator's note ,documented as a scribe. Any additional findings or plans will be noted. Health Concerns: History of colon cancer with metastatic disease to liver and lungs Procedures: 09/09/2020 right lower extremity femoral to tibial bypass with in situ vein Plan - Discharge Summary Discharge Rx Participant: No New Discharge Prescriptions: New Aspirin 81 mg PO DAILY #90 chew Clopidogrel [Plavix] 75 mg PO DAILY #90 tab Continue Metoprolol Tartrate [Lopressor] 100 mg PO BID@0800,1600 Magnesium Oxide [Mag-Ox] 250 mg PO BID@0800,1600 Insulin Glargine [Lantus] 28 unit SQ HS Atorvastatin [Lipitor] 80 mg PO HS Empagliflozin [Jardiance] 10 mg PO DAILY Acetaminophen [Tylenol] 500 mg PO Q4-6H PRN PRN Reason: Moderate Pain Lisinopril-Hctz 20-12.5 mg [Zestoretic 20-12.5] 1 tab PO DAILY Omeprazole 40 mg PO DAILY Insulin Aspart [NovoLOG Flexpen] See Protocol SQ BID@0800,1600 Gabapentin [Neurontin] 300 mg PO HS Discharge Medication List Atorvastatin [Lipitor] 80 mg PO HS 05/18/20 [History] Insulin Glargine [Lantus] 28 unit SQ HS 05/18/20 [History] Magnesium Oxide [Mag-Ox] 250 mg PO BID@0800,1600 05/18/20 [History] Metoprolol Tartrate [Lopressor] 100 mg PO BID@0800,1600 05/18/20 [History] Empagliflozin [Jardiance] 10 mg PO DAILY 05/20/20 [History] Acetaminophen [Tylenol] 500 mg PO Q4-6H PRN 07/08/20 [History] Gabapentin [Neurontin] 300 mg PO HS 08/27/20 [History] Insulin Aspart [NovoLOG Flexpen] See Protocol SQ BID@0800,1600 08/27/20 [History] Lisinopril-Hctz 20-12.5 mg [Zestoretic 20-12.5] 1 tab PO DAILY 08/27/20 [History] Omeprazole 40 mg PO DAILY 08/27/20 [History] Aspirin 81 mg PO DAILY #90 chew 09/12/20 [Rx] Clopidogrel [Plavix] 75 mg PO DAILY #90 tab 09/12/20 [Rx] [facility] [NON-STAFF] - 1 Week [facility] [Primary Care Provider] - 1-2 Days Mark Pete DO [Doctor of Osteopathic Medicine] - 1 Week Activity/Diet/Wound Care/Special Instructions: Prevena dressing to right groin for 7 days post surgery then may be removed and discarded. Dressing changes to right great toe per recommendations of Wound Care: Apply Santyl to the ulceration, saline moistened gauze, dry gauze rolled gauze and secure with paper tape. Change daily. Discharge Disposition: TRANSFER TO SNF/ECF
--- NOTE | 2020-09-12 12:54 | P.CONS ---
History of Present Illness - Reason for Consult Consult date: 09/12/20 wound care - History of Present Illness This is a 79-year-old patient with a nonhealing ulceration to the right great toe dorsal lateral aspect. Patient underwent a fem-tib bypass for peripheral artery disease. He is a diabetic wound ulcer with a eschar Measuring approximately 2.5 x 3 x 0.2 cm. There is no granulation seen within the wound bed. No dressings are in place at this time. Patient's past medical history s ignificant for diabetes, peripheral artery disease status post fem-tib bypass, hyper lipidemia, hypertension, colon cancer with metastases to the lung and liver receiving chemo. Patient was a former smoker quit at age of 32. Smoking less than half a pack a day. Review Of Systems: Constitutional: No fever, no chills, no night sweats. No weight change. No weakness, fatigue or lethargy. No daytime sleepiness. Integumentary:reports wounds, no lesions. No rash or pruritus. No unusual bruising. No change in hair or nails. Physical exam: General Appearance: Alert, cooperative, no distress, appears stated age. Skin: See HPI all other Skin color, texture, tugor normal, no rashes or lesions. Neurologic: Alert oriented x3 Assessment: 1. Nonhealing ulceration with necrosis of the right great toe 2. Diabetic foot ulcer 3. Peripheral vascular disease Plan: 1. Apply Santyl to the ulceration, saline moistened gauze, dry gauze rolled gauze and secure with paper tape. Change daily. Patient would benefit from outpatient wound therapy for continued debridement. Patient verbalized und erstanding and is agreeable to come to the wound care center. We'll be happy to see him on outpatient basis. Thank you for the consultation any questions please contact the wound care center DNP note has been reviewed and discussed with Dr. Bah and the impression and plan of care has been directed as dictated. Past Medical History Past Medical History: Cancer, Diabetes Mellitus, Hyperlipidemia, Hypertension, Osteoarthritis (OA), Pneumonia, Vascular Disorder Additional Past Medical History / Comment(s): hiatal hernia, poor circulation in legs, Colon Cancer with mets to lungs and liver receiving chemo STARTED 3 SESSIONS OF CHEMO, PICC LINE History of Any Multi-Drug Resistant Organisms: None Reported Past Surgical History: Appendectomy, Bowel Resection, Joint Replacement, Tonsillectomy Additional Past Surgical History / Comment(s): Right knee replacement, pilonidal cyst, Left leg surgery for blockage, elisa laser eye surgery, bowel resection with colostomy. LIVER BIOPSY ANXIETY-2019 Past Anesthesia/Blood Transfusion Reactions: No Reported Reaction Smoking Status: Former smoker - Past Family History Father Family Medical History: Cancer Additional Family Medical History / Comment(s): PROSTATE CANCER Medications and Allergies Home Medications Medication Instructions Recorded Confirmed Type Atorvastatin [Lipitor] 80 mg PO HS 05/18/20 09/09/20 History Insulin Glargine [Lantus] 28 unit SQ HS 05/18/20 09/09/20 History Magnesium Oxide [Mag-Ox] 250 mg PO BID@0800,1600 05/18/20 09/09/20 History Metoprolol Tartrate [Lopressor] 100 mg PO BID@0800,1600 05/18/20 09/09/20 History Empagliflozin [Jardiance] 10 mg PO DAILY 05/20/20 09/09/20 History Acetaminophen [Tylenol] 500 mg PO Q4-6H PRN 07/08/20 09/09/20 History Gabapentin [Neurontin] 300 mg PO HS 08/27/20 09/09/20 History Insulin Aspart [NovoLOG Flexpen] See Protocol SQ BID@0800,1600 08/27/20 09/09/20 History Lisinopril-Hctz 20-12.5 mg 1 tab PO DAILY 08/27/20 09/09/20 History [Zestoretic 20-12.5] Omeprazole 40 mg PO DAILY 08/27/20 09/09/20 History Aspirin 81 mg PO DAILY #90 chew 09/12/20 Rx Clopidogrel [Plavix] 75 mg PO DAILY #90 tab 09/12/20 Rx Allergies Allergy/AdvReac Type Severity Reaction Status Date / Time No Known Allergies Allergy Verified 09/09/20 10:47 Physical Exam Vitals: Vital Signs Temp Pulse Resp BP Pulse Ox 09/12/20 11:46 93 L 09/12/20 08:00 97.9 F 98 16 127/64 93 L 09/12/20 04:00 98.0 F 77 18 167/69 96 09/12/20 01:20 70 16 09/12/20 00:00 97.9 F 75 17 135/60 95 09/11/20 20:00 98.3 F 81 18 147/70 95 09/11/20 19:59 98 09/11/20 16:00 99.1 F 70 18 161/82 98 09/11/20 12:56 18 Intake and Output 09/11/20 09/12/20 09/12/20 22:59 06:59 14:59 Intake Total 240 120 Output Total 375 850 Balance -135 -850 120 Intake: Oral 240 120 Output: Urine 375 850 Other: Voiding Method Urinal Urinal Urinal # Voids 1 Weight 93.2 kg Results CBC & Chem 7: 09/11/20 07:50 09/11/20 07:50 Labs: Abnormal Lab Results - Last 24 Hours (Table) 09/11/20 09/11/20 09/12/20 Range/Units 17:14 21:13 06:34 POC Glucose (mg/dL) 238 H 184 H 121 H (75-99) mg/dL 09/12/20 Range/Units 12:08 POC Glucose (mg/dL) 245 H (75-99) mg/dL Assessment and Plan (1) Non-healing ulcer of right foot with necrosis of muscle Current Visit: Yes Status: Acute Code(s): L97.513 - NON-PRS CHRONIC ULCER OTH PRT RIGHT FOOT W NECROS MUSCLE SNOMED Code(s): 988574632 (2) Diabetic ulcer of right foot Current Visit: No Status: Acute Code(s): E11.621 - TYPE 2 DIABETES MELLITUS WITH FOOT ULCER; L97.519 - NON-PRS CHRONIC ULCER OTH PRT RIGHT FOOT W UNSP SEVERITY SNOMED Code(s): 359873764
--- NOTE | 2020-09-12 14:42 | P.CONS ---
History of Present Illness - Reason for Consult Consult date: 09/12/20 On chemotherapy for Colon Cancer - Need Rehab Requesting physician: Talia Ruiz - History of Present Illness Mr Lopez is a pleasant white male with generally well-controlled medical problems. The patient had noted an episode of bleeding per rectum that only lasted for about a day, in 07/18. He was seen by his primary care physician and colonoscopy. He had a colonoscopy on 08/18/18 revealing a mass in the ascending colon, just proximal to the ileocecal valve. This was nonobstructing. Biopsy was positive for adenocarcinoma, at least superficially invasive. CT scan from 09/08/18 was negative for metastasis The patient then had surgery on 09/23/18, with right hemicolectomy. 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 One lymph node showed isolated tumor cells, out of 12, which is considered PN0 I + immediate postoperative course was uneventful and the patient was discharged home. On 10/04/18 he had a syncopal episode sustaining head trauma. CT of the head was negative for bleed or stroke. On evaluation he was found to have an anastomotic leak. He then underwent repeat surgery with resection of the anastomosis and creation of a diverting ileostomy. The patient then had reversal of the ostomy in 12/18. He had been referred here, but canceled appointments 2 in 11/17 He was referred here again and then seen for his initial consult on 01/12/19. after detailed discussion, involving consideration of stage, possible significance of isolated tumor cells, as well as delays and surgery, it was decided to order an Oncotype colon test to see if the patient would benefit from adjuvant systemic therapy. the patient had Oncotype colon testing done, which showed potentially less than 5% benefit with adjuvant chemotherapy. After detailed discussion he decided against chemotherapy, and was placed on observation. The pt had repeat CT scans in 10/18, showing mild increase in area of mesenteric nodularity and 4 new lung nodules, max 4 mm The patient had follow-up CT scans on a 2 months, which showed stability versus resolution of the above-mentioned lung nodules. However new nodularity was seen in the right lung with the largest 9 x 6 mm. In addition, an area of mesenteric density was further increased in size to 1.5 cm. The patient had a PET scan done that showed no uptake in the lung. The area of mesenteric density showed low level uptake most suggestive of postoperative change. CEA remained in the normal range at 2.6. The pt was thus continued on observation. However CT scans in 05/22, showed increase in b/l lung nodules, though sub cm, as well as several new lesions in the liver. There also appeared to be some increase in size of the mesenteric deposit. the patient had a PET scan on 05/24/20, that showed uptake in at least 2-3 of the lung nodules, including a right upper lobe nodule now 2+ centimeters, and a left upper lobe nodule 1 cm. There was some nonspecific uptake in a right axillary node. Uptake was also noted in the dominant lesion in the liver, and in the mesenteric lesion. The patient then had liver biopsy on 05/31/20. Pathology informed adenocarcinoma consistent with colorectal primary. On biomarker testing revealed positivity for BRAF V600E, high TMB and PDL-1. MSI was stable. K-lora was wild-type. Was also positive for PIK3C. FOLFOX on 07/11/20, and is status post 2 cycles. Unfortunately with his non- healing wound has not been able to restart. He was recently admitted and underwent right lower extremity femoral to tibial bypass in situ vein for Right femoral artery occlusion, Right great toe non- healing wound, Diabetes Plan: 1. Physical therapy and consult awaiting recommendation for home care versus inpatient rehab. Believe patient would benefit from inpatient rehab. 2. Wound care consulted for right great toe wound, healing wound 3. Soft boot to right lower extremity for offloading heel 4. Consult oncology for recommendations if chemotherapy can continue to be held for inpatient rehab, as [facility] will not allow chemotherapy 5. Continue activity as tolerated 6. Continue aspirin, Plavix, and Lipitor The impression and plan of care has been dictated as directed. 4 Review of Systems All systems: negative Constitutional: Reports as per HPI Past Medical History Past Medical History: Cancer, Diabetes Mellitus, Hyperlipidemia, Hypertension, Osteoarthritis (OA), Pneumonia, Vascular Disorder Additional Past Medical History / Comment(s): hiatal hernia, poor circulation in legs, Colon Cancer with mets to lungs and liver receiving chemo STARTED 3 SESSIONS OF CHEMO, PICC LINE History of Any Multi-Drug Resistant Organisms: None Reported Past Surgical History: Appendectomy, Bowel Resection, Joint Replacement, Tonsillectomy Additional Past Surgical History / Comment(s): Right knee replacement, pilonidal cyst, Left leg surgery for blockage, elisa laser eye surgery, bowel resection with colostomy. LIVER BIOPSY ANXIETY-2019 Past Anesthesia/Blood Transfusion Reactions: No Reported Reaction Smoking Status: Former smoker - Past Family History Father Family Medical History: Cancer Additional Family Medical History / Comment(s): PROSTATE CANCER Medications and Allergies Home Medications Medication Instructions Recorded Confirmed Type Atorvastatin [Lipitor] 80 mg PO HS 05/18/20 09/09/20 History Insulin Glargine [Lantus] 28 unit SQ HS 05/18/20 09/09/20 History Magnesium Oxide [Mag-Ox] 250 mg PO BID@0800,1600 05/18/20 09/09/20 History Metoprolol Tartrate [Lopressor] 100 mg PO BID@0800,1600 05/18/20 09/09/20 History Empagliflozin [Jardiance] 10 mg PO DAILY 05/20/20 09/09/20 History Acetaminophen [Tylenol] 500 mg PO Q4-6H PRN 07/08/20 09/09/20 History Gabapentin [Neurontin] 300 mg PO HS 08/27/20 09/09/20 History Insulin Aspart [NovoLOG Flexpen] See Protocol SQ BID@0800,1600 08/27/20 09/09/20 History Lisinopril-Hctz 20-12.5 mg 1 tab PO DAILY 08/27/20 09/09/20 History [Zestoretic 20-12.5] Omeprazole 40 mg PO DAILY 08/27/20 09/09/20 History Aspirin 81 mg PO DAILY #90 chew 09/12/20 Rx Clopidogrel [Plavix] 75 mg PO DAILY #90 tab 09/12/20 Rx Allergies Allergy/AdvReac Type Severity Reaction Status Date / Time No Known Allergies Allergy Verified 09/09/20 10:47 Physical Exam Vitals: Vital Signs Temp Pulse Resp BP Pulse Ox 09/12/20 12:00 97.9 F 88 18 144/68 97 09/12/20 11:46 93 L 09/12/20 08:00 97.9 F 98 16 127/64 93 L 09/12/20 04:00 98.0 F 77 18 167/69 96 09/12/20 01:20 70 16 09/12/20 00:00 97.9 F 75 17 135/60 95 09/11/20 20:00 98.3 F 81 18 147/70 95 09/11/20 19:59 98 09/11/20 16:00 99.1 F 70 18 161/82 98 Intake and Output 09/11/20 09/12/20 09/12/20 22:59 06:59 14:59 Intake Total 240 600 Output Total 375 850 350 Balance -135 -850 250 Intake: Oral 240 600 Output: Urine 375 850 350 Other: Voiding Method Urinal Urinal Urinal # Voids 1 Weight 93.2 kg - Constitutional General appearance: no acute distress - EENT Eyes: EOMI, PERRLA ENT: hearing grossly normal, normal oropharynx - Neck Neck: no lymphadenopathy Thyroid: bilateral: normal size - Respiratory Respiratory: bilateral: CTA - Cardiovascular Rhythm: regular Heart sounds: normal: S1, S2 - Gastrointestinal General gastrointestinal: normal bowel sounds, soft - Integumentary Well-demarcated, fairly deep ulcer on the medial aspect of the right big toe. Surrounding redness extending onto distal foot. Small, less than 1 cm shallow ulcer on her right heel with surrounding erythema No palpable anterior tibial pulses Integumentary: calor, ulcer - Neurologic Neurologic: CNII-XII intact - Musculoskeletal Musculoskeletal: generalized weakness, strength equal bilaterally Results CBC & Chem 7: 09/11/20 07:50 09/11/20 07:50 Labs: Abnormal Lab Results - Last 24 Hours (Table) 09/11/20 09/11/20 09/12/20 Range/Units 17:14 21:13 06:34 POC Glucose (mg/dL) 238 H 184 H 121 H (75-99) mg/dL 09/12/20 Range/Units 12:08 POC Glucose (mg/dL) 245 H (75-99) mg/dL Assessment and Plan (1) Metastatic colon cancer to liver Current Visit: Yes Status: Acute Code(s): C18.9 - MALIGNANT NEOPLASM OF COLON, UNSPECIFIED; C78.7 - SECONDARY MALIG NEOPLASM OF LIVER AND INTRAHEPATIC BILE DUCT SNOMED Code(s): 644379294 (2) Non-healing ulcer of right foot with necrosis of muscle Current Visit: Yes Status: Acute Code(s): L97.513 - NON-PRS CHRONIC ULCER OTH PRT RIGHT FOOT W NECROS MUSCLE SNOMED Code(s): 469028874 Plan: Assessment and Recommendations: 1. Colon cancer with metastatic disease to liver and lung: - Unfortunately has only received two cycles of chemotherapy. - Will need to continue to hold until cleared by Infectious disease, completion of antibiotics, and discharged from rehab if ECF is needed.
[2020-09-12 16:47] LABS: Glucose,Whole Blood 175 mg/dL (75-99)
--- NOTE | 2020-09-12 16:47 | P.PN ---
Subjective 70-year-old pleasant male is admitted for peripheral vascular disease and ischemic changes in the right great toe and patient had a right femoropopliteal bypass surgery. Patient denied any fever chills nausea vomiting abdominal pain dysuria. His blood sugars are bit elevated at do not have any other labs available at this time. Patient has leukocytosis without any signs or symptoms of fever or sepsis. 09/11/2020 Patient is still complaining of pain in the surgical site area blood pressure is bit elevated will start IV fluids patient will be started back on his lisinopril and hydrochlorothiazide blood pressure pills. 09/12/2020 patient blood pressures were controlled overnight events patient is medically stable to be discharged from medical perspective. Patient had a bowel movement Constitutional: Denied any fatigue denied any fever. Cardio vascular: denied any chest pain, palpitations Gastrointestinal denied any nausea vomiting Pulmonary: Denied any shortness of breath cough Neurologic denied any new focal deficits All inpatient medications were reviewed and appropriate changes in these medications as dictated in the interval history and assessment and plan. Objective - Vital Signs Vital signs: Vital Signs Temp 97.7 F 09/12/20 15:49 Pulse 88 09/12/20 15:49 Resp 16 09/12/20 15:49 BP 138/70 09/12/20 15:49 Pulse Ox 96 09/12/20 15:49 Intake & Output 09/11/20 09/12/20 09/12/20 18:59 06:59 18:59 Intake Total 1440 240 720 Output Total 825 1000 750 Balance 615 -760 -30 Weight 93.2 kg Intake: Oral 1440 240 720 Output: Urine 825 1000 750 Other: Voiding Method Urinal Urinal Urinal # Voids 1 # Bowel Movements 3 - Exam PHYSICAL EXAMINATION: GENERAL: The patient is alert and oriented x3, not in any acute distress. Well developed, well nourished. HEENT: Pupils are round and equally reacting to light. EOMI. No scleral icterus. No conjunctival pallor. Normocephalic, atraumatic. No pharyngeal erythema. No thyromegaly. CARDIOVASCULAR: S1 and S2 present. No murmurs, rubs, or gallops. PULMONARY: Chest is clear to auscultation, no wheezing or crackles. ABDOMEN: Soft, nontender, nondistended, normoactive bowel sounds. No palpable organomegaly. MUSCULOSKELETAL: No joint swelling or deformity. EXTREMITIES: No cyanosis, clubbing, or pedal edema. has surgical packing after femoropopliteal bypass in the right side NEUROLOGICAL: Gross neurological examination did not reveal any focal deficits. SKIN: No rashes. - Labs CBC & Chem 7: 09/11/20 07:50 09/11/20 07:50 Labs: Abnormal Lab Results - Last 24 Hours (Table) 09/11/20 09/11/20 09/12/20 Range/Units 17:14 21:13 06:34 POC Glucose (mg/dL) 238 H 184 H 121 H (75-99) mg/dL 09/12/20 Range/Units 12:08 POC Glucose (mg/dL) 245 H (75-99) mg/dL Assessment and Plan Plan: Leukocytosis: Secondary to surgery no evidence of sepsis at this time will monitor the patient -Type 2 diabetes mellitus and patient will be started on Lantus, Jardiance and NovoLog sliding scale. Patient blood sugars are well controlled except for nights -Hypertension well controlled at this time -Diabetic peripheral neuropathy continue gabapentin -Hyperlipidemia continue with Lipitor -Gastroesophageal reflux disease continue omeprazole -Peripheral vascular disease: Patient to his and antiplatelet therapy and patient has a femoropopliteal bypass -DVT prophylaxis as per primary service
[2020-09-12] MEDS: COLLAGENASE 250 UNIT/GM OINTMENT 30 GM TUBE TOPICAL SCH (17:03)
[2020-09-12 19:58] LABS: Glucose,Whole Blood 254 mg/dL (75-99)
[2020-09-12] MEDS: ATORVASTATIN 80 MG TAB PO SCH (20:04)
[2020-09-12] MEDS: INSULIN DETEMIR (LEVEMIR) 100 UNIT/ML SYR SQ SCH (20:04)
[2020-09-12] MEDS: GABAPENTIN 300 MG CAP PO SCH (20:04)
[2020-09-13] MEDS: HYDROcodone/APAP 5-325MG 1 EACH TAB PO PRN ×4 (01:18→23:01)
[2020-09-13] MEDS: SODIUM CHLORIDE 0.9% 1,000 ML IV SCH (05:32)
[2020-09-13 06:10] LABS: Glucose,Whole Blood 138 mg/dL (75-99)
[2020-09-13] MEDS: INSULIN ASPART (NovoLOG) 100 UNIT/ML VIAL SQ SCH ×4 (06:19→20:59)
[2020-09-13] MEDS: NON FORMULARY DRUG (Empagliflozin [Jardiance] 10 MG Tablet) PO SCH (09:03)
[2020-09-13] MEDS: METOPROLOL TARTRATE 50 MG TAB PO SCH ×2 (09:16→15:48)
[2020-09-13] MEDS: MAGNESIUM OXIDE 400 MG TAB PO SCH ×2 (09:16→15:48)
[2020-09-13] MEDS: CLOPIDOGREL 75 MG TAB PO SCH (09:18)
[2020-09-13] MEDS: ASPIRIN 81 MG PO SCH (09:18)
[2020-09-13] MEDS: LISINOPRIL-HCTZ 20-12.5 MG 1 EACH TAB PO SCH (09:19)
[2020-09-13] MEDS: PANTOPRAZOLE 40 MG TABLET PO SCH (09:19)
[2020-09-13] MEDS: DOCUSATE 100 MG CAP PO SCH (09:26)
[2020-09-13] MEDS: LACTATED RINGERS 1,000 ML IV SCH (09:46)
[2020-09-13 11:37] LABS: Glucose,Whole Blood 231 mg/dL (75-99)
[2020-09-13 13:34] VITALS: BMI 28.8
--- NOTE | 2020-09-13 13:42 | P.PN ---
Subjective 70-year-old pleasant male is admitted for peripheral vascular disease and ischemic changes in the right great toe and patient had a right femoropopliteal bypass surgery. Patient denied any fever chills nausea vomiting abdominal pain dysuria. His blood sugars are bit elevated at do not have any other labs available at this time. Patient has leukocytosis without any signs or symptoms of fever or sepsis. 09/11/2020 Patient is still complaining of pain in the surgical site area blood pressure is bit elevated will start IV fluids patient will be started back on his lisinopril and hydrochlorothiazide blood pressure pills. 09/12/2020 patient blood pressures were controlled overnight events patient is medically stable to be discharged from medical perspective. Patient had a bowel movement 09/13/2020 Patient doesn't have any overnight events did move his bowels patient will be probably be discharged to subacute rehabitation today. Constitutional: Denied any fatigue denied any fever. Cardio vascular: denied any chest pain, palpitations Gastrointestinal denied any nausea vomiting Pulmonary: Denied any shortness of breath cough Neurologic denied any new focal deficits All inpatient medications were reviewed and appropriate changes in these medications as dictated in the interval history and assessment and plan. Objective - Vital Signs Vital signs: Vital Signs Temp 97.8 F 09/13/20 12:00 Pulse 76 09/13/20 12:00 Resp 20 09/13/20 12:00 BP 130/61 09/13/20 12:00 Pulse Ox 95 09/13/20 12:00 Intake & Output 09/12/20 09/13/20 09/13/20 18:59 06:59 18:59 Intake Total 720 480 Output Total 750 960 700 Balance -30 -960 -220 Weight 91 kg 91 kg Intake: Oral 720 480 Output: Urine 750 960 700 Other: Voiding Method Urinal Urinal Urinal # Voids 1 # Bowel Movements 3 - Exam PHYSICAL EXAMINATION: GENERAL: The patient is alert and oriented x3, not in any acute distress. Well developed, well nourished. HEENT: Pupils are round and equally reacting to light. EOMI. No scleral icterus. No conjunctival pallor. Normocephalic, atraumatic. No pharyngeal erythema. No thyromegaly. CARDIOVASCULAR: S1 and S2 present. No murmurs, rubs, or gallops. PULMONARY: Chest is clear to auscultation, no wheezing or crackles. ABDOMEN: Soft, nontender, nondistended, normoactive bowel sounds. No palpable organomegaly. MUSCULOSKELETAL: No joint swelling or deformity. EXTREMITIES: No cyanosis, clubbing, or pedal edema. has surgical packing after femoropopliteal bypass in the right side NEUROLOGICAL: Gross neurological examination did not reveal any focal deficits. SKIN: No rashes. - Labs CBC & Chem 7: 09/11/20 07:50 09/11/20 07:50 Labs: Abnormal Lab Results - Last 24 Hours (Table) 09/12/20 09/12/20 09/13/20 Range/Units 16:45 19:56 06:08 POC Glucose (mg/dL) 175 H 254 H 138 H (75-99) mg/dL 09/13/20 Range/Units 11:35 POC Glucose (mg/dL) 231 H (75-99) mg/dL Assessment and Plan Plan: Leukocytosis: Secondary to surgery no evidence of sepsis at this time, ON further intervention is a necessary -Type 2 diabetes mellitus and patient will be started on Lantus, Jardiance and NovoLog sliding scale. Patient blood sugars are well controlled except for nights -Hypertension well controlled at this time -Diabetic peripheral neuropathy continue gabapentin -Hyperlipidemia continue with Lipitor -Gastroesophageal reflux disease continue omeprazole -Peripheral vascular disease: Patient to his and antiplatelet therapy and patient has a femoropopliteal bypass -DVT prophylaxis as per primary service
--- NOTE | 2020-09-13 13:46 | P.PN ---
Subjective Progress Note Date: 09/13/20 Principal diagnosis: Vascular Right leg pain and inability to balance alone Objective - Vital Signs Vital signs: Vital Signs Temp 97.8 F 09/13/20 12:00 Pulse 76 09/13/20 12:00 Resp 20 09/13/20 12:00 BP 130/61 09/13/20 12:00 Pulse Ox 95 09/13/20 12:00 Intake & Output 09/12/20 09/13/20 09/13/20 18:59 06:59 18:59 Intake Total 720 480 Output Total 750 960 700 Balance -30 -960 -220 Weight 91 kg 91 kg Intake: Oral 720 480 Output: Urine 750 960 700 Other: Voiding Method Urinal Urinal Urinal # Voids 1 # Bowel Movements 3 - Exam - Constitutional General appearance: no acute distress - EENT Eyes: EOMI, PERRLA ENT: hearing grossly normal, normal oropharynx - Neck Neck: no lymphadenopathy Thyroid: bilateral: normal size - Respiratory Respiratory: bilateral: CTA - Cardiovascular Rhythm: regular Heart sounds: normal: S1, S2 - Gastrointestinal General gastrointestinal: normal bowel sounds, soft - Integumentary Well-demarcated, fairly deep ulcer on the medial aspect of the right big toe. Surrounding redness extending onto distal foot. Small, less than 1 cm shallow ulcer on her right heel with surrounding erythema No palpable anterior tibial pulses Integumentary: calor, ulcer - Neurologic Neurologic: CNII-XII intact - Musculoskeletal Musculoskeletal: generalized weakness, strength equal bilaterally - Labs CBC & Chem 7: 09/11/20 07:50 09/11/20 07:50 Labs: Abnormal Lab Results - Last 24 Hours (Table) 09/12/20 09/12/20 09/13/20 Range/Units 16:45 19:56 06:08 POC Glucose (mg/dL) 175 H 254 H 138 H (75-99) mg/dL 09/13/20 Range/Units 11:35 POC Glucose (mg/dL) 231 H (75-99) mg/dL Assessment and Plan (1) Metastatic colon cancer to liver Current Visit: Yes Status: Acute Code(s): C18.9 - MALIGNANT NEOPLASM OF COLON, UNSPECIFIED; C78.7 - SECONDARY MALIG NEOPLASM OF LIVER AND INTRAHEPATIC BILE DUCT SNOMED Code(s): 986182371 (2) Non-healing ulcer of right foot with necrosis of muscle Current Visit: Yes Status: Acute Code(s): L97.513 - NON-PRS CHRONIC ULCER OTH PRT RIGHT FOOT W NECROS MUSCLE SNOMED Code(s): 845693761 Plan: Assessment and Recommendations: 1. Colon cancer with metastatic disease to liver and lung: - Unfortunately has only received two cycles of chemotherapy. - Will need to continue to hold until cleared by Infectious disease, completion of antibiotics, and discharged from rehab if ECF is needed. Unfortunately an option to even switch to PO chemotherapy if cleared by Surgery due to the ECF would refuse admission and refuse him to be able to bring his own. So in this case we will need to hold any further chemotherapy and/or other options of potential regimens that could continue and await his discharge from rehab.
[2020-09-13] MEDS: COLLAGENASE 250 UNIT/GM OINTMENT 30 GM TUBE TOPICAL SCH (15:46)
[2020-09-13 16:44] LABS: Glucose,Whole Blood 208 mg/dL (75-99)
[2020-09-13 20:39] LABS: Glucose,Whole Blood 220 mg/dL (75-99)
[2020-09-13] MEDS: INSULIN DETEMIR (LEVEMIR) 100 UNIT/ML SYR SQ SCH (20:59)
[2020-09-13] MEDS: ATORVASTATIN 80 MG TAB PO SCH (20:59)
[2020-09-13] MEDS: GABAPENTIN 300 MG CAP PO SCH (20:59)
[2020-09-14] MEDS: LACTATED RINGERS 1,000 ML IV SCH (06:18)
[2020-09-14] MEDS: INSULIN ASPART (NovoLOG) 100 UNIT/ML VIAL SQ SCH ×2 (06:25→12:05)
[2020-09-14 06:26] LABS: Glucose,Whole Blood 144 mg/dL (75-99)
[2020-09-14] MEDS: NON FORMULARY DRUG (Empagliflozin [Jardiance] 10 MG Tablet) PO SCH (08:09)
[2020-09-14 08:18] VITALS: RESP 18
[2020-09-14] MEDS: MAGNESIUM OXIDE 400 MG TAB PO SCH ×2 (08:22→15:28)
[2020-09-14] MEDS: CLOPIDOGREL 75 MG TAB PO SCH (08:23)
[2020-09-14] MEDS: METOPROLOL TARTRATE 50 MG TAB PO SCH ×2 (08:23→15:29)
[2020-09-14] MEDS: ASPIRIN 81 MG PO SCH (08:23)
[2020-09-14] MEDS: PANTOPRAZOLE 40 MG TABLET PO SCH (08:24)
[2020-09-14] MEDS: LISINOPRIL-HCTZ 20-12.5 MG 1 EACH TAB PO SCH (08:24)
[2020-09-14] MEDS: DOCUSATE 100 MG CAP PO SCH (08:24)
[2020-09-14] MEDS: COLLAGENASE 250 UNIT/GM OINTMENT 30 GM TUBE TOPICAL SCH (10:37)
[2020-09-14 11:32] VITALS: BP 139/69; TEMP 97.8
[2020-09-14 11:57] LABS: Glucose,Whole Blood 185 mg/dL (75-99)
[2020-09-14] MEDS: HYDROcodone/APAP 5-325MG 1 EACH TAB PO PRN (13:00)
--- NOTE | 2020-09-14 14:18 | P.PN ---
Subjective 70-year-old pleasant male is admitted for peripheral vascular disease and ischemic changes in the right great toe and patient had a right femoropopliteal bypass surgery. Patient denied any fever chills nausea vomiting abdominal pain dysuria. His blood sugars are bit elevated at do not have any other labs available at this time. Patient has leukocytosis without any signs or symptoms of fever or sepsis. 09/11/2020 Patient is still complaining of pain in the surgical site area blood pressure is bit elevated will start IV fluids patient will be started back on his lisinopril and hydrochlorothiazide blood pressure pills. 09/12/2020 patient blood pressures were controlled overnight events patient is medically stable to be discharged from medical perspective. Patient had a bowel movement 09/13/2020 Patient doesn't have any overnight events did move his bowels patient will be probably be discharged to subacute rehabitation today. 09/14/2020 no overnight events patient is medically stable to discharge to subacute rehabilitation today Constitutional: Denied any fatigue denied any fever. Cardio vascular: denied any chest pain, palpitations Gastrointestinal denied any nausea vomiting Pulmonary: Denied any shortness of breath cough Neurologic denied any new focal deficits All inpatient medications were reviewed and appropriate changes in these medications as dictated in the interval history and assessment and plan. Objective - Vital Signs Vital signs: Vital Signs Temp 97.8 F 09/14/20 11:30 Pulse 67 09/14/20 11:30 Resp 18 09/14/20 11:30 BP 139/69 09/14/20 11:30 Pulse Ox 97 09/14/20 11:30 Intake & Output 09/13/20 09/14/20 09/14/20 18:59 06:59 18:59 Intake Total 800 360 Output Total 1225 600 200 Balance -425 -600 160 Weight 91 kg 90 kg Intake: Oral 800 360 Output: Urine 1225 600 200 Other: Voiding Method Urinal Urinal # Bowel Movements 1 - Exam PHYSICAL EXAMINATION: GENERAL: The patient is alert and oriented x3, not in any acute distress. Well developed, well nourished. HEENT: Pupils are round and equally reacting to light. EOMI. No scleral icterus. No conjunctival pallor. Normocephalic, atraumatic. No pharyngeal erythema. No thyromegaly. CARDIOVASCULAR: S1 and S2 present. No murmurs, rubs, or gallops. PULMONARY: Chest is clear to auscultation, no wheezing or crackles. ABDOMEN: Soft, nontender, nondistended, normoactive bowel sounds. No palpable organomegaly. MUSCULOSKELETAL: No joint swelling or deformity. EXTREMITIES: No cyanosis, clubbing, or pedal edema. has surgical packing after femoropopliteal bypass in the right side NEUROLOGICAL: Gross neurological examination did not reveal any focal deficits. SKIN: No rashes. - Labs CBC & Chem 7: 09/11/20 07:50 09/11/20 07:50 Labs: Abnormal Lab Results - Last 24 Hours (Table) 09/13/20 09/13/20 09/14/20 Range/Units 16:43 20:32 06:21 POC Glucose (mg/dL) 208 H 220 H 144 H (75-99) mg/dL 09/14/20 Range/Units 11:55 POC Glucose (mg/dL) 185 H (75-99) mg/dL Assessment and Plan Plan: Leukocytosis: Secondary to surgery no evidence of sepsis at this time, ON further intervention is a necessary -Type 2 diabetes mellitus and patient will be started on Lantus, Jardiance and NovoLog sliding scale. Patient blood sugars are well controlled except for nights -Hypertension well controlled at this time -Diabetic peripheral neuropathy continue gabapentin -Hyperlipidemia continue with Lipitor -Gastroesophageal reflux disease continue omeprazole -Peripheral vascular disease: Patient to his and antiplatelet therapy and crystal ent has a femoropopliteal bypass -DVT prophylaxis as per primary service
[2020-09-14 15:28] VITALS: PULSE 76
== END 2020-09-14 15:45 | DRG 253 ==
LOC: 2ORMAIN 10:26 → 3SCARD 17:37
PROVIDERS: ADMIT Surgery; ATTEND Surgery
PROC: 041K09N Bypass Right Femoral Artery to Posterior Tibial Artery with Autologous Venous Tissue, Open Approach (ICD-10-PCS; principal; 2020-09-09 13:45)
DX: E11.52 Type 2 diabetes mellitus with diabetic peripheral angiopathy with gangrene (principal); C18.9 Malignant neoplasm of colon, unspecified; C78.7 Secondary malignant neoplasm of liver and intrahepatic bile duct; C78.02 Secondary malignant neoplasm of left lung; C78.01 Secondary malignant neoplasm of right lung; I70.261 Atherosclerosis of native arteries of extremities with gangrene, right leg; E11.621 Type 2 diabetes mellitus with foot ulcer; Z20.822 Contact with and (suspected) exposure to COVID-19; D72.829 Elevated white blood cell count, unspecified; K44.9 Diaphragmatic hernia without obstruction or gangrene; K21.9 Gastro-esophageal reflux disease without esophagitis; E78.5 Hyperlipidemia, unspecified; M19.90 Unspecified osteoarthritis, unspecified site; F17.210 Nicotine dependence, cigarettes, uncomplicated; I10 Essential (primary) hypertension; L97.513 Non-pressure chronic ulcer of other part of right foot with necrosis of muscle; Z79.899 Other long term (current) drug therapy; Z79.02 Long term (current) use of antithrombotics/antiplatelets; Z79.4 Long term (current) use of insulin; Z79.82 Long term (current) use of aspirin; Z80.42 Family history of malignant neoplasm of prostate; Z96.651 Presence of right artificial knee joint; Z90.89 Acquired absence of other organs; Z87.01 Personal history of pneumonia (recurrent)
CPT/HCPCS: 80048; 85027; 85610; 85730; 86850; 86900; 86901; 87635; 94760

== ENCOUNTER 2020-10-19 11:33 | Day surgery (SDC) | payer MEDICARE, OTHER ==
[2020-10-17 16:59] VITALS: BMI 28.0
[~2020-10-19 11:33] MED LIST changes: -DEXAMETHASONE SOD PHOSPHATE 4 MG/ML 1 ML VIAL IV ONE; -HYDROmorphone 0.5 MG/0.5 ML SYRINGE IVP PRN; +LACTATED RINGERS 1,000 ML IV SCH; +LIDOCAINE 1% (10MG/ML) FOR IV START INTRADERMA PRN; -MIDAZOLAM 2 MG/2 ML VIAL IV PRN; -ONDANSETRON 4 MG/2 ML VIAL IVP ONE
[2020-10-19 12:32] LABS: Glucose,Whole Blood 120 mg/dL (75-99)
[2020-10-19] MEDS ORDERED: ONDANSETRON 4 MG/2 ML VIAL ONE (12:38)
[2020-10-19] MEDS ORDERED: ONDANSETRON 4 MG/2 ML VIAL IVP ONE (12:40)
[2020-10-19] MEDS ORDERED: DEXAMETHASONE SOD PHOSPHATE 4 MG/ML 1 ML VIAL IVP ONE (12:41)
[2020-10-19] MEDS ORDERED: fentaNYL (PF) 50 MCG/ML 2 ML AMP ONE (13:05)
[2020-10-19] MEDS ORDERED: PROPOFOL 10 MG/ML 20 ML VIAL IV ONE (13:05)
[2020-10-19] MEDS ORDERED: MIDAZOLAM 2 MG/2 ML VIAL ONE (13:05)
[2020-10-19] MEDS ORDERED: BUPIVACAINE (PF) 0.25% 30 ML VIAL MISCELLANE ONE ×2 (13:39)
[2020-10-19 14:19] VITALS: TEMP 97
[2020-10-19] MEDS: HYDROmorphone 0.5 MG/0.5 ML SYRINGE IVP ONE ×2 (14:21→14:26)
--- NOTE | 2020-10-19 14:25 | P.OP ---
Date of Procedure: 10/19/20 Description of Procedure: SURGEON: Stephani Craig DO THEATRE DIRECTOR: None PREOPERATIVE DIAGNOSIS: [Dry gangrene right great toe, peripheral arterial disease status post bypass]. POSTOPERATIVE DIAGNOSIS: [Same, plantar wound infection]. OPERATION: [Right great toe amputation. ANESTHESIA: Monitored anesthesia care 10 mL ESTIMATED BLOOD LOSS: SPECIMENS REMOVED: Right great toe COMPLICATIONS: None immediately apparent OPERATIVE FINDINGS: The patient is an 80-year-old male with history of peripheral arterial disease who underwent a femoral to below-knee bypass. He presents today for great toe amputation secondary to dry gangrene. DESCRIPTION OF PROCEDURE: This patient was brought to the operating room, and given local and IV sedation. The operative foot was prepped and draped in sterile manner. An incision was made at the base of the great toe deep into skin and fascia on medially and plantar and dorsal aspect until we reached the head of the metatarsal bone. There was no evidence of metatarsal osteomyelitis. There was a plantar wound that was punctate on the ball of the foot that did have a very minor amount of purulent discharge The head of the metatarsal was from the first toe . The tendons were divided in plantar and dorsal aspects. The first toe was removed. Mumtaz was utilized to remove the first metatarsal. There were minimal bleeding points which were electrocoagulated and some of them were suture ligated. Base of the wound looked clean otherwise, and the wound was copiously irrigated with saline. Tissue was approximated with 3-0 Vicryl interrupted sutures the skin was then partially closed with interrupted vertical mattress sutures of 2-0 nylon. Hemostasis was well controlled and pressure dressing was applied. The patient tolerated the procedure well. Plan - Discharge Summary Discharge Rx Participant: Yes New Discharge Prescriptions: No Action Metoprolol Tartrate [Lopressor] 75 mg PO BID@0800,1700 Magnesium Oxide [Mag-Ox] 250 mg PO BID@0800,1700 Insulin Glargine [Lantus] 28 unit SQ HS Atorvastatin [Lipitor] 80 mg PO HS Empagliflozin [Jardiance] 10 mg PO DAILY Acetaminophen [Tylenol] 500 mg PO Q4-6H PRN PRN Reason: Moderate Pain Omeprazole 40 mg PO DAILY Aspirin 81 mg PO DAILY #90 chew HYDROcodone/APAP 5-325MG [[place] 5-325] 1 each PO Q4HR PRN 3 Days #12 tab PRN Reason: Pain Scale 6 To 7 Gabapentin [Neurontin] 300 mg PO HS 3 Days #3 cap HYDROcodone/APAP 7.5-325MG [[place] 7.5-325] 1 tab PO Q6HR PRN PRN Reason: Pain Midodrine HCl 5 mg PO DAILY Insulin Aspart [NovoLOG Flexpen] See Protocol SQ DAILY@0800,1700 Clopidogrel [Plavix] 75 mg PO DAILY #90 tab Cholecalciferol [Vitamin D3 (25 Mcg = 1000 Iu)] 50 mcg PO DAILY Discharge Medication List Atorvastatin [Lipitor] 80 mg PO HS 05/18/20 [History] Insulin Glargine [Lantus] 28 unit SQ HS 05/18/20 [History] Magnesium Oxide [Mag-Ox] 250 mg PO BID@0800,1700 05/18/20 [History] Metoprolol Tartrate [Lopressor] 75 mg PO BID@0800,1700 05/18/20 [History] Empagliflozin [Jardiance] 10 mg PO DAILY 05/20/20 [History] Acetaminophen [Tylenol] 500 mg PO Q4-6H PRN 07/08/20 [History] Insulin Aspart [NovoLOG Flexpen] See Protocol SQ DAILY@0800,1700 08/27/20 [History] Omeprazole 40 mg PO DAILY 08/27/20 [History] Aspirin 81 mg PO DAILY #90 chew 09/12/20 [Rx] Clopidogrel [Plavix] 75 mg PO DAILY #90 tab 09/12/20 [Rx] Gabapentin [Neurontin] 300 mg PO HS 3 Days #3 cap 09/13/20 [Rx] HYDROcodone/APAP 5-325MG [[place] 5-325] 1 each PO Q4HR PRN 3 Days #12 tab 09/13/20 [Rx] Cholecalciferol [Vitamin D3 (25 Mcg = 1000 Iu)] 50 mcg PO DAILY 10/17/20 [Histor y] HYDROcodone/APAP 7.5-325MG [[place] 7.5-325] 1 tab PO Q6HR PRN 10/17/20 [History] Midodrine HCl 5 mg PO DAILY 10/17/20 [History] Follow up Appointment(s)/Referral(s): Piyush Lazo DO [STAFF PHYSICIAN] - 1 Week Activity/Diet/Wound Care/Special Instructions: Heel touch weightbearing right lower extremity. Wet-to-dry dressing with normal saline, daily dressing changes. Resume regular medications Discharge Disposition: HOME SELF-CARE
[2020-10-19] MEDS: fentaNYL (PF) 50 MCG/ML 2 ML AMP IV PRN ×2 (14:34→14:40)
[2020-10-19] MEDS ORDERED: LACTATED RINGERS 1,000 ML IV ONE (14:45)
[2020-10-19] MEDS ORDERED: HYDROmorphone 0.5 MG/0.5 ML SYRINGE IVP ONE (15:04)
[2020-10-19 15:26] LABS: Glucose,Whole Blood 122 mg/dL (75-99)
[2020-10-19] MEDS ORDERED: HYDROcodone/APAP 5-325MG 1 EACH TAB ONE ×2 (15:45→16:17)
[2020-10-19] MEDS ORDERED: HYDROcodone/APAP 5-325MG 1 EACH TAB PO ONE ×2 (15:47→16:21)
[2020-10-19 15:55] VITALS: RESP 16
[2020-10-19 16:26] VITALS: BP 187/67; PULSE 87
== END 2020-10-19 17:36 | disposition home or self-care (01) ==
LOC: OR 11:33
PROVIDERS: ATTEND Surgery
DX: I96 Gangrene, not elsewhere classified (principal); Z79.02 Long term (current) use of antithrombotics/antiplatelets; Z79.82 Long term (current) use of aspirin
CPT/HCPCS: 28825; J2250; J1100; J0690; J2405; J3010; J2704; J1170

== ENCOUNTER 2020-11-08 09:33 | Inpatient (IN) | payer OTHER, MEDICARE ==
[2020-11-08] MEDS ORDERED: SODIUM CHLORIDE 0.9% 500 ML 500 ML IV STA (13:30)
--- NOTE | 2020-11-08 13:34 | ED ---
General Adult HPI - General Chief complaint: Psychiatric Symptoms Stated complaint: Depression Time Seen by Provider: 11/08/20 13:00 Source: patient, RN notes reviewed, old records reviewed Mode of arrival: EMS Limitations: no limitations - History of Present Illness Initial comments: This is an 80-year-old male who presents emergency department stating that he is depressed. Patient states she's recently been treated for cancer and he had a toe amputated on the right foot and he tells me that over the last few days he has been unable to really take care of himself denies significantly depressed. Patient states he is not suicidal. Patient states she just needs help and he thinks it may be a short stay in a [place] [facility] facility until he rib debilitates would be helpful. Patient denies abusing alcohol or drugs. Patient denies any new physical complaint. Patient denies headache patient denies numbness or weakness. Patient denies chest pain difficulty breathing shortness of breath. Patient denies any palpitations. Patient denies any fever chills or cough per patient denies abdominal pain patient denies nausea vomiting diarrhea. Patient states the right foot is difficult to walk on since a petition plus is very painful. Patient states he believes it is healing well the nurse that visits her home states it's healing very well. - Related Data Home Medications Medication Instructions Recorded Confirmed Atorvastatin [Lipitor] 80 mg PO HS 05/18/20 10/19/20 Insulin Glargine [Lantus] 28 unit SQ HS 05/18/20 10/19/20 Magnesium Oxide [Mag-Ox] 250 mg PO BID@0800,1700 05/18/20 10/19/20 Metoprolol Tartrate [Lopressor] 75 mg PO BID@0800,1700 05/18/20 10/19/20 Empagliflozin [Jardiance] 10 mg PO DAILY 05/20/20 10/19/20 Acetaminophen [Tylenol] 500 mg PO Q4-6H PRN 07/08/20 10/19/20 Insulin Aspart [NovoLOG Flexpen] See Protocol SQ DAILY@0800,1700 08/27/20 10/19/20 Omeprazole 40 mg PO DAILY 08/27/20 10/19/20 Cholecalciferol [Vitamin D3 (25 50 mcg PO DAILY 10/17/20 10/19/20 Mcg = 1000 Iu)] HYDROcodone/APAP 7.5-325MG [[place] 1 tab PO Q6HR PRN 10/17/20 10/19/20 7.5-325] Midodrine HCl 5 mg PO DAILY 10/17/20 10/19/20 Previous Rx's Medication Instructions Recorded Aspirin 81 mg PO DAILY #90 chew 09/12/20 Clopidogrel [Plavix] 75 mg PO DAILY #90 tab 09/12/20 Gabapentin [Neurontin] 300 mg PO HS 3 Days #3 cap 09/13/20 HYDROcodone/APAP 5-325MG [[place] 1 each PO Q4HR PRN 3 Days #12 tab 09/13/20 5-325] HYDROcodone/APAP 5-325MG [[place] 1 tab PO Q6HR PRN 3 Days #12 tab 10/19/20 5-325] Allergies Allergy/AdvReac Type Severity Reaction Status Date / Time No Known Allergies Allergy Verified 11/08/20 10:32 Review of Systems ROS Statement: Those systems with pertinent positive or pertinent negative responses have been documented in the HPI. ROS Other: All systems not noted in ROS Statement are negative. Past Medical History Past Medical History: Cancer, Diabetes Mellitus, Hyperlipidemia, Hypertension, Osteoarthritis (OA), Pneumonia, Vascular Disorder Additional Past Medical History / Comment(s): hiatal hernia, poor circulation in legs, Colon Cancer with mets to lungs and liver receiving chemo STARTED 3 SESSIONS OF CHEMO, PICC LINE History of Any Multi-Drug Resistant Organisms: None Reported Past Surgical History: Appendectomy, Bowel Resection, Joint Replacement, Tonsillectomy Additional Past Surgical History / Comment(s): Right knee replacement, pilonidal cyst, Left leg surgery for blockage, elisa laser eye surgery, bowel resection with colostomy. LIVER BIOPSY ANXIETY-2019 right great toe amputation Past Anesthesia/Blood Transfusion Reactions: No Reported Reaction Past Psychological History: Anxiety Smoking Status: Former smoker - Past Family History Father Family Medical History: Cancer Additional Family Medical History / Comment(s): PROSTATE CANCER General Exam - General Exam Comments Initial Comments: GENERAL: Patient is well-developed and well-nourished. Patient is nontoxic and well- hydrated and is in no acute distress. ENT: Neck is soft and supple. No significant lymphadenopathy is noted. Oropharynx is clear. Moist mucous membranes. Neck has full range of motion without eliciting any pain. EYES: The sclera were anicteric and conjunctiva were pink and moist. Extraocular movements were intact and pupils were equal round and reactive to light. Eyelids were unremarkable. PULMONARY: Unlabored respirations. Good breath sounds bilaterally. No audible rales rhonchi or wheezing was noted. CARDIOVASCULAR: There is a regular rate and rhythm without any murmurs gallops or rubs. ABDOMEN: Soft and nontender with normal bowel sounds. SKIN: Skin is clear with no lesions or rashes and otherwise unremarkable. NEUROLOGIC: Patient is alert and oriented x3. Cranial nerves II through XII are grossly intact. Motor and sensory are also intact. Normal speech, volume and content. Symmetrical smile. MUSCULOSKELETAL: Normal extremities with adequate strength and full range of motion. Patient's first right toe is amputated No lower extremity swelling or edema. No calf tenderness. LYMPHATICS: No significant lymphadenopathy is noted PSYCHIATRIC: Patient is very depressed but not suicidal. Limitations: no limitations Course Vital Signs 11/08/20 10:23 Temperature 97.7 F Pulse Rate 57 L Respiratory 18 Rate Blood Pressure 112/72 O2 Sat by Pulse 97 Oximetry Medical Decision Making - Medical Decision Making EKG shows normal sinus rhythm at 60 bpm DC interval 174 QRS is 70 QT interval is 454 QTC is 454 per patient's EKG shows no ST segment elevation or depression. I spoke with Dr. Lopez he agreed to admit the patient I admitted the patient wrote admitting orders I consulted psychiatry. - Lab Data Result diagrams: 11/08/20 13:30 11/08/20 13:30 Lab Results 11/08/20 11/08/20 11/08/20 Range/Units 13:30 13:30 13:30 WBC 11.8 H (3.8-10.6) k/uL RBC 4.15 L (4.30-5.90) m/uL Hgb 12.3 L (13.0-17.5) gm/dL Hct 38.1 L (39.0-53.0) % MCV 91.6 (80.0-100.0) fL MCH 29.6 (25.0-35.0) pg MCHC 32.3 (31.0-37.0) g/dL RDW 15.2 (11.5-15.5) % Plt Count 365 (150-450) k/uL MPV 7.4 Neutrophils % 78 % Lymphocytes % 16 % Monocytes % 4 % Eosinophils % 1 % Basophils % 1 % Neutrophils # 9.2 H (1.3-7.7) k/uL Lymphocytes # 1.8 (1.0-4.8) k/uL Monocytes # 0.4 (0-1.0) k/uL Eosinophils # 0.1 (0-0.7) k/uL Basophils # 0.1 (0-0.2) k/uL Sodium 133 L (137-145) mmol/L Potassium 5.2 H (3.5-5.1) mmol/L Chloride 97 L (98-107) mmol/L Carbon Dioxide 23 (22-30) mmol/L Anion Gap 13 mmol/L BUN 29 H (9-20) mg/dL Creatinine 0.97 (0.66-1.25) mg/dL Est GFR (CKD-EPI)AfAm 86 (>60 ml/min/1.73 sqM) Est GFR (CKD-EPI)NonAf 74 (>60 ml/min/1.73 sqM) Glucose 156 H (74-99) mg/dL Calcium 9.6 (8.4-10.2) mg/dL Total Bilirubin 0.5 (0.2-1.3) mg/dL AST 34 (17-59) U/L ALT 15 (4-49) U/L Alkaline Phosphatase 78 (38-126) U/L Troponin I (0.000-0.034) ng/mL Total Protein 7.7 (6.3-8.2) g/dL Albumin 4.4 (3.5-5.0) g/dL Urine Color Yellow Urine Appearance Clear (Clear) Urine pH 5.5 (5.0-8.0) Ur Specific [place] 1.019 (1.001-1.035) Urine Protein Negative (Negative) Urine Glucose (UA) 4+ H (Negative) Urine Ketones Negative (Negative) Urine Blood Negative (Negative) Urine Nitrite Negative (Negative) Urine Bilirubin Negative (Negative) Urine Urobilinogen <2.0 (<2.0) mg/dL Ur Leukocyte Esterase Negative (Negative) 11/08/20 Range/Units 13:30 WBC (3.8-10.6) k/uL RBC (4.30-5.90) m/uL Hgb (13.0-17.5) gm/dL Hct (39.0-53.0) % MCV (80.0-100.0) fL MCH (25.0-35.0) pg MCHC (31.0-37.0) g/dL RDW (11.5-15.5) % Plt Count (150-450) k/uL MPV Neutrophils % % Lymphocytes % % Monocytes % % Eosinophils % % Basophils % % Neutrophils # (1.3-7.7) k/uL Lymphocytes # (1.0-4.8) k/uL Monocytes # (0-1.0) k/uL Eosinophils # (0-0.7) k/uL Basophils # (0-0.2) k/uL Sodium (137-145) mmol/L Potassium (3.5-5.1) mmol/L Chloride (98-107) mmol/L Carbon Dioxide (22-30) mmol/L Anion Gap mmol/L BUN (9-20) mg/dL Creatinine (0.66-1.25) mg/dL Est GFR (CKD-EPI)AfAm (>60 ml/min/1.73 sqM) Est GFR (CKD-EPI)NonAf (>60 ml/min/1.73 sqM) Glucose (74-99) mg/dL Calcium (8.4-10.2) mg/dL Total Bilirubin (0.2-1.3) mg/dL AST (17-59) U/L ALT (4-49) U/L Alkaline Phosphatase (38-126) U/L Troponin I <0.012 (0.000-0.034) ng/mL Total Protein (6.3-8.2) g/dL Albumin (3.5-5.0) g/dL Urine Color Urine Appearance (Clear) Urine pH (5.0-8.0) Ur Specific [place] (1.001-1.035) Urine Protein (Negative) Urine Glucose (UA) (Negative) Urine Ketones (Negative) Urine Blood (Negative) Urine Nitrite (Negative) Urine Bilirubin (Negative) Urine Urobilinogen (<2.0) mg/dL Ur Leukocyte Esterase (Negative) Disposition Clinical Impression: Inability to perform activities of daily living, Depression Disposition: ADMITTED IP TO THIS [facility] Referrals: [facility],Clinic [Primary Care Provider] - 1-2 days Time of Disposition: 15:21
[2020-11-08 14:16] LABS: Basophils # (A) 0.1 k/uL (0-0.2); Basophils % (A) 1 %; Eosinophils # (A) 0.1 k/uL (0-0.7); Eosinophils % (A) 1 %; HCT 38.1 % (39.0-53.0); HGB 12.3 gm/dL (13.0-17.5); Lymphocytes # (A) 1.8 k/uL (1.0-4.8); Lymphocytes % (A) 16 %; MCH 29.6 pg (25.0-35.0); MCHC 32.3 g/dL (31.0-37.0); MCV 91.6 fL (80.0-100.0); Mean Platelet Volume 7.4; Monocytes # (A) 0.4 k/uL (0-1.0); Monocytes % (A) 4 %; Neutrophils # (A) 9.2 k/uL (1.3-7.7); Neutrophils % (A) 78 %; Platelet Count 365 k/uL (150-450); RBC 4.15 m/uL (4.30-5.90); RDW 15.2 % (11.5-15.5); WBC 11.8 k/uL (3.8-10.6)
[2020-11-08 14:31] LABS: Albumin 4.4 g/dL (3.5-5.0); Calcium 9.6 mg/dL (8.4-10.2); Total Bilirubin 0.5 mg/dL (0.2-1.3); Total Protein 7.7 g/dL (6.3-8.2)
[2020-11-08 14:38] LABS: Appearance,Urine Clear (Clear); Bilirubin,Urine Negative (Negative); Blood,Urine Negative (Negative); Color,Urine Yellow; Glucose,Urine (UA) 4+ (Negative); Ketones,Urine Negative (Negative); Leukocyte Esterase,Urine Negative (Negative); Nitrite,Urine Negative (Negative); PH, Urine 5.5 (5.0-8.0); Protein,Urine Negative (Negative); Specific Gravity,Urine 1.019 (1.001-1.035); Urobilinogen,Urine <2.0 mg/dL (<2.0)
[2020-11-08 14:48] LABS: Potassium 5.2 mmol/L (3.5-5.1)
[2020-11-08] MEDS ORDERED: HYDROcodone/APAP 5-325MG 1 EACH TAB PO PRN (17:20)
[2020-11-08] MEDS ORDERED: ZINC OXIDE 20% OINT 28.4 GM TUBE TOPICAL PRN (17:20)
--- NOTE | 2020-11-08 17:29 | P.HPIM ---
History of Present Illness Patient is 80-year-old male with multiple medical problems came in because he is unable to take care of himself patient later patient is by himself patient is quite a bit depressed was recently started on antidepressant were 3-4 days ago and still comparing of depression. Patient has progressive disease patient had a history of femoropopliteal bypass for which patient will follow up with vascular surgery usually does have above multiple wounds patient and is as an ulcer on the right byrd area patient has a stage I not decrease ulcer as well. does have some leukocytosis without any evidence of infection at this time patient is mildly hyponatremic for which patient is receiving IV fluids at this time. Patient does have history of diabetes with us with diabetic peripheral neuropathy. REVIEW OF SYSTEMS: CONSTITUTIONAL: No fever, no malaise, no fatigue. HEENT: No recent visual problems or hearing problems. Denied any sore throat. CARDIOVASCULAR: No chest pain, orthopnea, PND, no palpitations, no syncope. PULMONARY: No shortness of breath, no cough, no hemoptysis. GASTROINTESTINAL: No diarrhea, no nausea, no vomiting, no abdominal pain. NEUROLOGICAL: No headaches, no weakness, no numbness. HEMATOLOGICAL: Denies any bleeding or petechiae. GENITOURINARY: Denies any burning micturition, frequency, or urgency. MUSCULOSKELETAL/RHEUMATOLOGICAL: Denies any joint pain, swelling, or any muscle pain. ENDOCRINE: Denies any polyuria or polydipsia. The rest of the 14-point review of systems is negative. PHYSICAL EXAMINATION: GENERAL: The patient is alert and oriented x3, not in any acute distress. Well developed, well nourished. HEENT: Pupils are round and equally reacting to light. EOMI. No scleral icterus. No conjunctival pallor. Normocephalic, atraumatic. No pharyngeal erythema. No thyromegaly. CARDIOVASCULAR: S1 and S2 present. No murmurs, rubs, or gallops. PULMONARY: Chest is clear to auscultation, no wheezing or crackles. ABDOMEN: Soft, nontender, nondistended, normoactive bowel sounds. No palpable organomegaly. MUSCULOSKELETAL: No joint swelling or deformity. EXTREMITIES: No cyanosis, clubbing, or pedal edema. NEUROLOGICAL: Gross neurological examination did not reveal any focal deficits. SKIN: No rashes. Assessment and plan -Generalized conditioning, patient is unable to take care of himself at home patient will be evaluated by physical therapy and occupational therapy patient probably will need to be discharged to subacute rehabitation patient has age- related the muscle atrophy and generalized weakness patient will benefit from vitamin D3 which she is already on an Supplementation -Severe peripheral vascular disease with the wound in the right leg and the p atient had an amputation of the left great toe. Patient will be continued on Statin and Plavix, wound care will be consulted -Major depression patient was recently started on antidepressants it will take about 6-8 weeks for that to present to be effective because of which I'll continue the same dose of antidepressant at this time -Mild hypovolemic hyponatremia for which patient is receiving IV fluids -Mild hyperkalemia expected to improve with IV fluids -Type 2 diabetes mellitus patient blood sugars are bit elevated patient will resume her home regimen along with sliding scale insulin -Diabetic peripheral neuropathy -Hyperlipidemia -Peripheral vascular disease DVT prophylaxis: Lovenox Past Medical History Past Medical History: Cancer, Diabetes Mellitus, Hyperlipidemia, Hypertension, Osteoarthritis (OA), Pneumonia, Vascular Disorder Additional Past Medical History / Comment(s): hiatal hernia, poor circulation in legs, Colon Cancer with mets to lungs and liver receiving chemo STARTED 3 SESSIONS OF CHEMO, PICC LINE History of Any Multi-Drug Resistant Organisms: None Reported Past Surgical History: Appendectomy, Bowel Resection, Joint Replacement, Tonsillectomy Additional Past Surgical History / Comment(s): Right knee replacement, pilonidal cyst, Left leg surgery for blockage, elisa laser eye surgery, bowel resection with colostomy. LIVER BIOPSY ANXIETY-2019 right great toe amputation Past Anesthesia/Blood Transfusion Reactions: No Reported Reaction Past Psychological History: Anxiety Smoking Status: Former smoker - Past Family History Father Family Medical History: Cancer Additional Family Medical History / Comment(s): PROSTATE CANCER Medications and Allergies Home Medications Medication Instructions Recorded Confirmed Type Atorvastatin [Lipitor] 80 mg PO HS 05/18/20 11/08/20 History Insulin Glargine [Lantus] 25 unit SQ DAILY 05/18/20 11/08/20 History Magnesium Oxide [Mag-Ox] 250 mg PO BID 05/18/20 11/08/20 History Empagliflozin [Jardiance] 10 mg PO DAILY 05/20/20 11/08/20 History Insulin Aspart [NovoLOG Flexpen] See Protocol SQ AC-TID PRN 08/27/20 11/08/20 History Omeprazole 40 mg PO DAILY 08/27/20 11/08/20 History Clopidogrel [Plavix] 75 mg PO DAILY #90 tab 09/12/20 11/08/20 Rx Midodrine HCl 5 mg PO DAILY 10/17/20 11/08/20 History Gabapentin [Neurontin] 300 mg PO BID 11/08/20 11/08/20 History HYDROcodone/APAP 5-325MG [[place] 1 tab PO HS PRN 11/08/20 11/08/20 History 5-325] Metoprolol Tartrate [Lopressor] 75 mg PO BID 11/08/20 11/08/20 History Multivitamins, Thera [Multivitamin 1 tab PO DAILY 11/08/20 11/08/20 History (formulary)] Sertraline HCl [Zoloft] 25 mg PO DAILY 11/08/20 11/08/20 History Zinc Oxide 16% Paste 1 applic TOPICAL DAILY PRN 11/08/20 11/08/20 History Allergies Allergy/AdvReac Type Severity Reaction Status Date / Time No Known Allergies Allergy Verified 11/08/20 16:24 Physical Exam Vitals: Vital Signs Temp Pulse Resp BP Pulse Ox 11/08/20 10:23 97.7 F 57 L 18 112/72 97 Intake and Output 11/08/20 11/08/20 11/08/20 06:59 14:59 22:59 Other: Weight 83.915 kg Results CBC & Chem 7: 11/08/20 13:30 11/08/20 13:30 Labs: Abnormal Lab Results - Last 24 Hours (Table) 11/08/20 11/08/20 11/08/20 Range/Units 13:30 13:30 13:30 WBC 11.8 H (3.8-10.6) k/uL RBC 4.15 L (4.30-5.90) m/uL Hgb 12.3 L (13.0-17.5) gm/dL Hct 38.1 L (39.0-53.0) % Neutrophils # 9.2 H (1.3-7.7) k/uL Sodium 133 L (137-145) mmol/L Potassium 5.2 H (3.5-5.1) mmol/L Chloride 97 L (98-107) mmol/L BUN 29 H (9-20) mg/dL Glucose 156 H (74-99) mg/dL Urine Glucose (UA) 4+ H (Negative)
[2020-11-08 18:46] LABS: Glucose,Whole Blood 158 mg/dL (75-99)
[2020-11-08] MEDS: INSULIN ASPART (NovoLOG) 100 UNIT/ML VIAL SQ SCH ×2 (18:50→21:12)
[2020-11-08] MEDS: SODIUM CHLORIDE 0.9% 1,000 ML IV ONE (18:52)
[2020-11-08 21:05] LABS: Glucose,Whole Blood 156 mg/dL (75-99)
[2020-11-08] MEDS: MAGNESIUM OXIDE 400 MG TAB PO SCH (21:12)
[2020-11-08] MEDS: ATORVASTATIN 80 MG TAB PO SCH (21:12)
[2020-11-08] MEDS: METOPROLOL TARTRATE 25 MG TAB PO SCH (21:12)
[2020-11-08] MEDS: GABAPENTIN 300 MG CAP PO SCH (21:12)
[2020-11-09] MEDS: HYDROcodone/APAP 5-325MG 1 EACH TAB PO PRN ×3 (02:14→17:19)
[2020-11-09 07:25] LABS: Glucose,Whole Blood 143 mg/dL (75-99)
[2020-11-09 07:49] LABS: HCT 34.2 % (39.0-53.0); HGB 10.9 gm/dL (13.0-17.5); Hypochromasia Slight; MCH 29.4 pg (25.0-35.0); MCHC 31.8 g/dL (31.0-37.0); MCV 92.4 fL (80.0-100.0); Mean Platelet Volume 7.4; Platelet Count 315 k/uL (150-450); RDW 15.1 % (11.5-15.5)
[2020-11-09] MEDS ORDERED: SERTRALINE 25 MG TAB PO SCH (09:00)
[2020-11-09] MEDS: CLOPIDOGREL 75 MG TAB PO SCH (09:01)
[2020-11-09] MEDS: MIDODRINE 5 MG TAB PO SCH (09:01)
[2020-11-09] MEDS: METOPROLOL TARTRATE 25 MG TAB PO SCH ×2 (09:01→20:47)
[2020-11-09] MEDS: MAGNESIUM OXIDE 400 MG TAB PO SCH ×2 (09:01→20:45)
[2020-11-09] MEDS: ENOXAPARIN 40 MG/0.4 ML SYRINGE SQ SCH (09:02)
[2020-11-09] MEDS: GABAPENTIN 300 MG CAP PO SCH ×2 (09:02→20:45)
[2020-11-09] MEDS: INSULIN DETEMIR (LEVEMIR) 100 UNIT/ML SYR SQ SCH (09:02)
[2020-11-09] MEDS: PANTOPRAZOLE 40 MG TABLET PO SCH (09:02)
[2020-11-09] MEDS: INSULIN ASPART (NovoLOG) 100 UNIT/ML VIAL SQ SCH ×4 (09:03→20:47)
[2020-11-09] MEDS: NON FORMULARY DRUG (Empagliflozin [Jardiance] 10 MG Tablet) PO SCH (09:04)
[2020-11-09 11:33] LABS: Calcium 8.8 mg/dL (8.7-10.3); Non-African American GFR(CKD) 70.8 (60.0-200.0); Potassium 4.4 mmol/L (3.5-5.5)
[2020-11-09 11:48] LABS: Glucose,Whole Blood 114 mg/dL (75-99)
--- NOTE | 2020-11-09 13:04 | P.CN ---
Psychiatric Consult - . Consult date: 11/09/20 Consult:: 11/09/20 11:18 IDENTIFYING DATA: This patient is a 80-year-old male with a history of colon cancer with metastasis, , currently lives alone in a house has 3 sons. REASON FOR REFERRAL: Psychiatry was consulted for Depression HISTORY OF PRESENT ILLNESS: The patient presented to the hospital With complains of depression which has been ongoing however no suicidal ideations. Apparently patient was deconditioned and recently had an" on his right foot. Patient also has been receiving treatment for cancer and apparently has been unable to take care of himself at home. Patient had expressed wanting to go to subacute rehab for help. Patient's sodium was 133 and potassium was 5.2 on admission. Patient was admitted to medicine for generalized deconditioning and help with placement. Patient was recently started on Zoloft 25 mg daily 6-8 weeks ago according to medicine note. Patient's nurse claims that patient has been feeling overwhelmed at home and getting wound care 3 times a week by a visiting nurse. She also stated that patient had lost his 1 year ago and has lost the ability to drive and has been feeling depressed. She did not claim that patient made any suicidal statements. Patient was seen at the bedside and agreeable to speak to report writer. He was irritable at times during the interview however was fairly appropriate during conversation. He was fairly preoccupied with staying in the hospital and being taken care of by nurses and being given medication. He was also claiming multiple times that he cannot take care of himself at home. He spoke about his stressors of having cancer and going through 3 chemo sessions so far. He states that the recent amputation on his right great toe happened on September 08 and states that afterwards she went to [facility] for a month. He claims that he is having physical limitations and some pain which seems to be neuropathic in nature. He claims that he is "sleeping in a chair for the past week" at home and claims that he is fairly isolative and claims that his family cannot help him with his house. He did endorse depression and anxiety and also poor sleep and appetite . At this time patient denies any suicidal or homical ideations, intent or plan. Patient denies any auditory, visual hallucinations and denies any paranoia or delusions. Patients admits to using No recreational drugs or cigarettes PAST PSYCHIATRIC HISTORY: Patient has a a history of [Depression]. [Patient was previously on Zoloft 25 mg daily.] [Patient denies any previous psychiatric hospitalizations.] [Patient denies any psychiatric outpatient follow-up.] [Patient denies any history of suicide attempts in the past.] Past Medical History: Cancer, Diabetes Mellitus, Hyperlipidemia, Hypertension, Osteoarthritis (OA), Pneumonia, Vascular Disorder Additional Past Medical History / Comment(s): hiatal hernia, poor circulation in legs, Colon Cancer with mets to lungs and liver receiving chemo STARTED 3 SESSIONS OF CHEMO, PICC LINE ALLERGIES: as per EMR. CHEMICAL DEPENDENCY HISTORY: as per HPI. FAMILY PSYCHIATRIC/SUBSTANCE USE HISTORY: He claims that his son has bipolar disorder SOCIAL HISTORY: Patient was born and raised in [place] and states that he then moved to [facility]. He states that he was in the [employer] from 1963- 1965 and was mainly stationed in [place] and did not see any combat. He claims that he did complete high school and did some college. 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 He claims that he has never been to senior care or skilled nursing. MENTAL STATUS EXAM: General Appearance: Patient appears to be Overweight, deconditioned,stated age is alert, Argumentative at times however times to cooperate. Patient appears to have [fair] hygiene and grooming wearing hospital gown with [fair] eye contact. Behavior: [Patient is calmly lying in bed without any agitated behavior.] Argumentative at times Speech: Patient's speech is fluent and nonpressured. Mood/Affect: Patient reports their mood is "[depressed and anxious]", affect is congruent Suicidality/Homicidality: Patient denies having any suicidal or homicidal ideation intent or plan. Perceptions: Patient denies any visual hallucinations [and denies any auditory hallucinations] Though content/process: There is no evidence of any delusional thought content and thought process is linear and goal-directed. Focused on staying in the hospital and his stressors. Catastrophizing. Memory and concentration: AOX3, grossly intact for the purposes of this session. Can spell "WORLD" backwards Judgment and insight: [poor] IMPRESSIONS: Major depressive disorder, mild vs. adjustment disorder with depressed mood and anxiety Anxiety disorder unspecified PLAN: -At this time patient DOES NOT meet criteria for inpatient psychiatric admission. [-Delirium precautions recommended with patient including - avoiding use of narcotics and SIGN MAKER sedatives, limit anticholinergic medications when possible, frequent re-orientation, minimize use of restraints, open window shades during the day and close them at night] -Would recommend the following medication changes/additions: Discontinued Zoloft and replace with Cymbalta 30 mg daily for mood/anxiety/pain. Started Remeron 15 mg daily at bedtime for mood/appetite/sleep. [-oven worker to provide patient with outpatient mental health/psychiatry resources for appropriate follow up upon discharge] [-Communicated plan to patient's nurse] -oven worker/case management to help with placement as patient cannot take care of himself at home. Consider subacute rehab if patient qualifies. -Will continue to follow along -Please contact with any questions.
[2020-11-09] MEDS ORDERED: MORPHINE SULFATE 2 MG/ML SYRINGE IVP STA ×2 (13:21→17:40)
[2020-11-09] MEDS: DULoxetine HCL 30 MG CAPSULE.DR PO SCH (13:34)
[2020-11-09] MEDS: SODIUM CHLORIDE 0.9% 1,000 ML IV ONE (13:39)
--- NOTE | 2020-11-09 15:11 | P.CONS ---
History of Present Illness - Reason for Consult Consult date: 11/09/20 Colon cancer - Chief Complaint Depression and pain - History of Present Illness Mr Lopez is a pleasant white male with generally well-controlled medical problems. The patient had noted an episode of bleeding per rectum that only lasted for about a day, in 07/18. He was seen by his primary care physician and colonoscopy. He had a colonoscopy on 08/18/18 revealing a mass in the ascending colon, just proximal to the ileocecal valve. This was nonobstructing. Biopsy was positive for adenocarcinoma, at least superficially invasive. CT scan from 09/08/18 was negative for metastasis The patient then had surgery on 09/23/18, with right hemicolectomy. 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 One lymph node showed isolated tumor cells, out of 12, which is considered PN0 I + immediate postoperative course was uneventful and the patient was discharged home. On 10/04/18 he had a syncopal episode sustaining head trauma. CT of the head was negative for bleed or stroke. On evaluation he was found to have an anastomotic leak. He then underwent repeat surgery with resection of the anastomosis and creation of a diverting ileostomy. The patient then had reversal of the ostomy in 12/18. He had been referred here, but canceled appointments 2 in 11/17 He was referred here again and then seen for his initial consult on 01/12/19. after detailed discussion, involving consideration of stage, possible significance of isolated tumor cells, as well as delays and surgery, it was decided to order an Oncotype colon test to see if the patient would benefit from adjuvant systemic therapy. the patient had Oncotype colon testing done, which showed potentially less than 5% benefit with adjuvant chemotherapy. After detailed discussion he decided against chemotherapy, and was placed on observation. The pt had repeat CT scans in 10/18, showing mild increase in area of mesenteric nodularity and 4 new lung nodules, max 4 mm The patient had follow-up CT scans on a 2 months, which showed stability versus resolution of the above-mentioned lung nodules. However new nodularity was seen in the right lung with the largest 9 x 6 mm. In addition, an area of mesenteric density was further increased in size to 1.5 cm. The patient had a PET scan done that showed no uptake in the lung. The area of mesenteric density showed low level uptake most suggestive of postoperative change. CEA remained in the normal range at 2.6. The pt was thus continued on observation. However CT scans in 05/22, showed increase in b/l lung nodules, though sub cm, as well as several new lesions in the liver. There also appeared to be some increase in size of the mesenteric deposit. the patient had a PET scan on 05/24/20, that showed uptake in at least 2-3 of the lung nodules, including a right upper lobe nodule now 2+ centimeters, and a left upper lobe nodule 1 cm. There was some nonspecific uptake in a right axillary node. Uptake was also noted in the dominant lesion in the liver, and in the mesenteric lesion. The patient then had liver biopsy on 05/31/20. Pathology informed adenocarcinoma consistent with colorectal primary. On biomarker testing revealed positivity for BRAF V600E, high TMB and PDL-1. MSI was stable. K-lora was wild-type. Was also positive for PIK3C. FOLFOX on 07/11/20, and is status post 2 cycles. Unfortunately with his non- healing wound has not been able to restart. Unfortunetly he has not been able to receive further chemo since July due to recurrent hospitalizations after he underwent right lower extremity femoral to tibial bypass in situ vein for Right femoral artery occlusion, Right great toe non-healing wound, Diabetes Underwent Right great toe ampuation in September, has been under rehab and healing since and not seen back yet in office He now presents again 11/08/20 stating he is depressed he cant walk and has pain Review of Systems All systems: negative Constitutional: Reports as per HPI Past Medical History Past Medical History: Cancer, Diabetes Mellitus, Hyperlipidemia, Hypertension, Osteoarthritis (OA), Pneumonia, Vascular Disorder Additional Past Medical History / Comment(s): hiatal hernia, poor circulation in legs, Colon Cancer with mets to lungs and liver receiving chemo STARTED 3 SESSIONS OF CHEMO, PICC LINE discontinued History of Any Multi-Drug Resistant Organisms: None Reported Past Surgical History: Appendectomy, Bowel Resection, Joint Replacement, Tonsillectomy Additional Past Surgical History / Comment(s): Right knee replacement, pilonidal cyst, Left leg surgery for blockage, elisa laser eye surgery, bowel resection with colostomy. LIVER BIOPSY ANXIETY-2019 right great toe amputation Past Anesthesia/Blood Transfusion Reactions: No Reported Reaction Past Psychological History: Anxiety Additional Psychological History / Comment(s): ANXIETY WAS IN 2019 Smoking Status: Former smoker Past Alcohol Use History: Rare Additional Past Alcohol Use History / Comment(s): STARTED SMOKING AT AGE 19 QUIT AT AGE 32 SMOKED 1/2 PACK OR LESS Past Drug Use History: None Reported - Past Family History Father Family Medical History: Cancer Additional Family Medical History / Comment(s): PROSTATE CANCER Medications and Allergies Home Medications Medication Instructions Recorded Confirmed Type Atorvastatin [Lipitor] 80 mg PO HS 05/18/20 11/08/20 History Insulin Glargine [Lantus] 25 unit SQ DAILY 05/18/20 11/08/20 History Magnesium Oxide [Mag-Ox] 250 mg PO BID 05/18/20 11/08/20 History Empagliflozin [Jardiance] 10 mg PO DAILY 05/20/20 11/08/20 History Insulin Aspart [NovoLOG Flexpen] See Protocol SQ AC-TID PRN 08/27/20 11/08/20 History Omeprazole 40 mg PO DAILY 08/27/20 11/08/20 History Clopidogrel [Plavix] 75 mg PO DAILY #90 tab 09/12/20 11/08/20 Rx Midodrine HCl 5 mg PO DAILY 10/17/20 11/08/20 History Gabapentin [Neurontin] 300 mg PO BID 11/08/20 11/08/20 History HYDROcodone/APAP 5-325MG [Howard 1 tab PO HS PRN 11/08/20 11/08/20 History 5-325] Metoprolol Tartrate [Lopressor] 75 mg PO BID 11/08/20 11/08/20 History Multivitamins, Thera [Multivitamin 1 tab PO DAILY 11/08/20 11/08/20 History (formulary)] Sertraline HCl [Zoloft] 25 mg PO DAILY 11/08/20 11/08/20 History Zinc Oxide 16% Paste 1 applic TOPICAL DAILY PRN 11/08/20 11/08/20 History Allergies Allergy/AdvReac Type Severity Reaction Status Date / Time No Known Allergies Allergy Verified 11/08/20 16:24 Physical Exam Vitals: Vital Signs Temp Pulse Pulse Resp BP BP Pulse Ox 11/09/20 12:41 97.9 F 56 L 16 116/65 96 11/09/20 09:00 82 123/62 11/09/20 04:45 97.4 F L 82 20 109/57 97 11/08/20 23:12 97.7 F 62 18 128/68 94 L 11/08/20 20:55 75 18 130/72 95 11/08/20 18:32 74 18 154/75 95 Intake and Output 11/08/20 11/09/20 11/09/20 22:59 06:59 14:59 Intake Total 200 Balance 200 Intake: Oral 200 Other: Voiding Method Toilet # Voids 2 - Constitutional General appearance: no acute distress - EENT Eyes: EOMI, PERRLA ENT: hearing grossly normal, normal oropharynx - Neck Neck: no lymphadenopathy Thyroid: bilateral: normal size - Respiratory Respiratory: bilateral: CTA - Cardiovascular Rhythm: regular Heart sounds: normal: S1, S2 - Gastrointestinal General gastrointestinal: normal bowel sounds, soft - Integumentary: Integumentary: calor, ulcer - Neurologic Neurologic: CNII-XII intact - Musculoskeletal Musculoskeletal: generalized weakness, strength equal bilaterally Results CBC & Chem 7: 11/09/20 06:30 11/09/20 06:30 Labs: Abnormal Lab Results - Last 24 Hours (Table) 11/08/20 11/08/20 11/08/20 Range/Units 13:30 13:30 18:44 WBC (3.8-10.6) k/uL RBC (4.30-5.90) m/uL Hgb (13.0-17.5) gm/dL Hct (39.0-53.0) % Sodium 133 L (137-145) mmol/L Potassium 5.2 H (3.5-5.1) mmol/L Chloride 97 L (98-107) mmol/L BUN 29 H (9-20) mg/dL BUN/Creatinine Ratio (12.00-20.00) Ratio Glucose 156 H (74-99) mg/dL POC Glucose (mg/dL) 158 H (75-99) mg/dL Urine Glucose (UA) 4+ H (Negative) 11/08/20 11/09/20 11/09/20 Range/Units 21:04 06:30 06:30 WBC 12.0 H (3.8-10.6) k/uL RBC 3.70 L (4.30-5.90) m/uL Hgb 10.9 L (13.0-17.5) gm/dL Hct 34.2 L (39.0-53.0) % Sodium (137-145) mmol/L Potassium (3.5-5.1) mmol/L Chloride (98-107) mmol/L BUN (9-20) mg/dL BUN/Creatinine Ratio 22.00 H (12.00-20.00) Ratio Glucose 183 H (74-99) mg/dL POC Glucose (mg/dL) 156 H (75-99) mg/dL Urine Glucose (UA) (Negative) 11/09/20 11/09/20 Range/Units 07:24 11:47 WBC (3.8-10.6) k/uL RBC (4.30-5.90) m/uL Hgb (13.0-17.5) gm/dL Hct (39.0-53.0) % Sodium (137-145) mmol/L Potassium (3.5-5.1) mmol/L Chloride (98-107) mmol/L BUN (9-20) mg/dL BUN/Creatinine Ratio (12.00-20.00) Ratio Glucose (74-99) mg/dL POC Glucose (mg/dL) 143 H 114 H (75-99) mg/dL Urine Glucose (UA) (Negative) Assessment and Plan Plan: Metastatic colon cancer to liver Current Visit: Yes Status: Acute Code(s): C18.9 - MALIGNANT NEOPLASM OF COLON, UNSPECIFIED; C78.7 - SECONDARY MALIG NEOPLASM OF LIVER AND INTRAHEPATIC BILE DUCT SNOMED Code(s): 189549595 (2) Non-healing ulcer of right foot with necrosis of muscle Current Visit: Yes Status: Acute Code(s): L97.513 - NON-PRS CHRONIC ULCER OTH PRT RIGHT FOOT W NECROS MUSCLE SNOMED Code(s): 909671193 Plan: Assessment and Recommendations: 1. Colon cancer with metastatic disease to liver and lung: - Unfortunately has only received two cycles of chemotherapy. - Due to non-healing ulcers, amputation completion of antibiotics, and rehab Status post AMputation in September of affected toe. Recheck anemia panel for opportunity of supplementation, Vit D, CEA Will likely need restaging
--- NOTE | 2020-11-09 16:52 | P.PN ---
Subjective Progress Note Date: 11/09/20 Patient is 80-year-old male with multiple medical problems came in because he is unable to take care of himself patient later patient is by himself patient is quite a bit depressed was recently started on antidepressant were 3-4 days ago and still comparing of depression. Patient has progressive disease patient had a history of femoropopliteal bypass for which patient will follow up with vascular surgery usually does have above multiple wounds patient and is as an ulcer on the right byrd area patient has a stage I not decrease ulcer as well. does have some leukocytosis without any evidence of infection at this time patient is mildly hyponatremic for which patient is receiving IV fluids at this time. Patient does have history of diabetes with us with diabetic peripheral neuropathy. 11/09/2020 Patient is seen in follow-up this morning awaiting psychiatry evaluation as patient is depressed and denies any suicidal ideation at this time. Patient was recently started on Zoloft and states he feels slightly better although continues to be overwhelmed and stressed at home and unable to manage himself and all his medical needs. Patient missed an appointment with Dr. Craig vascular surgery for recent fem-pop and right great toe amputation and Dr. Craig was consulted and wound appears to be nonhealing and not where she would like it and is ordering wound VAC. Dr. Henry also consulted as patient follows with them as he was actively receiving treatments although has been on hold because of this recent surgery and being in and out of the [place] [facility]. Patient is continued on IV fluids and creatinine is 1.0. Sodium is 136. White blood count slightly elevated at 12.0 and hemoglobin is stable at 10.9. Review of systems: Constitutional: reports of fatigue, no reports of fever, or chills Cardiovascular: No reports of chest pain or palpitations Respiratory: No reports of shortness of breath or cough GI: No reports of nausea, vomiting, or diarrhea : No reports of dysuria or retention Neurovascular: Reports generalized weakness and difficulty ambulating at times secondary to his wounds of the right great toe amputation All medications have been reviewed PHYSICAL EXAMINATION: GENERAL: The patient is alert and oriented x3, not in any acute distress. Depressed and anxious. Well developed, well nourished. HEENT: Pupils are round and equally reacting to light. EOMI. No scleral icterus. No conjunctival pallor. Normocephalic, atraumatic. No pharyngeal erythema. No t hyromegaly. CARDIOVASCULAR: S1 and S2 present. No murmurs, rubs, or gallops. PULMONARY: Chest is clear to auscultation, no wheezing or crackles. ABDOMEN: Soft, nontender, nondistended, normoactive bowel sounds. No palpable organomegaly. MUSCULOSKELETAL: No joint swelling or deformity. EXTREMITIES: No cyanosis, clubbing, or pedal edema. NEUROLOGICAL: Gross neurological examination did not reveal any focal deficits. Psychiatric: Denies any suicidal thoughts or wanting to harm himself or others SKIN: No rashes. Right great toe amputation appears somewhat nonhealing Assessment and plan -Generalized deconditioning, patient is unable to take care of himself at home. PT/OT therapy to evaluate the patient in case management and social work consulted for possible ECF placement -age-related muscle atrophy and generalized weakness -Severe peripheral vascular disease with the wound in the right leg and the patient had an amputation of the right great toe. Wound care consulted along with vascular surgery Dr. Craig and having wound VAC placed -Major depression patient was recently started on antidepressants it will take about 6-8 weeks for that to present to be effective because of which I'll continue the same dose of antidepressant at this time, psychiatry consulted -Mild hypovolemic hyponatremia, improved current sodium is 136, fluids are discontinued -Mild hyperkalemia, improved currently 4.4 -Type 2 diabetes mellitus uncontrolled with hyperglycemia, will continue current home medications along with sliding scale -Diabetic peripheral neuropathy -Hyperlipidemia -Peripheral vascular disease -DVT prophylaxis: Lovenox Plan: Patient is continuing with local wound care and wound care consulted along with vascular surgery Dr. Craig and patient is having a wound VAC placed which will make it more difficult to ambulate and may require ECF placement as he is unable to take care if himself at home and lives alone and unable to perform ADLs. Patient was seen Dr. Henry and treatments have been on hold secondary to recent surgery and fem-pop and continues to be nonhealing requiring wound care 3 times a week. Psychiatry to evaluate the patient as the patient is clinically d epressed although denies any suicidal ideation or thoughts of wanting to harm himself or others. Will discontinue IV fluids and repeat a.m. labs his white blood count was slightly elevated at 12. Patient is afebrile. Will consult case management and social work about possible ECF placement. Objective - Vital Signs Vital signs: Vital Signs Temp 97.4 F L 11/09/20 04:45 Pulse 82 11/09/20 04:45 Resp 20 11/09/20 04:45 BP 109/57 11/09/20 04:45 Pulse Ox 97 11/09/20 04:45 Intake & Output 11/08/20 11/09/20 11/09/20 18:59 06:59 18:59 Intake Total 200 Balance 200 Weight 83.915 kg Intake: Oral 200 Other: Voiding Method Toilet # Voids 2 - Labs CBC & Chem 7: 11/09/20 06:30 11/09/20 06:30 Labs: Abnormal Lab Results - Last 24 Hours (Table) 11/08/20 11/08/20 11/08/20 Range/Units 13:30 13:30 13:30 WBC 11.8 H (3.8-10.6) k/uL RBC 4.15 L (4.30-5.90) m/uL Hgb 12.3 L (13.0-17.5) gm/dL Hct 38.1 L (39.0-53.0) % Neutrophils # 9.2 H (1.3-7.7) k/uL Sodium 133 L (137-145) mmol/L Potassium 5.2 H (3.5-5.1) mmol/L Chloride 97 L (98-107) mmol/L BUN 29 H (9-20) mg/dL Glucose 156 H (74-99) mg/dL POC Glucose (mg/dL) (75-99) mg/dL Urine Glucose (UA) 4+ H (Negative) 11/08/20 11/08/20 11/09/20 Range/Units 18:44 21:04 06:30 WBC 12.0 H (3.8-10.6) k/uL RBC 3.70 L (4.30-5.90) m/uL Hgb 10.9 L (13.0-17.5) gm/dL Hct 34.2 L (39.0-53.0) % Neutrophils # (1.3-7.7) k/uL Sodium (137-145) mmol/L Potassium (3.5-5.1) mmol/L Chloride (98-107) mmol/L BUN (9-20) mg/dL Glucose (74-99) mg/dL POC Glucose (mg/dL) 158 H 156 H (75-99) mg/dL Urine Glucose (UA) (Negative) 11/09/20 Range/Units 07:24 WBC (3.8-10.6) k/uL RBC (4.30-5.90) m/uL Hgb (13.0-17.5) gm/dL Hct (39.0-53.0) % Neutrophils # (1.3-7.7) k/uL Sodium (137-145) mmol/L Potassium (3.5-5.1) mmol/L Chloride (98-107) mmol/L BUN (9-20) mg/dL Glucose (74-99) mg/dL POC Glucose (mg/dL) 143 H (75-99) mg/dL Urine Glucose (UA) (Negative)
[2020-11-09 17:23] LABS: Glucose,Whole Blood 151 mg/dL (75-99)
[2020-11-09 20:02] LABS: Glucose,Whole Blood 146 mg/dL (75-99)
[2020-11-09] MEDS: HYDROcodone/APAP 7.5-325MG 1 EACH TAB PO PRN (20:06)
[2020-11-09] MEDS: ATORVASTATIN 80 MG TAB PO SCH (20:46)
[2020-11-09] MEDS: MIRTAZAPINE 15 MG TAB PO SCH (20:46)
[2020-11-10 05:59] LABS: Basophils # (A) 0.1 k/uL (0-0.2); Basophils % (A) 1 %; Eosinophils # (A) 0.3 k/uL (0-0.7); Eosinophils % (A) 3 %; HCT 35.6 % (39.0-53.0); HGB 11.4 gm/dL (13.0-17.5); Lymphocytes # (A) 1.9 k/uL (1.0-4.8); Lymphocytes % (A) 23 %; MCH 29.3 pg (25.0-35.0); MCHC 31.9 g/dL (31.0-37.0); MCV 91.8 fL (80.0-100.0); Mean Platelet Volume 7.5; Monocytes # (A) 0.5 k/uL (0-1.0); Monocytes % (A) 6 %; Neutrophils # (A) 5.6 k/uL (1.3-7.7); Neutrophils % (A) 66 %; Platelet Count 296 k/uL (150-450); RBC 3.88 m/uL (4.30-5.90); WBC 8.4 k/uL (3.8-10.6)
[2020-11-10 06:59] LABS: Glucose,Whole Blood 122 mg/dL (75-99)
[2020-11-10] MEDS: INSULIN ASPART (NovoLOG) 100 UNIT/ML VIAL SQ SCH ×4 (08:30→21:50)
[2020-11-10] MEDS: HYDROcodone/APAP 7.5-325MG 1 EACH TAB PO PRN ×4 (08:31→21:51)
[2020-11-10] MEDS: MAGNESIUM OXIDE 400 MG TAB PO SCH ×2 (08:32→21:51)
[2020-11-10] MEDS: INSULIN DETEMIR (LEVEMIR) 100 UNIT/ML SYR SQ SCH (08:33)
[2020-11-10] MEDS: METOPROLOL TARTRATE 25 MG TAB PO SCH ×2 (08:33→21:51)
[2020-11-10] MEDS: DULoxetine HCL 30 MG CAPSULE.DR PO SCH (08:33)
[2020-11-10] MEDS: PANTOPRAZOLE 40 MG TABLET PO SCH (08:33)
[2020-11-10] MEDS: NON FORMULARY DRUG (Empagliflozin [Jardiance] 10 MG Tablet) PO SCH (08:33)
[2020-11-10] MEDS: ENOXAPARIN 40 MG/0.4 ML SYRINGE SQ SCH (08:33)
[2020-11-10] MEDS: MIDODRINE 5 MG TAB PO SCH (08:33)
[2020-11-10] MEDS: CLOPIDOGREL 75 MG TAB PO SCH (08:33)
[2020-11-10] MEDS: GABAPENTIN 300 MG CAP PO SCH ×2 (08:33→21:50)
[2020-11-10 09:57] LABS: Ferritin 74.2 ng/mL (22.0-322.0)
--- NOTE | 2020-11-10 10:11 | P.GSCN ---
History of Present Illness Consult date: 11/09/20 Reason for Consult: recent fem/pop surgery, known to us Requesting physician: Griselda Lopez History of present illness: This is a pleasant 80-year-old white male who presented to the emergency department with complaints of depression and inability to care for himself. Patient has a history of peripheral arterial disease and recently underwent femoral to [id number] bypass on 09/09/2020 and underwent a right great toe amputation on 10/19/20. Vascular surgery was consult has patient had missed his appointment to further evaluate previous surgical sites. The patient lives home alone, initially after his first surgery he went to [facility] for physical therapy. He denies any fevers, states he has pain and burning at his amputation site. States initially he had a wound VAC for about 2-3 weeks. He currently denies any chest pain, shortness of breath, abdominal pain, nausea, vomiting, or fever. Review of Systems A 14 point review systems was completed all pertinent positives and negatives as stated in the HPI Past Medical History Past Medical History: Cancer, Diabetes Mellitus, Hyperlipidemia, Hypertension, Osteoarthritis (OA), Pneumonia, Vascular Disorder Additional Past Medical History / Comment(s): hiatal hernia, poor circulation in legs, Colon Cancer with mets to lungs and liver receiving chemo STARTED 3 SESSIONS OF CHEMO, PICC LINE discontinued History of Any Multi-Drug Resistant Organisms: None Reported Past Surgical History: Appendectomy, Bowel Resection, Joint Replacement, Tonsillectomy Additional Past Surgical History / Comment(s): Right knee replacement, pilonidal cyst, Left leg surgery for blockage, elisa laser eye surgery, bowel resection with colostomy. LIVER BIOPSY ANXIETY-2019 right great toe amputation Past Anesthesia/Blood Transfusion Reactions: No Reported Reaction Past Psychological History: Anxiety Additional Psychological History / Comment(s): ANXIETY WAS IN 2019 Smoking Status: Former smoker Past Alcohol Use History: Rare Additional Past Alcohol Use History / Comment(s): STARTED SMOKING AT AGE 19 QUIT AT AGE 32 SMOKED 1/2 PACK OR LESS Past Drug Use History: None Reported - Past Family History Father Family Medical History: Cancer Additional Family Medical History / Comment(s): PROSTATE CANCER Medications and Allergies Home Medications Medication Instructions Recorded Confirmed Type Atorvastatin [Lipitor] 80 mg PO HS 05/18/20 11/08/20 History Insulin Glargine [Lantus] 25 unit SQ DAILY 05/18/20 11/08/20 History Magnesium Oxide [Mag-Ox] 250 mg PO BID 05/18/20 11/08/20 History Empagliflozin [Jardiance] 10 mg PO DAILY 05/20/20 11/08/20 History Insulin Aspart [NovoLOG Flexpen] See Protocol SQ AC-TID PRN 08/27/20 11/08/20 History Omeprazole 40 mg PO DAILY 08/27/20 11/08/20 History Clopidogrel [Plavix] 75 mg PO DAILY #90 tab 09/12/20 11/08/20 Rx Midodrine HCl 5 mg PO DAILY 10/17/20 11/08/20 History Gabapentin [Neurontin] 300 mg PO BID 11/08/20 11/08/20 History HYDROcodone/APAP 5-325MG [[place] 1 tab PO HS PRN 11/08/20 11/08/20 History 5-325] Metoprolol Tartrate [Lopressor] 75 mg PO BID 11/08/20 11/08/20 History Multivitamins, Thera [Multivitamin 1 tab PO DAILY 11/08/20 11/08/20 History (formulary)] Sertraline HCl [Zoloft] 25 mg PO DAILY 11/08/20 11/08/20 History Zinc Oxide 16% Paste 1 applic TOPICAL DAILY PRN 11/08/20 11/08/20 History Allergies Allergy/AdvReac Type Severity Reaction Status Date / Time No Known Allergies Allergy Verified 11/08/20 16:24 Surgical - Exam Vital Signs Temp Pulse Resp BP Pulse Ox 97.7 F 57 L 18 112/72 97 11/08/20 10:23 11/08/20 10:23 11/08/20 10:23 11/08/20 10:23 11/08/20 10:23 General appearance: The patient is alert, oriented, in no acute distress. HET: Head is normocephalic and atraumatic. Neck: Supple without lymphadenopathy. Trachea midline. Heart: S1 S2. Regular rate and rhythm. Lungs: Clear to auscultation. Extremities: Normal skin color and turgor. Right lower extremity with bypass incision on medial aspect of calf open with some drainage, right great toe amputation site well with yellow drainage and malodorous. Neurological: No focal deficits.Alert and oriented x3. Results - Labs 11/10/20 05:47 11/09/20 06:30 Abnormal Lab Results - Last 24 Hours (Table) 11/08/20 11/08/20 11/08/20 Range/Units 13:30 13:30 13:30 WBC 11.8 H (3.8-10.6) k/uL RBC 4.15 L (4.30-5.90) m/uL Hgb 12.3 L (13.0-17.5) gm/dL Hct 38.1 L (39.0-53.0) % Neutrophils # 9.2 H (1.3-7.7) k/uL Sodium 133 L (137-145) mmol/L Potassium 5.2 H (3.5-5.1) mmol/L Chloride 97 L (98-107) mmol/L BUN 29 H (9-20) mg/dL BUN/Creatinine Ratio (12.00-20.00) Ratio Glucose 156 H (74-99) mg/dL POC Glucose (mg/dL) (75-99) mg/dL Urine Glucose (UA) 4+ H (Negative) 11/08/20 11/08/20 11/09/20 Range/Units 18:44 21:04 06:30 WBC 12.0 H (3.8-10.6) k/uL RBC 3.70 L (4.30-5.90) m/uL Hgb 10.9 L (13.0-17.5) gm/dL Hct 34.2 L (39.0-53.0) % Neutrophils # (1.3-7.7) k/uL Sodium (137-145) mmol/L Potassium (3.5-5.1) mmol/L Chloride (98-107) mmol/L BUN (9-20) mg/dL BUN/Creatinine Ratio (12.00-20.00) Ratio Glucose (74-99) mg/dL POC Glucose (mg/dL) 158 H 156 H (75-99) mg/dL Urine Glucose (UA) (Negative) 11/09/20 11/09/20 Range/Units 06:30 07:24 WBC (3.8-10.6) k/uL RBC (4.30-5.90) m/uL Hgb (13.0-17.5) gm/dL Hct (39.0-53.0) % Neutrophils # (1.3-7.7) k/uL Sodium (137-145) mmol/L Potassium (3.5-5.1) mmol/L Chloride (98-107) mmol/L BUN (9-20) mg/dL BUN/Creatinine Ratio 22.00 H (12.00-20.00) Ratio Glucose 183 H (74-99) mg/dL POC Glucose (mg/dL) 143 H (75-99) mg/dL Urine Glucose (UA) (Negative) Diabetes panel 11/08/20 11/09/20 Range/Units 13:30 06:30 Sodium 133 L 136 (137-145) mmol/L Potassium 5.2 H 4.4 (3.5-5.1) mmol/L Chloride 97 L 97 (98-107) mmol/L Carbon Dioxide 23 31.0 (22-30) mmol/L BUN 29 H 22.0 (9-20) mg/dL Creatinine 0.97 1.0 (0.66-1.25) mg/dL Glucose 156 H 183 H (74-99) mg/dL Calcium 9.6 8.8 (8.4-10.2) mg/dL AST 34 (17-59) U/L ALT 15 (4-49) U/L Alkaline Phosphatase 78 (38-126) U/L Total Protein 7.7 (6.3-8.2) g/dL Albumin 4.4 (3.5-5.0) g/dL Calcium panel 11/08/20 11/09/20 Range/Units 13:30 06:30 Calcium 9.6 8.8 (8.4-10.2) mg/dL Albumin 4.4 (3.5-5.0) g/dL Pituitary panel 11/08/20 11/09/20 Range/Units 13:30 06:30 Sodium 133 L 136 (137-145) mmol/L Potassium 5.2 H 4.4 (3.5-5.1) mmol/L Chloride 97 L 97 (98-107) mmol/L Carbon Dioxide 23 31.0 (22-30) mmol/L BUN 29 H 22.0 (9-20) mg/dL Creatinine 0.97 1.0 (0.66-1.25) mg/dL Glucose 156 H 183 H (74-99) mg/dL Calcium 9.6 8.8 (8.4-10.2) mg/dL Adrenal panel 11/08/20 11/09/20 Range/Units 13:30 06:30 Sodium 133 L 136 (137-145) mmol/L Potassium 5.2 H 4.4 (3.5-5.1) mmol/L Chloride 97 L 97 (98-107) mmol/L Carbon Dioxide 23 31.0 (22-30) mmol/L BUN 29 H 22.0 (9-20) mg/dL Creatinine 0.97 1.0 (0.66-1.25) mg/dL Glucose 156 H 183 H (74-99) mg/dL Calcium 9.6 8.8 (8.4-10.2) mg/dL Total Bilirubin 0.5 (0.2-1.3) mg/dL AST 34 (17-59) U/L ALT 15 (4-49) U/L Alkaline Phosphatase 78 (38-126) U/L Total Protein 7.7 (6.3-8.2) g/dL Albumin 4.4 (3.5-5.0) g/dL Assessment and Plan Assessment: 1. Peripheral arterial disease status post femoral to [id number] bypass of right lower extremity 2. 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 Diabetes mellitus 4. Depression Plan: 1. Will give one-time dose of morphine 2 mg IV push 2. Continue symptomatic and supportive care 3. Further pain management per primary medical team 4. Agree with wound care consult 5. Wound VAC ordered to right great toe amputation site 6. Continue medical management per primary team 7. Agree with wound care consutl Thank you for this consultation, we will continue to follow. The impression and plan of care has been dictated as directed. Dr. Craig I performed a history and examination of this patient, discussed the same with the dictator. I agree with the dictator's note ,documented as a scribe. Any additional findings or plans will be noted.
--- NOTE | 2020-11-10 11:49 | P.PN ---
Subjective Progress Note Date: 11/10/20 Principal diagnosis: Status post been low the knee bypass, right great toe amputation Patient is seen and examined sitting up at the bedside chair resting. He has a wound VAC applied to the great toe amputation site. Pain seems to be somewhat better controlled today. No acute changes through the night. Objective - Vital Signs Vital signs: Vital Signs Temp 97.7 F 11/10/20 04:54 Pulse 68 11/10/20 04:54 Resp 16 11/10/20 04:54 BP 148/79 11/10/20 04:54 Pulse Ox 93 L 11/10/20 04:54 Intake & Output 11/09/20 11/10/20 11/10/20 18:59 06:59 18:59 Intake Total 590 Output Total 250 400 Balance -250 190 Intake: Oral 590 Output: Urine 250 400 Other: Voiding Method Toilet - Exam General appearance: The patient is alert, oriented, in no acute distress. HET: Head is normocephalic and atraumatic. Extremities: Normal skin color and turgor. Right lower extremity with dressing to bypass incision clean dry and intact, right great toe site with wound VAC intact with good suction. Neurological: No focal deficits. Strength and sensation are grossly intact. - Labs CBC & Chem 7: 11/10/20 05:47 11/09/20 06:30 Labs: Abnormal Lab Results - Last 24 Hours (Table) 11/09/20 11/09/20 11/09/20 Range/Units 06:30 11:47 17:19 RBC (4.30-5.90) m/uL Hgb (13.0-17.5) gm/dL Hct (39.0-53.0) % BUN/Creatinine Ratio 22.00 H (12.00-20.00) Ratio Glucose 183 H (70-110) mg/dL POC Glucose (mg/dL) 114 H 151 H (75-99) mg/dL 11/09/20 11/10/20 11/10/20 Range/Units 20:01 05:47 06:58 RBC 3.88 L (4.30-5.90) m/uL Hgb 11.4 L (13.0-17.5) gm/dL Hct 35.6 L (39.0-53.0) % BUN/Creatinine Ratio (12.00-20.00) Ratio Glucose (70-110) mg/dL POC Glucose (mg/dL) 146 H 122 H (75-99) mg/dL Assessment and Plan Assessment: 1. Peripheral arterial disease status post femoral to [id number] bypass of right lower extremity 2. 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 Diabetes mellitus 4. Depression Plan: 1. Continue symptomatic and supportive care 2. Further pain management per primary medical team 3. Agree with wound care consult 4. Continue wound VAC 5. Continue medical management per primary team Thank you for this consultation, we will continue to follow. The impression and plan of care has been dictated as directed. Dr. Pete I performed a history and examination of this patient, discussed the same with the dictator. I agree with the dictator's note ,documented as a scribe. Any additional findings or plans will be noted.
[2020-11-10 11:58] LABS: Glucose,Whole Blood 154 mg/dL (75-99)
--- NOTE | 2020-11-10 12:38 | P.PN ---
Progress Note - Text Progress Note Date: 11/10/20 Interval History: Patient was seen today for psychiatric follow-up regarding patient's anxiety and depression. Patient's nurse claims that patient has been doing better today and is less anxious and depressed. Patient was seen at the bedside and was agreeable to speak to teletypewriter installer. He states that he is doing better today in terms of his mood and anxiety. He states that he is still having worries about his amputation and taking care of himself and was more agreeable to go to rehab upon discharge. He states that he was able to sleep better last night and has an improvement in his appetite. He is denying any side effects from his medications at this time. At this time patient denies any suicidal or homical ideations, intent or plan. Patient denies any auditory, visual hallucinations and denies any paranoia or delusions. Patient has been compliant with meds. He appears to be more future oriented and wants to continue on with his chemotherapy sessions. Mental Status Exam: General Appearance: Patient appears to be Overweight, stated age is alert, attempts to cooperate more today. Patient appears to have fair hygiene and grooming wearing hospital gown with fair eye contact. Behavior: Patient is sitting in his chair without any agitated behavior. Cooperative to Speech: Patient's speech is fluent and nonpressured. Mood/Affect: Patient reports their mood is "better", affect is congruent Suicidality/Homicidality: Patient denies having any suicidal or homicidal ideation intent or plan. Perceptions: Patient denies any visual hallucinations and denies any auditory hallucinations Though content/process: There is no evidence of any delusional thought content and thought process is linear and goal-directed. Focused on staying in the hospital Memory and concentration: AOX3, grossly intact for the purposes of this session. Judgment and insight: Improving mildly Assessment Major depressive disorder, mild vs. adjustment disorder with depressed mood and anxiety Anxiety disorder unspecified Plan: -At this time patient DOES NOT meet criteria for inpatient psychiatric a dmission. -Delirium precautions recommended with patient including - avoiding use of narcotics and HEALTH EDUCATION AIDE sedatives, limit anticholinergic medications when possible, frequent re-orientation, minimize use of restraints, open window shades during the day and close them at night -Would recommend the following medication changes/additions: continue with Cymbalta 30 mg daily for mood/anxiety/pain. Remeron 15 mg daily at bedtime for mood/appetite/sleep. -top and trim worker to provide patient with outpatient mental health/psychiatry resources for appropriate follow up upon discharge -Communicated plan to patient's nurse -top and trim worker/case management to help with placement as patient cannot take care of himself at home. Consider subacute rehab if patient qualifies. -At this time psychiatry will sign off. -Please contact with any questions.
[2020-11-10 13:13] LABS: % Iron Saturation 6.57 (15.00-50.00); African American GFR (CKD) 97.8 (60.0-200.0); Anion Gap 5.7 mmol/L (4.00-12.00); BUN/Creat Ratio 22.5 Ratio (12.00-20.00); Calcium 8.6 mg/dL (8.7-10.3); Carbon Dioxide 31.3 mmol/L (21.6-31.8); Magnesium 1.7 mg/dL (1.5-2.4); Non-African American GFR(CKD) 84.4 (60.0-200.0); Potassium 4.1 mmol/L (3.5-5.5)
--- NOTE | 2020-11-10 16:01 | P.PN ---
Subjective Progress Note Date: 11/10/20 Principal diagnosis: Weakness/Fatigue Patient seen this AM and in a bit better spirits. He has drainage would vac attached to right amputated toe. Appears he will likely need rehab again at discharge, therefore chemotherapy will remain on hold. He has not received treatment for his underlying cancer for almost 3 months due to unhealing wound. PLan is to restage and address restarting treatment after cleared by ID. Objective - Vital Signs Vital signs: Vital Signs Temp 97 F L 11/10/20 11:50 Pulse 68 11/10/20 11:50 Resp 20 11/10/20 11:50 BP 122/71 11/10/20 11:50 Pulse Ox 96 11/10/20 11:50 Intake & Output 11/09/20 11/10/20 11/10/20 18:59 06:59 18:59 Intake Total 590 Output Total 250 400 Balance -250 190 Intake: Oral 590 Output: Urine 250 400 Other: Voiding Method Toilet - Exam - Constitutional General appearance: no acute distress - EENT Eyes: EOMI, PERRLA ENT: hearing grossly normal, normal oropharynx - Neck Neck: no lymphadenopathy Thyroid: bilateral: normal size - Respiratory Respiratory: bilateral: CTA - Cardiovascular Rhythm: regular Heart sounds: normal: S1, S2 - Gastrointestinal General gastrointestinal: normal bowel sounds, soft - Integumentary: Integumentary: calor, ulcer - Neurologic Neurologic: CNII-XII intact - Musculoskeletal Musculoskeletal: generalized weakness, strength equal bilaterally - Labs CBC & Chem 7: 11/10/20 05:47 11/10/20 05:47 Labs: Abnormal Lab Results - Last 24 Hours (Table) 11/09/20 11/09/20 11/10/20 Range/Units 17:19 20:01 05:47 RBC 3.88 L (4.30-5.90) m/uL Hgb 11.4 L (13.0-17.5) gm/dL Hct 35.6 L (39.0-53.0) % BUN/Creatinine Ratio (12.00-20.00) Ratio POC Glucose (mg/dL) 151 H 146 H (75-99) mg/dL Calcium (8.7-10.3) mg/dL Iron (65-175) ug/dL % Saturation (15.00-50.00) 0811/10/20 11/10/20 Range/Units 05:47 06:58 11:56 RBC (4.30-5.90) m/uL Hgb (13.0-17.5) gm/dL Hct (39.0-53.0) % BUN/Creatinine Ratio 22.50 H (12.00-20.00) Ratio POC Glucose (mg/dL) 122 H 154 H (75-99) mg/dL Calcium 8.6 L (8.7-10.3) mg/dL Iron 18 L (65-175) ug/dL % Saturation 6.57 L (15.00-50.00) Assessment and Plan Plan: Metastatic colon cancer to liver Current Visit: Yes Status: Acute Code(s): C18.9 - MALIGNANT NEOPLASM OF COLON, UNSPECIFIED; C78.7 - SECONDARY MALIG NEOPLASM OF LIVER AND INTRAHEPATIC BILE DUCT SNOMED Code(s): 406858474 (2) Non-healing ulcer of right foot with necrosis of muscle Current Visit: Yes Status: Acute Code(s): L97.513 - NON-PRS CHRONIC ULCER OTH PRT RIGHT FOOT W NECROS MUSCLE SNOMED Code(s): 919609073 Plan: Assessment and Recommendations: 1. Colon cancer with metastatic disease to liver and lung: - Unfortunately has only received two cycles of chemotherapy. - Due to non-healing ulcers, amputation completion of antibiotics, and rehab Status post AMputation in September of affected toe. Patient seen this AM and in a bit better spirits. He has drainage would vac attached to right amputated toe. Appears he will likely need rehab again at discharge, therefore chemotherapy will remain on hold. He has not received treatment for his underlying cancer for almost 3 months due to unhealing wound. PLan is to restage and address restarting treatment after cleared by ID. Physician Attest: I have completed the full history and physical and agree with above dictation, dictated as a ascribe
[2020-11-10] MEDS: IOPAMIDOL CONTRAST (ORAL USE) VIAL PO PRN ×2 (16:19→17:05)
--- NOTE | 2020-11-10 16:53 | P.PN ---
Subjective Progress Note Date: 11/10/20 Patient is 80-year-old male with multiple medical problems came in because he is unable to take care of himself patient later patient is by himself patient is quite a bit depressed was recently started on antidepressant were 3-4 days ago and still comparing of depression. Patient has progressive disease patient had a history of femoropopliteal bypass for which patient will follow up with vascular surgery usually does have above multiple wounds patient and is as an ulcer on the right byrd area patient has a stage I not decrease ulcer as well. does have some leukocytosis without any evidence of infection at this time patient is mildly hyponatremic for which patient is receiving IV fluids at this time. Patient does have history of diabetes with us with diabetic peripheral neuropathy. 11/09/2020 Patient is seen in follow-up this morning awaiting psychiatry evaluation as patient is depressed and denies any suicidal ideation at this time. Patient was recently started on Zoloft and states he feels slightly better although continues to be overwhelmed and stressed at home and unable to manage himself and all his medical needs. Patient missed an appointment with Dr. Craig vascular surgery for recent fem-pop and right great toe amputation and Dr. Craig was consulted and wound appears to be nonhealing and not where she would like it and is ordering wound VAC. Dr. Henry also consulted as patient follows with them as he was actively receiving treatments although has been on hold because of this recent surgery and being in and out of the intermediate. Patient is continued on IV fluids and creatinine is 1.0. Sodium is 136. White blood count slightly elevated at 12.0 and hemoglobin is stable at 10.9. 11/10/2020 Patient is seen in follow-up and currently has a wound VAC applied with vascular surgery, oncology, psychiatry following. White blood count within normal limits at 8.4, hemoglobin is 11.4, sodium is 137 with a potassium of 4.1, current creatinine is 0.8. Blood sugars being monitored closely. Magnesium is 1.7 and further iron studies along with vitamin B12 are in the process. TSH is 0.72 and within normal limits. Patient continues to have right lower extremity discomfort along with generalized weakness and social work following and awaiting on [facility] to accept the patient and will require insurance authorization. Wound care has been consulted. Review of systems: Constitutional: reports of fatigue, no reports of fever, or chills Cardiovascular: No reports of chest pain or palpitations Respiratory: No reports of shortness of breath or cough GI: No reports of nausea, vomiting, or diarrhea : No reports of dysuria or retention Neurovascular: Reports generalized weakness and difficulty ambulating and unable to walk currently with a wound VAC to his right great toe area All medications have been reviewed PHYSICAL EXAMINATION: GENERAL: The patient is alert and oriented x3, not in any acute distress. Depressed and anxious. Well developed, well nourished. HEENT: Pupils are round and equally reacting to light. EOMI. No scleral icterus. No conjunctival pallor. Normocephalic, atraumatic. No pharyngeal erythema. No thyromegaly. CARDIOVASCULAR: S1 and S2 present. No murmurs, rubs, or gallops. PULMONARY: Chest is clear to auscultation, no wheezing or crackles. ABDOMEN: Soft, nontender, nondistended, normoactive bowel sounds. No palpable organomegaly. MUSCULOSKELETAL: No joint swelling or deformity. EXTREMITIES: No cyanosis, clubbing, or pedal edema. NEUROLOGICAL: Gross neurological examination did not reveal any focal deficits. Psychiatric: Denies any suicidal thoughts or wanting to harm himself or others SKIN: No rashes. Right great toe amputation appears somewhat nonhealing currently has a wound VAC applied Assessment and plan -Generalized deconditioning, patient is unable to take care of himself at home. PT/OT following along with social work and awaiting acceptance to an ECF and authorization -age-related muscle atrophy and generalized weakness -Severe peripheral vascular disease with the wound in the right leg and the patient had an amputation of the right great toe. Wound care consulted along with vascular surgery Dr. Craig and having wound VAC placed -Major depression patient was recently started on Zoloft initially at [facility] and instructed to follow-up outpatient and was evaluated by psychiatry here and started on Cymbalta and Zoloft was discontinued -Mild hypovolemic hyponatremia, improved current sodium is 137 -Mild hyperkalemia, improved currently 4.1 -Type 2 diabetes mellitus uncontrolled with hyperglycemia, will continue current home medications along with sliding scale -Diabetic peripheral neuropathy -Hyperlipidemia -Peripheral vascular disease -DVT prophylaxis: Lovenox Plan: Patient is continuing with local wound care and wound care consulted along with vascular surgery Dr. Craig and patient is having a wound VAC placed which will make it more difficult to ambulate and may require ECF placement as he is unable to take care if himself at home and lives alone and unable to perform ADLs. Oncology also following and has ordered CT abdomen and pelvis to further assess for clearance of cancer as he was actively receiving treatments that were placed on hold secondary to recent fem-pop and right great toe amputation in August. Psychiatry following and has made adjustments to antidepressants and started on Cymbalta was Zoloft discontinued. Patient is afebrile. Case management and social work following and awaiting acceptance at [facility] along with insurance authorization for placement. Objective - Vital Signs Vital signs: Vital Signs Temp 97.7 F 11/10/20 04:54 Pulse 68 11/10/20 04:54 Resp 16 11/10/20 04:54 BP 148/79 11/10/20 04:54 Pulse Ox 93 L 11/10/20 04:54 Intake & Output 11/09/20 11/10/20 11/10/20 18:59 06:59 18:59 Intake Total 590 Output Total 250 400 Balance -250 190 Intake: Oral 590 Output: Urine 250 400 Other: Voiding Method Toilet - Labs CBC & Chem 7: 11/10/20 05:47 11/10/20 05:47 Labs: Abnormal Lab Results - Last 24 Hours (Table) 11/09/20 11/09/20 11/09/20 Range/Units 06:30 11:47 17:19 RBC (4.30-5.90) m/uL Hgb (13.0-17.5) gm/dL Hct (39.0-53.0) % BUN/Creatinine Ratio 22.00 H (12.00-20.00) Ratio Glucose 183 H (70-110) mg/dL POC Glucose (mg/dL) 114 H 151 H (75-99) mg/dL 11/09/20 11/10/20 11/10/20 Range/Units 20:01 05:47 06:58 RBC 3.88 L (4.30-5.90) m/uL Hgb 11.4 L (13.0-17.5) gm/dL Hct 35.6 L (39.0-53.0) % BUN/Creatinine Ratio (12.00-20.00) Ratio Glucose (70-110) mg/dL POC Glucose (mg/dL) 146 H 122 H (75-99) mg/dL
[2020-11-10 17:02] LABS: Glucose,Whole Blood 119 mg/dL (75-99)
--- NOTE | 2020-11-10 20:41 | CT ---
EXAMINATION TYPE: CT ChestAbdPelvis w con DATE OF EXAM: 11/10/2020 COMPARISON: PET/CT 05/20/2020. CT 05/05/2020. HISTORY: Restaging colon ca CT DLP: 1295.20 mGycm Automated exposure control for dose reduction was used. CONTRAST: CT scan of the chest, abdomen and pelvis is performed with Oral Contrast and with IV Contrast, patien t injected with 100 mL of Isovue 300. FINDINGS: LUNGS: There are bilateral scattered several pulmonary nodules, measuring sub-5 mm to 15 mm. Overall, the nodules are decreased in size and number, compared to the prior study (previous index lesion aminah sured 19 mm). Otherwise no significant infiltrate, pleural effusion or pneumothorax seen. The trache obronchial tree is patent. MEDIASTINUM: There are no greater than 1 cm hilar or mediastinal lymph nodes. No pericardial effusi on is seen. OTHER: No additional significant abnormality is seen. LIVER/GB: Redemonstrated are scattered several low attenuating hepatic foci measuring up to 1 cm. No acute abnormality of the gallbladder. PANCREAS: No significant abnormality is seen. SPLEEN: No significant abnormality is seen. ADRENALS: No significant abnormality is seen. KIDNEYS: No acute abnormality is seen. Stable 3 left hepatic cystic lesions, measuring up to 1.3 cm. BOWEL: Right hemicolectomy. No bowel obstruction, free air or fluid. Grossly unchanged 1.5 x 1 cm ri ght lower quadrant soft tissue/peritoneal lesion. REPRODUCTIVE ORGANS: No gross abnormality seen. LYMPH NODES: No greater than 1 cm abdominal or pelvic lymph nodes are appreciated. OSSEOUS STRUCTURES: No significant abnormality is seen. Nonspecific mild wall thickening of the esoph dmitriy. OTHER: Left inguinal canal postsurgical clips seen. Moderate to advanced atherosclerotic disease. IMPRESSION: Redemonstrated pulmonary and hepatic lesions, consistent with known metastatic disease. Overall improvement of pulmonary lesions with interval decrease in size and number. However hepatic l esions are unchanged to slightly progressed. Grossly unchanged right lower quadrant peritoneal lesion. Stable hepatic cysts.
[2020-11-10 21:43] LABS: Glucose,Whole Blood 133 mg/dL (75-99)
[2020-11-10] MEDS: ATORVASTATIN 80 MG TAB PO SCH (21:50)
[2020-11-10] MEDS: MIRTAZAPINE 15 MG TAB PO SCH (21:51)
[2020-11-11] MEDS: HYDROcodone/APAP 7.5-325MG 1 EACH TAB PO PRN ×4 (04:05→23:20)
[2020-11-11 07:15] LABS: Glucose,Whole Blood 170 mg/dL (75-99)
[2020-11-11] MEDS: PANTOPRAZOLE 40 MG TABLET PO SCH (08:02)
[2020-11-11] MEDS: INSULIN DETEMIR (LEVEMIR) 100 UNIT/ML SYR SQ SCH (08:02)
[2020-11-11] MEDS: INSULIN ASPART (NovoLOG) 100 UNIT/ML VIAL SQ SCH ×4 (08:03→21:55)
[2020-11-11] MEDS: ENOXAPARIN 40 MG/0.4 ML SYRINGE SQ SCH (08:39)
[2020-11-11] MEDS: CLOPIDOGREL 75 MG TAB PO SCH (08:39)
[2020-11-11] MEDS: DULoxetine HCL 30 MG CAPSULE.DR PO SCH (08:39)
[2020-11-11] MEDS: METOPROLOL TARTRATE 25 MG TAB PO SCH ×2 (08:40→20:47)
[2020-11-11] MEDS: GABAPENTIN 300 MG CAP PO SCH ×2 (08:40→20:46)
[2020-11-11] MEDS: MAGNESIUM OXIDE 400 MG TAB PO SCH ×2 (08:40→20:47)
[2020-11-11] MEDS: MIDODRINE 5 MG TAB PO SCH (08:40)
[2020-11-11] MEDS: NON FORMULARY DRUG (Empagliflozin [Jardiance] 10 MG Tablet) PO SCH (08:45)
[2020-11-11 11:35] LABS: Glucose,Whole Blood 192 mg/dL (75-99)
--- NOTE | 2020-11-11 12:32 | P.PN ---
Subjective Progress Note Date: 11/11/20 Principal diagnosis: Weakness/Fatigue Ct scans reveal progression in liver although stable to smaller in lungs. Objective - Vital Signs Vital signs: Vital Signs Temp 97.8 F 11/11/20 04:57 Pulse 66 11/11/20 08:38 Resp 16 11/11/20 04:57 BP 173/70 11/11/20 08:38 Pulse Ox 98 11/11/20 08:38 Intake & Output 11/10/20 11/11/20 11/11/20 18:59 06:59 18:59 Output Total 1200 Balance -1200 Output: Urine 1200 Other: Voiding Method Toilet Urinal - Exam - Constitutional General appearance: no acute distress - EENT Eyes: EOMI, PERRLA ENT: hearing grossly normal, normal oropharynx - Neck Neck: no lymphadenopathy Thyroid: bilateral: normal size - Respiratory Respiratory: bilateral: CTA - Cardiovascular Rhythm: regular Heart sounds: normal: S1, S2 - Gastrointestinal General gastrointestinal: normal bowel sounds, soft - Integumentary: Integumentary: calor, ulcer - Neurologic Neurologic: CNII-XII intact - Musculoskeletal Musculoskeletal: generalized weakness, strength equal bilaterally - Labs CBC & Chem 7: 11/10/20 05:47 11/10/20 05:47 Labs: Abnormal Lab Results - Last 24 Hours (Table) 11/10/20 11/10/20 11/10/20 Range/Units 05:47 17:00 21:42 BUN/Creatinine Ratio 22.50 H (12.00-20.00) Ratio POC Glucose (mg/dL) 119 H 133 H (75-99) mg/dL Calcium 8.6 L (8.7-10.3) mg/dL Iron 18 L (65-175) ug/dL % Saturation 6.57 L (15.00-50.00) 11/11/20 11/11/20 Range/Units 07:15 11:32 BUN/Creatinine Ratio (12.00-20.00) Ratio POC Glucose (mg/dL) 170 H 192 H (75-99) mg/dL Calcium (8.7-10.3) mg/dL Iron (65-175) ug/dL % Saturation (15.00-50.00) Assessment and Plan Plan: Metastatic colon cancer to liver Current Visit: Yes Status: Acute Code(s): C18.9 - MALIGNANT NEOPLASM OF COLON, UNSPECIFIED; C78.7 - SECONDARY MALIG NEOPLASM OF LIVER AND INTRAHEPATIC BILE DUCT SNOMED Code(s): 777465113 (2) Non-healing ulcer of right foot with necrosis of muscle Current Visit: Yes Status: Acute Code(s): L97.513 - NON-PRS CHRONIC ULCER OTH PRT RIGHT FOOT W NECROS MUSCLE SNOMED Code(s): 633360164 Plan: Assessment and Recommendations: 1. Colon cancer with metastatic disease to liver and lung: - Unfortunately has only received two cycles of chemotherapy. - Due to non-healing ulcers, amputation completion of antibiotics, and rehab Status post AMputation in September of affected toe. From an oncology standpoint we need to know when it is safe to resume his chemotherapy, concern of further progression. CT scans revealed likely progre ssion in liver, stable in lung.
--- NOTE | 2020-11-11 13:08 | P.PN ---
Subjective Progress Note Date: 11/11/20 Principal diagnosis: Status post been low the knee bypass, right great toe amputation Patient is seen and examined sitting up at the bedside. Wound Vac is being changed. Pain is controlled. No acute changes through the night. Objective - Vital Signs Vital signs: Vital Signs Temp 97.8 F 11/11/20 04:57 Pulse 66 11/11/20 08:38 Resp 16 11/11/20 04:57 BP 173/70 11/11/20 08:38 Pulse Ox 98 11/11/20 08:38 Intake & Output 11/10/20 11/11/20 11/11/20 18:59 06:59 18:59 Output Total 1200 Balance -1200 Output: Urine 1200 Other: Voiding Method Toilet Urinal - Exam General appearance: The patient is alert, oriented, in no acute distress. HET: Head is normocephalic and atraumatic. Extremities: Normal skin color and turgor. Right lower extremity with dressing to bypass incision clean dry and intact, right great toe site with wound VAC intact. Neurological: No focal deficits. Strength and sensation are grossly intact. - Labs CBC & Chem 7: 11/10/20 05:47 11/10/20 05:47 Labs: Abnormal Lab Results - Last 24 Hours (Table) 11/10/20 11/10/20 11/10/20 Range/Units 05:47 11:56 17:00 BUN/Creatinine Ratio 22.50 H (12.00-20.00) Ratio POC Glucose (mg/dL) 154 H 119 H (75-99) mg/dL Calcium 8.6 L (8.7-10.3) mg/dL Iron 18 L (65-175) ug/dL % Saturation 6.57 L (15.00-50.00) 11/10/20 11/11/20 Range/Units 21:42 07:15 BUN/Creatinine Ratio (12.00-20.00) Ratio POC Glucose (mg/dL) 133 H 170 H (75-99) mg/dL Calcium (8.7-10.3) mg/dL Iron (65-175) ug/dL % Saturation (15.00-50.00) Assessment and Plan Assessment: 1. Peripheral arterial disease status post femoral to [id number] bypass of right lower extremity 2. 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 Diabetes mellitus 4. Depression Plan: 1. Continue symptomatic and supportive care 2. Further pain management per primary medical team 3. Agree with wound care consult 4. Continue wound VAC, recommend non weight bearing to right lower extremity 5. Continue medical management per primary team Thank you for this consultation, we will continue to follow. The impression and plan of care has been dictated as directed. Dr. Lazo I performed a history and examination of this patient, discussed the same with the dictator. I agree with the dictator's note ,documented as a scribe. Any additional findings or plans will be noted.
--- NOTE | 2020-11-11 15:39 | P.PN ---
Subjective Progress Note Date: 11/11/20 Patient is 80-year-old male with multiple medical problems came in because he is unable to take care of himself patient later patient is by himself patient is quite a bit depressed was recently started on antidepressant were 3-4 days ago and still comparing of depression. Patient has progressive disease patient had a history of femoropopliteal bypass for which patient will follow up with vascular surgery usually does have above multiple wounds patient and is as an ulcer on the right byrd area patient has a stage I not decrease ulcer as well. does have some leukocytosis without any evidence of infection at this time patient is mildly hyponatremic for which patient is receiving IV fluids at this time. Patient does have history of diabetes with us with diabetic peripheral neuropathy. 11/09/2020 Patient is seen in follow-up this morning awaiting psychiatry evaluation as patient is depressed and denies any suicidal ideation at this time. Patient was recently started on Zoloft and states he feels slightly better although continues to be overwhelmed and stressed at home and unable to manage himself and all his medical needs. Patient missed an appointment with Dr. Craig vascular surgery for recent fem-pop and right great toe amputation and Dr. Craig was consulted and wound appears to be nonhealing and not where she would like it and is ordering wound VAC. Dr. Henry also consulted as patient follows with them as he was actively receiving treatments although has been on hold because of this recent surgery and being in and out of the halfway. Patient is continued on IV fluids and creatinine is 1.0. Sodium is 136. White blood count slightly elevated at 12.0 and hemoglobin is stable at 10.9. 11/10/2020 Patient is seen in follow-up and currently has a wound VAC applied with vascular surgery, oncology, psychiatry following. White blood count within normal limits at 8.4, hemoglobin is 11.4, sodium is 137 with a potassium of 4.1, current creatinine is 0.8. Blood sugars being monitored closely. Magnesium is 1.7 and further iron studies along with vitamin B12 are in the process. TSH is 0.72 and within normal limits. Patient continues to have right lower extremity discomfort along with generalized weakness and social work following and awaiting on [facility] to accept the patient and will require insurance authorization. Wound care has been consulted. 11/11/2020 Patient is seen in follow-up continues with wound VAC of the right great toe status post amputation in August of this year and slow to heal with vascular surgery following. 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 Patient has been having difficulty performing ADLs and lives alone and also very weak since his surgery and now has wound VAC to the right foot and is nonweightbearing of that extremity. Social work following and working on placement at [facility] for wound care and continued PT/OT therapy. Awaiting accepting facility and authorization. Patient denies any chest pain, shortness of breath, or palpitations. Patient is tolerating diet with no reports of nausea or vomiting noted. PT/OT following. Review of systems: Constitutional: reports of fatigue, no reports of fever, or chills Cardiovascular: No reports of chest pain or palpitations Respiratory: No reports of shortness of breath or cough GI: No reports of nausea, vomiting, or diarrhea : No reports of dysuria or retention Neurovascular: Reports generalized weakness and difficulty ambulating and unable to walk currently with a wound VAC to his right great toe area All medications have been reviewed PHYSICAL EXAMINATION: GENERAL: The patient is alert and oriented x3, not in any acute distress. Depressed and anxious. Well developed, well nourished. HEENT: Pupils are round and equally reacting to light. EOMI. No scleral icterus. No conjunctival pallor. Normocephalic, atraumatic. No pharyngeal erythema. No thyromegaly. CARDIOVASCULAR: S1 and S2 present. No murmurs, rubs, or gallops. PULMONARY: Chest is clear to auscultation, no wheezing or crackles. ABDOMEN: Soft, nontender, nondistended, normoactive bowel sounds. No palpable organomegaly. MUSCULOSKELETAL: No joint swelling or deformity. EXTREMITIES: No cyanosis, clubbing, or pedal edema. NEUROLOGICAL: Gross neurological examination did not reveal any focal deficits. Psychiatric: Depressed, Denies any suicidal thoughts or wanting to harm himself or others SKIN: No rashes. Right great toe amputation appears somewhat nonhealing currently has a wound VAC applied Assessment and plan -Generalized deconditioning, patient is unable to take care of himself at home. PT/OT following along with social work and awaiting acceptance to an ECF and authorization -age-related muscle atrophy and generalized weakness -Severe peripheral vascular disease with the wound in the right leg and the patient had an amputation of the right great toe. Wound care consulted along with vascular surgery Dr. Craig and having wound VAC placed -Major depression patient was recently started on Zoloft initially at [facility] and instructed to follow-up outpatient and was evaluated by psychiatry here and started on Cymbalta and Zoloft was discontinued -Mild hypovolemic hyponatremia, improved current sodium is 137 -Mild hyperkalemia, improved currently 4.1 -Type 2 diabetes mellitus uncontrolled with hyperglycemia, will continue current home medications along with sliding scale -Diabetic peripheral neuropathy -History of colon cancer with metastasis to the lung and liver, was receiving chemotherapy prior to right great toe amputation in August of this year -Hyperlipidemia -Peripheral vascular disease -DVT prophylaxis: Lovenox Plan: Patient is continuing with local wound care and wound care consulted along with vascular surgery Dr. Craig and patient has a wound VAC placed which is making it more difficult to ambulate and may require ECF placement as he is unable to take care if himself at home and lives alone and unable to perform ADLs. Oncology also following and has ordered CT abdomen and pelvis to further assess for clearance of cancer as he was actively receiving treatments that were placed on hold secondary to recent fem-pop and right great toe amputation in August. Psychiatry following and has made adjustments to antidepressants and started on Cymbalta was Zoloft discontinued. Patient is afebrile. Case management and social work following and awaiting accepting facility and insurance authorization. Will repeat a.m. labs and continue to monitor closely. PT/OT following. Objective - Vital Signs Vital signs: Vital Signs Temp 97.8 F 11/11/20 04:57 Pulse 66 11/11/20 08:38 Resp 16 11/11/20 04:57 BP 173/70 11/11/20 08:38 Pulse Ox 98 11/11/20 08:38 Intake & Output 11/10/20 11/11/20 11/11/20 18:59 06:59 18:59 Output Total 1200 Balance -1200 Output: Urine 1200 Other: Voiding Method Toilet Urinal - Labs CBC & Chem 7: 11/10/20 05:47 11/10/20 05:47 Labs: Abnormal Lab Results - Last 24 Hours (Table) 11/10/20 11/10/20 11/10/20 Range/Units 05:47 11:56 17:00 BUN/Creatinine Ratio 22.50 H (12.00-20.00) Ratio POC Glucose (mg/dL) 154 H 119 H (75-99) mg/dL Calcium 8.6 L (8.7-10.3) mg/dL Iron 18 L (65-175) ug/dL % Saturation 6.57 L (15.00-50.00) 11/10/20 11/11/20 Range/Units 21:42 07:15 BUN/Creatinine Ratio (12.00-20.00) Ratio POC Glucose (mg/dL) 133 H 170 H (75-99) mg/dL Calcium (8.7-10.3) mg/dL Iron (65-175) ug/dL % Saturation (15.00-50.00)
[2020-11-11 17:07] LABS: Glucose,Whole Blood 113 mg/dL (75-99)
[2020-11-11] MEDS: ATORVASTATIN 80 MG TAB PO SCH (20:46)
[2020-11-11] MEDS: MIRTAZAPINE 15 MG TAB PO SCH (20:47)
[2020-11-11 20:50] LABS: Glucose,Whole Blood 235 mg/dL (75-99)
[2020-11-11 21:49] LABS: Glucose,Whole Blood 295 mg/dL (75-99)
[2020-11-12] MEDS: HYDROcodone/APAP 7.5-325MG 1 EACH TAB PO PRN ×5 (03:36→21:00)
[2020-11-12 07:35] LABS: Glucose,Whole Blood 125 mg/dL (75-99)
[2020-11-12] MEDS: CHOLECALCIFEROL 25 MCG (1000 IU) TABLET PO SCH (09:08)
[2020-11-12] MEDS: MAGNESIUM OXIDE 400 MG TAB PO SCH ×2 (09:08→20:37)
[2020-11-12] MEDS: METOPROLOL TARTRATE 25 MG TAB PO SCH (09:10)
[2020-11-12] MEDS: DULoxetine HCL 30 MG CAPSULE.DR PO SCH (09:10)
[2020-11-12] MEDS: PANTOPRAZOLE 40 MG TABLET PO SCH (09:12)
[2020-11-12] MEDS: INSULIN DETEMIR (LEVEMIR) 100 UNIT/ML SYR SQ SCH (09:12)
[2020-11-12] MEDS: GABAPENTIN 300 MG CAP PO SCH ×2 (09:12→20:38)
[2020-11-12] MEDS: ENOXAPARIN 40 MG/0.4 ML SYRINGE SQ SCH (09:12)
[2020-11-12] MEDS: CLOPIDOGREL 75 MG TAB PO SCH (09:12)
[2020-11-12] MEDS: MIDODRINE 5 MG TAB PO SCH (09:13)
[2020-11-12] MEDS: INSULIN ASPART (NovoLOG) 100 UNIT/ML VIAL SQ SCH ×4 (09:14→20:58)
[2020-11-12] MEDS: NON FORMULARY DRUG (Empagliflozin [Jardiance] 10 MG Tablet) PO SCH (10:59)
[2020-11-12 11:49] LABS: Glucose,Whole Blood 191 mg/dL (75-99)
--- NOTE | 2020-11-12 13:07 | P.PN ---
Subjective Patient is 80-year-old male with multiple medical problems came in because he is unable to take care of himself patient later patient is by himself patient is quite a bit depressed was recently started on antidepressant were 3-4 days ago and still comparing of depression. Patient has progressive disease patient had a history of femoropopliteal bypass for which patient will follow up with vascular surgery usually does have above multiple wounds patient and is as an ulcer on the right byrd area patient has a stage I not decrease ulcer as well. does have some leukocytosis without any evidence of infection at this time patient is mildly hyponatremic for which patient is receiving IV fluids at this time. Patient does have history of diabetes with us with diabetic peripheral neuropathy. 11/09/2020 Patient is seen in follow-up this morning awaiting psychiatry evaluation as patient is depressed and denies any suicidal ideation at this time. Patient was recently started on Zoloft and states he feels slightly better although continu es to be overwhelmed and stressed at home and unable to manage himself and all his medical needs. Patient missed an appointment with Dr. Craig vascular surgery for recent fem-pop and right great toe amputation and Dr. Craig was consulted and wound appears to be nonhealing and not where she would like it and is ordering wound VAC. Dr. Henry also consulted as patient follows with them as he was actively receiving treatments although has been on hold because of this recent surgery and being in and out of the longterm. Patient is continued on IV fluids and creatinine is 1.0. Sodium is 136. White blood count slightly elevated at 12.0 and hemoglobin is stable at 10.9. 11/10/2020 Patient is seen in follow-up and currently has a wound VAC applied with vascular surgery, oncology, psychiatry following. White blood count within normal limits at 8.4, hemoglobin is 11.4, sodium is 137 with a potassium of 4.1, current creatinine is 0.8. Blood sugars being monitored closely. Magnesium is 1.7 and further iron studies along with vitamin B12 are in the process. TSH is 0.72 and within normal limits. Patient continues to have right lower extremity discomfort along with generalized weakness and social work following and awaiting on [facility] to accept the patient and will require insurance authorization. Wound care has been consulted. 11/11/2020 Patient is seen in follow-up continues with wound VAC of the right great toe status post amputation in August of this year and slow to heal with vascular surgery following. 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 Patient has been having difficulty performing ADLs and lives alone and also very weak since his surgery and now has wound VAC to the right foot and is nonweightbearing of that extremity. Social work following and working on placement at [facility] for wound care and continued PT/OT therapy. Awaiting accepting facility and authorization. Patient denies any chest pain, shortness of breath, or palpitations. Patient is tolerating diet with no reports of nausea or vomiting noted. PT/OT following. 11/12/2020 An overnight events patient is clinically doing well, awaiting authorization from insurance to go to subacute rehab on Saturday. Patient has mild bradycardia cutting down the dose of metoprolol. Review of systems: Constitutional: reports of fatigue, no reports of fever, or chills Cardiovascular: No reports of chest pain or palpitations Respiratory: No reports of shortness of breath or cough GI: No reports of nausea, vomiting, or diarrhea : No reports of dysuria or retention Neurovascular: Reports generalized weakness and difficulty ambulating and unable to walk currently with a wound VAC to his right great toe area All medications have been reviewed PHYSICAL EXAMINATION: GENERAL: The patient is alert and oriented x3, not in any acute distress. Depressed and anxious. Well developed, well nourished. HEENT: Pupils are round and equally reacting to light. EOMI. No scleral icterus. No conjunctival pallor. Normocephalic, atraumatic. No pharyngeal erythema. No thyromegaly. CARDIOVASCULAR: S1 and S2 present. No murmurs, rubs, or gallops. PULMONARY: Chest is clear to auscultation, no wheezing or crackles. ABDOMEN: Soft, nontender, nondistended, normoactive bowel sounds. No palpable organomegaly. MUSCULOSKELETAL: No joint swelling or deformity. EXTREMITIES: No cyanosis, clubbing, or pedal edema. NEUROLOGICAL: Gross neurological examination did not reveal any focal deficits. Psychiatric: Depressed, Denies any suicidal thoughts or wanting to harm himself or others SKIN: No rashes. Right great toe amputation appears somewhat nonhealing currently has a wound VAC applied Assessment and plan -Generalized deconditioning, patient is unable to take care of himself at home. PT/OT following along with social work and awaiting acceptance to an ECF and authorization -age-related muscle atrophy and generalized weakness -Severe peripheral vascular disease with the wound in the right leg and the patient had an amputation of the right great toe. Wound care consulted along with vascular surgery Dr. Craig and having wound VAC placed -Major depression patient was recently started on Zoloft initially at [facility] and instructed to follow-up outpatient and was evaluated by psychiatry here and started on Cymbalta and Zoloft was discontinued -Mild hypovolemic hyponatremia, improved current sodium is 137 -Mild hyperkalemia, improved currently 4.1 -Type 2 diabetes mellitus uncontrolled with hyperglycemia, will continue current home medications along with sliding scale -Diabetic peripheral neuropathy -History of colon cancer with metastasis to the lung and liver, was receiving chemotherapy prior to right great toe amputation in August of this year -Hyperlipidemia -Peripheral vascular disease -DVT prophylaxis: Lovenox Plan: Patient is continuing with local wound care and wound care consulted along with vascular surgery Dr. Craig and patient has a wound VAC placed which is making it more difficult to ambulate and may require ECF placement as he is unable to take care if himself at home and lives alone and unable to perform ADLs. Oncology also following and has ordered CT abdomen and pelvis to further assess for clearance of cancer , which is still showing multiple hepatic lesions, as he was actively receiving treatments that were placed on hold secondary to recent fem-p op and right great toe amputation in August. Objective - Vital Signs Vital signs: Vital Signs Temp 98 F 11/12/20 05:15 Pulse 53 L 11/12/20 08:00 Resp 20 11/12/20 08:00 BP 146/77 11/12/20 05:15 Pulse Ox 97 11/12/20 05:15 Intake & Output 11/11/20 11/12/20 11/12/20 18:59 06:59 18:59 Intake Total 1800 Output Total 400 200 Balance -400 1800 -200 Intake: Oral 1800 Output: Urine 400 200 Other: Voiding Method Toilet Toilet Toilet Urinal Urinal Urinal # Voids 1 # Bowel Movements 1 - Labs CBC & Chem 7: 11/10/20 05:47 11/10/20 05:47 Labs: Abnormal Lab Results - Last 24 Hours (Table) 11/11/20 11/11/20 11/11/20 Range/Units 17:05 20:38 21:47 POC Glucose (mg/dL) 113 H 235 H 295 H (75-99) mg/dL 11/12/20 11/12/20 Range/Units 07:34 11:38 POC Glucose (mg/dL) 125 H 191 H (75-99) mg/dL
[2020-11-12 17:33] LABS: Glucose,Whole Blood 187 mg/dL (75-99)
[2020-11-12 18:06] LABS: Methylmalonic Acid 0.29 umol/L (<0.40)
[2020-11-12] MEDS: METOPROLOL TARTRATE 50 MG TAB PO SCH (20:37)
[2020-11-12] MEDS: MIRTAZAPINE 15 MG TAB PO SCH (20:37)
[2020-11-12] MEDS: ATORVASTATIN 80 MG TAB PO SCH (20:38)
[2020-11-12 20:54] LABS: Glucose,Whole Blood 208 mg/dL (75-99)
[2020-11-13] MEDS: HYDROcodone/APAP 7.5-325MG 1 EACH TAB PO PRN ×4 (01:40→23:33)
[2020-11-13 07:35] LABS: Glucose,Whole Blood 161 mg/dL (75-99)
[2020-11-13 08:48] LABS: Basophils # (A) 0.1 k/uL (0-0.2); Basophils % (A) 1 %; Eosinophils # (A) 0.3 k/uL (0-0.7); Eosinophils % (A) 3 %; HCT 38.8 % (39.0-53.0); HGB 11.9 gm/dL (13.0-17.5); Hypochromasia Slight; Lymphocytes # (A) 1.8 k/uL (1.0-4.8); Lymphocytes % (A) 17 %; MCH 28.6 pg (25.0-35.0); MCHC 30.6 g/dL (31.0-37.0); MCV 93.5 fL (80.0-100.0); Mean Platelet Volume 7.5; Monocytes # (A) 0.6 k/uL (0-1.0); Monocytes % (A) 5 %; Neutrophils # (A) 7.6 k/uL (1.3-7.7); Neutrophils % (A) 72 %; Platelet Count 320 k/uL (150-450); RBC 4.15 m/uL (4.30-5.90); RDW 14.9 % (11.5-15.5); WBC 10.5 k/uL (3.8-10.6)
[2020-11-13] MEDS: CHOLECALCIFEROL 25 MCG (1000 IU) TABLET PO SCH (09:35)
[2020-11-13] MEDS: PANTOPRAZOLE 40 MG TABLET PO SCH (09:35)
[2020-11-13] MEDS: MAGNESIUM OXIDE 400 MG TAB PO SCH ×2 (09:35→21:11)
[2020-11-13] MEDS: GABAPENTIN 300 MG CAP PO SCH ×2 (09:35→21:12)
[2020-11-13] MEDS: METOPROLOL TARTRATE 50 MG TAB PO SCH ×2 (09:35→21:11)
[2020-11-13] MEDS: ENOXAPARIN 40 MG/0.4 ML SYRINGE SQ SCH (09:35)
[2020-11-13] MEDS: INSULIN DETEMIR (LEVEMIR) 100 UNIT/ML SYR SQ SCH (09:35)
[2020-11-13] MEDS: CLOPIDOGREL 75 MG TAB PO SCH (09:35)
[2020-11-13] MEDS: INSULIN ASPART (NovoLOG) 100 UNIT/ML VIAL SQ SCH ×4 (09:35→21:15)
[2020-11-13] MEDS: DULoxetine HCL 30 MG CAPSULE.DR PO SCH (09:35)
[2020-11-13] MEDS: MIDODRINE 5 MG TAB PO SCH (09:36)
[2020-11-13] MEDS: NON FORMULARY DRUG (Empagliflozin [Jardiance] 10 MG Tablet) PO SCH (09:36)
--- NOTE | 2020-11-13 11:38 | P.PN ---
Subjective Patient is 80-year-old male with multiple medical problems came in because he is unable to take care of himself patient later patient is by himself patient is quite a bit depressed was recently started on antidepressant were 3-4 days ago and still comparing of depression. Patient has progressive disease patient had a history of femoropopliteal bypass for which patient will follow up with vascular surgery usually does have above multiple wounds patient and is as an ulcer on the right byrd area patient has a stage I not decrease ulcer as well. does have some leukocytosis without any evidence of infection at this time patient is mildly hyponatremic for which patient is receiving IV fluids at this time. Patient does have history of diabetes with us with diabetic peripheral neuropathy. 11/09/2020 Patient is seen in follow-up this morning awaiting psychiatry evaluation as patient is depressed and denies any suicidal ideation at this time. Patient was recently started on Zoloft and states he feels slightly better although continu es to be overwhelmed and stressed at home and unable to manage himself and all his medical needs. Patient missed an appointment with Dr. Craig vascular surgery for recent fem-pop and right great toe amputation and Dr. Craig was consulted and wound appears to be nonhealing and not where she would like it and is ordering wound VAC. Dr. Henry also consulted as patient follows with them as he was actively receiving treatments although has been on hold because of this recent surgery and being in and out of the alf. Patient is continued on IV fluids and creatinine is 1.0. Sodium is 136. White blood count slightly elevated at 12.0 and hemoglobin is stable at 10.9. 11/10/2020 Patient is seen in follow-up and currently has a wound VAC applied with vascular surgery, oncology, psychiatry following. White blood count within normal limits at 8.4, hemoglobin is 11.4, sodium is 137 with a potassium of 4.1, current creatinine is 0.8. Blood sugars being monitored closely. Magnesium is 1.7 and further iron studies along with vitamin B12 are in the process. TSH is 0.72 and within normal limits. Patient continues to have right lower extremity discomfort along with generalized weakness and social work following and awaiting on [place] to accept the patient and will require insurance authorization. Wound care has been consulted. 11/11/2020 Patient is seen in follow-up continues with wound VAC of the right great toe status post amputation in August of this year and slow to heal with vascular surgery following. 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 Patient has been having difficulty performing ADLs and lives alone and also very weak since his surgery and now has wound VAC to the right foot and is nonweightbearing of that extremity. Social work following and working on placement at [facility] for wound care and continued PT/OT therapy. Awaiting accepting facility and authorization. Patient denies any chest pain, shortness of breath, or palpitations. Patient is tolerating diet with no reports of nausea or vomiting noted. PT/OT following. 11/12/2020 An overnight events patient is clinically doing well, awaiting authorization from insurance to go to subacute rehab on Saturday. Patient has mild bradycardia cutting down the dose of metoprolol. 11/13/2020 Patient is overall clinically doing well awaiting disposition to subacute rehabilitation Review of systems: Constitutional: reports of fatigue, no reports of fever, or chills Cardiovascular: No reports of chest pain or palpitations Respiratory: No reports of shortness of breath or cough GI: No reports of nausea, vomiting, or diarrhea : No reports of dysuria or retention Neurovascular: Reports generalized weakness and difficulty ambulating and unable to walk currently with a wound VAC to his right great toe area All medications have been reviewed PHYSICAL EXAMINATION: GENERAL: The patient is alert and oriented x3, not in any acute distress. Depressed and anxious. Well developed, well nourished. HEENT: Pupils are round and equally reacting to light. EOMI. No scleral icterus. No conjunctival pallor. Normocephalic, atraumatic. No pharyngeal erythema. No thyromegaly. CARDIOVASCULAR: S1 and S2 present. No murmurs, rubs, or gallops. PULMONARY: Chest is clear to auscultation, no wheezing or crackles. ABDOMEN: Soft, nontender, nondistended, normoactive bowel sounds. No palpable organomegaly. MUSCULOSKELETAL: No joint swelling or deformity. EXTREMITIES: No cyanosis, clubbing, or pedal edema. NEUROLOGICAL: Gross neurological examination did not reveal any focal deficits. Psychiatric: Depressed, Denies any suicidal thoughts or wanting to harm himself or others SKIN: No rashes. Right great toe amputation appears somewhat nonhealing currently has a wound VAC applied Assessment and plan -Generalized deconditioning, patient is unable to take care of himself at home. PT/OT following along with social work and awaiting acceptance to an ECF and authorization -age-related muscle atrophy and generalized weakness -Severe peripheral vascular disease with the wound in the right leg and the patient had an amputation of the right great toe. Wound care consulted along with vascular surgery Dr. Craig and having wound VAC placed -Major depression patient was recently started on Zoloft initially at [facility] and instructed to follow-up outpatient and was evaluated by psychiatry here and started on Cymbalta and Zoloft was discontinued -Mild hypovolemic hyponatremia, improved current sodium is 137 -Mild hyperkalemia, improved currently 4.1 -Type 2 diabetes mellitus uncontrolled with hyperglycemia, will continue current home medications along with sliding scale -Diabetic peripheral neuropathy -History of colon cancer with metastasis to the lung and liver, was receiving ch emotherapy prior to right great toe amputation in August of this year -Hyperlipidemia -Peripheral vascular disease -DVT prophylaxis: Lovenox Plan: Patient is continuing with local wound care and wound care consulted along with vascular surgery Dr. Craig and patient has a wound VAC placed which is making it more difficult to ambulate and may require ECF placement as he is unable to take care if himself at home and lives alone and unable to perform ADLs. Oncology also following and has ordered CT abdomen and pelvis to further assess for clearance of cancer , which is still showing multiple hepatic lesions, as he was actively receiving treatments that were placed on hold secondary to recent fem- pop and right great toe amputation in August. Objective - Vital Signs Vital signs: Vital Signs Temp 98.2 F 11/13/20 05:00 Pulse 77 11/13/20 08:00 Resp 20 11/13/20 08:00 BP 130/62 11/13/20 05:00 Pulse Ox 96 11/13/20 05:00 Intake & Output 11/12/20 11/13/20 11/13/20 18:59 06:59 18:59 Intake Total 1100 100 Output Total 200 200 Balance 900 -100 Intake: Oral 1100 100 Output: Urine 200 200 Other: Voiding Method Toilet Toilet Toilet Urinal Urinal Urinal # Voids 3 1 # Bowel Movements 1 - Labs CBC & Chem 7: 11/13/20 07:51 11/10/20 05:47 Labs: Abnormal Lab Results - Last 24 Hours (Table) 11/12/20 11/12/20 11/12/20 Range/Units 11:38 17:30 20:49 RBC (4.30-5.90) m/uL Hgb (13.0-17.5) gm/dL Hct (39.0-53.0) % MCHC (31.0-37.0) g/dL POC Glucose (mg/dL) 191 H 187 H 208 H (75-99) mg/dL 11/13/20 11/13/20 Range/Units 07:34 07:51 RBC 4.15 L (4.30-5.90) m/uL Hgb 11.9 L (13.0-17.5) gm/dL Hct 38.8 L (39.0-53.0) % MCHC 30.6 L (31.0-37.0) g/dL POC Glucose (mg/dL) 161 H (75-99) mg/dL
[2020-11-13 12:24] LABS: Glucose,Whole Blood 176 mg/dL (75-99)
[2020-11-13 12:41] LABS: African American GFR (CKD) 97.8 (60.0-200.0); Albumin 3.8 g/dL (3.80-4.90); Albumin/Globulin Ratio 1.46 (1.60-3.17); Anion Gap 7.5 mmol/L (4.00-12.00); BUN/Creat Ratio 18.75 Ratio (12.00-20.00); Calcium 8.7 mg/dL (8.7-10.3); Carbon Dioxide 26.5 mmol/L (21.6-31.8); Globulin 2.6 g/dL (1.6-3.3); Non-African American GFR(CKD) 84.4 (60.0-200.0); Potassium 4.6 mmol/L (3.5-5.5); Total Bilirubin 0.2 mg/dL (0.2-1.2); Total Protein 6.4 g/dL (6.2-8.2)
[2020-11-13 16:57] LABS: Glucose,Whole Blood 185 mg/dL (75-99)
[2020-11-13 20:45] LABS: Glucose,Whole Blood 214 mg/dL (75-99)
[2020-11-13] MEDS: ATORVASTATIN 80 MG TAB PO SCH (21:11)
[2020-11-13] MEDS: MIRTAZAPINE 15 MG TAB PO SCH (21:11)
[2020-11-14 05:06] VITALS: RESP 16
[2020-11-14 07:23] LABS: Glucose,Whole Blood 125 mg/dL (75-99)
[2020-11-14] MEDS: DULoxetine HCL 30 MG CAPSULE.DR PO SCH (08:52)
[2020-11-14] MEDS: CLOPIDOGREL 75 MG TAB PO SCH (08:52)
[2020-11-14] MEDS: HYDROcodone/APAP 7.5-325MG 1 EACH TAB PO PRN ×2 (08:52→14:19)
[2020-11-14] MEDS: GABAPENTIN 300 MG CAP PO SCH (08:53)
[2020-11-14] MEDS: PANTOPRAZOLE 40 MG TABLET PO SCH (08:53)
[2020-11-14] MEDS: ENOXAPARIN 40 MG/0.4 ML SYRINGE SQ SCH (08:53)
[2020-11-14] MEDS: INSULIN DETEMIR (LEVEMIR) 100 UNIT/ML SYR SQ SCH (08:53)
[2020-11-14] MEDS: MAGNESIUM OXIDE 400 MG TAB PO SCH (08:53)
[2020-11-14] MEDS: MIDODRINE 5 MG TAB PO SCH (08:53)
[2020-11-14] MEDS: METOPROLOL TARTRATE 50 MG TAB PO SCH (08:53)
[2020-11-14] MEDS: CHOLECALCIFEROL 25 MCG (1000 IU) TABLET PO SCH (08:53)
[2020-11-14] MEDS: INSULIN ASPART (NovoLOG) 100 UNIT/ML VIAL SQ SCH ×2 (08:54→12:47)
[2020-11-14] MEDS: NON FORMULARY DRUG (Empagliflozin [Jardiance] 10 MG Tablet) PO SCH (08:59)
--- NOTE | 2020-11-14 11:36 | P.PN ---
Progress Note - Text Progress Note Date: 11/14/20 Upon discharge patient will be going to [facility] on the [address] for continued PT/OT therapy along with wound care and will need outpatient follow-up with vascular surgery and oncology once discharged from [facility]. Patient was receiving chemotherapy prior to right great toe amputation with Dr. Henry which has been on hold since August and will continue to be on hold until patient is discharged from rehab facility. Patient is fully aware and agreeable to this.
[2020-11-14 12:03] LABS: Glucose,Whole Blood 215 mg/dL (75-99)
[2020-11-14 12:28] VITALS: BP 150/71; PULSE 62; TEMP 97.6
--- NOTE | 2020-11-14 13:21 | P.DS ---
Providers Date of admission: 11/08/20 15:22 Expected date of discharge: 11/14/20 Attending physician: Griselda Lopez Consults: 11/08/20 15:22 Consult Physician Urgent Consulting Provider: Jose Alfredo Pickett Consult Reason/Comments: Depression Do you want consulting provider notified?: Already Contacted 11/09/20 16:37 Consult Physician Routine Consulting Provider: Calos Henry Consult Reason/Comments: malignancy Do you want consulting provider notified?: Yes Primary care physician: [facility] Hospital Course: Final diagnosis -Generalized deconditioning, patient is unable to take care of himself at home -age-related muscle atrophy and generalized weakness -Severe peripheral vascular disease with the wound in the right leg and the patient had an amputation of the right great toe. -Major depression -Mild hypovolemic hyponatremia, improved -Mild hyperkalemia, improved -Type 2 diabetes mellitus uncontrolled with hyperglycemia -Diabetic peripheral neuropathy -History of colon cancer with metastasis to the lung and liver -Hyperlipidemia -Peripheral vascular disease -DVT prophylaxis Discharge disposition Patient is being discharged in a stable condition with guarded prognosis to [facility] for continued PT/OT therapy. Patient will follow-up with Dr. Toney in the outpatient setting upon discharge. Patient is to continue with local wound care along with wound VAC. Total time taken is greater than 35 minutes. Hospital course Patient is 80-year-old male with multiple medical problems came in because he is unable to take care of himself patient later patient is by himself patient is quite a bit depressed was recently started on antidepressant were 3-4 days ago and still comparing of depression. Patient has progressive disease patient had a history of femoropopliteal bypass for which patient will follow up with vascular surgery usually does have above multiple wounds patient and is as an ulcer on the right byrd area patient has a stage I not decrease ulcer as well. does have some leukocytosis without any evidence of infection at this time patient is mildly hyponatremic for which patient is receiving IV fluids at this time. Patient does have history of diabetes with us with diabetic peripheral neuropathy. 11/09/2020 Patient is seen in follow-up this morning awaiting psychiatry evaluation as patient is depressed and denies any suicidal ideation at this time. Patient was recently started on Zoloft and states he feels slightly better although continues to be overwhelmed and stressed at home and unable to manage himself and all his medical needs. Patient missed an appointment with Dr. Craig vascular surgery for recent fem-pop and right great toe amputation and Dr. Craig was consulted and wound appears to be nonhealing and not where she would like it and is ordering wound VAC. Dr. Henry also consulted as patient follows with them as he was actively receiving treatments although has been on hold because of this recent surgery and [facility]. Patient is continued on IV fluids and creatinine is 1.0. Sodium is 136. White blood count slightly elevated at 12.0 and hemoglobin is stable at 10.9. 11/10/2020 Patient is seen in follow-up and currently has a wound VAC applied with vascular surgery, oncology, psychiatry following. White blood count within normal limits at 8.4, hemoglobin is 11.4, sodium is 137 with a potassium of 4.1, current creatinine is 0.8. Blood sugars being monitored closely. Magnesium is 1.7 and further iron studies along with vitamin B12 are in the process. TSH is 0.72 and within normal limits. Patient continues to have right lower extremity discomfort along with generalized weakness and social work following and awaiting on [place] to accept the patient and will require insurance authorization. Wound care has been consulted. 11/11/2020 Patient is seen in follow-up continues with wound VAC of the right great toe status post amputation in August of this year and slow to heal with vascular surgery following. 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 Patient has been having difficulty performing ADLs and lives alone and also very weak since his surgery and now has wound VAC to the right foot and is nonweightbearing of that extremity. Social work following and working on placement at [facility] for wound care and continued PT/OT therapy. Awaiting accepting facility and authorization. Patient denies any chest pain, shortness of breath, or palpitations. Patient is tolerating diet with no reports of nausea or vomiting noted. PT/OT following. 11/12/2020 An overnight events patient is clinically doing well, awaiting authorization from insurance to go to subacute rehab on Saturday. Patient has mild bradycardia cutting down the dose of metoprolol. 11/13/2020 Patient is overall clinically doing well awaiting disposition to subacute rehabilitation 11/14/2020 Patient is seen in follow-up this morning no acute overnight issues continues to be weak. Patient continues with wound VAC and will continue in the outpatient setting. Will need to follow-up with Dr. Craig vascular surgery outpatient in 2 weeks. Patient is aware and agreeable that oncology treatment are on hold during ECF placement and will follow-up with Dr. henry outpatient once discharged from [facility]. GENERAL: The patient is alert and oriented x3, not in any acute distress. Depressed and anxious. Well developed, well nourished. HEENT: Pupils are round and equally reacting to light. EOMI. No scleral icterus. No conjunctival pallor. Normocephalic, atraumatic. No pharyngeal erythema. No thyromegaly. CARDIOVASCULAR: S1 and S2 present. No murmurs, rubs, or gallops. PULMONARY: Chest is clear to auscultation, no wheezing or crackles. ABDOMEN: Soft, nontender, nondistended, normoactive bowel sounds. No palpable organomegaly. MUSCULOSKELETAL: No joint swelling or deformity. EXTREMITIES: No cyanosis, clubbing, or pedal edema. NEUROLOGICAL: Gross neurological examination did not reveal any focal deficits. Psychiatric: Depressed, Denies any suicidal thoughts or wanting to harm himself or others SKIN: No rashes. Right great toe amputation appears somewhat nonhealing currently has a wound VAC applied On exam vital signs are stable. Cardio S1, S2 are muffled. Respiratory system shows diminished breath sounds at the bases with no wheezing or rhonchi noted. Abdomen is soft and obese, and nontender. Nervous system shows diffuse weakness. Please refer to medication reconciliation sheet for a list of medications. Patient Condition at Discharge: Stable Plan - Discharge Summary New Discharge Prescriptions: New Enoxaparin [Lovenox] 40 mg SQ DAILY 7 Days #7 syringe DULoxetine HCL [Cymbalta] 30 mg PO DAILY capsule. Metoprolol Tartrate [Lopressor] 50 mg PO BID tab HYDROcodone/APAP 7.5-325MG [[place] 7.5-325] 1 each PO Q4H PRN #6 tab PRN Reason: Pain INSULIN ASPART (NovoLOG) [NovoLOG (formulary)] 0 unit SQ ACHS vial Mirtazapine [Remeron] 15 mg PO HS tab Cholecalciferol [Vitamin D3 (25 Mcg = 1000 Iu)] 100 mcg PO DAILY tablet Continue Magnesium Oxide [Mag-Ox] 250 mg PO BID Insulin Glargine [Lantus] 25 unit SQ DAILY Atorvastatin [Lipitor] 80 mg PO HS Empagliflozin [Jardiance] 10 mg PO DAILY Omeprazole 40 mg PO DAILY Midodrine HCl 5 mg PO DAILY Zinc Oxide 16% Paste 1 applic TOPICAL DAILY PRN PRN Reason: RASH, BUTT Clopidogrel [Plavix] 75 mg PO DAILY #90 tab Multivitamins, Thera [Multivitamin (formulary)] 1 tab PO DAILY Changed Gabapentin [Neurontin] 300 mg PO BID #10 cap Discontinued Sertraline HCl [Zoloft] 25 mg PO DAILY HYDROcodone/APAP 5-325MG [[place] 5-325] 1 tab PO HS PRN PRN Reason: Pain Metoprolol Tartrate [Lopressor] 75 mg PO BID Insulin Aspart [NovoLOG Flexpen] See Protocol SQ AC-TID PRN PRN Reason: HIGH BLOOD SUGAR Discharge Medication List Atorvastatin [Lipitor] 80 mg PO HS 05/18/20 [History] Insulin Glargine [Lantus] 25 unit SQ DAILY 05/18/20 [History] Magnesium Oxide [Mag-Ox] 250 mg PO BID 05/18/20 [History] Empagliflozin [Jardiance] 10 mg PO DAILY 05/20/20 [History] Omeprazole 40 mg PO DAILY 08/27/20 [History] Clopidogrel [Plavix] 75 mg PO DAILY #90 tab 09/12/20 [Rx] Midodrine HCl 5 mg PO DAILY 10/17/20 [History] Multivitamins, Thera [Multivitamin (formulary)] 1 tab PO DAILY 11/08/20 [History] Zinc Oxide 16% Paste 1 applic TOPICAL DAILY PRN 11/08/20 [History] Cholecalciferol [Vitamin D3 (25 Mcg = 1000 Iu)] 100 mcg PO DAILY tablet 11/14/20 [Rx] DULoxetine HCL [Cymbalta] 30 mg PO DAILY capsule. 11/14/20 [Rx] Enoxaparin [Lovenox] 40 mg SQ DAILY 7 Days #7 syringe 11/14/20 [Rx] Gabapentin [Neurontin] 300 mg PO BID #10 cap 11/14/20 [Rx] HYDROcodone/APAP 7.5-325MG [[place] 7.5-325] 1 each PO Q4H PRN #6 tab 11/14/20 [Rx] INSULIN ASPART (NovoLOG) [NovoLOG (formulary)] 0 unit SQ ACHS vial 11/14/20 [Rx] Metoprolol Tartrate [Lopressor] 50 mg PO BID tab 11/14/20 [Rx] Mirtazapine [Remeron] 15 mg PO HS tab 11/14/20 [Rx] Follow up Appointment(s)/Referral(s): Stephani Craig DO [STAFF PHYSICIAN] - 1 Week [facility]Clinic [Primary Care Provider] - 1-2 days Activity/Diet/Wound Care/Special Instructions: Patient is going to [facility] on [address] [facility] as tolerated Follow-up with vascular surgery outpatient Follow-up with oncology once discharged from [facility] Follow-up with primary care provider upon discharge Continue with sliding scale along with long-acting and continue Accu-Cheks before meals and at bedtime NovoLog sliding scale 0-150 equals 0 units 151-200 equals 2 units 201-250 equals 4 units 251-300 equals 6 units 301-350 equals 8 units 351-400 equals 10 units Please notify provider if blood sugar is 400 or above Continue with heart healthy diabetic diet Continue with Glucerna oral supplements 3 times a day with meals continue with wound VAC 125 mmHg slow to the right great toe area using granny foam black Continue with barrier cream and frequent position changes to the sacral area and may use OptiForm for cushion to the area Discharge Disposition: TRANSFER TO SNF/ECF
--- NOTE | 2020-11-15 13:51 | CDI ---
Documentation Clarification Form Date: 11/15/2020 01:40:03 PM From: Jarett Santos Admit Date: 11/08/2020 03:22:00 PM Patient Name: Mario Lopez Visit Number: [id number] Discharge Date: 11/14/2020 05:45:00 PM ATTENTION: The Clinical Documentation Specialists (CDI) and [facility] Coding Staff appreciate your assistance in clarifying documentation. Please respond to the clarification below the line at the bottom and electronically sign. The CDI & [facility] Coding staff will review the response and follow-up if needed. Please note: Queries are made part of the Legal Health Record. If you have any questions, please contact the author of this message via ITS. Dr. Griselda Lopez The patients principal diagnosis the diagnosis that was chiefly responsible for the admission - has not been clearly identified and clarification is requested. The patient presented with depression and general deconditioning. Unable to care for himself at home. General deconditioning must be tied in to a medical diagnosis to be coded as principle diagnosis. Final diagnosis in discharge summary is general deconditioning. History/Risk factors: DM with PVD and R big toe amputation, depression, metastatic cancer to liver and lung. 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 Clinical Indicators: Lab findings: hyponatremia Radiology findings: Metastatic cancer Vital Signs: Treatment: Consults: In your professional opinion, can you please clarify which diagnosis, after study, was the reason chiefly responsible for the admission? [ x ] diabetic polyneuropathy [ ] age related muscle atophy [ ] Diabetic PVD with R great toe amputation [ ] Other, please specify [ ] Unable to determine : May 2020) MTDD
== END 2020-11-14 17:45 | DRG 74 ==
LOC: EC 09:33 → 5NMEDONC 15:22
PROVIDERS: ADMIT Internal Medicine; ATTEND Internal Medicine
DX: E11.42 Type 2 diabetes mellitus with diabetic polyneuropathy (principal); C78.7 Secondary malignant neoplasm of liver and intrahepatic bile duct; C78.00 Secondary malignant neoplasm of unspecified lung; E87.1 Hypo-osmolality and hyponatremia; C18.9 Malignant neoplasm of colon, unspecified; F32.9 Major depressive disorder, single episode, unspecified; Z89.411 Acquired absence of right great toe; E11.65 Type 2 diabetes mellitus with hyperglycemia; E11.51 Type 2 diabetes mellitus with diabetic peripheral angiopathy without gangrene; Z79.4 Long term (current) use of insulin; Z79.82 Long term (current) use of aspirin; Z79.02 Long term (current) use of antithrombotics/antiplatelets; E78.5 Hyperlipidemia, unspecified; I10 Essential (primary) hypertension; Z85.038 Personal history of other malignant neoplasm of large intestine; Z87.891 Personal history of nicotine dependence; Z80.42 Family history of malignant neoplasm of prostate; F41.9 Anxiety disorder, unspecified; M62.50 Muscle wasting and atrophy, not elsewhere classified, unspecified site; Z92.21 Personal history of antineoplastic chemotherapy; E87.5 Hyperkalemia; Z96.651 Presence of right artificial knee joint; Z79.899 Other long term (current) drug therapy; E86.1 Hypovolemia; D72.829 Elevated white blood cell count, unspecified; I70.201 Unspecified atherosclerosis of native arteries of extremities, right leg; Z93.3 Colostomy status
CPT/HCPCS: 36415; 71260; 74177; 80048; 80053; 81003; 82378; 82607; 82652; 82728; 83540; 83550; 83735; 83921; 84443; 84484; 85025; 85027; 93005

== ENCOUNTER → 2021-01-06 | Outpatient (CLI) | payer OTHER ==
[2021-01-06 13:25] LABS: African American GFR (CKD) >90 (>60 ml/min/1.73 sqM); Blood Urea Nitrogen 20 mg/dL (9-20); Non-African American GFR(CKD) 84 (>60 ml/min/1.73 sqM)
--- NOTE | 2021-01-09 13:49 | CT ---
EXAMINATION TYPE: CT ChestAbdPelvis w con DATE OF EXAM: 01/06/2021 COMPARISON: 11/10/2020, 05/05/2020, 01/01/2020 HISTORY: 80-year-old male C18.2, Cancer of colon TECHNIQUE: Contiguous axial scanning of the chest, abdomen, and pelvis performed with IV Contrast, pa tient injected with 100 ml mL of Isovue 300. Delayed images through the kidneys were obtained. Moody l/sagittal reconstructions performed. CT DLP: 1337.10 mGycm Automated exposure control for dose reduction was used. FINDINGS: CHEST: The heart is normal size without pericardial effusion. LAD and RCA coronary artery calcifications are present. Ectatic ascending aorta 3.6 cm. 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 Now apparent is a abnormal 2.8 cm soft tissue lesion within the lower right axilla previously resembl ing a 1.1 cm right axillary lymph node. New soft tissue within the left hilum measures 2.5 cm. Otherwise, no thoracic lymphadenopathy by CT s ize criteria. Numerous bilateral pulmonary nodules are redemonstrated. These nodules are enlarging. A few nodules a re new. For example, left upper lobe measures 1.6 cm versus 1.3 cm, previously. Posterior right upper lobe measures 1.8 cm versus 1.5 cm, previously. Posterior right midlung measures 1.3 cm versus 9 mm, previously. No consolidation or pleural effusion. High density focus at the GE junction could represent postsurgical change. ABDOMEN: Multiple hepatic lesions are present, approximately 15-20. These lesions are enlarging. For example: Right hepatic dome measures 2.7 cm versus 1.5 cm, previously. Anterior left liver lobe measures 2.0 cm versus 7 mm, previously. Adjacent to the gallbladder fossa measures 2.1 cm versus 9 mm, previously. Peripheral inferior right liver lobe measures 1.7 cm versus 1.0 cm, previously. Portal venous system is patent. No biliary ductal dilatation. Gallbladder, right adrenal gland, right kidney, spleen, and pancreas within normal limits. Cortical cysts within the left kidney redemonstrated measuring up to 1.8 cm. There is new nodularity of the left adrenal gland measuring up to 1.6 cm. No dilated small bowel, free fluid, or free air. The previous right lower quadrant peritoneal deposit currently measures 2.7 cm versus 2.0 cm, previou sly. Postsurgical change of previous right hemicolectomy with ileocolonic anastomosis. Oral contrast has p rogressed to the rectum. No pericolonic inflammatory change. Moderate vascular calcifications infrarenal abdominal aorta and common iliac arteries. PELVIS: Bladder urine distended. Prostate gland measures 4.9 cm wide. Postsurgical change left inguinal regio n. 7 mm subcutaneous nodule along the lateral left hip region, axial image 100. No abnormal fluid col lection in the pelvis or pelvic lymphadenopathy. BONES: Moderate degenerative changes left greater than right hips. Hypertrophic facet arthropathy mid to low er lumbar spine with grade 1 anterolisthesis L4-L5. [facility] within the lower thoracic spine. IMPRESSION: 1. EVIDENCE OF DISEASE PROGRESSION: 2. NEW AND ENLARGING METASTATIC PULMONARY NODULES MEASURING UP TO 1.8 CM, FOR EXAMPLE, RIGHT MIDLUNG MEASURING 1.3 CM VERSUS 9 MM, PREVIOUSLY. 3. NUMEROUS ENLARGING HEPATIC METASTASES, FOR EXAMPLE RIGHT HEPATIC DOME 2.7 CM VERSUS 1.5 CM, PREVIO USLY. 4. NEWLY APPARENT SOFT TISSUE DEPOSIT IN THE LOWER RIGHT AXILLA MEASURING 2.8 CM. NEW SMALL 7 MM SUBC UTANEOUS SOFT TISSUE DEPOSIT LATERAL LEFT HIP. 5. NEW NODULARITY LEFT ADRENAL GLAND MEASURING 1.6 CM ALSO SUSPICIOUS FOR METASTATIC DISEASE. 8. RIGHT LOWER QUADRANT PERITONEAL DEPOSIT ENLARGING WELL CURRENTLY 2.7 CM VERSUS 2.0 CM, PREVIOUS LY.
== END | disposition home or self-care (01) ==
LOC: RADCTMAIN 12:25
PROVIDERS: ATTEND Internal Medicine Hematology & Oncology
DX: C78.7 Secondary malignant neoplasm of liver and intrahepatic bile duct (principal); C78.01 Secondary malignant neoplasm of right lung; C18.9 Malignant neoplasm of colon, unspecified; E27.8 Other specified disorders of adrenal gland
CPT/HCPCS: 82565; 84520; 71260; 74177; 36415; Q9967